=== PATIENT | female | born 1935 | race Caucasian/White ===

== ENCOUNTER 2017-02-18 03:39 | Inpatient (IN) ==
--- NOTE | 2017-02-18 04:22 | Emergency Department Note ---
Disposition Clinical Impression: Palpitations Atrial fibrillation Qualifiers: Atrial fibrillation type: paroxysmal Qualified Code(s): I48.0 - Paroxysmal atrial fibrillation Disposition: Admitted As Inpatient Condition: Fair Referrals: Carlos Newman MD [Primary Care Provider] - Forms: ED Satisfaction Letter Arrhythmia/Palpitations HPI - General Chief Complaint: ED Arrhythmia/Palpitations Stated Complaint: irregular heartbeat Time Seen by Provider: 02/18/17 04:15 Source: EMS Limitations: no limitations Nursing Notes Reviewed: Yes Vital Signs Reviewed: Yes - History of Present Illness HPI Narrative: 81-year-old female with history of atrial fibrillation since to the emergency department with a complaint that she awoke from sleep at 1 AM with some vague discomfort in her neck and throat and having palpitations. She states she could feel her heart racing and it felt irregular. Some mild shortness of breath. No diaphoresis. She is on Xarelto. Some mild dizziness. No syncope. Pt Subjective Complaint: palpitations, atrial fibrillation Time: 01:30 Duration: constant Severity: moderate Context: occurred during rest Arrhythmia History: atrial fibrillation Associated symptoms: Reports: chest pain, shortness of breath, nausea. Denies: syncope, near-syncope - Related Data Allergies Allergy/AdvReac Type Severity Reaction Status Date / Time prednisone AdvReac Palpitation Verified 02/18/17 03:42 s Zqwgzki-Vgf-Uag Reductase AdvReac Weakness Verified 02/18/17 03:42 Inhibitor [Statins] All systems ED: reviewed and negative except as stated. Constitutional: Denies: fever Cardiovascular: Reports: chest pain, palpitations. Denies: syncope Respiratory: Reports: dyspnea. Denies: cough, wheezes, hemoptysis Gastrointestinal: Reports: nausea. Denies: abdominal pain, vomiting, diarrhea Musculoskeletal: Denies: back pain, neck pain Past Medical History - Past Medical History Medical history: Reports: atrial fibrillation, hyperlipidemia, hypertension Psychiatric history: Reports: no psych history - Social History Smoking Status: Never smoker Smokeless Tobacco Status: No Alcohol use: Reports: none Drug use: Reports: none Physical Exam - General Limitations: no limitations General appearance: alert, in no apparent distress - Head Head exam: atraumatic, normocephalic, normal inspection - Eye Eye exam: Present: normal appearance, PERRL, EOMI. Absent: scleral icterus, conjunctival injection - ENT ENT exam: normal exam, normal oropharynx, mucous membranes moist, TM's normal bilaterally, normal external ear exam - Neck Neck exam: Present: normal inspection, full ROM, trachea midline. Absent: tenderness, meningismus, lymphadenopathy - Chest Chest inspection: Present: normal inspection, symmetric chest wall rise. Absent : tenderness - Respiratory Respiratory exam: Present: normal lung sounds bilaterally. Absent: respiratory distress, wheezes - Cardiovascular Cardiovascular exam: Present: tachycardia, irregular rhythm, normal heart sounds - Abdominal Exam Abdominal exam: Present: soft, Non-Tender, normal bowel sounds - Extremities Exam Extremities exam: Present: normal inspection, full ROM. Absent: tenderness, pedal edema - Back Exam Back exam: Present: normal inspection. Absent: CVA tenderness (R), CVA tenderness (L) - Neurological Exam Neurological exam: Present: alert, oriented X3. Absent: motor sensory deficit - Psychiatric Psychiatric exam: Present: normal affect, normal mood - Skin Skin exam: Present: warm, dry, intact, normal color. Absent: cyanosis, diaphoresis Course Course Narrative: 81-year-old female with history of atrial fib presents to the emergency department with atrial flutter with RVR. Some chest and neck discomfort. Patient received a Cardizem bolus and placed on a Cardizem drip. Troponin came back elevated at 0.07. - Consultations Consultation #1: The hospitalist, Dr. Aguilar, was consulted and accepted admission of the patient. Time: 06:10 Vital Signs Temperature 97.9 F 02/18/17 03:42 Pulse Rate 168 02/18/17 03:42 Respiratory Rate 18 02/18/17 03:42 Blood Pressure 128/111 02/18/17 03:42 O2 Sat by Pulse Oximetry 97 02/18/17 03:42 Temperature 97.9 F 02/18/17 03:42 Pulse Rate 120 02/18/17 05:28 Respiratory Rate 18 02/18/17 05:28 Blood Pressure 136/86 02/18/17 05:28 O2 Sat by Pulse Oximetry 94 02/18/17 05:28 Oxygen Delivery Oxygen Delivery Room Air Arrhythmia/Palpitations - Medical Records Medical records reviewed: Yes I reviewed the patient's medical records. - Lab Data Lab results reviewed: Yes I reviewed the patient's lab results. Result diagrams: 02/18/17 04:28 02/18/17 04:28 Lab Results 07/05/2802/18/17 02/18/17 Range/Units 04:28 04:28 04:28 WBC 5.4 (4.3-11.1) K/mcL RBC 3.16 L (3.82-4.97) M/mcL Hgb 10.2 L (11.5-15.4) g/dL Hct 30.9 L (35.3-44.9) % MCV 97.8 (83.0-100.0) fL MCH 32.3 (28.0-33.3) pg MCHC 33.0 (31.6-35.5) g/dL RDW 15.0 H (11.5-14.5) % Plt Count 217 (140-400) K/mcL MPV 10.5 (9.4-12.4) fL Immature Gran % 0.0 (0-4) % Seg Neutrophils % 34.4 % Lymphocytes % 48.6 % Monocytes % 15.8 % Eosinophils % 0.6 % Basophils % 0.6 % Neutrophils # 1.9 (1.6-8.9) K/mcL Lymphocytes # 2.6 (0.6-4.6) K/mcL Monocytes # 0.9 (0.0-1.3) K/mcL Eosinophils # 0.0 (0.0-0.6) K/mcL Basophils # 0.0 (0.0-0.2) K/mcL Sodium 140 (136-145) mEq/L Potassium 4.7 H (3.5-4.5) mEq/L Chloride 107 (98-109) mEq/L Carbon Dioxide 28 (19-29) mEq/L BUN 45 H (7-20) mg/dL Creatinine 1.06 (0.57-1.11) mg/dL Est GFR ( Amer) > 60 (> 60) Est GFR (Non-Af Amer) 50 L (> 60) BUN/Creatinine Ratio 42 H (6-26) Glucose 93 (70-99) mg/dL Calculated Osmolality 301 H (280-300) Calcium 10.1 (8.6-10.8) mg/dL Troponin I 0.07 H* (0-0.03) ng/mL - Radiology Data Radiology results reviewed: Yes I reviewed the patient's radiology results. Chest X-Ray 02/18/17 04:20 IMPRESSION: Large hiatal hernia. No acute cardiopulmonary disease identified. D/ / Stanislav Bruce MD / Stanislav Bruce MD Interpreting Provider: Stanislav Bruce MD - EKG Data EKG attestation: Yes I reviewed and interpreted this EKG. EKG results narrative: Atrial fibrillation with RVR, heart rate 150. Nonspecific ST and T wave abnormality. Critical Care Time Critical Care Time: Yes Total Critical Care Time: 45 Attestation: Critical care performed: Time is exclusive of separately billable procedures. Time includes: direct patient care, patient reassessment, coordination of patient care, interpretation of data (laboratory data, radiology data, and respiratory data), review of patient's medical records, medical consultation and documentation of patient care. Procedures included in critical care time: Procedures excluded from critical care time:
[2017-02-18 04:34] LABS: Basophils % 0.6 %; Eosinophils % 0.6 %; Hematocrit 30.9 % (35.3-44.9); Hemoglobin 10.2 g/dL (11.5-15.4); Lymphocytes # 2.6 K/mcL (0.6-4.6); Lymphocytes % 48.6 %; Mean Corpuscular Hemoglobin 32.3 pg (28.0-33.3); Mean Corpuscular Volume 97.8 fL (83.0-100.0); Mean Platelet Volume 10.5 fL (9.4-12.4); Monocytes # 0.9 K/mcL (0.0-1.3); Monocytes % 15.8 %; Neutrophils # 1.9 K/mcL (1.6-8.9); Platelet Count 217 K/mcL (140-400); Red Blood Count 3.16 M/mcL (3.82-4.97); Segmented Neutrophils % 34.4 %
[2017-02-18 04:47] LABS: BUN/Creatinine Ratio 42 (6-26); Blood Urea Nitrogen 45 mg/dL (7-20); Calcium 10.1 mg/dL (8.6-10.8); Carbon Dioxide 28 mEq/L (19-29); Chloride 107 mEq/L (98-109); Glucose 93 mg/dL (70-99); Osmolality,Calculated 301 (280-300); Potassium 4.7 mEq/L (3.5-4.5); Sodium 140 mEq/L (136-145); eGFR For African Americans > 60 (> 60); eGFR For Non-African Americans 50 (> 60)
[2017-02-18] MEDS ORDERED: Acetaminophen 325 MG TABLET PO PRN (07:22)
[2017-02-18] MEDS ORDERED: *HR* Morphine 2 MG/ML SYRINGE IVP PRN (07:22)
[2017-02-18] MEDS ORDERED: Naloxone 0.4 MG/ML INJ IVP PRN (07:22)
[2017-02-18] MEDS ORDERED: Ondansetron 4 MG/2 ML VIAL IVP PRN (07:22)
[2017-02-18 07:41] LABS: INR 1.8; Prothrombin Time 19.3 Seconds (9.4-12.1)
[2017-02-18 07:49] LABS: Magnesium 1.7 mg/dL (1.6-2.6)
--- NOTE | 2017-02-18 08:22 | Internal Med History&Physical ---
Date of Encounter: 02/18/17 Time of Encounter: 07:55 Assessment and Plan (1) Atrial fibrillation with rapid ventricular response Current visit: Yes Status: Acute Chronic atrial fibrillation - now with rapid ventricular response Continue IV Cardizem drip - to be titrated Anticoagulation with Xarelto Toprol-XL added today Troponin - 0.07, will trend EKG - A. fib with RVR Chest x-ray - no acute cardiopulmonary process Strict I's and O's, fluid restriction, daily weight Cardiac telemetry Echocardiogram done in October 2016 Continue home meds (2) Essential hypertension Current visit: Yes Status: Chronic Essential hypertension, controlled, continue home meds, monitor (3) Hyperlipidemia Current visit: Yes Status: Chronic Continue fenofibrate, patient has been intolerant to statins Qualifiers: Hyperlipidemia type: unspecified Qualified Code(s): E78.5 - Hyperlipidemia , unspecified (4) CHF (congestive heart failure) Current visit: Yes Status: Chronic Chronic diastolic CHF with LVEF 70-75% - no signs of acute exacerbation of this time Continue home meds Recent echocardiogram in October 2016 Mild concentric LVH, moderate to severe LV diastolic dysfunction Normal RV size and function, moderate to severely dilated left atrium Moderate pulmonary hypertension, no wall motion abnormalities Qualifiers: Congestive heart failure type: diastolic Congestive heart failure chronicity: chronic Qualified Code(s): I50.32 - Chronic diastolic (congestive ) heart failure (5) Myasthenia gravis Current visit: Yes Status: Chronic Continue Mestinon (6) GERD (gastroesophageal reflux disease) Current visit: Yes Status: Chronic History of GI bleed - continue pantoprazole Chest x-ray reveals large hiatal hernia Qualifiers: Esophagitis presence: without esophagitis Qualified Code(s): K21.9 - Gastro -esophageal reflux disease without esophagitis (7) DVT prophylaxis Current visit: Yes Status: Acute Continue anticoagulation with Xarelto Internal Medicine - H&P: HPI Chief complaint: Palpitations Admitted From: Emergency Dept Plans for Post Hospital Care: Home History of present illness: Ms. Castaneda is a 81 year old female with past medical history of hypertension, hyperlipidemia, chronic atrial fibrillation on anticoagulation, diastolic CHF, myasthenia gravis, gout and GERD. She presents to the ED with complaints of palpitations that started early this morning. On examination patient is awake and alert. Not in any distress. Lying comfortably in bed. She is able to provide a detailed history. Family members are at bedside. Patient states she woke up this morning at around 1 AM because of palpitations and felt that her heart was pounding. She also had associated shortness of breath and some neck and throat pain. States she felt her heart racing and also that it was irregular. States she has chronic atrial fibrillation and has not had similar episodes in a long time. Patient denies having chest pain. Denies having abdominal pain or vomiting or diarrhea with fever. No cough or dizziness or lightheadedness. No syncopal episode. Patient checked her heart rate at home and it was in the 150s. She then decided to come in to the ED. Patient states she was feeling her normal self last night when she went to bed. No aggravating or alleviating factors. No other associated symptoms. She says all her symptoms have now improved after coming to the ED. Initial evaluation in the ED revealed A. fib with RVR and slightly elevated troponin. Patient has been started on IV Cardizem drip. Patient does take Xarelto for anticoagulation. Chest x-ray is negative for any acute cardiopulmonary disease but did show a large hiatal hernia. Patient is being admitted for A. fib with RVR. Echocardiogram done in October 2016 revealed LVEF of 70-75% with moderate to severe LV diastolic dysfunction and moderate to severely dilated left atrium. Patient also mentions she had recent workup done a few months ago for TIA at [facility], and says everything came back normal. IV Cardizem drip will be titrated and anticoagulation will be continued. Patient and family members explained about her condition and plan of care. Understood and agreed. No unanswered questions. CODE STATUS full code. Past Med Surg Social Fam HX - Past Medical History Medical history: atrial fibrillation, CHF (Diastolic), GERD, hyperlipidemia, hypertension, TIA, other (Myasthenia gravis) Psychiatric history: no psych history - Past Surgical History Surgical History: cataract (Bilateral), knee replacement (Bilateral), other ( thymectomy) - Social History Smoking Status: Never smoker Smokeless Tobacco Status: No Alcohol use: none Drug use: none Internal Medicine - H&P: Meds Allopurinol [Zyloprim 100 MG] 100 mg PO DAILY 02/18/17 [History] Amlodipine Besylate [Amlodipine Besylate] 2.5 mg PO DAILY 02/18/17 [History] Cholecalciferol (Vitamin D3) [Vitamin D] 2,000 unit PO DAILY 02/18/17 [History] Docusate [Colace] 100 mg PO DAILY PRN 02/18/17 [History] Fenofibrate Nanocrystallized [Triglide] 160 mg PO DAILY 02/18/17 [History] Isosorbide MONOnitrate (24 HR) [Imdur] 60 mg PO DAILY 02/18/17 [History] Lisinopril [Zestril] 20 mg PO DAILY 02/18/17 [History] Multivit-Min/Iron/Folic/Lutein [Centrum Silver Women Tablet] 1 tab PO DAILY 05/28 [History] Pantoprazole Sodium 40 mg PO DAILY 02/18/17 [History] Polyethylene Glycol 3350 [MiraLAX bowel prep] 17 gm PO DAILY 02/18/17 [History] Pyridostigmine Br [Mestinon] 60 mg PO BID 02/18/17 [History] Rivaroxaban [Xarelto] 15 mg PO DAILY 02/18/17 [History] Allergies prednisone Adverse Reaction (Verified 02/18/17 03:42) Palpitations Iugoqvl-Zaw-Kun Reductase Inhibitor [Statins] Adverse Reaction (Verified 03:42) Weakness All Systems PM: A 10-system review of systems was performed and is negative for pertinent findings except as documented above in the HPI. - Constitutional Constitutional: no fatigue, no fever(s), no weakness - EENT Eyes: no blurry vision - Cardiovascular Cardiovascular ROS IM: dyspnea (Mild), palpitations, no chest pain, no diaphoresis, no dyspnea on exertion, no lightheadedness, no orthopnea, no syncope - Respiratory Respiratory: dyspnea (Mild), no cough, no hemoptysis, no dyspnea on exertion, no wheezing, no chest congestion, no pain with cough - Gastrointestinal Gastrointestinal: no abdominal pain, no bloating, no cramping, no melena, no nausea, no vomiting - Genitourinary Genitourinary: no dysuria - Musculoskeletal Musculoskeletal ROS IM: no arthralgias - Neurological Neurological ROS: no abnormal gait, no abnormal speech, no dizziness, no focal weakness, no numbness, no tingling, no weakness - Constitutional Vitals: Temp Pulse Resp BP Pulse Ox 97.9 F 120 18 147/100 94 02/18/17 03:42 02/18/17 05:28 02/18/17 07:07 02/18/17 07:07 02/18/17 05:28 General appearance: Present: A&O X 3, pleasant, no acute distress, underweight, answers questions appropriately - Head Head exam: Present: atraumatic - Eye Eye exam: Present: EOMI - Neck Neck exam general surgery: Present: supple - Respiratory Respiratory exam: Present: CTAB. Absent: rales, rhonchi, wheezes - Cardiovascular Cardiovascular exam: Present: irregular rhythm, +S1, +S2, systolic murmur, tachycardia. Absent: clicks, JVD - GI/Abdominal GI/Abdominal exam: Present: soft, no peritoneal signs. Absent: distended, firm , guarding, rigid, tenderness - Extremities Exam Extremities exam: Present: pedal edema (Bilateral lower leg 2+ pitting edema), radial pulses palpable and symetrical. Absent: cyanotic, tenderness - Neurological Exam Neurological exam: Present: alert, oriented X3, no focal deficits. Absent: facial droop, speech deficit Internal Med - H&P Results - Labs CBC & Chem 7: 02/18/17 04:28 02/18/17 04:28
[2017-02-18] MEDS: Pyridostigmine Br 60 MG TABLET PO SCH ×2 (08:25→20:09)
[2017-02-18] MEDS: Fenofibrate 54 MG TABLET PO SCH (08:25)
[2017-02-18] MEDS: Metoprolol XL (24 HR) Succ 25 MG TAB.ER.24H PO SCH (08:25)
[2017-02-18] MEDS: Multivit/Ca/Min/Fe/FA 1 TAB TABLET PO SCH (08:26)
[2017-02-18] MEDS: Cholecalciferol (D-3) 1,000 UNIT TABLET PO SCH (08:26)
[2017-02-18] MEDS: Isosorbide MONOnitrate (24 HR) 60 MG TAB.ER.24H PO SCH (08:26)
[2017-02-18] MEDS ORDERED: Lisinopril 20 MG TABLET PO SCH (09:00)
[2017-02-18] MEDS ORDERED: amLODIPine 5 MG TABLET PO SCH (09:00)
--- NOTE | 2017-02-18 12:31 | Electrocardiograph Report ---
[place] [id number] Test Date: 2017-02-18 Pat Name: Tori Castaneda Department: 102 Room: 2N1 Gender: F Battery Tester: López : 1935 Requested By: Kirill Dela Cruz Order Number: [id number] Reading MD: Eugene Chacko MD Measurements Intervals Hall Rate: 150 P: VT: 0 QRS: 42 QRSD: 91 T: 65 QT: 282 QTc: 367 Interpretive Statements ATRIAL FIBRILLATION WITH RAPID VENTRICULAR RESPONSE Electronically Signed On 02-18-2017 12:30:10 EDT by Eugene Chacko MD
--- NOTE | 2017-02-18 13:39 | Cardiology Consult Note ---
Date of Encounter: 02/18/17 Time of Encounter: 12:00 Assessment and Plan (1) PAF (paroxysmal atrial fibrillation) Current Visit: Yes Status: Acute Long-standing history of PAF on Xarelto (renal adjusted dose). ECG at Cardio office shows NSR. Amiodarone d/c'ed in Sep. due to worsening dyspnea and activity intolerance-- now resolved. Has been on Xarelto for the past 30 days without missed dose. Continue cardizem IV gtt for now, HR 100's upon exam. Toprol XL added. Will make NPO after MN for possible DCCV in AM. Will discuss and review with Dr. Chacko. (2) Elevated troponin Current Visit: Yes Status: Acute Mild, adynamic troponin elevation in the setting of afib with RVR. Chest pain free upon exam. No hx of CAD. Reports "normal" nuclear stress test at [place] nearly a month ago--will request records. TTE October 2016 shows preserved LVEF with normal wall motion. Continue medical therapy for afib. Discussion w patient/family: The assessment and plan as outlined above was discussed with the patient and/or family members who expressed understanding and agreement. All questions were answered. Thank you for involving us in the care of your patient. Please call with any questions. The patient will be discussed and reviewed with Dr. Chacko; changes to be made accordingly. History of Present Illness Consult date: 02/18/17 Requesting physician: Coy Cueto Consult reason: Afib with RVR Chief complaint: Palpitations History of present illness: Ms. Castaneda is a 81 year old female with past medical history of hypertension, hyperlipidemia, PAF on anticoagulation, diastolic CHF, myasthenia gravis, gout, GERD who presented to the ED with sudden onset of palpitations that started around 1AM. She took her blood pressure which read high, SBP 170s and HR was 135 ; she reports HR only continued to increase, up to 150 and then call 911. States initially diagnosed with PAF in the late s, amiodarone recently stopped due to worsening shortness of breath/activity intolerance that has since significantly improved. States underwent FLORENTINO/CV in [place] (recently moved to [place]) close to a year ago with complications including esophageal "scrape." Reports suspected TIA a few months ago, underwent extensive work-up (including head CT/brain MRI/nuclear stress) at [place] and states that TIA was ruled out --symptoms were 3 hour hx of left eye loss of vision. Reports temporal artery biopsy at that time which was also negative. Recent CV testing: TTE 10/11/16: LVEF 70-75%, mild cLVH, moderate to severe LVDD, moderately to severely dilated LA, mild MR/TR/AR, normal wall motion. Past Med Surg Social Fam HX - Past Medical History Attestation: Yes The following information was validated with the patient. Source: patient Medical history: atrial fibrillation, CHF (Diastolic), GERD, hyperlipidemia, hypertension, TIA (not confirmed), other (Myasthenia gravis) Psychiatric history: no psych history - Past Surgical History Surgical History: cataract (Bilateral), knee replacement (Bilateral), other ( thymectomy) - Social History Smoking Status: Never smoker Smokeless Tobacco Status: No Alcohol use: none Drug use: none Medications and Allergies Allopurinol [Zyloprim 100 MG] 100 mg PO DAILY 02/18/17 [History] Amlodipine Besylate [Amlodipine Besylate] 2.5 mg PO DAILY 02/18/17 [History] Cholecalciferol (Vitamin D3) [Vitamin D] 2,000 unit PO DAILY 02/18/17 [History] Docusate [Colace] 100 mg PO DAILY PRN 02/18/17 [History] Fenofibrate Nanocrystallized [Triglide] 160 mg PO DAILY 02/18/17 [History] Isosorbide MONOnitrate (24 HR) [Imdur] 60 mg PO DAILY 02/18/17 [History] Lisinopril [Zestril] 20 mg PO DAILY 02/18/17 [History] Multivit-Min/Iron/Folic/Lutein [Centrum Silver Women Tablet] 1 tab PO DAILY 05/28 [History] Pantoprazole Sodium 40 mg PO DAILY 02/18/17 [History] Polyethylene Glycol 3350 [MiraLAX bowel prep] 17 gm PO DAILY 02/18/17 [History] Pyridostigmine Br [Mestinon] 60 mg PO BID 02/18/17 [History] Rivaroxaban [Xarelto] 15 mg PO DAILY 02/18/17 [History] Allergies prednisone Adverse Reaction (Verified 02/18/17 03:42) Palpitations Wdpzacn-Ohk-Cnn Reductase Inhibitor [Statins] Adverse Reaction (Verified 03:42) Weakness All Systems Review: A 10-system review of systems was performed and is negative for pertinent findings except as documented above in the HPI. - Cardiovascular Cardiovascular: as per HPI Physical Examination Vital Signs, Last 4 Hours Temp Pulse Resp BP Pulse Ox 02/18/17 10:46 98.4 F 90 16 114/57 97 General: Conversant, No Apparent Distress HEENT: Atraumatic, Normocephaly, Mucus Membranes Moist Cardiac: Other (irregulary irregular) Lungs: Normal Breath Sounds Neuro: Alert and responsive Abdomen: Soft Skin: No rashes noted on visualized skin Musculoskeletal: No Chest Wall Tenderness Extremities: Other (pre-tibial edema) Results 02/18/17 04:28 02/18/17 04:28 Lab Results 02/18/17 10:07 Troponin I 0.10 H* Active Medications Acetaminophen (Tylenol) 650 mg PO Q6HR PRN PRN Reason: Mild Pain (1-3) Stop: 08/20/17 07:23 Allopurinol (Zyloprim) 100 mg PO DAILY [facility] Stop: 08/20/17 09:01 Last Admin: 02/18/17 08:26 Dose: 100 mg Docusate Sodium (Colace) 100 mg PO DAILY PRN; Protocol PRN Reason: Constipation Stop: 08/20/17 07:22 Fenofibrate (Tricor) 162 mg PO DAILY [facility] Stop: 08/20/17 09:01 Last Admin: 02/18/17 08:25 Dose: 162 mg Diltiazem HCl 125 mg/ Dextrose 125 mls @ 5 mls/hr IVC .Q24H [facility] PRN Reason: 5 MG/HR Stop: 08/20/17 04:31 Last Infusion: 02/18/17 06:01 Dose: 10 mg/hr, 10 mls/hr Isosorbide Mononitrate (Imdur) 60 mg PO DAILY [facility] Stop: 08/20/17 09:01 Last Admin: 02/18/17 08:26 Dose: 60 mg Metoprolol Succinate (Toprol Xl) 25 mg PO DAILY [facility] Stop: 08/20/17 09:01 Last Admin: 02/18/17 08:25 Dose: 25 mg Morphine Sulfate (Morphine Sulfate) 2 mg IVP Q4HR PRN PRN Reason: Severe Pain (7-10) Stop: 08/20/17 07:23 Multivitamins/Calcium (Thera M Plus) 1 tab PO DAILY [facility] Stop: 08/20/17 09:01 Last Admin: 02/18/17 08:26 Dose: 1 tab Naloxone HCl (Narcan) 0.4 mg IVP Q2MIN PRN PRN Reason: Opioid Reversal Stop: 08/20/17 07:23 Omeprazole (Prilosec) 20 mg PO DAILY [facility] Stop: 08/20/17 09:01 Last Admin: 02/18/17 08:26 Dose: 20 mg Ondansetron HCl (Zofran) 4 mg IVP Q8HR PRN PRN Reason: Nausea And Vomiting Stop: 08/20/17 07:23 Polyethylene Glycol (Miralax) 17 gm PO DAILY [facility] Stop: 08/20/17 09:01 Last Admin: 02/18/17 08:25 Dose: 17 gm Pyridostigmine [place] (Mestinon) 60 mg PO BID [facility] Stop: 08/20/17 09:01 Last Admin: 02/18/17 08:25 Dose: 60 mg Rivaroxaban (Xarelto) 15 mg PO 1700 [facility] Stop: 08/20/17 17:01 Vitamin D (Vitamin D) 1,000 unit PO DAILY [facility] Stop: 08/20/17 09:01 Last Admin: 02/18/17 08:26 Dose: 1,000 unit - Imaging and Cardiology Echo: report reviewed Other Results: 12 hour tele: avg SR=233 afib. - EKG Interpretation EKG results cardiology: personally reviewed Consult Discharge Plan - Plan Referrals: Carlos Newman MD [Primary Care Provider] -
[2017-02-18 14:31] LABS: Bilirubin,Urine Negative (Negative); Blood,Urine Negative (Negative); Clarity,Urine Clear (Clear); Color,Urine Yellow (Yellow); Glucose,Urine (UA) Normal (Normal); Ketones,Urine Negative (Negative); Leukocyte Esterase,Urine Negative (Negative); Nitrite,Urine Negative (Negative); Protein,Urine Negative (Neg-Trace); Specific Gravity,Urine 1.019 (1.010-1.025); Urobilinogen,Urine Normal (Normal)
[2017-02-18] MEDS ORDERED: *HR* Rivaroxaban 15 MG TABLET PO SCH (17:00)
[2017-02-19 05:49] LABS: BUN/Creatinine Ratio 43 (6-26); Blood Urea Nitrogen 43 mg/dL (7-20); Calcium 9.5 mg/dL (8.6-10.8); Carbon Dioxide 26 mEq/L (19-29); Chloride 110 mEq/L (98-109); Glucose 82 mg/dL (70-99); Osmolality,Calculated 300 (280-300); Potassium 4.3 mEq/L (3.5-4.5); Sodium 140 mEq/L (136-145); eGFR For African Americans > 60 (> 60); eGFR For Non-African Americans 54 (> 60)
[2017-02-19 05:55] LABS: Basophils % 0.8 %; Eosinophils % 0.4 %; Hematocrit 27.7 % (35.3-44.9); Hemoglobin 9.4 g/dL (11.5-15.4); Immature Granulocytes % 0.2 % (0-4); Lymphocytes # 2.6 K/mcL (0.6-4.6); Lymphocytes % 53.6 %; Mean Corpuscular HGB Conc 33.9 g/dL (31.6-35.5); Mean Corpuscular Hemoglobin 33.6 pg (28.0-33.3); Mean Corpuscular Volume 98.9 fL (83.0-100.0); Mean Platelet Volume 11.5 fL (9.4-12.4); Monocytes # 0.7 K/mcL (0.0-1.3); Monocytes % 15.1 %; Neutrophils # 1.5 K/mcL (1.6-8.9); Platelet Count 203 K/mcL (140-400); Red Cell Distribution Width 15.1 % (11.5-14.5); Segmented Neutrophils % 29.9 %
[2017-02-19] MEDS ORDERED: *HR* Midazolam HCl 5 MG/5 ML VIAL IVP ONE (08:11)
[2017-02-19] MEDS ORDERED: *HR* FentaNYL (PF) 100 MCG/2 ML VIAL IVP ONE (08:12)
[2017-02-19] MEDS ORDERED: *HR* FentaNYL (PF) 100 MCG/2 ML VIAL ONE (08:14)
[2017-02-19] MEDS ORDERED: 0.9 % Sodium Chloride 1,000 ML ONE (08:15)
[2017-02-19] MEDS ORDERED: *HR* Midazolam HCl 2 MG/2 ML VIAL ONE ×2 (08:17→08:37)
--- NOTE | 2017-02-19 09:07 | Pre-Sedation Evaluation ---
Pre-sedation evaluation - Pre-sedation checklist Date of procedure: 02/19/17 Procedure: [facility] Recent Vitals: Last Vital Signs Temp 98.9 F 02/19/17 03:27 Pulse 95 02/19/17 03:27 Resp 16 02/19/17 03:27 BP 134/63 02/19/17 03:27 Pulse Ox 95 02/19/17 00:05 H&P (including ROS) documented in medical record: Yes Previous reaction to sedatives/anesthetics: No Dietary Status: NPO after Midnight Airway Assessment: Patient can open mouth completely, TMJ function normal ASA Classification *see protocol: CLASS II-Mild systemic disease Plan of Care: Pt appropriate candidate for procedure/moderate/conscious sedation , Risks/benefits of procedure/sedation discussed w/ patient/family
[2017-02-19] MEDS: Fenofibrate 54 MG TABLET PO SCH (10:58)
[2017-02-19] MEDS: Isosorbide MONOnitrate (24 HR) 60 MG TAB.ER.24H PO SCH (10:58)
[2017-02-19] MEDS: Pyridostigmine Br 60 MG TABLET PO SCH (10:58)
[2017-02-19] MEDS: Metoprolol XL (24 HR) Succ 25 MG TAB.ER.24H PO SCH (10:58)
[2017-02-19] MEDS: Multivit/Ca/Min/Fe/FA 1 TAB TABLET PO SCH (11:00)
[2017-02-19] MEDS: Cholecalciferol (D-3) 1,000 UNIT TABLET PO SCH (11:00)
[2017-02-19 11:27] VITALS: BP 137/57
--- NOTE | 2017-02-19 11:50 | Discharge Summary ---
Date of Encounter: 02/19/17 Time of Encounter: 11:47 - Discharge Diagnosis (1) Atrial fibrillation Priority: Primary Status: Chronic Qualifiers: Atrial fibrillation type: paroxysmal Qualified Code(s): I48.0 - Paroxysmal atrial fibrillation (2) CHF (congestive heart failure) Priority: Secondary Status: Chronic Qualifiers: Congestive heart failure type: diastolic Congestive heart failure chronicity: chronic Qualified Code(s): I50.32 - Chronic diastolic (congestive ) heart failure (3) Essential hypertension Priority: Secondary Status: Chronic (4) GERD (gastroesophageal reflux disease) Priority: Secondary Status: Chronic Qualifiers: Esophagitis presence: without esophagitis Qualified Code(s): K21.9 - Gastro -esophageal reflux disease without esophagitis (5) Myasthenia gravis Priority: Secondary Status: Chronic - Discharge Medications Prescriptions: Metoprolol XL (24 HR) Succ [Toprol Xl] 25 mg PO DAILY #30 tab.er.24h Home Medications: Allopurinol [Zyloprim 100 MG] 100 mg PO DAILY 02/18/17 [History] Amlodipine Besylate 2.5 mg PO DAILY 02/18/17 [History] Cholecalciferol (Vitamin D3) [Vitamin D3] 2,000 unit PO DAILY 02/18/17 [History] Docusate [Colace] 100 mg PO DAILY PRN 02/18/17 [History] Fenofibrate Nanocrystallized [Triglide] 160 mg PO DAILY 02/18/17 [History] Isosorbide MONOnitrate (24 HR) [Imdur] 60 mg PO DAILY 02/18/17 [History] Lisinopril [Zestril] 20 mg PO DAILY 02/18/17 [History] Multivit-Min/Iron/Folic/Lutein [Centrum Silver Women Tablet] 1 tab PO DAILY 05/28 [History] Pantoprazole Sodium 40 mg PO DAILY 02/18/17 [History] Polyethylene Glycol 3350 [MiraLAX bowel prep] 17 gm PO DAILY 02/18/17 [History] Pyridostigmine Br [Mestinon] 60 mg PO BID 02/18/17 [History] Rivaroxaban [Xarelto] 15 mg PO DAILY 02/18/17 [History] Metoprolol XL (24 HR) Succ [Toprol Xl] 25 mg PO DAILY #30 tab.er.24h 02/19/17 [ Rx] Allergies/Adverse Reactions: Allergies prednisone Adverse Reaction (Verified 02/18/17 03:42) Palpitations Uccsjhm-Kfh-Nzx Reductase Inhibitor [Statins] Adverse Reaction (Verified 03:42) Weakness Procedures/tests Complete & Pending: Procedures Performed prior 72 hours Category Date Time Status EV cardioversion Routine Y 02/19/17 09:05 Completed Date of admission: 02/18/17 08:42 Primary care physician: Carlos Newman MD Consults: Cardiology Discharging clinician: Everardo Perry Anticipated date of discharge: 02/19/17 - Patient Status Disposition: Home Health Service Condition: Fair Functional capacity at discharge: uses cane/walker Overall status at discharge: patient is progressing back to baseline - Discharge Instructions Follow Up With: Carlos Newman MD [Primary Care Provider] - (1 week) Eugene Chacko MD [Partnered Physician] - (1-2 weeks) - Diet and Activity Activity: as per physical therapy, increase activity as tolerated Diet: low fat, low cholesterol, low salt diet Hospital course: Ms. Castaneda is a 81 year old female with a history of hypertension, chronic paroxysmal atrial ablation on anticoagulation who presented to the emergency room due to complaints of palpitations that started early yesterday morning. Patient was found to have atrial flutter ablation with rapid ventricular response. She was started on intravenous Cardizem drip and cardiology was consulted. The patient already takes anticoagulation for the same. It was decided that the patient would undergo cardioversion by cardiology. The patient had direct current cardioversion on 02/19/2017 with reversion to sinus rhythm. Patient was started on Toprol-XL 25 mg by mouth daily. Patient has been cleared by cardiology to be discharged home with outpatient follow-up. On the day of discharge, the patient reports feeling well and reports that her palpitations are resolved and denies any chest pain. Hence, she has been deemed stable to be discharged home with home health. - Time Spent with Patient Total time spent providing and/or coordinating discharge services: Greater than 30 minutes (35) - Constitutional Vitals: Temp Pulse Resp BP Pulse Ox 97.6 F 56 18 137/57 99 02/19/17 11:25 02/19/17 11:25 02/19/17 11:25 02/19/17 11:25 02/19/17 11:25 General appearance: Present: A&O X 3, pleasant, no acute distress, underweight, answers questions appropriately Exam: Gen.: Lying in bed. No acute distress. Chest: Clear to auscultation bilaterally. No adventitious sounds present. CVS: First and second heart sounds present. No murmurs, rubs or gallops. 2+ bilateral pitting pedal edema.
--- NOTE | 2017-02-19 12:00 | Physician Discharge Referral ---
Home Health/Hosp Referral Info Transfer to: Home Health Attending Provider: Dr. Everardo Perry Provider in Charge Post Discharge: PCP - Diagnosis (1) Atrial fibrillation Priority: Primary Status: Chronic (2) CHF (congestive heart failure) Priority: Secondary Status: Chronic (3) Essential hypertension Priority: Secondary Status: Chronic (4) GERD (gastroesophageal reflux disease) Priority: Secondary Status: Chronic (5) Myasthenia gravis Priority: Secondary Status: Chronic - Respiratory Orders Smoking Cessation: Smoking cessation has been advised. For more information, call the [place] Tobacco Quit Line at 2-073-CXSK-NOW. - Diet/Nutrition Diet/Nutrition Orders: No Added Salt (JOSÉ MIGUEL), Cardiac - Activity Activity Orders: Up ad loy, Chair, Walker - Services Needed Following services are medically necessary services: Home Health Aide, Physical Therapy, Occupational Therapy - Transfer Medications Prescriptions: Metoprolol XL (24 HR) Succ [Toprol Xl] 25 mg PO DAILY #30 tab.er.24h Home Medications: Allopurinol [Zyloprim 100 MG] 100 mg PO DAILY 02/18/17 [History] Amlodipine Besylate 2.5 mg PO DAILY 02/18/17 [History] Cholecalciferol (Vitamin D3) [Vitamin D3] 2,000 unit PO DAILY 02/18/17 [History] Docusate [Colace] 100 mg PO DAILY PRN 02/18/17 [History] Fenofibrate Nanocrystallized [Triglide] 160 mg PO DAILY 02/18/17 [History] Isosorbide MONOnitrate (24 HR) [Imdur] 60 mg PO DAILY 02/18/17 [History] Lisinopril [Zestril] 20 mg PO DAILY 02/18/17 [History] Multivit-Min/Iron/Folic/Lutein [Centrum Silver Women Tablet] 1 tab PO DAILY 05/28 [History] Pantoprazole Sodium 40 mg PO DAILY 02/18/17 [History] Polyethylene Glycol 3350 [MiraLAX bowel prep] 17 gm PO DAILY 02/18/17 [History] Pyridostigmine Br [Mestinon] 60 mg PO BID 02/18/17 [History] Rivaroxaban [Xarelto] 15 mg PO DAILY 02/18/17 [History] Metoprolol XL (24 HR) Succ [Toprol Xl] 25 mg PO DAILY #30 tab.er.24h 02/19/17 [ Rx] Allergies/Adverse Reactions: Allergies prednisone Adverse Reaction (Verified 02/18/17 03:42) Palpitations Xudmksv-Iwh-Xhv Reductase Inhibitor [Statins] Adverse Reaction (Verified 03:42) Weakness Certification: Further, I certify that my clinical findings support that this patient is homebound (i.e. absences from home require considerable and taxing effort and are for medical reasons or [employer] services or infrequently or short duration when for other reasons) because: Homebound Reason: Patient requires assistance of a person or device to safely leave home, Leaving home requires considerable and taxing effort due to condition Attestation: My signature below is to certify that this patient is under my care and that I, or nurse practitioner, or a physician's medical research assistant working with me, has a face-to -face encounter with this patient.
--- NOTE | 2017-02-19 14:25 | Event Note ---
Date of Encounter: 02/19/17 Time of Encounter: 14:30 - Cardiology Event Note Successful DCCV with 150J x 1. Continue BB and followup in clinic.
--- NOTE | 2017-02-20 08:38 | Procedure Note ---
Date of procedure: 02/20/17 Pre-op diagnosis: Atrial fibrillation Post-op diagnosis: same Procedure: Cardioversion Anesthesia: IV sedation Surgeon: Eugene Chacko Estimated blood loss (cc): 0 IV fluids (cc): 100 Urine output (cc): 0 Pathology: none sent Condition: stable Disposition: no change (Successful cardioversion with 150J and IV versed/ fentanyl. No complications.)
--- NOTE | 2017-02-20 11:27 | Electrocardiograph Report ---
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
== END 2017-02-19 17:44 | disposition home health service (06) | DRG 309 ==
LOC: 2NENU 03:39 → EMEROO 03:39 → 2NENU 07:13 → SUATTDRO 08:42
PROVIDERS: ADMIT Internal Medicine Endocrinology, Diabetes & Metabolism; ATTEND Internal Medicine Sleep Medicine

== ENCOUNTER 2017-03-05 09:44 | Inpatient (IN) ==
--- NOTE | 2017-03-05 10:06 | Emergency Department Note ---
Disposition Clinical Impression: Atrial fibrillation with rapid ventricular response Dyspnea Qualifiers: Dyspnea type: unspecified Qualified Code(s): R06.00 - Dyspnea, unspecified Disposition: Admitted As Inpatient Condition: Fair Time of Disposition: 07:21 SOB HPI - General Chief Complaint: ED Shortness of Breath/Dyspnea Stated Complaint: SOB Spells Time Seen by Provider: 03/05/17 09:51 Source: patient, family Limitations: no limitations Nursing Notes Reviewed: Yes Vital Signs Reviewed: Yes - History of Present Illness She complains of intermittent spells of dyspnea that started approximately 1 hour after she takes her metoprolol. This medication was recently prescribed for atrial fibrillation with RVR. Her Norvasc was discontinued. She notes increased fatigue. She states she takes the metoprolol one hour before bedtime. No chest pain. She does admit to some peripheral edema which she states is intermittently chronic Pt Subjective Complaint: shortness of breath Onset (ago): day(s) Context: other Severity: moderate Consistency/Duration: intermittent Improves with: nothing Worsens with: medication Known history of: congestive heart failure, other (atrial fibrillation) Associated symptoms: Reports: other Treatment prior to arrival: none Cough present: No - Related Data Home oxygen amount: none Home Medications Medication Instructions Recorded Confirmed Allopurinol [Zyloprim 100 MG] 100 mg PO DAILY 02/18/17 03/05/17 Amlodipine Besylate 2.5 mg PO DAILY 02/18/17 03/05/17 Cholecalciferol (Vitamin D3) 2,000 unit PO DAILY 02/18/17 03/05/17 [Vitamin D3] Docusate [Colace] 100 mg PO DAILY PRN 02/18/17 03/05/17 Fenofibrate Nanocrystallized 160 mg PO DAILY 02/18/17 03/05/17 [Triglide] Isosorbide MONOnitrate (24 HR) 60 mg PO DAILY 02/18/17 03/05/17 [Imdur] Lisinopril [Zestril] 20 mg PO DAILY 02/18/17 03/05/17 Multivit-Min/Iron/Folic/Lutein 1 tab PO DAILY 02/18/17 03/05/17 [Centrum Silver Women Tablet] Pantoprazole Sodium 40 mg PO DAILY 02/18/17 03/05/17 Polyethylene Glycol 3350 [MiraLAX 17 gm PO DAILY 02/18/17 03/05/17 bowel prep] Pyridostigmine Br [Mestinon] 60 mg PO BID 02/18/17 03/05/17 Rivaroxaban [Xarelto] 15 mg PO DAILY 02/18/17 03/05/17 Previous Rx's Medication Instructions Recorded Metoprolol XL (24 HR) Succ [Toprol 25 mg PO DAILY #30 tab.er.24h 02/19/17 Xl] Allergies Allergy/AdvReac Type Severity Reaction Status Date / Time prednisone AdvReac Palpitation Verified 02/18/17 03:42 s Btxrkdp-Piq-Kza Reductase AdvReac Weakness Verified 02/18/17 03:42 Inhibitor [Statins] All systems ED: reviewed and negative except as stated. Review of Systems: As Per HPI Constitutional: Reports: weakness Eyes: Reports: as per HPI ENT ED: Reports: as per HPI Cardiovascular: Reports: palpitations Respiratory: Reports: dyspnea Gastrointestinal: Reports: as per HPI Genitourinary: Reports: as per HPI Musculoskeletal: Reports: as per HPI Integumentary: Reports: as per HPI Neurological: Reports: weakness Psychiatric: Reports: as per HPI Endocrine: Reports: fatigue Hematological/Lymphatic: Reports: as per HPI Allergic/Immunologic: Reports: as per HPI Past Medical History - Past Medical History Source: patient Medical history: Reports: atrial fibrillation, CHF, GERD, hyperlipidemia, hypertension, other Surgical history: Reports: cataract, knee replacement, other Psychiatric history: Reports: anxiety - Social History Smoking Status: Never smoker Smokeless Tobacco Status: No Alcohol use: Reports: none Drug use: Reports: none Physical Exam - General Limitations: no limitations General appearance: alert - Head Head exam: atraumatic - Eye Eye exam: Present: normal appearance - ENT ENT exam: normal exam - Neck Neck exam: Present: normal inspection, full ROM - Chest Chest inspection: Present: normal inspection, symmetric chest wall rise - Respiratory Respiratory exam: Present: normal lung sounds bilaterally - Cardiovascular Cardiovascular exam: Present: tachycardia, irregular rhythm - Rectal Exam Rectal exam: Present: deferred - Extremities Exam Extremities exam: Present: pedal edema - Back Exam Back exam: Present: normal inspection - Neurological Exam Neurological exam: Present: alert, oriented X3, CN II-XII intact - Skin Skin exam: Present: warm, dry, intact, pallor Course Course Narrative: Patient presents with intermittent dyspnea since starting metoprolol for atrial fibrillation with RVR. EKG rhythm is atrial fibrillation with rapid ventricular response. Patient appears in no acute distress. Workup initiated. Vital Signs Temperature 97.6 F 03/05/17 09:51 Pulse Rate 128 03/05/17 09:51 Respiratory Rate 18 03/05/17 09:51 Blood Pressure 136/116 03/05/17 09:51 O2 Sat by Pulse Oximetry 99 03/05/17 09:51 Temperature 98.3 F 03/06/17 05:13 Pulse Rate 111 03/06/17 05:13 Respiratory Rate 18 03/06/17 05:13 Blood Pressure 84/58 03/06/17 05:13 O2 Sat by Pulse Oximetry 93 03/06/17 05:13 Oxygen Delivery Oxygen Delivery Room Air Shortness of Breath/Dyspnea - Medical Records Medical records reviewed: Yes I reviewed the patient's medical records. - Lab Data Lab results reviewed: Yes I reviewed the patient's lab results. Result diagrams: 03/06/17 05:20 03/06/17 05:20 Lab Results 03/05/17 03/05/17 03/05/17 Range/Units 10:08 10:08 10:08 WBC 6.3 (4.3-11.1) K/mcL RBC 3.29 L (3.82-4.97) M/mcL Hgb 10.5 L (11.5-15.4) g/dL Hct 32.1 L (35.3-44.9) % MCV 97.6 (83.0-100.0) fL MCH 31.9 (28.0-33.3) pg MCHC 32.7 (31.6-35.5) g/dL RDW 14.9 H (11.5-14.5) % Plt Count 224 (140-400) K/mcL MPV 10.7 (9.4-12.4) fL Immature Gran % 0.3 (0-4) % Seg Neutrophils % 39.0 % Lymphocytes % 49.2 % Monocytes % 11.2 % Eosinophils % 0.0 % Basophils % 0.3 % Neutrophils # 2.4 (1.6-8.9) K/mcL Lymphocytes # 3.1 (0.6-4.6) K/mcL Monocytes # 0.7 (0.0-1.3) K/mcL Eosinophils # 0.0 (0.0-0.6) K/mcL Basophils # 0.0 (0.0-0.2) K/mcL PT 15.6 H (9.4-12.1) Seconds INR 1.4 Sodium 140 (136-145) mEq/L Potassium 4.6 H (3.5-4.5) mEq/L Chloride 105 (98-109) mEq/L Carbon Dioxide 30 H (19-29) mEq/L BUN 40 H (7-20) mg/dL Creatinine 1.14 H (0.57-1.11) mg/dL Est GFR ( Amer) 55 L (> 60) Est GFR (Non-Af Amer) 46 L (> 60) BUN/Creatinine Ratio 35 H (6-26) Glucose 85 (70-99) mg/dL Calculated Osmolality 299 (280-300) Calcium 10.3 (8.6-10.8) mg/dL Total Bilirubin 0.6 (0.2-1.2) mg/dL AST 44 H (5-34) Units/L ALT 24 (0-55) Units/L Alkaline Phosphatase 61 (38-126) Units/L Troponin I (0-0.03) ng/mL B-Natriuretic Peptide (0-100) pg/mL Serum Total Protein 6.8 (6.0-8.3) g/dL Albumin 3.4 L (3.5-5.0) g/dL Globulin 3.4 (2.4-3.5) g/dL Albumin/Globulin Ratio 1.0 L (1.1-2.2) 03/05/17 03/05/17 Range/Units 10:08 10:08 WBC (4.3-11.1) K/mcL RBC (3.82-4.97) M/mcL Hgb (11.5-15.4) g/dL Hct (35.3-44.9) % MCV (83.0-100.0) fL MCH (28.0-33.3) pg MCHC (31.6-35.5) g/dL RDW (11.5-14.5) % Plt Count (140-400) K/mcL MPV (9.4-12.4) fL Immature Gran % (0-4) % Seg Neutrophils % % Lymphocytes % % Monocytes % % Eosinophils % % Basophils % % Neutrophils # (1.6-8.9) K/mcL Lymphocytes # (0.6-4.6) K/mcL Monocytes # (0.0-1.3) K/mcL Eosinophils # (0.0-0.6) K/mcL Basophils # (0.0-0.2) K/mcL PT (9.4-12.1) Seconds INR Sodium (136-145) mEq/L Potassium (3.5-4.5) mEq/L Chloride (98-109) mEq/L Carbon Dioxide (19-29) mEq/L BUN (7-20) mg/dL Creatinine (0.57-1.11) mg/dL Est GFR ( Amer) (> 60) Est GFR (Non-Af Amer) (> 60) BUN/Creatinine Ratio (6-26) Glucose (70-99) mg/dL Calculated Osmolality (280-300) Calcium (8.6-10.8) mg/dL Total Bilirubin (0.2-1.2) mg/dL AST (5-34) Units/L ALT (0-55) Units/L Alkaline Phosphatase (38-126) Units/L Troponin I 0.04 H* (0-0.03) ng/mL B-Natriuretic Peptide 1732 H (0-100) pg/mL Serum Total Protein (6.0-8.3) g/dL Albumin (3.5-5.0) g/dL Globulin (2.4-3.5) g/dL Albumin/Globulin Ratio (1.1-2.2) - Radiology Data Radiology results reviewed: Yes I reviewed the patient's radiology results. - EKG Data EKG attestation: Yes I reviewed and interpreted this EKG. EKG results narrative: Irregularly irregular rhythm 125 bpm QRS 93 QT/QTC 295/369. Study compared to previous dated 02/19/17 Critical Care Time Critical Care Time: Yes Total Critical Care Time: 30 Attestation: Patient presented with atrial fibrillation with RVR requiring IV Cardizem drip for rate control and admission
[2017-03-05 10:20] LABS: Basophils % 0.3 %; Hematocrit 32.1 % (35.3-44.9); Hemoglobin 10.5 g/dL (11.5-15.4); Immature Granulocytes % 0.3 % (0-4); Lymphocytes # 3.1 K/mcL (0.6-4.6); Lymphocytes % 49.2 %; Mean Corpuscular HGB Conc 32.7 g/dL (31.6-35.5); Mean Corpuscular Hemoglobin 31.9 pg (28.0-33.3); Mean Corpuscular Volume 97.6 fL (83.0-100.0); Mean Platelet Volume 10.7 fL (9.4-12.4); Monocytes # 0.7 K/mcL (0.0-1.3); Monocytes % 11.2 %; Neutrophils # 2.4 K/mcL (1.6-8.9); Platelet Count 224 K/mcL (140-400); Red Blood Count 3.29 M/mcL (3.82-4.97); Red Cell Distribution Width 14.9 % (11.5-14.5)
[2017-03-05 10:22] LABS: INR 1.4; Prothrombin Time 15.6 Seconds (9.4-12.1)
[2017-03-05 10:31] LABS: Albumin 3.4 g/dL (3.5-5.0); Bilirubin,Total 0.6 mg/dL (0.2-1.2); Calcium 10.3 mg/dL (8.6-10.8); Globulin 3.4 g/dL (2.4-3.5); Potassium 4.6 mEq/L (3.5-4.5); Total Protein 6.8 g/dL (6.0-8.3)
--- NOTE | 2017-03-05 11:36 | Event Note ---
Date of Encounter: 03/05/17 Time of Encounter: 11:33 1. Atrial fibrillation with rapid ventricular response, history of ablation started recently on metoprolol (used to be on amiodarone up until September) possible 2ry to mild acute diastolic CHF exacerbation Feeling short of breath with metoprolol, rarely it can cause bronchospasm as it is a very specific beta amber May start Cardizem drip if not improving. Call cardiology consult, continue Xarelto 2. Diastolic CHF, possible mild acute exacerbation Has history of chronic bilateral lower extremity edema start lasix 3. Chronically elevated troponins, likely secondary to demand ischemia troponin 0.04 4. Hypertension, stable 5. History of myasthenia gravis Continue Mestinon Omeprazole for GI prophylaxis and Xarelto for DVT prophylaxis. The patient will be admitted for observation. Full code. Time spent on this admission 40 minutes. Note to be dictated by nurse practitioner Karlie Quezada
[2017-03-05] MEDS ORDERED: Naloxone 0.4 MG/ML INJ IVP PRN (11:40)
[2017-03-05] MEDS ORDERED: Lisinopril 20 MG TABLET PO SCH (11:45)
[2017-03-05] MEDS ORDERED: amLODIPine 5 MG TABLET PO SCH (11:45)
--- NOTE | 2017-03-05 11:59 | Internal Med History&Physical ---
Date of Encounter: 03/05/17 Time of Encounter: 11:00 Assessment and Plan (1) Atrial fibrillation with rapid ventricular response Current visit: Yes Status: Acute 1 patient presented with complaints of SOB- was noted to be in afib RVR with rate of 120-140. was recently cardioverted approx 3 weeks ago to SR and placed on metoprolol. Has been compliant with medications- however feels as if metoprolol is making her SOB 2 continue with xarelto - no s/sx of bleeding - Hgb stable at this time- we will monitor 3 continue with cardizem drip- hold metoprolol for now 4 consult cardiology - did speak with Dr Mendoza 5 continuos cardiac monitoring (2) Acute on chronic diastolic CHF (congestive heart failure) Current visit: Yes Status: Acute 1 Has been experiencing increasing SOB as well as lower extremity swelling- Has hx of diastolic failure - EF 70-75% BNP 1732, was 455 prior. She is not on any diuretics. We will start on lasix BID 2 monitor I/O daily weights 3 low Na diet (3) Elevated troponin Current visit: No Status: Acute 1 suspect this chronic has hx of CKD- it appears to always be elevated. Will continue to trend (4) Myasthenia gravis Current visit: No Status: Chronic 1 stable - continue with home meds-Mestonin (5) DVT prophylaxis Current visit: No Status: Acute on Xarelto Internal Medicine - H&P: HPI Chief complaint: SOB Admitted From: Emergency Dept Plans for Post Hospital Care: Home History of present illness: Ms. Castaneda is a 81 year old female PMH of HTN PAF HLD CKD3 CHF GI bleed myasthania Gravis. The patient was admitted approx 3 weeks ago for Afib RVR. At that time she was succesfully cardioverted to SR and placed on metoprolol. She was discharged home and after discharged the patient began to experience SOB mostly on exertion. Over the past few days she has noted increasing SOB which she states is after she takes her metoprolol. She has also noted increasing swelling to ler lower extremities bilat . She has been compliant with her medications. She denies any fever chills N/V/D, unusual weight gain/ loss , cough, abd or chest pain. This am she awoke and was very SOB, she felt as if she was smothering. She presented to the ED for evaluation. According to ED records EKG did reveal afib with a rate of 125. She was given IV push of cardizem which did slow her rate, cardizem drip was ordered. CXR revealed cardiomegaly. Lab work had an elevated troponin which appears to be chronic as well as elevated BNP at 1732. Rest of lab work appears to stable. SHe has been admitted for further work up and evaluation. Presently she does not appear to be in any respiratory distress and denies any CP. She is afib on the monitor at a rate of 90. Lung sounds are clear heart sounds are irregular S1,S2 with no rub clicks gallops or murmurs. She has +2 pedal edema to L leg and +1 pedal edema to R leg. Presently she appears hypodermically stable. I reviewed this case with Dr White who agrees with plan . Past Med Surg Social Fam HX - Past Medical History Medical history: atrial fibrillation, CHF, GERD, hyperlipidemia, hypertension, other Psychiatric history: anxiety - Past Surgical History Surgical History: cataract, knee replacement, other - Social History Smoking Status: Never smoker Smokeless Tobacco Status: No Alcohol use: none Drug use: none - Additional Family History Additional family history: reviewed noncontributory Internal Medicine - H&P: Meds Allopurinol [Zyloprim 100 MG] 100 mg PO DAILY 02/18/17 [History] Amlodipine Besylate 2.5 mg PO DAILY 02/18/17 [History] Cholecalciferol (Vitamin D3) [Vitamin D3] 2,000 unit PO DAILY 02/18/17 [History] Docusate [Colace] 100 mg PO DAILY PRN 02/18/17 [History] Fenofibrate Nanocrystallized [Triglide] 160 mg PO DAILY 02/18/17 [History] Isosorbide MONOnitrate (24 HR) [Imdur] 60 mg PO DAILY 02/18/17 [History] Lisinopril [Zestril] 20 mg PO DAILY 02/18/17 [History] Multivit-Min/Iron/Folic/Lutein [Centrum Silver Women Tablet] 1 tab PO DAILY 05/28 [History] Pantoprazole Sodium 40 mg PO DAILY 02/18/17 [History] Polyethylene Glycol 3350 [MiraLAX bowel prep] 17 gm PO DAILY 02/18/17 [History] Pyridostigmine Br [Mestinon] 60 mg PO BID 02/18/17 [History] Rivaroxaban [Xarelto] 15 mg PO DAILY 02/18/17 [History] Metoprolol XL (24 HR) Succ [Toprol Xl] 25 mg PO DAILY #30 tab.er.24h 02/19/17 [ Rx] Allergies prednisone Adverse Reaction (Verified 02/18/17 03:42) Palpitations Kfxwhqk-Utk-Vvw Reductase Inhibitor [Statins] Adverse Reaction (Verified 03:42) Weakness All Systems PM: A 10-system review of systems was performed and is negative for pertinent findings except as documented above in the HPI. - Constitutional Constitutional: fatigue, weakness - Cardiovascular Cardiovascular ROS IM: dyspnea, dyspnea on exertion, edema, no chest pain, no diaphoresis, no lightheadedness, no palpitations, no syncope - Respiratory Respiratory: cough, dyspnea on exertion - Gastrointestinal Gastrointestinal: no abdominal pain, no diarrhea, no hematemesis, no hematochezia, no melena, no nausea, no vomiting - Genitourinary Genitourinary: no change in urinary stream, no dysuria, no flank pain, no hematuria - Musculoskeletal Musculoskeletal ROS IM: no numbness, no tingling - Integumentary Integumentary IM: no rash, no unusual bruising - Neurological Neurological ROS: no confusion, no convulsions, no focal weakness, no numbness, no tingling, no tremor(s) - Hematologic/Lymphatic Hematologic/Lymphatic: no easy bruising - Constitutional Vitals: Temp Pulse Resp BP Pulse Ox 97.6 F 102 18 146/94 98 03/05/17 09:51 03/05/17 10:46 03/05/17 10:46 03/05/17 10:46 03/05/17 10:46 General appearance: Present: A&O X 3, answers questions appropriately - Head Head exam: Present: atraumatic, normocephalic - Eye Eye exam: Present: PERRL, conjuntiva pink, sclera anicteric Pupils: Present: PERRL - Neck Neck exam general surgery: Present: supple, trachea midline. Absent: lymphadenopathy - Respiratory Respiratory exam: Present: CTAB. Absent: accessory muscle use, rales, rhonchi, wheezes - Cardiovascular Cardiovascular exam: Present: irregular rhythm, +S1, +S2. Absent: diastolic murmur, gallop, rubs, systolic murmur - GI/Abdominal GI/Abdominal exam: Present: normal bowel sounds, soft, no peritoneal signs. Absent: distended, tenderness - Extremities Exam Extremities exam: Present: pedal edema, warm, radial pulses palpable and symetrical. Absent: calf tenderness, cyanotic - Neurological Exam Neurological exam: Present: CN II-XII intact, oriented X3, no focal deficits. Absent: pronater drift, facial droop, speech deficit - Skin Skin exam: Present: dry, intact Internal Med - H&P Results - Labs CBC & Chem 7: 03/05/17 10:08 03/05/17 10:08 - EKG Data When compared to previous EKG: there are significant changes EKG comments: 03/05/17 12:08 Afib RVR - Diagnostic Studies Other Images Additional comments: Chest X-Ray 03/05/17 09:54 IMPRESSION: Stable appearing large hiatal hernia and mild cardiomegaly with right basilar atelectasis. D/ / Carlos Kaminski MD / Carlos Kaminski MD Interpreting Provider: Carlos Kaminski MD
[2017-03-05] MEDS: Pyridostigmine Br 60 MG TABLET PO SCH ×2 (13:25→21:06)
[2017-03-05] MEDS: Isosorbide MONOnitrate (24 HR) 60 MG TAB.ER.24H PO SCH (13:26)
[2017-03-05] MEDS: Furosemide 20 MG/2 ML VIAL IVP SCH ×2 (13:27→21:06)
--- NOTE | 2017-03-05 14:37 | Cardiology Consult Note ---
Date of Encounter: 03/05/17 Time of Encounter: 14:32 Assessment and Plan (1) Atrial fibrillation with rapid ventricular response Current Visit: Yes Status: Acute Atrial fibrillation with RVR, HR 110-120 currently. H/o PAF on xarelto. Amiodarone stopped earlier this year secondary to increasing SOB. D/c metoprolol due to side effects. Rate verses rhythm control discussed. Titrate IV cardizem to effective dose and change to oral cardizem. If unable to rate control we will consider repeat DCCV. 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 No missed doses in the past month. (2) Acute on chronic diastolic CHF (congestive heart failure) Current Visit: Yes Status: Acute Mild fluid overload on exam. Noted to have dyspnea during our conversation. Likely exacerbated by atrial fibrillation with RVR. TTE 10/2016 showed EF 70-75%, mod-severe diastolic dysfunction. Agree with IV lasix. BNP 1732. Low sodium diet. Daily weights and strict I&O. Discussion w patient/family: The assessment and plan as outlined above was discussed with the patient and/or family members who expressed understanding and agreement. All questions were answered. Thank you for involving us in the care of your patient. Please call with any questions. History of Present Illness Consult date: 03/05/17 Requesting physician: Karlie Quezada Consult reason: Atrial fibrillation with RVR Chief complaint: Increasing dyspnea over last two weeks. History of present illness: Ms. Castaneda is a 81 year old female with past medical history of hypertension, hyperlipidemia, PAF on anticoagulation, diastolic CHF, myasthenia gravis, gout, GERD who presented to the ED with increasing dyspnea over the past two weeks. She c/o dyspnea starting two hours after her metoprolol dose. She was recently hospitalized for atrial fibrillation with RVR 02/18/17. During that hospital stay she received successful cardioversion and was started on metoprolol. Since that time she notices dyspnea each time she takes her metoprolol. She also noted increasing BLE after her recliner broke and she could no longer elevate her legs. Yesterday she was unable to catch her breath and she started to feel lightheaded prompting her to call for help. On admission HR noted to be up to 130's afib. Cardiology consulted for further recommendation. Recent CV testing: TTE 10/11/16: LVEF 70-75%, mild cLVH, moderate to severe LVDD, moderately to severely dilated LA, mild MR/TR/AR, normal wall motion. Stress test negative one month ago at [place]. Past Med Surg Social Fam HX - Past Medical History Medical history: atrial fibrillation, GERD, hyperlipidemia, hypertension, other Psychiatric history: anxiety - Past Surgical History Surgical History: cataract, knee replacement, other - Social History Smoking Status: Never smoker Smokeless Tobacco Status: No Alcohol use: none Drug use: none - Family History Mother Hx Family Cardiac Disorders: Yes (Stroke) Medications and Allergies Allopurinol [Zyloprim 100 MG] 100 mg PO DAILY 02/18/17 [History] Amlodipine Besylate 2.5 mg PO DAILY 02/18/17 [History] Cholecalciferol (Vitamin D3) [Vitamin D3] 2,000 unit PO DAILY 02/18/17 [History] Docusate [Colace] 100 mg PO DAILY PRN 02/18/17 [History] Fenofibrate Nanocrystallized [Triglide] 160 mg PO DAILY 02/18/17 [History] Isosorbide MONOnitrate (24 HR) [Imdur] 60 mg PO DAILY 02/18/17 [History] Lisinopril [Zestril] 20 mg PO DAILY 02/18/17 [History] Multivit-Min/Iron/Folic/Lutein [Centrum Silver Women Tablet] 1 tab PO DAILY 05/28 [History] Pantoprazole Sodium 40 mg PO DAILY 02/18/17 [History] Polyethylene Glycol 3350 [MiraLAX bowel prep] 17 gm PO DAILY 02/18/17 [History] Pyridostigmine Br [Mestinon] 60 mg PO BID 02/18/17 [History] Rivaroxaban [Xarelto] 15 mg PO DAILY 02/18/17 [History] Metoprolol XL (24 HR) Succ [Toprol Xl] 25 mg PO DAILY #30 tab.er.24h 02/19/17 [ Rx] Allergies prednisone Adverse Reaction (Verified 02/18/17 03:42) Palpitations Zsqeemh-Kti-Pfj Reductase Inhibitor [Statins] Adverse Reaction (Verified 03:42) Weakness All Systems Review: A 10-system review of systems was performed and is negative for pertinent findings except as documented above in the HPI. Physical Examination Vital Signs, Last 4 Hours Temp Pulse Resp BP Pulse Ox 03/05/17 12:22 97.7 F 106 16 145/91 97 03/05/17 12:07 20 132/97 General: Conversant, No Apparent Distress HEENT: Atraumatic, Normocephaly, Mucus Membranes Moist Neck: No JVD, Normal carotid pulses Cardiac: Other (Irregularly irregular) Lungs: Normal Breath Sounds, No Wheeze, Rales, Rhonchi Neuro: Alert and responsive, No focal deficits noted Abdomen: Soft, Non-Tender Skin: No rashes noted on visualized skin Musculoskeletal: No Chest Wall Tenderness Extremities: No Clubbing, No Cyanosis, Normal Pulses, Other (2+ pitting BLE edema to mid grady.) Results 03/05/17 10:08 03/05/17 10:08 - Imaging and Cardiology Echo: report reviewed - EKG Interpretation EKG results cardiology: personally reviewed Consult Discharge Plan - Plan Referrals: Carlos Newman MD [Primary Care Provider] -
--- NOTE | 2017-03-05 18:10 | Electrocardiograph Report ---
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
[2017-03-05] MEDS: *HR* Rivaroxaban 15 MG TABLET PO SCH (18:12)
[2017-03-06 06:08] LABS: Basophils % 0.3 %; Eosinophils % 0.2 %; Hematocrit 28.3 % (35.3-44.9); Hemoglobin 9.4 g/dL (11.5-15.4); Immature Granulocytes % 0.2 % (0-4); Lymphocytes % 47.2 %; Mean Corpuscular HGB Conc 33.2 g/dL (31.6-35.5); Mean Corpuscular Hemoglobin 32.6 pg (28.0-33.3); Mean Corpuscular Volume 98.3 fL (83.0-100.0); Mean Platelet Volume 11.2 fL (9.4-12.4); Monocytes # 0.9 K/mcL (0.0-1.3); Monocytes % 13.4 %; Neutrophils # 2.5 K/mcL (1.6-8.9); Platelet Count 216 K/mcL (140-400); Red Blood Count 2.88 M/mcL (3.82-4.97); Red Cell Distribution Width 15.1 % (11.5-14.5); Segmented Neutrophils % 38.7 %
[2017-03-06 06:26] LABS: Calcium 9.8 mg/dL (8.6-10.8); Magnesium 1.3 mg/dL (1.6-2.6); Potassium 4.2 mEq/L (3.5-4.5)
[2017-03-06] MEDS ORDERED: Magnesium Sulfate 2 GM in D5% in Water 100 ML IVPB ONE (07:35)
[2017-03-06] MEDS ORDERED: amLODIPine 5 MG TABLET PO SCH (07:36)
[2017-03-06] MEDS ORDERED: Furosemide 20 MG/2 ML VIAL IVP SCH (07:36)
[2017-03-06] MEDS: Pyridostigmine Br 60 MG TABLET PO SCH ×2 (09:08→23:14)
[2017-03-06] MEDS: Isosorbide MONOnitrate (24 HR) 60 MG TAB.ER.24H PO SCH (09:08)
[2017-03-06] MEDS: Diltiazem CD (24hr) 180 MG CAPSULE PO SCH (10:51)
--- NOTE | 2017-03-06 11:15 | Internal Med Progress Note ---
Date of Encounter: 03/06/17 Time of Encounter: 11:14 - Assessment and plan (1) CHF (congestive heart failure) Current Visit: No Status: Chronic Assessment and plan: Acute exacerbation of CHF likely secondary to afib with RVR will continue with IV diuretics and discharge with PO diuretics fluid restriction diet monitor I/Os daily weights low sodium diet Qualifiers: Congestive heart failure type: diastolic Congestive heart failure chronicity: chronic Qualified Code(s): I50.32 - Chronic diastolic (congestive ) heart failure (2) Atrial fibrillation with rapid ventricular response Current Visit: Yes Status: Acute Assessment and plan: Afib with RVR history of PAF Started PO cardizem and titrate of cardizem gtt anticoagulated with Xarelto cardiology input appreciated will continue to monitor (3) Essential hypertension Current Visit: No Status: Chronic Assessment and plan: BP within acceptable range continue home medications will continue to closely monitor (4) Hyperlipidemia Current Visit: No Status: Chronic Assessment and plan: continue home medications Qualifiers: Hyperlipidemia type: unspecified Qualified Code(s): E78.5 - Hyperlipidemia , unspecified (5) Myasthenia gravis Current Visit: No Status: Chronic (6) DVT prophylaxis Current Visit: No Status: Acute Assessment and plan: anticoagulated with xarelto (7) GERD (gastroesophageal reflux disease) Current Visit: No Status: Chronic Qualifiers: Esophagitis presence: without esophagitis Qualified Code(s): K21.9 - Gastro -esophageal reflux disease without esophagitis (8) Elevated troponin Current Visit: No Status: Chronic - Subjective Interval history: Pt seen and examined at bedside. Resting in bed and reports of feeling better. Denies any sob. Currently in Afib. - Constitutional Vitals: Temp Pulse Resp BP Pulse Ox 98.3 F 111 18 128/79 93 03/06/17 05:13 03/06/17 05:13 03/06/17 05:13 03/06/17 11:12 03/06/17 05:13 General appearance: Present: cooperative, A&O X 3, pleasant, no acute distress, answers questions appropriately - Head Head exam: Present: atraumatic, normocephalic - Eye Eye exam: Present: conjuntiva pink, sclera anicteric - Respiratory Respiratory exam: Present: CTAB. Absent: respiratory distress, wheezes - Cardiovascular Cardiovascular exam: Present: irregular rhythm, +S1, +S2, tachycardia - GI/Abdominal GI/Abdominal exam: Present: normal bowel sounds, soft, no peritoneal signs. Absent: distended, tenderness - Extremities Exam Extremities exam: Present: pedal edema (pitting edema in bilateral lower extremities ), warm, radial pulses palpable and symetrical. Absent: calf tenderness - Neurological Exam Neurological exam: Present: alert, oriented X3 - Psychiatric Psychiatric exam: Present: normal affect, normal mood Internal Medicine: Result - Labs CBC & Chem 7: 03/06/17 05:20 03/06/17 05:20 Labs: Short CBC 03/06/17 Range/Units 05:20 WBC 6.4 (4.3-11.1) K/mcL Hgb 9.4 L (11.5-15.4) g/dL Hct 28.3 L (35.3-44.9) % Plt Count 216 (140-400) K/mcL Neutrophils # 2.5 (1.6-8.9) K/mcL BMP 03/06/17 05:20 Sodium 140 Potassium 4.2 Chloride 105 Carbon Dioxide 29 BUN 41 H Creatinine 1.22 H Glucose 82 Calcium 9.8 Cardiac Enzymes 03/05/17 03/05/17 Range/Units 15:54 22:10 Troponin I 0.04 H* 0.04 H* (0-0.03) ng/mL - ABG Interpretation ABG results: PT/INR, D-dimer PT 15.6 Seconds (9.4-12.1) H 03/05/17 10:08 - VTE Reasons for not Prescribing Prophylaxis: Not indicated-Anticoagulated or INR therapeutic Consult Discharge Plan - Plan Referrals: Carlos Newman MD [Primary Care Provider] -
--- NOTE | 2017-03-06 11:16 | Cardiology Progress Note ---
Date of Encounter: 03/06/17 Time of Encounter: 11:14 Assessment and Plan (1) Atrial fibrillation with rapid ventricular response Current Visit: Yes Status: Acute Atrial fibrillation with RVR on admission. H/o PAF on xarelto. Amiodarone stopped earlier this year secondary to increasing SOB. D/c metoprolol on admission due to side effects. Avg HR overnight was 97 bpm atrial fibrillation. HR in the upper 40's noted during nocturnal hours. Currently on 7.5 mg cardizem gtt. We will convert to cardizem CD 180 mg daily. Recommend continuing rate control. 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 No missed doses in the past month. Cardiology will sign off. Out-pt f/u is scheduled with Dr. Chacko next week. Please call with questions. (2) Acute on chronic diastolic CHF (congestive heart failure) Current Visit: Yes Status: Acute Mild fluid overload on exam. Improved from yesterday. Likely exacerbated by atrial fibrillation with RVR. TTE 10/2016 showed EF 70-75%, mod-severe diastolic dysfunction. Agree with IV lasix. Recommend continuing for 24 hours until near dry weight. Poor I&O documentation. She is negative 2kg since admission. BNP 1732. Low sodium diet. Daily weights and strict I&O. Discussion w patient/family: The assessment and plan as outlined above was discussed with the patient and/or family members who expressed understanding and agreement. All questions were answered. Thank you for involving us in the care of your patient. Please call with any questions. Subjective Principal diagnosis: PAF Interval history: Ms. Castaneda denies complaints overnight. Reports going to the bathroom frequently with her lasix. During my exam she briefly c/o dizziness. Objective Vital Signs, Last 4 Hours BP 03/06/17 11:12 128/79 General: Conversant, No Apparent Distress HEENT: Atraumatic, Normocephaly, Mucus Membranes Moist Neck: No JVD, Normal carotid pulses Cardiac: Other (Irregularly irregular) Lungs: Normal Breath Sounds, No Wheeze, Rales, Rhonchi Neuro: Alert and responsive, No focal deficits noted Abdomen: Soft, Non-Tender Skin: No rashes noted on visualized skin Musculoskeletal: No Chest Wall Tenderness Extremities: No Clubbing, No Cyanosis, Normal Pulses, Other (2+ pitting BLE up to mid grady. ) Results 03/06/17 05:20 03/06/17 05:20 Lab Results 03/05/17 03/05/17 03/06/17 15:54 22:10 05:20 WBC 6.4 Hgb 9.4 L Hct 28.3 L Plt Count 216 Sodium Potassium Chloride Carbon Dioxide BUN Creatinine Glucose Calcium Magnesium Troponin I 0.04 H* 0.04 H* 03/06/17 05:20 WBC Hgb Hct Plt Count Sodium 140 Potassium 4.2 Chloride 105 Carbon Dioxide 29 BUN 41 H Creatinine 1.22 H Glucose 82 Calcium 9.8 Magnesium 1.3 L Troponin I - VTE Reasons for not Prescribing Prophylaxis: Not indicated-Anticoagulated or INR therapeutic Consult Discharge Plan - Plan Referrals: Carlos Newman MD [Primary Care Provider] -
[2017-03-06] MEDS: Lisinopril 20 MG TABLET PO SCH (12:08)
[2017-03-06] MEDS: *HR* Rivaroxaban 15 MG TABLET PO SCH (16:49)
[2017-03-06] MEDS: Furosemide 20 MG/2 ML VIAL IVP SCH (16:49)
[2017-03-06] MEDS: Fenofibrate 54 MG TABLET PO SCH (16:49)
[2017-03-06] MEDS: Acetaminophen 325 MG TABLET PO PRN ×2 (16:51→16:56)
[2017-03-06] MEDS ORDERED: Sucralfate 1 GM TABLET PO SCH (23:11)
[2017-03-07 04:50] LABS: Basophils % 0.4 %; Eosinophils % 0.2 %; Hematocrit 28.9 % (35.3-44.9); Hemoglobin 9.6 g/dL (11.5-15.4); Immature Granulocytes % 0.2 % (0-4); Lymphocytes # 2.7 K/mcL (0.6-4.6); Lymphocytes % 47.9 %; Mean Corpuscular HGB Conc 33.2 g/dL (31.6-35.5); Mean Corpuscular Hemoglobin 31.9 pg (28.0-33.3); Mean Platelet Volume 11.1 fL (9.4-12.4); Monocytes # 0.8 K/mcL (0.0-1.3); Monocytes % 13.7 %; Neutrophils # 2.1 K/mcL (1.6-8.9); Platelet Count 228 K/mcL (140-400); Red Blood Count 3.01 M/mcL (3.82-4.97); Red Cell Distribution Width 14.7 % (11.5-14.5); Segmented Neutrophils % 37.6 %
[2017-03-07 05:06] LABS: Calcium 9.5 mg/dL (8.6-10.8); Magnesium 1.7 mg/dL (1.6-2.6); Phosphorous 3.9 mg/dL (2.3-4.7); Potassium 4.1 mEq/L (3.5-4.5)
[2017-03-07] MEDS: Diltiazem CD (24hr) 180 MG CAPSULE PO SCH (08:15)
[2017-03-07] MEDS: Lisinopril 20 MG TABLET PO SCH (08:15)
[2017-03-07] MEDS: Isosorbide MONOnitrate (24 HR) 60 MG TAB.ER.24H PO SCH (08:15)
[2017-03-07] MEDS: Pyridostigmine Br 60 MG TABLET PO SCH ×2 (08:15→20:36)
[2017-03-07] MEDS: *HR* Rivaroxaban 15 MG TABLET PO SCH (08:16)
[2017-03-07] MEDS: Fenofibrate 54 MG TABLET PO SCH (08:16)
[2017-03-07] MEDS: Furosemide 20 MG/2 ML VIAL IVP SCH (08:16)
[2017-03-07] MEDS ORDERED: Diltiazem SR (12hr) 60 MG CAPSULE PO ONE (12:01)
--- NOTE | 2017-03-07 12:01 | Internal Med Progress Note ---
Date of Encounter: 03/07/17 Time of Encounter: 12:00 - Assessment and plan (1) CHF (congestive heart failure) Current Visit: No Status: Chronic Assessment and plan: Acute exacerbation of CHF likely secondary to afib with RVR Clinically improving will d/c IV diuretics and start PO lasix fluid restriction diet monitor I/Os daily weights low sodium diet Qualifiers: Congestive heart failure type: diastolic Congestive heart failure chronicity: chronic Qualified Code(s): I50.32 - Chronic diastolic (congestive ) heart failure (2) Atrial fibrillation with rapid ventricular response Current Visit: Yes Status: Acute Assessment and plan: Afib with RVR history of PAF Increased to Cardizem 240mg PO qdaily will closely monitor HR and adjust BP medications as needed anticoagulated with Xarelto cardiology input appreciated will continue to monitor (3) Essential hypertension Current Visit: No Status: Chronic Assessment and plan: BP within acceptable range continue home medications will continue to closely monitor Will adjust BP medications if unable to tolerate with increase in PO cardizem dose (4) Hyperlipidemia Current Visit: No Status: Chronic Assessment and plan: continue home medications Qualifiers: Hyperlipidemia type: unspecified Qualified Code(s): E78.5 - Hyperlipidemia , unspecified (5) Myasthenia gravis Current Visit: No Status: Chronic (6) DVT prophylaxis Current Visit: No Status: Acute Assessment and plan: anticoagulated with xarelto (7) GERD (gastroesophageal reflux disease) Current Visit: No Status: Chronic Qualifiers: Esophagitis presence: without esophagitis Qualified Code(s): K21.9 - Gastro -esophageal reflux disease without esophagitis (8) Elevated troponin Current Visit: No Status: Chronic (9) JARVIS (acute kidney injury) Current Visit: Yes Status: Acute Assessment and plan: Likely secondary to diuretic support will d/c iv lasix use PO lasix patient may have underlying CKD will closely monitor will hold Lisinopril given renal function - Subjective Interval history: Pt seen and examined at bedside. Resting in bed and reports of feeling better but continues to have poorly rate controlled Afib. Denies any chest pain or shortness of breath. - Constitutional Vitals: Temp Pulse Resp BP Pulse Ox 97.8 F 123 18 136/72 96 03/07/17 08:00 03/07/17 11:56 03/07/17 11:56 03/07/17 11:56 03/07/17 11:56 General appearance: Present: cooperative, A&O X 3, pleasant, no acute distress, answers questions appropriately - Head Head exam: Present: atraumatic, normocephalic - Eye Eye exam: Present: scleral icterus, conjuntiva pink, sclera anicteric - Respiratory Respiratory exam: Present: CTAB. Absent: respiratory distress, wheezes - Cardiovascular Cardiovascular exam: Present: irregular rhythm, +S1, +S2, tachycardia. Absent: diastolic murmur, systolic murmur - GI/Abdominal GI/Abdominal exam: Present: normal bowel sounds, soft, no peritoneal signs. Absent: distended, tenderness - Extremities Exam Extremities exam: Present: pedal edema, warm, radial pulses palpable and symetrical. Absent: calf tenderness - Neurological Exam Neurological exam: Present: alert, oriented X3 - Psychiatric Psychiatric exam: Present: normal affect, normal mood Internal Medicine: Result - Labs CBC & Chem 7: 03/07/17 04:22 03/07/17 04:22 Labs: Short CBC 03/07/17 Range/Units 04:22 WBC 5.7 (4.3-11.1) K/mcL Hgb 9.6 L (11.5-15.4) g/dL Hct 28.9 L (35.3-44.9) % Plt Count 228 (140-400) K/mcL Neutrophils # 2.1 (1.6-8.9) K/mcL BMP 03/07/17 04:22 Sodium 141 Potassium 4.1 Chloride 104 Carbon Dioxide 33 H BUN 48 H Creatinine 1.37 H Glucose 89 Calcium 9.5 - ABG Interpretation ABG results: PT/INR, D-dimer PT 15.6 Seconds (9.4-12.1) H 03/05/17 10:08 - VTE Reasons for not Prescribing Prophylaxis: Not indicated-Anticoagulated or INR therapeutic Consult Discharge Plan - Plan Referrals: Carlos Newman MD [Primary Care Provider] -
[2017-03-07] MEDS: Furosemide 20 MG TABLET PO SCH (17:56)
[2017-03-07] MEDS: Mag Hydrox/Al Hydrox/Simeth 30 ML UDC PO PRN (20:36)
[2017-03-08 04:39] LABS: Basophils % 0.5 %; Eosinophils % 0.2 %; Hematocrit 28.7 % (35.3-44.9); Hemoglobin 9.6 g/dL (11.5-15.4); Immature Granulocytes % 0.2 % (0-4); Lymphocytes # 2.9 K/mcL (0.6-4.6); Lymphocytes % 45.2 %; Mean Corpuscular HGB Conc 33.4 g/dL (31.6-35.5); Mean Corpuscular Hemoglobin 31.9 pg (28.0-33.3); Mean Corpuscular Volume 95.3 fL (83.0-100.0); Mean Platelet Volume 11.3 fL (9.4-12.4); Monocytes # 0.9 K/mcL (0.0-1.3); Monocytes % 13.5 %; Neutrophils # 2.6 K/mcL (1.6-8.9); Platelet Count 218 K/mcL (140-400); Red Blood Count 3.01 M/mcL (3.82-4.97); Red Cell Distribution Width 14.7 % (11.5-14.5); Segmented Neutrophils % 40.4 %
[2017-03-08 05:01] LABS: Magnesium 1.5 mg/dL (1.6-2.6); Phosphorous 3.9 mg/dL (2.3-4.7); Potassium 4.4 mEq/L (3.5-4.5)
[2017-03-08] MEDS ORDERED: Magnesium Sulfate 2 GM in D5% in Water 100 ML IVPB ONE (07:25)
[2017-03-08] MEDS: Furosemide 20 MG TABLET PO SCH ×2 (08:09→17:23)
[2017-03-08] MEDS: *HR* Rivaroxaban 15 MG TABLET PO SCH (08:09)
[2017-03-08] MEDS: Isosorbide MONOnitrate (24 HR) 60 MG TAB.ER.24H PO SCH (08:10)
[2017-03-08] MEDS: Fenofibrate 54 MG TABLET PO SCH (08:13)
[2017-03-08] MEDS: Pyridostigmine Br 60 MG TABLET PO SCH ×2 (08:13→21:09)
[2017-03-08] MEDS ORDERED: Diltiazem CD (24hr) 240 MG CAPSULE PO SCH (09:00)
--- NOTE | 2017-03-08 11:44 | Internal Med Progress Note ---
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 [place] and has history of CKD Nephrology consultation requested will closely monitor (2) CHF (congestive heart failure) Current Visit: No Status: Chronic Assessment and plan: Acute exacerbation of CHF likely secondary to afib with RVR Clinically improving continue PO lasix fluid restriction diet monitor I/Os daily weights low sodium diet Qualifiers: Congestive heart failure type: diastolic Congestive heart failure chronicity: chronic Qualified Code(s): I50.32 - Chronic diastolic (congestive ) heart failure (3) Atrial fibrillation with rapid ventricular response Current Visit: Yes Status: Acute Assessment and plan: Afib with RVR history of PAF Will increase to Cardizem 300mg PO qd closely monitor BP anticoagulated with Xarelto cardiology input appreciated will continue to monitor (4) Essential hypertension Current Visit: No Status: Chronic Assessment and plan: BP within acceptable range continue home medications will continue to closely monitor Will adjust BP medications if unable to tolerate with increase in PO cardizem dose Holding Lisinopril at this time (5) Hyperlipidemia Current Visit: No Status: Chronic Assessment and plan: Hold Fenofibrate at this time given renal function Qualifiers: Hyperlipidemia type: unspecified Qualified Code(s): E78.5 - Hyperlipidemia , unspecified (6) Myasthenia gravis Current Visit: No Status: Chronic (7) DVT prophylaxis Current Visit: No Status: Acute Assessment and plan: anticoagulated with xarelto (8) GERD (gastroesophageal reflux disease) Current Visit: No Status: Chronic Qualifiers: Esophagitis presence: without esophagitis Qualified Code(s): K21.9 - Gastro -esophageal reflux disease without esophagitis (9) Elevated troponin Current Visit: No Status: Chronic - Subjective Interval history: Pt seen and examined at bedside. Resting in bed and reports of feeling better but continues to have poorly rate controlled Afib. Denies any chest pain or shortness of breath. Noted to have worsening renal function. - Constitutional Vitals: Temp Pulse Resp BP Pulse Ox 97.8 F 112 14 122/65 96 03/08/17 08:56 03/08/17 08:56 03/08/17 08:56 03/08/17 08:56 03/08/17 08:56 General appearance: Present: cooperative, A&O X 3, pleasant, no acute distress, answers questions appropriately - Head Head exam: Present: atraumatic, normocephalic - Eye Eye exam: Present: conjuntiva pink, sclera anicteric - Respiratory Respiratory exam: Present: CTAB. Absent: accessory muscle use, rales, rhonchi, wheezes - Cardiovascular Cardiovascular exam: Present: RRR, +S1, +S2. Absent: diastolic murmur, gallop, rubs, systolic murmur - GI/Abdominal GI/Abdominal exam: Present: normal bowel sounds, soft, no peritoneal signs. Absent: distended, tenderness - Extremities Exam Extremities exam: Present: pedal edema, warm, radial pulses palpable and symetrical. Absent: calf tenderness Internal Medicine: Result - Labs CBC & Chem 7: 03/08/17 04:10 03/08/17 04:10 Labs: Short CBC 03/08/17 Range/Units 04:10 WBC 6.3 (4.3-11.1) K/mcL Hgb 9.6 L (11.5-15.4) g/dL Hct 28.7 L (35.3-44.9) % Plt Count 218 (140-400) K/mcL Neutrophils # 2.6 (1.6-8.9) K/mcL BMP 03/08/17 04:10 Sodium 140 Potassium 4.4 Chloride 103 Carbon Dioxide 31 H BUN 56 H Creatinine 1.86 H Glucose 89 Calcium 9.0 - ABG Interpretation ABG results: PT/INR, D-dimer PT 15.6 Seconds (9.4-12.1) H 03/05/17 10:08 - Impressions Impressions Retroperitoneum Ultrasound 03/08/17 10:00 IMPRESSION: Echogenic, mildly atrophic kidneys, compatible with medical renal disease. No hydronephrosis. D/ / Robin Lee MD / Robin Lee MD Interpreting Provider: Robin Lee MD - VTE Reasons for not Prescribing Prophylaxis: Not indicated-Anticoagulated or INR therapeutic Consult Discharge Plan - Plan Referrals: Carlos Newman MD [Primary Care Provider] - Prescriptions: Furosemide [Lasix] 20 mg PO BID #60 tablet
[2017-03-08 12:00] LABS: Bilirubin,Urine Negative (Negative); Blood,Urine Negative (Negative); Clarity,Urine Clear (Clear); Color,Urine Yellow (Yellow); Glucose,Urine (UA) Normal (Normal); Ketones,Urine Negative (Negative); Leukocyte Esterase,Urine Small (Negative); Nitrite,Urine Negative (Negative); PH,Urine 6.5 pH Units (5.0-8.0); Protein,Urine Negative (Neg-Trace); Specific Gravity,Urine 1.007 (1.010-1.025); Urobilinogen,Urine Normal (Normal)
[2017-03-08 12:03] LABS: Bacteria,Urine None Seen per hpf (None-Few); Hyaline Casts,Urine None Seen per lpf (None-Few); RBC,Urine 0-3 per hpf (0-3); Squamous Epithelial Cell,Urine Many per lpf (None-Few)
[2017-03-08 14:17] LABS: Uric Acid 5.9 mg/dL (2.6-6.0)
--- NOTE | 2017-03-08 14:32 | Nephrology Consult Note ---
Date of Encounter: 03/08/17 Time of Encounter: 14:29 Assessment and Plan (1) Acute kidney injury superimposed on chronic kidney disease Current Visit: Yes Status: Acute 81 F hx of CKD III, HTN consult placed for worsening renal function GFR decreased from average of 48 to 26 in setting of treatment of acute diastolic CHF with Lasix for first time, mild hypotension with BP in systolic 90s at times hx of HTN on lisinopril which is held renal US negative for obstruction, normal kidney size and w/o hydronephrosis Plan: suspecting prerenal cause due to combination of lisinopril, lasix and mild hypotension currently euvolemic recommend continuing 20mg PO lasix repeat urinalysis with microscopy urine urea and creatinine serum uric acid request 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 (3) Acute on chronic diastolic CHF (congestive heart failure) Current Visit: Yes Status: Acute resolved. LVEF 70-75% with LV concentric hypertrophy and mod-severe diastolic dysfucntion. continue lasix strict I/O fluid restricted diet low sodium diet. (4) Atrial fibrillation with rapid ventricular response Current Visit: Yes Status: Acute rate controlled with diltiazem anticoagulated on xeralto. History of Present Illness - Reason for Consult Consult date: 03/08/17 Acute Kidney Injury, Chronic Kidney Disease - Chief Complaint sob - History of Present Illness 81 y/o female hx of CKD III, myesthenia gravis, afib, arthritis presented with cc of sob. Patient was found to be in afib rvr, acute diastolic CHF and treated with diltiazem, and lasix. Since being admitted patient's renal function has declined. [facility] were consulted to evaluate her JARVIS. Baseline GFT is 45-50. Currently GFR is 26. UOP adequate however I/O not recorded properly today. Patient was treated with IV lasix initially with improvement in sob. As worsening renal function was noted, IV lasix was transitioned to PO lasix and lisinopril was put on hold. Furthermore, BP has been in the 90s systolic at times during her admission. Patient used to take NSAIDs in the 90s for arthritis but d/c due to gastritis. Denies family hx of kidney disease. Denies hx of kidney stones. Followed a urologist in [place], [place] who started her on allopurinol for gout. Unclear if she was treated after having gouty attacks or for hyperuricemia. Denies hx of DM, or recent exposure to contrast. Past Med Surg Social Fam HX - Past Medical History Medical history: atrial fibrillation, CHF, GERD, hyperlipidemia, hypertension, renal disease (CKD III), other (myesthenia gravis s/p thymectomy ) Psychiatric history: anxiety - Past Surgical History Surgical History: cataract, knee replacement, other - Social History Smoking Status: Never smoker Smokeless Tobacco Status: No Alcohol use: none Drug use: none - Family History Mother Hx Family Cardiac Disorders: Yes (Stroke) Medications and Allergies Allopurinol [Zyloprim 100 MG] 100 mg PO DAILY 02/18/17 [History] Amlodipine Besylate 2.5 mg PO DAILY 02/18/17 [History] Cholecalciferol (Vitamin D3) [Vitamin D3] 2,000 unit PO DAILY 02/18/17 [History] Docusate [Colace] 100 mg PO DAILY PRN 02/18/17 [History] Fenofibrate Nanocrystallized [Triglide] 160 mg PO DAILY 02/18/17 [History] Isosorbide MONOnitrate (24 HR) [Imdur] 60 mg PO DAILY 02/18/17 [History] Lisinopril [Zestril] 20 mg PO DAILY 02/18/17 [History] Multivit-Min/Iron/Folic/Lutein [Centrum Silver Women Tablet] 1 tab PO DAILY 05/28 [History] Pantoprazole Sodium 40 mg PO DAILY 02/18/17 [History] Polyethylene Glycol 3350 [MiraLAX bowel prep] 17 gm PO DAILY 02/18/17 [History] Pyridostigmine Br [Mestinon] 60 mg PO BID 02/18/17 [History] Rivaroxaban [Xarelto] 15 mg PO DAILY 02/18/17 [History] Metoprolol XL (24 HR) Succ [Toprol Xl] 25 mg PO DAILY #30 tab.er.24h 02/19/17 [ Rx] Furosemide [Lasix] 20 mg PO BID #60 tablet 03/08/17 [Rx] Allergies prednisone Adverse Reaction (Verified 02/18/17 03:42) Palpitations Iomvggh-Wtx-Xor Reductase Inhibitor [Statins] Adverse Reaction (Verified 03:42) Weakness Review of Systems All Systems review (narrative): Denies fevers chills, sob, cough, chest pain, palpitations, N/V/D, decrease urine production, dysuria, leg cramps/pain, numbness and tingling Exam - Vital Signs Vital signs: Initial Vital Signs Temp Pulse Resp BP Pulse Ox 97.6 F 128 18 136/116 99 03/05/17 09:51 03/05/17 09:51 03/05/17 09:51 03/05/17 09:51 03/05/17 09:51 Vital Signs - Last 8 Hours Temp Pulse Resp BP Pulse Ox 03/08/17 12:00 97.1 F L 101 16 122/70 96 03/08/17 08:56 97.8 F 112 14 122/65 96 Intake and Output 03/07/17 03/08/17 03/08/17 23:59 07:59 15:59 Intake Total 500 / 500 240 / 240 Output Total 300 / 300 400 / 400 400 / 400 Balance 200 / 200 -400 / -400 -160 / -160 Intake: Oral 500 / 500 240 / 240 Output: Urine 300 / 300 400 / 400 400 / 400 Other: Meal Lunch Percent of Meal Consumed 100% # Voids 1 - General Appearance General appearance: well-developed, well-nourished, appears started age, cachectic EENT: PERRL, mucous membranes moist Neck: no JVD, no thyromegaly, supple Respiratory: kyphosis, clear Cardiology: no murmurs, no rub, no gallops, no edema, irregular rhythm, normal S1, normal S2 Gastrointestinal: normoactive bowel sounds, no tenderness, no guarding Integumentary: no rash, warm and dry Neurologic: no focal deficit, no asterixis, alert and oriented x3 Musculoskeletal: no deformities, no erythema, no cyanosis, no clubbing Psychiatric: mood/affect appropriate, cooperative Results - Lab Results 03/08/17 04:10 03/08/17 04:10 Most recent lab results Calcium 9.0 mg/dL (8.6-10.8) 03/08/17 04:10 Phosphorus 3.9 mg/dL (2.3-4.7) 03/08/17 04:10 Magnesium 1.5 mg/dL (1.6-2.6) L 03/08/17 04:10 Consult Discharge Plan - Plan Referrals: Carlos Newman MD [Primary Care Provider] - Prescriptions: Furosemide [Lasix] 20 mg PO BID #60 tablet
[2017-03-08] MEDS: Diltiazem SR (12hr) 60 MG CAPSULE PO SCH ×2 (17:22→21:09)
[2017-03-08 17:50] LABS: Bilirubin,Urine Negative (Negative); Blood,Urine Negative (Negative); Clarity,Urine Clear (Clear); Color,Urine Yellow (Yellow); Glucose,Urine (UA) Normal (Normal); Ketones,Urine Negative (Negative); Leukocyte Esterase,Urine Negative (Negative); Nitrite,Urine Negative (Negative); PH,Urine 6.5 pH Units (5.0-8.0); Protein,Urine Negative (Neg-Trace); Specific Gravity,Urine 1.012 (1.010-1.025); Urobilinogen,Urine Normal (Normal)
[2017-03-08 18:28] LABS: % Iron Saturation 8 % (15-50); Iron 30 mcg/dL (50-170); Transferrin 265 mg/dL (180-382)
[2017-03-08 18:48] LABS: Ferritin 21 ng/ml (5-204)
[2017-03-09 05:01] LABS: Basophils % 0.5 %; Hematocrit 29.8 % (35.3-44.9); Hemoglobin 9.9 g/dL (11.5-15.4); Immature Granulocytes % 0.2 % (0-4); Lymphocytes # 2.4 K/mcL (0.6-4.6); Lymphocytes % 37.6 %; Mean Corpuscular HGB Conc 33.2 g/dL (31.6-35.5); Mean Corpuscular Hemoglobin 31.9 pg (28.0-33.3); Mean Corpuscular Volume 96.1 fL (83.0-100.0); Monocytes # 0.8 K/mcL (0.0-1.3); Monocytes % 12.4 %; Neutrophils # 3.1 K/mcL (1.6-8.9); Platelet Count 225 K/mcL (140-400); Red Cell Distribution Width 14.8 % (11.5-14.5); Segmented Neutrophils % 49.3 %
[2017-03-09 05:16] LABS: Calcium 9.1 mg/dL (8.6-10.8); Magnesium 2.1 mg/dL (1.6-2.6); Phosphorous 3.7 mg/dL (2.3-4.7); Potassium 4.5 mEq/L (3.5-4.5)
[2017-03-09] MEDS: Diltiazem CD (24hr) 300 MG CAPSULE PO SCH (08:41)
[2017-03-09] MEDS: Pyridostigmine Br 60 MG TABLET PO SCH ×2 (08:41→20:06)
[2017-03-09] MEDS: Isosorbide MONOnitrate (24 HR) 60 MG TAB.ER.24H PO SCH (08:41)
[2017-03-09] MEDS: *HR* Rivaroxaban 15 MG TABLET PO SCH (08:41)
[2017-03-09] MEDS: Furosemide 20 MG TABLET PO SCH ×2 (08:41→18:11)
--- NOTE | 2017-03-09 10:06 | Nephrology Progress Note ---
Date of Encounter: 03/09/17 Time of Encounter: 10:00 - Assessment and Plan (1) JARVIS (acute kidney injury) Current Visit: Yes Status: Acute JARVIS on CKD stage III, likely hemodynamic in nature and starting to trend better , which is reassuring Bosniak 2, left renal cyst: typically of a low risk for malignancy, but would be reasonable to re-image for surveillance in about 6-12 months Anemia, likely multifactorial, but with hx of CKD stage III, this may have contributed. Replete Iron orally first as tolerated. Goal Hgb in CKD is 10-11. HTN: well controlled. Continue to hold the ANDRES or ARB until the JARVIS further improves. Dyspnea/CHF/Arrhythmia: as per primary, but from a volume status perspective, I agree with the currently dosed oral Lasix. Continue to follow a renal protective strategy Thank you (2) Acute kidney injury superimposed on chronic kidney disease Current Visit: Yes Status: Acute See above (3) Cyst of left kidney Current Visit: Yes Status: Acute See above (4) Anemia Current Visit: Yes Status: Acute See above Qualifiers: Anemia type: due to chronic kidney disease Chronic kidney disease stage: stage 3 (moderate) Qualified Code(s): N18.3 - Chronic kidney disease, stage 3 (moderate); D63.1 - Anemia in chronic kidney disease (5) Dyspnea Current Visit: Yes Status: Acute See above Qualifiers: Dyspnea type: unspecified Qualified Code(s): R06.00 - Dyspnea, unspecified (6) Essential hypertension Current Visit: Yes Status: Chronic See above Subjective Principal diagnosis: PAF Interval history: Pt was s/e. She did not affirm N/V/D but did have some dizziness upon sudden standing earlier today, which has resolved she said. She affirmed having a hx of gout and occassionally her left great toe may ache but not actively hurting currently. She did report some mild shortness of breath presently but far better than compared to when she was admitted, she reported. Objective - Vital Signs Vital signs: Vital Signs Temp Pulse Resp BP Pulse Ox 03/09/17 07:13 97.7 F 79 18 116/68 96 03/09/17 03:48 97.6 F 16 100/52 93 03/08/17 23:33 98.2 F 85 16 132/77 95 03/08/17 19:31 98.4 F 66 16 132/66 98 03/08/17 16:20 98.2 F 71 16 122/92 95 03/08/17 12:00 97.1 F L 101 16 122/70 96 Intake and Output 03/08/17 03/09/17 03/09/17 23:59 07:59 15:59 Intake Total 240 / 240 Output Total 950 / 950 Balance -950 / -950 240 / 240 Intake: Oral 240 / 240 Output: Urine 950 / 950 Other: Meal Breakfast Percent of Meal Consumed 100% Weight 65.5 kg Patient Weight 03/09/17 23:59 Weight 65.5 kg - General Appearance General appearance: Present: well-developed, appears started age, cachectic EENT: Present: ATNC, PERRL, mucous membranes moist Neck: Present: supple Respiratory: Present: clear, rhonchi (some scatter rhonchi) Cardiology: Present: no murmurs, edema (trace LE pretibial pitting edema), regular rate, regular rhythm, normal S1, normal S2 Gastrointestinal: Present: normoactive bowel sounds, no tenderness, no guarding Integumentary: Present: no rash, warm and dry Neurologic: Present: no focal deficit, no asterixis, alert and oriented x3 Musculoskeletal: Present: no deformities, no erythema, no cyanosis Psychiatric: Present: mood/affect appropriate, cooperative - Lab 03/09/17 04:26 03/09/17 04:26 Most recent lab results Calcium 9.1 mg/dL (8.6-10.8) 03/09/17 04:26 Phosphorus 3.7 mg/dL (2.3-4.7) 03/09/17 04:26 Magnesium 2.1 mg/dL (1.6-2.6) 03/09/17 04:26 - VTE Reasons for not Prescribing Prophylaxis: Not indicated-Anticoagulated or INR therapeutic Consult Discharge Plan - Plan Referrals: Carlos Newman MD [Primary Care Provider] - Prescriptions: Furosemide [Lasix] 20 mg PO BID #60 tablet
[2017-03-09] MEDS ORDERED: Polyethylene Glycol 3350 255 GM POWDER PO PRN (12:00)
--- NOTE | 2017-03-09 12:02 | Internal Med Progress Note ---
Date of Encounter: 03/09/17 Time of Encounter: 11:10 - Assessment and plan (1) JARVIS (acute kidney injury) Current Visit: Yes Status: Acute Assessment and plan: Likely secondary to diuretic support Hold lisinopril continue PO lasix hold fenofibrate, d/c protonix renal US reports atrophic kidneys with underlying renal disease Nephrology consultation appreciated. will closely monitor (2) CHF (congestive heart failure) Current Visit: No Status: Chronic Assessment and plan: Acute exacerbation of CHF likely secondary to afib with RVR Clinically improving continue PO lasix fluid restriction diet monitor I/Os daily weights low sodium diet Qualifiers: Congestive heart failure type: diastolic Congestive heart failure chronicity: chronic Qualified Code(s): I50.32 - Chronic diastolic (congestive ) heart failure (3) Atrial fibrillation with rapid ventricular response Current Visit: Yes Status: Acute Assessment and plan: Afib with RVR history of PAF Rate controlled continue Cardizem 300mg PO qd closely monitor BP anticoagulated with Xarelto will continue to monitor (4) Essential hypertension Current Visit: Yes Status: Chronic Assessment and plan: BP within acceptable range continue home medications will continue to closely monitor Will adjust BP medications if unable to tolerate with increase in PO cardizem dose Holding Lisinopril at this time (5) Hyperlipidemia Current Visit: No Status: Chronic Assessment and plan: Hold Fenofibrate at this time given renal function Qualifiers: Hyperlipidemia type: unspecified Qualified Code(s): E78.5 - Hyperlipidemia , unspecified (6) Myasthenia gravis Current Visit: No Status: Chronic (7) DVT prophylaxis Current Visit: No Status: Acute Assessment and plan: anticoagulated with xarelto (8) GERD (gastroesophageal reflux disease) Current Visit: No Status: Chronic Qualifiers: Esophagitis presence: without esophagitis Qualified Code(s): K21.9 - Gastro -esophageal reflux disease without esophagitis (9) Elevated troponin Current Visit: No Status: Chronic (10) Anemia Current Visit: Yes Status: Acute Assessment and plan: iron supplementation as per nephrology restarted home dose of stool softners prn constipation Qualifiers: Anemia type: due to chronic kidney disease Chronic kidney disease stage: stage 3 (moderate) Qualified Code(s): N18.3 - Chronic kidney disease, stage 3 (moderate); D63.1 - Anemia in chronic kidney disease - Subjective Interval history: Pt seen and examined at bedside. Resting in bed and reports of feeling better compared to previous day. Noted to have better HR control and improvement in renal function. No overnight issues reported. - Constitutional Vitals: Temp Pulse Resp BP Pulse Ox 97.7 F 80 18 104/53 95 03/09/17 11:06 03/09/17 11:06 03/09/17 11:06 03/09/17 11:06 03/09/17 11:06 General appearance: Present: cooperative, A&O X 3, pleasant, no acute distress, answers questions appropriately - Head Head exam: Present: atraumatic, normocephalic - Eye Eye exam: Present: normal appearance, conjuntiva pink, sclera anicteric - Respiratory Respiratory exam: Present: CTAB. Absent: accessory muscle use, rales, rhonchi, wheezes - Cardiovascular Cardiovascular exam: Present: irregular rhythm, +S1, +S2. Absent: diastolic murmur, systolic murmur - GI/Abdominal GI/Abdominal exam: Present: normal bowel sounds, soft, no peritoneal signs. Absent: distended, tenderness - Extremities Exam Extremities exam: Present: pedal edema, warm, radial pulses palpable and symetrical. Absent: calf tenderness - Neurological Exam Neurological exam: Present: alert, oriented X3 - Psychiatric Psychiatric exam: Present: normal affect, normal mood Internal Medicine: Result - Labs CBC & Chem 7: 03/09/17 04:26 03/09/17 04:26 Labs: Short CBC 03/09/17 Range/Units 04:26 WBC 6.3 (4.3-11.1) K/mcL Hgb 9.9 L (11.5-15.4) g/dL Hct 29.8 L (35.3-44.9) % Plt Count 225 (140-400) K/mcL Neutrophils # 3.1 (1.6-8.9) K/mcL BMP 03/08/17 03/09/17 04:10 04:26 Sodium 140 139 Potassium 4.4 4.5 Chloride 103 102 Carbon Dioxide 31 H 31 H BUN 56 H 59 H Creatinine 1.86 H 1.75 H Glucose 89 90 Calcium 9.0 9.1 Liver Function 03/09/17 Range/Units 04:26 Albumin 2.7 L (3.5-5.0) g/dL Urine 03/08/17 Range/Units 17:38 Urine Color Yellow (Yellow) Urine Clarity Clear (Clear) Urine pH 6.5 (5.0-8.0) pH Units Ur Specific [place] 1.012 (1.010-1.025) Urine Protein Negative (Neg-Trace) mg/dL Urine Glucose (UA) Normal (Normal) mg/dL - ABG Interpretation ABG results: PT/INR, D-dimer PT 15.6 Seconds (9.4-12.1) H 03/05/17 10:08 - VTE Reasons for not Prescribing Prophylaxis: Not indicated-Anticoagulated or INR therapeutic Consult Discharge Plan - Plan Referrals: Carlos Newman MD [Primary Care Provider] - Prescriptions: Furosemide [Lasix] 20 mg PO BID #60 tablet
[2017-03-09] MEDS: Acetaminophen 325 MG TABLET PO PRN (20:06)
[2017-03-10 05:21] LABS: Basophils % 0.4 %; Eosinophils % 0.4 %; Hematocrit 28.1 % (35.3-44.9); Hemoglobin 9.3 g/dL (11.5-15.4); Lymphocytes # 2.5 K/mcL (0.6-4.6); Lymphocytes % 46.1 %; Mean Corpuscular HGB Conc 33.1 g/dL (31.6-35.5); Mean Corpuscular Hemoglobin 32.1 pg (28.0-33.3); Mean Corpuscular Volume 96.9 fL (83.0-100.0); Mean Platelet Volume 11.3 fL (9.4-12.4); Monocytes # 0.8 K/mcL (0.0-1.3); Monocytes % 13.9 %; Neutrophils # 2.1 K/mcL (1.6-8.9); Platelet Count 216 K/mcL (140-400); Red Cell Distribution Width 14.6 % (11.5-14.5); Segmented Neutrophils % 39.2 %
[2017-03-10 05:36] LABS: Phosphorous 4.3 mg/dL (2.3-4.7); Potassium 4.2 mEq/L (3.5-4.5)
[2017-03-10] MEDS: *HR* Rivaroxaban 15 MG TABLET PO SCH (08:16)
[2017-03-10] MEDS: Furosemide 20 MG TABLET PO SCH ×2 (08:16→17:12)
[2017-03-10] MEDS: Diltiazem CD (24hr) 300 MG CAPSULE PO SCH (08:16)
[2017-03-10] MEDS: Isosorbide MONOnitrate (24 HR) 60 MG TAB.ER.24H PO SCH (08:16)
--- NOTE | 2017-03-10 09:30 | Nephrology Progress Note ---
Date of Encounter: 03/10/17 Time of Encounter: 08:45 - Assessment and Plan (1) JARVIS (acute kidney injury) Current Visit: Yes Status: Acute JARVIS on CKD stage III, likely hemodynamic in nature and starting to trend better again today, which is reassuring Bosniak 2, left renal cyst: typically of a low risk for malignancy, but would be reasonable to re-image for surveillance in about 6-12 months Anemia, likely multifactorial, but with hx of CKD stage III, this may have contributed. Replete Iron orally, which was started last night and should continue at discharge. Goal Hgb in CKD is 10-11. HTN: Continue to hold the ANDRES or ARB until the JARVIS further improves possibly in about 1-2 weeks. Dyspnea/CHF/Arrhythmia: as per primary, but from a volume status perspective, I agree with the currently dosed oral Lasix. Continue to follow a renal protective strategy Thank you (2) Acute kidney injury superimposed on chronic kidney disease Current Visit: Yes Status: Acute See above (3) Cyst of left kidney Current Visit: Yes Status: Acute See above (4) Anemia Current Visit: Yes Status: Acute See above Qualifiers: Anemia type: due to chronic kidney disease Chronic kidney disease stage: stage 3 (moderate) Qualified Code(s): N18.3 - Chronic kidney disease, stage 3 (moderate); D63.1 - Anemia in chronic kidney disease (5) Dyspnea Current Visit: Yes Status: Acute See above Qualifiers: Dyspnea type: unspecified Qualified Code(s): R06.00 - Dyspnea, unspecified (6) Essential hypertension Current Visit: Yes Status: Chronic See above Subjective Principal diagnosis: PAF Interval history: Pt was s/e. She did not affirm N/V/D or uremic symptoms. She requested to follow up with me in my Nephrology clinic. Objective - Vital Signs Vital signs: Vital Signs Temp Pulse Resp BP Pulse Ox 03/10/17 07:14 97.5 F L 82 18 114/71 96 03/10/17 03:38 97.6 F 85 20 108/69 92 03/10/17 00:00 97.6 F 72 18 105/61 93 03/09/17 19:43 97.9 F 16 109/53 97 03/09/17 15:43 97.8 F 76 18 110/59 96 03/09/17 11:06 97.7 F 80 18 104/53 95 Intake and Output 03/09/17 03/10/17 03/10/17 23:59 07:59 15:59 Intake Total 270 / 270 450 / 450 Output Total 0 / 0 600 / 600 Balance 270 / 270 -150 / -150 Intake: Oral 270 / 270 450 / 450 Output: Urine 0 / 0 600 / 600 Other: Meal Dinner Percent of Meal Consumed 100% Weight 66.3 kg Patient Weight 03/10/17 23:59 Weight 66.3 kg - General Appearance General appearance: Present: well-developed, cachectic EENT: Present: ATNC, PERRL, mucous membranes moist Neck: Present: supple Respiratory: Present: clear Cardiology: Present: rapid rhythm, irregular rhythm, normal S1, normal S2 Gastrointestinal: Present: normoactive bowel sounds, no tenderness, no guarding Integumentary: Present: no rash, warm and dry Neurologic: Present: no focal deficit, no asterixis, alert and oriented x3 Musculoskeletal: Present: no deformities, no erythema, no cyanosis Psychiatric: Present: mood/affect appropriate, cooperative - Lab 03/10/17 03:20 03/10/17 03:20 Most recent lab results Calcium 9.0 mg/dL (8.6-10.8) 03/10/17 03:20 Phosphorus 4.3 mg/dL (2.3-4.7) 03/10/17 03:20 Magnesium 2.0 mg/dL (1.6-2.6) 03/10/17 03:20 - VTE Reasons for not Prescribing Prophylaxis: Not indicated-Anticoagulated or INR therapeutic Consult Discharge Plan - Plan Referrals: Carlos Newman MD [Primary Care Provider] - Prescriptions: Furosemide [Lasix] 20 mg PO BID #60 tablet
--- NOTE | 2017-03-10 10:03 | Internal Med Progress Note ---
Date of Encounter: 03/10/17 Time of Encounter: 09:20 - Assessment and plan (1) JARVIS (acute kidney injury) Current Visit: Yes Status: Acute Assessment and plan: Likely secondary to diuretic support Hold lisinopril continue PO lasix hold fenofibrate renal US reports atrophic kidneys with underlying renal disease Nephrology consultation appreciated. will closely monitor Renal function improved from previous day (2) CHF (congestive heart failure) Current Visit: No Status: Chronic Assessment and plan: Acute exacerbation of CHF likely secondary to afib with RVR Clinically improving continue PO lasix fluid restriction diet monitor I/Os daily weights low sodium diet Qualifiers: Congestive heart failure type: diastolic Congestive heart failure chronicity: chronic Qualified Code(s): I50.32 - Chronic diastolic (congestive ) heart failure (3) Atrial fibrillation with rapid ventricular response Current Visit: Yes Status: Acute Assessment and plan: Afib with RVR history of PAF Rate poorly controlled will increase to Cardizem 360mg PO qd closely monitor BP anticoagulated with Xarelto will continue to monitor (4) Essential hypertension Current Visit: Yes Status: Chronic Assessment and plan: BP within acceptable range continue home medications will continue to closely monitor Will adjust BP medications if unable to tolerate with increase in PO cardizem dose Holding Lisinopril at this time (5) Hyperlipidemia Current Visit: No Status: Chronic Qualifiers: Hyperlipidemia type: unspecified Qualified Code(s): E78.5 - Hyperlipidemia , unspecified (6) Myasthenia gravis Current Visit: No Status: Chronic (7) DVT prophylaxis Current Visit: No Status: Acute Assessment and plan: anticoagulated with xarelto (8) GERD (gastroesophageal reflux disease) Current Visit: No Status: Chronic Qualifiers: Esophagitis presence: without esophagitis Qualified Code(s): K21.9 - Gastro -esophageal reflux disease without esophagitis (9) Elevated troponin Current Visit: No Status: Chronic (10) Anemia Current Visit: Yes Status: Acute Qualifiers: Anemia type: due to chronic kidney disease Chronic kidney disease stage: stage 3 (moderate) Qualified Code(s): N18.3 - Chronic kidney disease, stage 3 (moderate); D63.1 - Anemia in chronic kidney disease - Subjective Interval history: Pt seen and examined at bedside. Resting in bed and noted to have persistent Afib with RVR. Rate ranging between 90-130 this morning. Will increase to cardizem 360mg PO qd today. Renal function improving. will closely monitor. No overnight issues reported. - Constitutional Vitals: Temp Pulse Resp BP Pulse Ox 97.5 F L 82 18 114/71 96 03/10/17 07:14 03/10/17 07:14 03/10/17 07:14 03/10/17 07:14 03/10/17 07:14 General appearance: Present: cooperative, A&O X 3, pleasant, no acute distress, answers questions appropriately - Head Head exam: Present: atraumatic, normocephalic - Respiratory Respiratory exam: Present: CTAB. Absent: accessory muscle use, rales, rhonchi, wheezes - Cardiovascular Cardiovascular exam: Present: irregular rhythm, +S1, +S2, tachycardia - GI/Abdominal GI/Abdominal exam: Present: normal bowel sounds, soft, no peritoneal signs. Absent: distended, tenderness - Extremities Exam Extremities exam: Present: pedal edema, warm, radial pulses palpable and symetrical. Absent: calf tenderness - Neurological Exam Neurological exam: Present: alert, oriented X3 - Psychiatric Psychiatric exam: Present: normal affect, normal mood Internal Medicine: Result - Labs CBC & Chem 7: 03/10/17 03:20 03/10/17 03:20 Labs: Short CBC 03/10/17 Range/Units 03:20 WBC 5.4 (4.3-11.1) K/mcL Hgb 9.3 L (11.5-15.4) g/dL Hct 28.1 L (35.3-44.9) % Plt Count 216 (140-400) K/mcL Neutrophils # 2.1 (1.6-8.9) K/mcL BMP 03/10/17 03:20 Sodium 138 Potassium 4.2 Chloride 102 Carbon Dioxide 30 H BUN 64 H Creatinine 1.61 H Glucose 81 Calcium 9.0 - ABG Interpretation ABG results: PT/INR, D-dimer PT 15.6 Seconds (9.4-12.1) H 03/05/17 10:08 - VTE Reasons for not Prescribing Prophylaxis: Not indicated-Anticoagulated or INR therapeutic Consult Discharge Plan - Plan Referrals: Carlos Newman MD [Primary Care Provider] - Prescriptions: Furosemide [Lasix] 20 mg PO BID #60 tablet
[2017-03-10] MEDS: Pyridostigmine Br 60 MG TABLET PO SCH ×2 (13:18→22:29)
[2017-03-10 21:38] LABS: Kappa Qnt Free Light Chains 20.2 mg/dL (0.33-1.94); Lambda Qnt Free Light Chains 5.16 mg/dL (0.57-2.63)
[2017-03-11 00:24] LABS: Alpha 2 Globulin (PEP) 0.53 g/dL (0.48-1.05); Beta Globulin (PEP) 0.67 g/dL (0.48-1.10)
[2017-03-11 05:14] LABS: Basophils % 0.3 %; Hematocrit 30.5 % (35.3-44.9); Immature Granulocytes % 0.2 % (0-4); Lymphocytes # 2.9 K/mcL (0.6-4.6); Lymphocytes % 44.6 %; Mean Corpuscular HGB Conc 32.8 g/dL (31.6-35.5); Mean Corpuscular Hemoglobin 31.4 pg (28.0-33.3); Mean Corpuscular Volume 95.9 fL (83.0-100.0); Mean Platelet Volume 10.9 fL (9.4-12.4); Monocytes # 0.9 K/mcL (0.0-1.3); Monocytes % 13.4 %; Neutrophils # 2.7 K/mcL (1.6-8.9); Platelet Count 246 K/mcL (140-400); Red Blood Count 3.18 M/mcL (3.82-4.97); Red Cell Distribution Width 14.6 % (11.5-14.5); Segmented Neutrophils % 41.5 %
[2017-03-11 05:26] LABS: Calcium 9.5 mg/dL (8.6-10.8); Magnesium 1.7 mg/dL (1.6-2.6); Phosphorous 4.4 mg/dL (2.3-4.7); Potassium 4.6 mEq/L (3.5-4.5)
[2017-03-11 08:08] LABS: IFE Reflexed NOT DONE
[2017-03-11] MEDS: *HR* Rivaroxaban 15 MG TABLET PO SCH (08:30)
[2017-03-11] MEDS: Isosorbide MONOnitrate (24 HR) 60 MG TAB.ER.24H PO SCH ×2 (08:30→15:43)
[2017-03-11] MEDS: Diltiazem CD (24hr) 180 MG CAPSULE PO SCH (08:30)
[2017-03-11] MEDS: Pyridostigmine Br 60 MG TABLET PO SCH ×2 (08:30→21:36)
[2017-03-11] MEDS: Furosemide 20 MG TABLET PO SCH ×2 (08:30→17:29)
--- NOTE | 2017-03-11 09:15 | Nephrology Progress Note ---
Date of Encounter: 03/11/17 Time of Encounter: 09:00 - Assessment and Plan (1) JARVIS (acute kidney injury) Current Visit: Yes Status: Acute JARVIS on CKD stage III, likely hemodynamic in nature which is relatively reassuring. Bosniak 2, left renal cyst: typically of a low risk for malignancy, but would be reasonable to re-image for surveillance in about 6-12 months Anemia, likely multifactorial, but with hx of CKD stage III, this may have contributed. Replete Iron orally, which was started last night and should continue at discharge. Goal Hgb in CKD is 10-11. HTN: Continue to hold the ANDRES or ARB until the JARVIS further improves possibly in about 1-2 weeks. Dyspnea/CHF/Arrhythmia: as per primary, but from a volume status perspective, I agree with the currently dosed oral Lasix. Continue to follow a renal protective strategy Thank you (2) Acute kidney injury superimposed on chronic kidney disease Current Visit: Yes Status: Acute See above (3) Cyst of left kidney Current Visit: Yes Status: Acute See above (4) Anemia Current Visit: Yes Status: Acute See above Qualifiers: Anemia type: due to chronic kidney disease Chronic kidney disease stage: stage 3 (moderate) Qualified Code(s): N18.3 - Chronic kidney disease, stage 3 (moderate); D63.1 - Anemia in chronic kidney disease (5) Dyspnea Current Visit: Yes Status: Acute See above Qualifiers: Dyspnea type: unspecified Qualified Code(s): R06.00 - Dyspnea, unspecified (6) Essential hypertension Current Visit: Yes Status: Chronic See above Subjective Principal diagnosis: PAF Interval history: Pt was s/e. She did not affirm N/V/D or uremic symptoms. She requested to follow up with me in my Nephrology clinic. Objective - Vital Signs Vital signs: Vital Signs Temp Pulse Resp BP Pulse Ox 03/11/17 07:00 97.9 F 103 17 95/57 98 03/10/17 23:36 97.9 F 88 16 121/52 92 03/10/17 19:22 97.8 F 91 17 116/80 92 03/10/17 16:29 98.7 F 58 16 96/44 94 03/10/17 11:13 97.9 F 84 18 108/78 94 Intake and Output 03/10/17 03/11/17 03/11/17 23:59 07:59 15:59 Intake Total 640 / 640 500 / 500 Output Total 200 / 200 650 / 650 Balance 440 / 440 -150 / -150 Intake: Oral 640 / 640 500 / 500 Output: Urine 200 / 200 650 / 650 Other: Meal Dinner Percent of Meal Consumed 100% # Voids 1 # Urine Diapers 1 # Bowel Movements 1 Weight 66.8 kg Patient Weight 03/11/17 23:59 Weight 66.8 kg - General Appearance Exam: General appearance: Present: well-developed, cachectic EENT: Present: ATNC, PERRL, mucous membranes moist Neck: Present: supple Respiratory: Present: clear Cardiology: Present: rapid rhythm, irregular rhythm, normal S1, normal S2 Gastrointestinal: Present: normoactive bowel sounds, no tenderness, no guarding Integumentary: Present: no rash, warm and dry Neurologic: Present: no focal deficit, no asterixis, alert and oriented x3 Musculoskeletal: Present: no deformities, no erythema, no cyanosis Psychiatric: Present: mood/affect appropriate, cooperative - Lab 03/11/17 04:26 03/11/17 04:26 Most recent lab results Calcium 9.5 mg/dL (8.6-10.8) 03/11/17 04:26 Phosphorus 4.4 mg/dL (2.3-4.7) 03/11/17 04:26 Magnesium 1.7 mg/dL (1.6-2.6) 03/11/17 04:26 - VTE Reasons for not Prescribing Prophylaxis: Not indicated-Anticoagulated or INR therapeutic Consult Discharge Plan - Plan Referrals: Carlos Newman MD [Primary Care Provider] - Prescriptions: Furosemide [Lasix] 20 mg PO BID #60 tablet
--- NOTE | 2017-03-11 10:56 | Internal Med Progress Note ---
Date of Encounter: 03/11/17 Time of Encounter: 10:54 - Assessment and plan (1) JARVIS (acute kidney injury) Current Visit: Yes Status: Acute Assessment and plan: Likely secondary to diuretic support continue to hold lisinopril continue PO lasix hold fenofibrate renal US reports atrophic kidneys with underlying renal disease Nephrology consultation appreciated. will closely monitor (2) CHF (congestive heart failure) Current Visit: No Status: Chronic Assessment and plan: Acute exacerbation of CHF likely secondary to afib with RVR Clinically improving continue PO lasix fluid restriction diet monitor I/Os daily weights low sodium diet Qualifiers: Congestive heart failure type: diastolic Congestive heart failure chronicity: chronic Qualified Code(s): I50.32 - Chronic diastolic (congestive ) heart failure (3) Atrial fibrillation with rapid ventricular response Current Visit: Yes Status: Acute Assessment and plan: Afib with RVR history of PAF continue Cardizem 360mg PO qdaily pt educated about her medications and to closely monitor her blood pressure after discharge closely monitor BP anticoagulated with Xarelto will continue to monitor (4) Essential hypertension Current Visit: Yes Status: Chronic Assessment and plan: BP within acceptable range continue home medications will continue to closely monitor Will adjust BP medications if unable to tolerate with increase in PO cardizem dose Holding Lisinopril at this time (5) Hyperlipidemia Current Visit: No Status: Chronic Qualifiers: Hyperlipidemia type: unspecified Qualified Code(s): E78.5 - Hyperlipidemia , unspecified (6) Myasthenia gravis Current Visit: No Status: Chronic (7) DVT prophylaxis Current Visit: No Status: Acute Assessment and plan: anticoagulated with xarelto (8) GERD (gastroesophageal reflux disease) Current Visit: No Status: Chronic Qualifiers: Esophagitis presence: without esophagitis Qualified Code(s): K21.9 - Gastro -esophageal reflux disease without esophagitis (9) Elevated troponin Current Visit: No Status: Chronic (10) Anemia Current Visit: Yes Status: Acute Assessment and plan: iron supplementation as per nephrology continue home dose of stool softners prn constipation Qualifiers: Anemia type: due to chronic kidney disease Chronic kidney disease stage: stage 3 (moderate) Qualified Code(s): N18.3 - Chronic kidney disease, stage 3 (moderate); D63.1 - Anemia in chronic kidney disease - Subjective Interval history: Pt seen and examined at bedside. Pt reports of feeling lightheaded shortly after receiving all of her morning medications. She states she normally does not take all of her medications at once. She was noted to become hypotensive shortly after receiving Imdur, cardizem, and lasix this morning. BP low but within acceptable range.Pt states she feels too weak to go home given her current state. Will closely monitor BP and time her morning medications at different intervals to prevent hypotension. Pt in agreement to this plan. - Constitutional Vitals: Temp Pulse Resp BP Pulse Ox 97.9 F 103 17 95/57 98 03/11/17 07:00 03/11/17 07:00 03/11/17 07:00 03/11/17 07:00 03/11/17 07:00 General appearance: Present: cooperative, A&O X 3, pleasant, no acute distress, answers questions appropriately - Head Head exam: Present: atraumatic, normocephalic - Respiratory Respiratory exam: Present: CTAB. Absent: accessory muscle use, rales, rhonchi, wheezes - Cardiovascular Cardiovascular exam: Present: irregular rhythm, +S1, +S2, tachycardia - GI/Abdominal GI/Abdominal exam: Present: normal bowel sounds, soft, no peritoneal signs. Absent: distended, tenderness - Extremities Exam Extremities exam: Present: pedal edema, warm, radial pulses palpable and symetrical. Absent: calf tenderness, cyanotic - Neurological Exam Neurological exam: Present: alert, oriented X3 - Psychiatric Psychiatric exam: Present: normal affect, normal mood Internal Medicine: Result - Labs CBC & Chem 7: 03/11/17 04:26 03/11/17 04:26 Labs: Short CBC 03/11/17 Range/Units 04:26 WBC 6.4 (4.3-11.1) K/mcL Hgb 10.0 L (11.5-15.4) g/dL Hct 30.5 L (35.3-44.9) % Plt Count 246 (140-400) K/mcL Neutrophils # 2.7 (1.6-8.9) K/mcL BMP 03/11/17 04:26 Sodium 140 Potassium 4.6 H Chloride 104 Carbon Dioxide 31 H BUN 71 H Creatinine 1.74 H Glucose 87 Calcium 9.5 - ABG Interpretation ABG results: PT/INR, D-dimer PT 15.6 Seconds (9.4-12.1) H 03/05/17 10:08 - VTE Reasons for not Prescribing Prophylaxis: Not indicated-Anticoagulated or INR therapeutic Consult Discharge Plan - Plan Referrals: Carlos Newman MD [Primary Care Provider] - Prescriptions: Furosemide [Lasix] 20 mg PO BID #60 tablet
[2017-03-11] MEDS: Mag Hydrox/Al Hydrox/Simeth 30 ML UDC PO PRN (14:18)
[2017-03-12 06:54] LABS: Calcium 9.4 mg/dL (8.6-10.8); Magnesium 1.7 mg/dL (1.6-2.6); Phosphorous 3.4 mg/dL (2.3-4.7); Potassium 4.6 mEq/L (3.5-4.5)
[2017-03-12 07:29] LABS: Hematocrit 30.2 % (35.3-44.9); Hemoglobin 9.8 g/dL (11.5-15.4); Mean Corpuscular HGB Conc 32.5 g/dL (31.6-35.5); Mean Corpuscular Volume 98.7 fL (83.0-100.0); Mean Platelet Volume 11.1 fL (9.4-12.4); Platelet Count 224 K/mcL (140-400); Red Blood Count 3.06 M/mcL (3.82-4.97)
[2017-03-12] MEDS: Diltiazem CD (24hr) 180 MG CAPSULE PO SCH (08:15)
[2017-03-12] MEDS: Pyridostigmine Br 60 MG TABLET PO SCH ×2 (08:15→21:04)
[2017-03-12] MEDS: *HR* Rivaroxaban 15 MG TABLET PO SCH (08:15)
--- NOTE | 2017-03-12 08:30 | Nephrology Progress Note ---
Date of Encounter: 03/12/17 Time of Encounter: 08:28 - Assessment and Plan (1) Acute kidney injury superimposed on chronic kidney disease Current Visit: Yes Status: Acute Scr 1.29-back to baseline. Nephrology will sign off case today. Follow up in office with Dr Yoder in 4-6 weeks BMP 1 week after discharge. (2) Essential hypertension Current Visit: Yes Status: Chronic per primary team (3) CHF (congestive heart failure) Current Visit: No Status: Chronic per primary team Qualifiers: Congestive heart failure type: diastolic Congestive heart failure chronicity: chronic Qualified Code(s): I50.32 - Chronic diastolic (congestive ) heart failure Subjective Principal diagnosis: PAF; CKD 3 Interval history: Patient seen and examined. Sitting up in bed eating breakfast. States she feels well today Objective - Vital Signs Vital signs: Vital Signs Temp Pulse Resp BP Pulse Ox 03/12/17 08:01 98.2 F 84 18 108/70 97 03/12/17 04:38 111 15 104/54 93 03/11/17 21:28 96.9 F L 74 17 107/77 98 03/11/17 15:30 96 03/11/17 15:00 97.8 F 109 14 140/64 96 Intake and Output 03/11/17 03/12/17 03/12/17 23:59 07:59 15:59 Other: Weight 68.3 kg Patient Weight 03/12/17 23:59 Weight 68.3 kg - General Appearance General appearance: Present: well-developed, well-nourished EENT: Present: ATNC, mucous membranes moist, hearing intact, vision intact Neck: Present: supple Cardiology: Present: no edema, normal S1, normal S2 Gastrointestinal: Present: no tenderness, no guarding Integumentary: Present: warm and dry Neurologic: Present: alert and oriented x3 Psychiatric: Present: mood/affect appropriate, cooperative - Lab 03/12/17 05:45 03/12/17 05:45 Most recent lab results Calcium 9.4 mg/dL (8.6-10.8) 03/12/17 05:45 Phosphorus 3.4 mg/dL (2.3-4.7) 03/12/17 05:45 Magnesium 1.7 mg/dL (1.6-2.6) 03/12/17 05:45 - VTE Reasons for not Prescribing Prophylaxis: Not indicated-Anticoagulated or INR therapeutic Consult Discharge Plan - Plan Referrals: Carlos Newman MD [Primary Care Provider] - Prescriptions: Furosemide [Lasix] 20 mg PO BID #60 tablet
--- NOTE | 2017-03-12 10:20 | Discharge Summary ---
Date of Encounter: 03/13/17 Time of Encounter: 10:15 - Discharge Diagnosis (1) Atrial fibrillation with rapid ventricular response Priority: Primary Status: Acute (2) Essential hypertension Priority: Secondary Status: Chronic (3) Hyperlipidemia Priority: Secondary Status: Chronic Qualifiers: Hyperlipidemia type: unspecified Qualified Code(s): E78.5 - Hyperlipidemia , unspecified (4) CHF (congestive heart failure) Priority: Primary Status: Chronic Qualifiers: Congestive heart failure type: diastolic Congestive heart failure chronicity: chronic Qualified Code(s): I50.32 - Chronic diastolic (congestive ) heart failure (5) JARVIS (acute kidney injury) Priority: Secondary Status: Acute (6) Anemia Priority: Secondary Status: Acute Qualifiers: Anemia type: due to chronic kidney disease Chronic kidney disease stage: stage 3 (moderate) Qualified Code(s): N18.3 - Chronic kidney disease, stage 3 (moderate); D63.1 - Anemia in chronic kidney disease - Discharge Medications Prescriptions: Digoxin [Lanoxin] 0.125 mg PO DAILY #30 tab Diltiazem CD (24hr) [Cardizem CD] 360 mg PO DAILY #60 tab Ferrous Sulfate 325 mg PO DAILY@0800 #30 tab Furosemide [Lasix] 20 mg PO BID #60 tablet Home Medications: Allopurinol [Zyloprim 100 MG] 100 mg PO DAILY 02/18/17 [History] Cholecalciferol (Vitamin D3) [Vitamin D3] 2,000 unit PO DAILY 02/18/17 [History] Docusate [Colace] 100 mg PO DAILY PRN 02/18/17 [History] Fenofibrate Nanocrystallized [Triglide] 160 mg PO DAILY 02/18/17 [History] Isosorbide MONOnitrate (24 HR) [Imdur] 60 mg PO DAILY 02/18/17 [History] Lisinopril [Zestril] 20 mg PO DAILY 02/18/17 [History] Multivit-Min/Iron/Folic/Lutein [Centrum Silver Women Tablet] 1 tab PO DAILY 05/28 [History] Pantoprazole Sodium 40 mg PO DAILY 02/18/17 [History] Polyethylene Glycol 3350 [MiraLAX bowel prep] 17 gm PO DAILY 02/18/17 [History] Pyridostigmine Br [Mestinon] 60 mg PO BID 02/18/17 [History] Rivaroxaban [Xarelto] 15 mg PO DAILY 02/18/17 [History] Furosemide [Lasix] 20 mg PO BID #60 tablet 03/08/17 [Rx] Acetaminophen [Tylenol] 650 mg PO Q6HR PRN tab 03/12/17 [Rx] Digoxin [Lanoxin] 0.125 mg PO DAILY #30 tab 03/12/17 [Rx] Diltiazem CD (24hr) [Cardizem CD] 360 mg PO DAILY #60 tab 03/12/17 [Rx] Ferrous Sulfate 325 mg PO DAILY@0800 #30 tab 03/12/17 [Rx] Allergies/Adverse Reactions: Allergies prednisone Adverse Reaction (Verified 02/18/17 03:42) Palpitations [id number] Reductase Inhibitor [Statins] Adverse Reaction (Verified 03:42) Weakness Date of admission: 03/05/17 15:27 Primary care physician: Carlos Newman MD Consults: 03/06/17 16:48 consult to builder beam [Consult to Nutrition] [CONS] Routine Comment: Consulting Provider: NUTRITION Reason for Dietary Consult: Other Other:: patient would like to discuss cardiac diet 03/08/17 11:35 Consult to Nephrology [CONS] Routine Consulting Provider: Kidney Edita/MARIA/ANNAMARIE/JAYESH Reason for Consult: JARVIS Call Completed: Yes Discharging clinician: Elbert Sarabia Anticipated date of discharge: 03/13/17 - Patient Status Disposition: Home Health Service Condition: Fair Overall status at discharge: patient is progressing back to baseline - Discharge Instructions Follow Up With: Eugene Chacko MD [Partnered Physician] - 03/15/17 2:40 pm Carlos Newman MD [Primary Care Provider] - 03/19/17 2:40 pm Hayden Yoder DO [Partnered Physician] - 04/12/17 3:40 pm - Diet and Activity Activity: resume usual activities as tolerated Diet: advance to your usual diet Hospital course: Ms. Castaneda is a 81 year old female admitted for congestive heart failure. She was diuresed well. An echocardiogram done in October this year showed left ventricular ejection fraction about 70% with diastolic dysfunction, dilated LA , no significant valvular abnormality and pulmonary hypertension in the range of 53. As she was diuresed her creatinine went up but later it came down nicely to her baseline which is 1.29. Based on GFR she has stage III chronic kidney disease. An ultrasound of kidneys were done which showed mild cortical atrophy consistent with her chronic kidney disease. Both cardiology and nephrology were consulted. Patient was noted in A. fib with RVR. She is on xaelto at home. Due to complications beta amber was stopped. She cannot take amiodarone as it causes dyspnea in the past. Cardizem was restarted which has barely controlled heart rate. I reviewed her record and decided to add some low -dose digoxin. I will load her with digoxin today and if she remains stable on telemetry can discharge her home with a controlled A. fib rate tomorrow. - Time Spent with Patient Total time spent providing and/or coordinating discharge services: Greater than 30 minutes - Constitutional Vitals: Temp Pulse Resp BP Pulse Ox 98.2 F 84 18 108/70 97 03/12/17 08:01 03/12/17 08:01 03/12/17 08:01 03/12/17 08:01 03/12/17 08:01 General appearance: Present: cooperative, A&O X 3, pleasant, no acute distress, answers questions appropriately - Head Head exam: Present: atraumatic, normocephalic - Eye Eye exam: Present: PERRL, conjuntiva pink, sclera anicteric Pupils: Present: PERRL - Neck Neck exam general surgery: Present: supple, trachea midline. Absent: lymphadenopathy - Respiratory Respiratory exam: Present: CTAB. Absent: accessory muscle use, rales, rhonchi, wheezes - Cardiovascular Cardiovascular exam: Present: RRR, +S1, +S2. Absent: diastolic murmur, gallop, rubs, systolic murmur - GI/Abdominal GI/Abdominal exam: Present: normal bowel sounds, soft, no peritoneal signs. Absent: distended, tenderness - Extremities Exam Extremities exam: Present: warm, radial pulses palpable and symetrical. Absent : calf tenderness, cyanotic, pedal edema - Neurological Exam Neurological exam: Present: CN II-XII intact, oriented X3, no focal deficits. Absent: pronater drift, facial droop, speech deficit - Skin Skin exam: Present: dry, intact - VTE Reasons for not Prescribing Prophylaxis: Not indicated-Anticoagulated or INR therapeutic
[2017-03-12] MEDS: Furosemide 20 MG TABLET PO SCH ×2 (11:46→18:27)
[2017-03-12] MEDS ORDERED: *HR* Digoxin 0.5 MG/2 ML AMPUL IVP SCH ×2 (12:00→20:15)
[2017-03-12] MEDS: Isosorbide MONOnitrate (24 HR) 60 MG TAB.ER.24H PO SCH (16:17)
[2017-03-13] MEDS: Pyridostigmine Br 60 MG TABLET PO SCH (08:33)
[2017-03-13] MEDS: *HR* Rivaroxaban 15 MG TABLET PO SCH (08:33)
[2017-03-13] MEDS: Diltiazem CD (24hr) 180 MG CAPSULE PO SCH (08:34)
[2017-03-13] MEDS: Furosemide 20 MG TABLET PO SCH (08:35)
[2017-03-13] MEDS ORDERED: *HR* Digoxin 0.125 MG TABLET PO SCH (09:00)
[2017-03-13 10:39] LABS: MMA (VIT B12 STATUS) 0.69 umol/L (0.00-0.40)
[2017-03-13 11:19] VITALS: BP 138/76
[2017-03-13] MEDS: Isosorbide MONOnitrate (24 HR) 60 MG TAB.ER.24H PO SCH (14:54)
--- NOTE | 2017-03-13 15:07 | Internal Med Progress Note ---
Date of Encounter: 03/13/17 Time of Encounter: 15:03 - Assessment and plan (1) Atrial fibrillation with rapid ventricular response Current Visit: Yes Status: Acute (2) Essential hypertension Current Visit: Yes Status: Chronic (3) Hyperlipidemia Current Visit: No Status: Chronic Qualifiers: Hyperlipidemia type: unspecified Qualified Code(s): E78.5 - Hyperlipidemia , unspecified (4) CHF (congestive heart failure) Current Visit: No Status: Chronic Qualifiers: Congestive heart failure type: diastolic Congestive heart failure chronicity: chronic Qualified Code(s): I50.32 - Chronic diastolic (congestive ) heart failure (5) JARVIS (acute kidney injury) Current Visit: Yes Status: Acute (6) Anemia Current Visit: Yes Status: Acute Qualifiers: Anemia type: due to chronic kidney disease Chronic kidney disease stage: stage 3 (moderate) Qualified Code(s): N18.3 - Chronic kidney disease, stage 3 (moderate); D63.1 - Anemia in chronic kidney disease - Subjective Interval history: Ms. Castaneda is a 81 year old female admitted for congestive heart failure. She was diuresed well. An echocardiogram done in October this year showed left ventricular ejection fraction about 70% with diastolic dysfunction, dilated LA , no significant valvular abnormality and pulmonary hypertension in the range of 53. As she was diuresed her creatinine went up but later it came down nicely to her baseline which is 1.29. Based on GFR she has stage III chronic kidney disease. An ultrasound of kidneys were done which showed mild cortical atrophy consistent with her chronic kidney disease. Both cardiology and nephrology were consulted. Patient was noted in A. fib with RVR. She is on xaelto at home. Due to complications beta amber was stopped. She cannot take amiodarone as it causes dyspnea in the past. Cardizem was restarted which has barely controlled heart rate. therefore digoxin was added. We loaded her with 0.5 and continued her on 0.125 mg scotty. Heart rate is documented well under 100. Patient can be discharged - Constitutional Vitals: Temp Pulse Resp BP Pulse Ox 98.1 F 85 18 138/76 96 03/13/17 11:18 03/13/17 11:18 03/13/17 11:18 03/13/17 11:18 03/13/17 11:18 General appearance: Present: cooperative, A&O X 3, pleasant, no acute distress, answers questions appropriately - Head Head exam: Present: atraumatic, normocephalic - Eye Eye exam: Present: PERRL, conjuntiva pink, sclera anicteric Pupils: Present: PERRL - Neck Neck exam general surgery: Present: supple, trachea midline. Absent: lymphadenopathy - Respiratory Respiratory exam: Present: CTAB. Absent: accessory muscle use, rales, rhonchi, wheezes - Cardiovascular Cardiovascular exam: Present: RRR, +S1, +S2. Absent: diastolic murmur, gallop, rubs, systolic murmur - GI/Abdominal GI/Abdominal exam: Present: normal bowel sounds, soft, no peritoneal signs. Absent: distended, tenderness - Extremities Exam Extremities exam: Present: warm, radial pulses palpable and symetrical. Absent : calf tenderness, cyanotic, pedal edema - Neurological Exam Neurological exam: Present: CN II-XII intact, oriented X3, no focal deficits. Absent: pronater drift, facial droop, speech deficit - Skin Skin exam: Present: dry, intact Internal Medicine: Result - Labs CBC & Chem 7: 03/12/17 05:45 03/12/17 05:45 - ABG Interpretation ABG results: PT/INR, D-dimer PT 15.6 Seconds (9.4-12.1) H 03/05/17 10:08 - VTE Reasons for not Prescribing Prophylaxis: Not indicated-Anticoagulated or INR therapeutic Consult Discharge Plan - Plan Referrals: Eugene Chacko MD [Partnered Physician] - 03/15/17 2:40 pm Carlos Newman MD [Primary Care Provider] - 03/19/17 2:40 pm Hayden Yoder DO [Partnered Physician] - 04/12/17 3:40 pm Prescriptions: Digoxin [Lanoxin] 0.125 mg PO DAILY #30 tab Diltiazem CD (24hr) [Cardizem CD] 360 mg PO DAILY #60 tab Ferrous Sulfate 325 mg PO DAILY@0800 #30 tab Furosemide [Lasix] 20 mg PO BID #60 tablet
--- NOTE | 2017-03-13 15:39 | Physician Discharge Referral ---
Home Health/Hosp Referral Info Transfer to: Home Health Attending Provider: damien Provider in Charge Post Discharge: PCP - Diagnosis (1) Atrial fibrillation with rapid ventricular response Status: Acute (2) Essential hypertension Status: Chronic (3) Hyperlipidemia Status: Chronic (4) CHF (congestive heart failure) Status: Chronic (5) JARVIS (acute kidney injury) Status: Acute (6) Anemia Status: Acute - Respiratory Orders Smoking Cessation: Smoking cessation has been advised. For more information, call the [place] Tobacco Quit Line at 8-917-OALV-NOW. - Diet/Nutrition Diet/Nutrition Orders: Cardiac - Activity Activity Orders: Ambulate - Services Needed Following services are medically necessary services: Nursing, Home Health Aide, Physical Therapy, Occupational Therapy - Transfer Medications Prescriptions: Digoxin [Lanoxin] 0.125 mg PO DAILY #30 tab Diltiazem CD (24hr) [Cardizem CD] 360 mg PO DAILY #60 tab Ferrous Sulfate 325 mg PO DAILY@0800 #30 tab Furosemide [Lasix] 20 mg PO BID #60 tablet Home Medications: Allopurinol [Zyloprim 100 MG] 100 mg PO DAILY 02/18/17 [History] Cholecalciferol (Vitamin D3) [Vitamin D3] 2,000 unit PO DAILY 02/18/17 [History] Docusate [Colace] 100 mg PO DAILY PRN 02/18/17 [History] Fenofibrate Nanocrystallized [Triglide] 160 mg PO DAILY 02/18/17 [History] Isosorbide MONOnitrate (24 HR) [Imdur] 60 mg PO DAILY 02/18/17 [History] Lisinopril [Zestril] 20 mg PO DAILY 02/18/17 [History] Multivit-Min/Iron/Folic/Lutein [Centrum Silver Women Tablet] 1 tab PO DAILY 05/28 [History] Pantoprazole Sodium 40 mg PO DAILY 02/18/17 [History] Polyethylene Glycol 3350 [MiraLAX bowel prep] 17 gm PO DAILY 02/18/17 [History] Pyridostigmine Br [Mestinon] 60 mg PO BID 02/18/17 [History] Rivaroxaban [Xarelto] 15 mg PO DAILY 02/18/17 [History] Furosemide [Lasix] 20 mg PO BID #60 tablet 03/08/17 [Rx] Acetaminophen [Tylenol] 650 mg PO Q6HR PRN tab 03/12/17 [Rx] Digoxin [Lanoxin] 0.125 mg PO DAILY #30 tab 03/12/17 [Rx] Diltiazem CD (24hr) [Cardizem CD] 360 mg PO DAILY #60 tab 03/12/17 [Rx] Ferrous Sulfate 325 mg PO DAILY@0800 #30 tab 03/12/17 [Rx] Allergies/Adverse Reactions: Allergies prednisone Adverse Reaction (Verified 02/18/17 03:42) Palpitations Hvzvwox-Ble-Fhu Reductase Inhibitor [Statins] Adverse Reaction (Verified 03:42) Weakness Certification: Further, I certify that my clinical findings support that this patient is homebound (i.e. absences from home require considerable and taxing effort and are for medical reasons or yarsanism services or infrequently or short duration when for other reasons) because: Homebound Reason: Patient requires assistance of a person or device to safely leave home Attestation: My signature below is to certify that this patient is under my care and that I, or nurse practitioner, or a physician's studio assistant working with me, has a face-to -face encounter with this patient.
== END 2017-03-13 17:30 | disposition home health service (06) | DRG 291 ==
LOC: EMEROO 09:44 → 2NENU 09:44
PROVIDERS: ADMIT Internal Medicine; ATTEND Internal Medicine

== ENCOUNTER 2017-03-15 17:06 | Inpatient (IN) ==
--- NOTE | 2017-03-15 17:17 | Emergency Department Note ---
Disposition Clinical Impression: Atrial fibrillation Disposition: Admitted As Inpatient General Adult HPI - General Chief complaint: ED Arrhythmia/Palpitations Stated complaint: A-Fib, sent to be admitted Time Seen by Provider: 03/15/17 17:13 Source: patient, family Limitations: no limitations - History of Present Illness Pain Scale: 0 - Related Data Home Medications Medication Instructions Recorded Confirmed Allopurinol [Zyloprim 100 MG] 100 mg PO DAILY 02/18/17 03/15/17 Cholecalciferol (Vitamin D3) 2,000 unit PO DAILY 02/18/17 03/15/17 [Vitamin D3] Docusate [Colace] 100 mg PO DAILY PRN 02/18/17 03/15/17 Fenofibrate Nanocrystallized 160 mg PO DAILY 02/18/17 03/15/17 [Triglide] Isosorbide MONOnitrate (24 HR) 60 mg PO DAILY 02/18/17 03/15/17 [Imdur] Lisinopril [Zestril] 20 mg PO DAILY 02/18/17 03/15/17 Multivit-Min/Iron/Folic/Lutein 1 tab PO DAILY 02/18/17 03/15/17 [Centrum Silver Women Tablet] Pantoprazole Sodium 40 mg PO DAILY 02/18/17 03/15/17 Polyethylene Glycol 3350 [MiraLAX 17 gm PO DAILY 02/18/17 03/15/17 bowel prep] Pyridostigmine Br [Mestinon] 60 mg PO BID 02/18/17 03/15/17 Rivaroxaban [Xarelto] 15 mg PO DAILY 02/18/17 03/15/17 Amlodipine Besylate 2.5 mg PO DAILY 03/15/17 03/15/17 Metoprolol XL (24 HR) Succ [Toprol 25 mg PO DAILY 03/15/17 03/15/17 XL] Previous Rx's Medication Instructions Recorded Furosemide [Lasix] 20 mg PO BID #60 tablet 03/08/17 Acetaminophen [Tylenol] 650 mg PO Q6HR PRN tab 03/12/17 Digoxin [Lanoxin] 0.125 mg PO DAILY #30 tab 03/12/17 Diltiazem CD (24hr) [Cardizem CD] 360 mg PO DAILY #60 tab 03/12/17 Ferrous Sulfate 325 mg PO DAILY@0800 #30 tab 03/12/17 Allergies Allergy/AdvReac Type Severity Reaction Status Date / Time prednisone AdvReac Palpitation Verified 02/18/17 03:42 s Hwphvrz-Sug-Rke Reductase AdvReac Weakness Verified 02/18/17 03:42 Inhibitor [Statins] Past Medical History - Past Medical History Medical history: Reports: atrial fibrillation, CHF, GERD, hyperlipidemia, hypertension, renal disease, other Surgical history: Reports: cataract, knee replacement, other Psychiatric history: Reports: anxiety - Social History Smoking Status: Never smoker Smokeless Tobacco Status: No Alcohol use: Reports: none Drug use: Reports: none Physical Exam - General Limitations: no limitations General appearance: alert Course Vital Signs Temperature 97.8 F 03/15/17 17:09 Pulse Rate 82 03/15/17 17:09 Respiratory Rate 18 03/15/17 17:09 Blood Pressure 106/60 03/15/17 17:09 O2 Sat by Pulse Oximetry 92 03/15/17 17:09 Temperature 97.9 F 03/16/17 03:00 Pulse Rate 87 03/16/17 03:00 Respiratory Rate 16 03/16/17 03:00 Blood Pressure 109/54 03/16/17 03:00 O2 Sat by Pulse Oximetry 98 03/16/17 03:00 Oxygen Delivery Oxygen Delivery Room Air Medical Decision Making - Lab Data Result diagrams: 03/16/17 00:46 03/16/17 00:46 Lab Results 03/15/17 03/15/17 03/15/17 Range/Units 17:36 17:36 17:36 WBC 7.3 (4.3-11.1) K/mcL RBC 3.41 L (3.82-4.97) M/mcL Hgb 10.7 L (11.5-15.4) g/dL Hct 33.0 L (35.3-44.9) % MCV 96.8 (83.0-100.0) fL MCH 31.4 (28.0-33.3) pg MCHC 32.4 (31.6-35.5) g/dL RDW 14.5 (11.5-14.5) % Plt Count 270 (140-400) K/mcL MPV 10.8 (9.4-12.4) fL Immature Gran % 0.1 (0-4) % Seg Neutrophils % 41.5 % Lymphocytes % 47.4 % Monocytes % 10.6 % Eosinophils % 0.0 % Basophils % 0.4 % Neutrophils # 3.0 (1.6-8.9) K/mcL Lymphocytes # 3.4 (0.6-4.6) K/mcL Monocytes # 0.8 (0.0-1.3) K/mcL Eosinophils # 0.0 (0.0-0.6) K/mcL Basophils # 0.0 (0.0-0.2) K/mcL PT 16.5 H (9.4-12.1) Seconds INR 1.5 Sodium 138 (136-145) mEq/L Potassium 4.7 H (3.5-4.5) mEq/L Chloride 101 (98-109) mEq/L Carbon Dioxide 27 (19-29) mEq/L BUN 73 H (7-20) mg/dL Creatinine 1.83 H (0.57-1.11) mg/dL Est GFR ( Amer) 32 L (> 60) Est GFR (Non-Af Amer) 26 L (> 60) BUN/Creatinine Ratio 40 H (6-26) Glucose 95 (70-99) mg/dL Calculated Osmolality 307 H (280-300) Calcium 10.1 (8.6-10.8) mg/dL Total Bilirubin 0.5 (0.2-1.2) mg/dL AST 44 H (5-34) Units/L ALT 22 (0-55) Units/L Alkaline Phosphatase 74 (38-126) Units/L Troponin I (0-0.03) ng/mL Serum Total Protein 7.1 (6.0-8.3) g/dL Albumin 3.4 L (3.5-5.0) g/dL Globulin 3.7 H (2.4-3.5) g/dL Albumin/Globulin Ratio 0.9 L (1.1-2.2) Digoxin 1.4 (0.8-2.0) ng/mL 03/15/17 Range/Units 17:36 WBC (4.3-11.1) K/mcL RBC (3.82-4.97) M/mcL Hgb (11.5-15.4) g/dL Hct (35.3-44.9) % MCV (83.0-100.0) fL MCH (28.0-33.3) pg MCHC (31.6-35.5) g/dL RDW (11.5-14.5) % Plt Count (140-400) K/mcL MPV (9.4-12.4) fL Immature Gran % (0-4) % Seg Neutrophils % % Lymphocytes % % Monocytes % % Eosinophils % % Basophils % % Neutrophils # (1.6-8.9) K/mcL Lymphocytes # (0.6-4.6) K/mcL Monocytes # (0.0-1.3) K/mcL Eosinophils # (0.0-0.6) K/mcL Basophils # (0.0-0.2) K/mcL PT (9.4-12.1) Seconds INR Sodium (136-145) mEq/L Potassium (3.5-4.5) mEq/L Chloride (98-109) mEq/L Carbon Dioxide (19-29) mEq/L BUN (7-20) mg/dL Creatinine (0.57-1.11) mg/dL Est GFR ( Amer) (> 60) Est GFR (Non-Af Amer) (> 60) BUN/Creatinine Ratio (6-26) Glucose (70-99) mg/dL Calculated Osmolality (280-300) Calcium (8.6-10.8) mg/dL Total Bilirubin (0.2-1.2) mg/dL AST (5-34) Units/L ALT (0-55) Units/L Alkaline Phosphatase (38-126) Units/L Troponin I 0.06 H* (0-0.03) ng/mL Serum Total Protein (6.0-8.3) g/dL Albumin (3.5-5.0) g/dL Globulin (2.4-3.5) g/dL Albumin/Globulin Ratio (1.1-2.2) Digoxin (0.8-2.0) ng/mL Attestation Statement - Attestation Attestation: I examined this patient and my medical decision-making was reviewed with the Resident Physician. I agree with the documented findings, disposition and treatment plan as described except to the extent set forth below. [id number] time provided Consent from the cardiology office due to atrial fibrillation with RVR. Previous history thereof. Patient appears mildly dyspneic on exam but otherwise in no apparent distress. Patient seen in conjunction with the resident physician Dr. Castro
[2017-03-15 17:43] LABS: Basophils % 0.4 %; Hemoglobin 10.7 g/dL (11.5-15.4); Immature Granulocytes % 0.1 % (0-4); Lymphocytes # 3.4 K/mcL (0.6-4.6); Lymphocytes % 47.4 %; Mean Corpuscular HGB Conc 32.4 g/dL (31.6-35.5); Mean Corpuscular Hemoglobin 31.4 pg (28.0-33.3); Mean Corpuscular Volume 96.8 fL (83.0-100.0); Mean Platelet Volume 10.8 fL (9.4-12.4); Monocytes # 0.8 K/mcL (0.0-1.3); Monocytes % 10.6 %; Platelet Count 270 K/mcL (140-400); Red Blood Count 3.41 M/mcL (3.82-4.97); Red Cell Distribution Width 14.5 % (11.5-14.5); Segmented Neutrophils % 41.5 %
[2017-03-15 17:47] LABS: INR 1.5; Prothrombin Time 16.5 Seconds (9.4-12.1)
[2017-03-15 17:56] LABS: Potassium 4.7 mEq/L (3.5-4.5)
[2017-03-15 17:57] LABS: Albumin 3.4 g/dL (3.5-5.0); Albumin/Globulin Ratio 0.9 (1.1-2.2); Bilirubin,Total 0.5 mg/dL (0.2-1.2); Calcium 10.1 mg/dL (8.6-10.8); Globulin 3.7 g/dL (2.4-3.5); Total Protein 7.1 g/dL (6.0-8.3)
--- NOTE | 2017-03-15 18:06 | Emergency Department Note ---
Disposition Clinical Impression: Atrial fibrillation Qualifiers: Atrial fibrillation type: chronic Qualified Code(s): I48.2 - Chronic atrial fibrillation Disposition: Admitted As Inpatient Forms: ED Satisfaction Letter Time of Disposition: 18:39 General Adult HPI - General Chief complaint: ED Arrhythmia/Palpitations Stated complaint: A-Fib, sent to be admitted Time Seen by Provider: 03/15/17 17:13 Source: patient, family Limitations: no limitations Nursing Notes Reviewed: Yes Vital Signs Reviewed: Yes - History of Present Illness HPI Narrative: Patient had a episode of uncontrolled atrial fibrillation and a presyncopal event while in the cardiology office today. She was sent here for further evaluation and admission to the hospital to switch antiarrhythmics. Only complaint currently is of a foggy feeling in her head. We will do a cardiac workup on the patient. Pain Scale: 0 - Related Data Home Medications Medication Instructions Recorded Confirmed Allopurinol [Zyloprim 100 MG] 100 mg PO DAILY 02/18/17 03/05/17 Cholecalciferol (Vitamin D3) 2,000 unit PO DAILY 02/18/17 03/05/17 [Vitamin D3] Docusate [Colace] 100 mg PO DAILY PRN 02/18/17 03/05/17 Fenofibrate Nanocrystallized 160 mg PO DAILY 02/18/17 03/05/17 [Triglide] Isosorbide MONOnitrate (24 HR) 60 mg PO DAILY 02/18/17 03/05/17 [Imdur] Lisinopril [Zestril] 20 mg PO DAILY 02/18/17 03/05/17 Multivit-Min/Iron/Folic/Lutein 1 tab PO DAILY 02/18/17 03/05/17 [Centrum Silver Women Tablet] Pantoprazole Sodium 40 mg PO DAILY 02/18/17 03/05/17 Polyethylene Glycol 3350 [MiraLAX 17 gm PO DAILY 02/18/17 03/05/17 bowel prep] Pyridostigmine Br [Mestinon] 60 mg PO BID 02/18/17 03/05/17 Rivaroxaban [Xarelto] 15 mg PO DAILY 02/18/17 03/05/17 Previous Rx's Medication Instructions Recorded Furosemide [Lasix] 20 mg PO BID #60 tablet 03/08/17 Acetaminophen [Tylenol] 650 mg PO Q6HR PRN tab 03/12/17 Digoxin [Lanoxin] 0.125 mg PO DAILY #30 tab 03/12/17 Diltiazem CD (24hr) [Cardizem CD] 360 mg PO DAILY #60 tab 03/12/17 Ferrous Sulfate 325 mg PO DAILY@0800 #30 tab 03/12/17 Allergies Allergy/AdvReac Type Severity Reaction Status Date / Time prednisone AdvReac Palpitation Verified 02/18/17 03:42 s Ggrcnpt-Wgx-Nwu Reductase AdvReac Weakness Verified 02/18/17 03:42 Inhibitor [Statins] All systems ED: reviewed and negative except as stated. Constitutional: Denies: fever, chills ENT ED: Denies: congestion Cardiovascular: Reports: other (Near syncopal event in the doctor's office earlier today.). Denies: chest pain, palpitations, syncope Respiratory: Denies: cough, dyspnea Gastrointestinal: Denies: abdominal pain, nausea, vomiting, diarrhea, hematemesis, melena, hematochezia Genitourinary: Denies: urgency, dysuria, frequency, hematuria Musculoskeletal: Denies: back pain, neck pain Integumentary: Denies: rash Neurological: Reports: other (Foggy feeling in her head). Denies: headache, weakness Past Medical History - Past Medical History Attestation: Yes The following information was validated with the patient. Source: patient Medical history: Reports: atrial fibrillation, CHF, GERD, hyperlipidemia, hypertension, renal disease, other Surgical history: Reports: cataract, knee replacement, other Psychiatric history: Reports: anxiety - Social History Smoking Status: Never smoker Smokeless Tobacco Status: No Alcohol use: Reports: none Drug use: Reports: none Physical Exam - General Limitations: no limitations General appearance: alert, in no apparent distress - Head Head exam: atraumatic, normocephalic, normal inspection - Eye Eye exam: Present: normal appearance, PERRL, EOMI. Absent: scleral icterus - ENT ENT exam: normal exam, normal oropharynx, mucous membranes moist - Neck Neck exam: Present: normal inspection, full ROM, trachea midline. Absent: tenderness, meningismus, lymphadenopathy - Chest Chest inspection: Present: normal inspection, symmetric chest wall rise. Absent : tenderness - Respiratory Respiratory exam: Present: normal lung sounds bilaterally. Absent: respiratory distress, wheezes - Cardiovascular Cardiovascular exam: Present: regular rate, normal rhythm, normal heart sounds - Abdominal Exam Abdominal exam: Present: soft, Non-Tender, normal bowel sounds. Absent: tenderness, distention, guarding, rebound, rigidity, organomegaly - Extremities Exam Extremities exam: Present: normal inspection, full ROM, pedal edema (Mild pitting edema to bilateral lower x-rays.). Absent: tenderness Course Course Narrative: [place] patient presented to the emergency department complaining of feeling foggy in her head. She states that she was at Dr. Chacko's office today and was in A. fib. He stated to come to the emergency department to be admitted so she can switch antiarrhythmics. Patient denies any chest pain or shortness of breath at this time. She denies any nausea vomiting diarrhea or abdominal pain. She denies any juan blood in her stool or melena. She reports that her A. fib is in and out it sometimes. She states it was uncontrolled at the office in the 120s. He is controlled at this time. Her lab workup is unremarkable with the exception of a minor bumps troponin. She denies any chest pain or shortness of breath at this time. Heart sounds are normal abdomen is soft and nontender. She does have some mild pitting edema to her lower extremities. We will get a hold of Dr. Renae who is on-call for cardiology. Patient is on Cardizem and Elliquis at this time. She states she is taking her medication as prescribed. - Consultations Consultation #1: I spoke with Dr. Renae. He is advising to admit to the hospitalist and they will see the patient in the morning. Time: 18:34 Consultation #2: Dr Lam accepted patient in stable condition. Time: 18:37 Vital Signs Temperature 97.8 F 03/15/17 17:09 Pulse Rate 82 03/15/17 17:09 Respiratory Rate 18 03/15/17 17:09 Blood Pressure 106/60 03/15/17 17:09 O2 Sat by Pulse Oximetry 92 03/15/17 17:09 Temperature 97.8 F 03/15/17 17:09 Pulse Rate 84 03/15/17 18:33 Respiratory Rate 18 03/15/17 18:33 Blood Pressure 131/65 03/15/17 18:33 O2 Sat by Pulse Oximetry 96 03/15/17 18:33 Oxygen Delivery Oxygen Delivery Room Air Medical Decision Making - Medical Records Medical records reviewed: Yes I reviewed the patient's medical records. - Lab Data Lab results reviewed: Yes I reviewed the patient's lab results. Result diagrams: 03/15/17 17:36 03/15/17 17:36 Lab Results 03/15/17 03/15/17 03/15/17 Range/Units 17:36 17:36 17:36 WBC 7.3 (4.3-11.1) K/mcL RBC 3.41 L (3.82-4.97) M/mcL Hgb 10.7 L (11.5-15.4) g/dL Hct 33.0 L (35.3-44.9) % MCV 96.8 (83.0-100.0) fL MCH 31.4 (28.0-33.3) pg MCHC 32.4 (31.6-35.5) g/dL RDW 14.5 (11.5-14.5) % Plt Count 270 (140-400) K/mcL MPV 10.8 (9.4-12.4) fL Immature Gran % 0.1 (0-4) % Seg Neutrophils % 41.5 % Lymphocytes % 47.4 % Monocytes % 10.6 % Eosinophils % 0.0 % Basophils % 0.4 % Neutrophils # 3.0 (1.6-8.9) K/mcL Lymphocytes # 3.4 (0.6-4.6) K/mcL Monocytes # 0.8 (0.0-1.3) K/mcL Eosinophils # 0.0 (0.0-0.6) K/mcL Basophils # 0.0 (0.0-0.2) K/mcL PT 16.5 H (9.4-12.1) Seconds INR 1.5 Sodium 138 (136-145) mEq/L Potassium 4.7 H (3.5-4.5) mEq/L Chloride 101 (98-109) mEq/L Carbon Dioxide 27 (19-29) mEq/L BUN 73 H (7-20) mg/dL Creatinine 1.83 H (0.57-1.11) mg/dL Est GFR ( Amer) 32 L (> 60) Est GFR (Non-Af Amer) 26 L (> 60) BUN/Creatinine Ratio 40 H (6-26) Glucose 95 (70-99) mg/dL Calculated Osmolality 307 H (280-300) Calcium 10.1 (8.6-10.8) mg/dL Total Bilirubin 0.5 (0.2-1.2) mg/dL AST 44 H (5-34) Units/L ALT 22 (0-55) Units/L Alkaline Phosphatase 74 (38-126) Units/L Troponin I (0-0.03) ng/mL Serum Total Protein 7.1 (6.0-8.3) g/dL Albumin 3.4 L (3.5-5.0) g/dL Globulin 3.7 H (2.4-3.5) g/dL Albumin/Globulin Ratio 0.9 L (1.1-2.2) 03/15/17 Range/Units 17:36 WBC (4.3-11.1) K/mcL RBC (3.82-4.97) M/mcL Hgb (11.5-15.4) g/dL Hct (35.3-44.9) % MCV (83.0-100.0) fL MCH (28.0-33.3) pg MCHC (31.6-35.5) g/dL RDW (11.5-14.5) % Plt Count (140-400) K/mcL MPV (9.4-12.4) fL Immature Gran % (0-4) % Seg Neutrophils % % Lymphocytes % % Monocytes % % Eosinophils % % Basophils % % Neutrophils # (1.6-8.9) K/mcL Lymphocytes # (0.6-4.6) K/mcL Monocytes # (0.0-1.3) K/mcL Eosinophils # (0.0-0.6) K/mcL Basophils # (0.0-0.2) K/mcL PT (9.4-12.1) Seconds INR Sodium (136-145) mEq/L Potassium (3.5-4.5) mEq/L Chloride (98-109) mEq/L Carbon Dioxide (19-29) mEq/L BUN (7-20) mg/dL Creatinine (0.57-1.11) mg/dL Est GFR ( Amer) (> 60) Est GFR (Non-Af Amer) (> 60) BUN/Creatinine Ratio (6-26) Glucose (70-99) mg/dL Calculated Osmolality (280-300) Calcium (8.6-10.8) mg/dL Total Bilirubin (0.2-1.2) mg/dL AST (5-34) Units/L ALT (0-55) Units/L Alkaline Phosphatase (38-126) Units/L Troponin I 0.06 H* (0-0.03) ng/mL Serum Total Protein (6.0-8.3) g/dL Albumin (3.5-5.0) g/dL Globulin (2.4-3.5) g/dL Albumin/Globulin Ratio (1.1-2.2) - Radiology Data Radiology results reviewed: Yes I reviewed the patient's radiology results. - EKG Data EKG #1 EKG attestation: Yes I reviewed and interpreted this EKG. EKG results narrative: A. fib at a rate of 95. ND interval is not measured. QRS duration is 99. QT is 333. QTC is 386. No signs of acute ischemia. No significant knife changer she is now rate controlled from previous EKG dated 03/05/2017.
[2017-03-15] MEDS ORDERED: Naloxone 0.4 MG/ML INJ IVP PRN (20:14)
--- NOTE | 2017-03-15 20:27 | Internal Med History&Physical ---
Date of Encounter: 03/15/17 Time of Encounter: 20:22 Assessment and Plan (1) Atrial fibrillation with rapid ventricular response Current visit: Yes Status: Acute While patient presented from air commodore's office in A. fib RVR, she has spontaneously converted to normal sinus rhythm. Cardiology has been notified the patient is in the hospital. She will be seen by cardiology tomorrow morning. Plan: Continue Cardizem, digoxin, Xeralto. Cardiac telemetry. Cardiac diet. (2) Essential hypertension Current visit: Yes Status: Chronic Patient's blood pressure is controlled at 120/65 However during her A. fib RVR episode she was seen to be hypotensive. Continue home hypertensive medications. Cardiac telemetry. (3) Physical deconditioning Current visit: Yes Status: Acute Patient states that in the recent few weeks she has noticed decreased and her energy, strength. Her ability to walk longer distances has decreased, she has weak system admin strength. On physical exam upper, lower extremity strength is 3 out of 5. We will consult physical therapy and occupational therapy. (4) Hyperlipidemia Current visit: Yes Status: Chronic Stable. Continue fenofibrate. Qualifiers: Hyperlipidemia type: pure hypercholesterolemia Qualified Code(s): E78.00 - Pure hypercholesterolemia, unspecified; E78.0 - Pure hypercholesterolemia (5) CHF (congestive heart failure) Current visit: Yes Status: Chronic Patient has history of diastolic CHF. She has 1+ pitting edema bilaterally. We will continue her home dose of Lasix. Currently she is not short of breath, lungs are clear. However patient converts into A. fib RVR she is high risk for acute decompensated heart failure. Qualifiers: Congestive heart failure type: diastolic Congestive heart failure chronicity: chronic Qualified Code(s): I50.32 - Chronic diastolic (congestive ) heart failure (6) Myasthenia gravis Current visit: Yes Status: Chronic Stable. Continue home pyridostigmine. (7) Elevated troponin Current visit: Yes Status: Chronic Patient elevated troponin of 0.06. She denies any chest pain at this moment. Trend troponin. Most likely secondary to demand ischemia as patient was in A. fib RVR earlier. (8) DVT prophylaxis Current visit: Yes Status: Acute Patient is on xeralto for anticoagulation of A. fib Internal Medicine - H&P: HPI Chief complaint: sob, generalized weakness Admitted From: Home Plans for Post Hospital Care: Home History of present illness: Ms. Castaneda is a 81 year old female hx of PAF and distolic CHF, presents from air commodore's office after being found in A. fib with a rate in 130s, and was presyncopal. Patient states she was feeling short of breath, generally weak, tired throughout the day. She reported palpitations but denied chest pain. She denies cough, productive sputum. Patient has previous history of uncontrolled atrial fibrillation and due to her presentation to the air commodore of her she was sent to the hospital for further treatment and her A. fib. In the past patient has been on metoprolol, amiodarone however she had adverse reaction to both of these medications and was switched to Cardizem and started on digoxin as well. Dr. Renae has been notified that the patient is in the hospital and will see the patient for morning. Furthermore she has underwent cardioversion in the past which has lasted for 10 days. Patient also complains of generalized weakness, difficulty gripping objects, has seen a decrease in her ability to walk a certain distance before feeling very tired. She states she has had many occasions recently where she felt she might fall and injure herself. She denies recent falls, trauma. During my encounter patient had spontaneously converted to normal sinus rhythm, she is awake and alert and conversing well without any distress. Past Med Surg Social Fam HX - Past Medical History Medical history: atrial fibrillation, CHF, GERD, hyperlipidemia, hypertension, renal disease, other Psychiatric history: anxiety - Past Surgical History Surgical History: cataract, knee replacement, other - Social History Smoking Status: Never smoker Smokeless Tobacco Status: No Alcohol use: none Drug use: none - Family History Mother Hx Family Cardiac Disorders: Yes (Stroke) Internal Medicine - H&P: Meds Allopurinol [Zyloprim 100 MG] 100 mg PO DAILY 02/18/17 [History] Cholecalciferol (Vitamin D3) [Vitamin D3] 2,000 unit PO DAILY 02/18/17 [History] Docusate [Colace] 100 mg PO DAILY PRN 02/18/17 [History] Fenofibrate Nanocrystallized [Triglide] 160 mg PO DAILY 02/18/17 [History] Isosorbide MONOnitrate (24 HR) [Imdur] 60 mg PO DAILY 02/18/17 [History] Lisinopril [Zestril] 20 mg PO DAILY 02/18/17 [History] Multivit-Min/Iron/Folic/Lutein [Centrum Silver Women Tablet] 1 tab PO DAILY 05/28 [History] Pantoprazole Sodium 40 mg PO DAILY 02/18/17 [History] Polyethylene Glycol 3350 [MiraLAX bowel prep] 17 gm PO DAILY 02/18/17 [History] Pyridostigmine Br [Mestinon] 60 mg PO BID 02/18/17 [History] Rivaroxaban [Xarelto] 15 mg PO DAILY 02/18/17 [History] Furosemide [Lasix] 20 mg PO BID #60 tablet 03/08/17 [Rx] Acetaminophen [Tylenol] 650 mg PO Q6HR PRN tab 03/12/17 [Rx] Digoxin [Lanoxin] 0.125 mg PO DAILY #30 tab 03/12/17 [Rx] Diltiazem CD (24hr) [Cardizem CD] 360 mg PO DAILY #60 tab 03/12/17 [Rx] Ferrous Sulfate 325 mg PO DAILY@0800 #30 tab 03/12/17 [Rx] Amlodipine Besylate 2.5 mg PO DAILY 03/15/17 [History] Metoprolol XL (24 HR) Succ [Toprol XL] 25 mg PO DAILY 03/15/17 [History] Allergies prednisone Adverse Reaction (Verified 02/18/17 03:42) Palpitations Tdpwcwu-[id number]-Rwr Reductase Inhibitor [Statins] Adverse Reaction (Verified 03:42) Weakness All Systems PM: A 10-system review of systems was performed and is negative for pertinent findings except as documented above in the HPI. Review of systems: Constitutional: Denies fever, chills, reports presyncope, dizziness, lightheadedness HEENT: Denies headache, vision changes, neck pain, sore throat, rhinorrhea Heart: Denies chest pain, reports palpitations Lungs: Poor shortness of breath, denies cough Abdomen: Denies abdominal pain nausea vomiting diarrhea Back: Denies back pain Kidney: Denies dysuria, hematuria Extremities: Reports surgery swelling, denies pain Neuro: Denies numbness, and tingling - Constitutional Vitals: Temp Pulse Resp BP Pulse Ox 97.8 F 70 16 123/65 96 03/15/17 20:10 03/15/17 20:10 03/15/17 20:10 03/15/17 20:10 03/15/17 20:10 - Other Additional findings: General: Alert and oriented to place time and situation. Without distress HEENT: Head atraumatic, normocephalic, EOMI, PERRLA, neck nontender to palpation , absent Lymphadenopathy, Moist Mucous Membranes, Heart: Regular rate and rhythm with no murmur Lungs: Clear to auscultation bilaterally Abdomen: Soft nontender, nondistended positive bowel sounds Extremities: Absent pedal edema, Neuro: Cranial nerves II through XII intact, sensation equal bilaterally, strength upper and lower extremity 3/5, alert oriented 3 Vascular: Pedal and radialpulses 2 out of 4 Internal Med - H&P Results - Labs CBC & Chem 7: 03/15/17 17:36 03/15/17 17:36
[2017-03-15] MEDS ORDERED: Furosemide 20 MG TABLET PO SCH (21:00)
[2017-03-15] MEDS: *HR* Rivaroxaban 15 MG TABLET PO SCH (21:28)
[2017-03-15] MEDS: Pyridostigmine Br 60 MG TABLET PO SCH (21:28)
[2017-03-15] MEDS ORDERED: 0.9 % Sodium Chloride 500 ML IVC SCH (21:45)
--- NOTE | 2017-03-15 21:46 | Event Note ---
Date of Encounter: 03/15/17 Time of Encounter: 21:44 Patient seen an extended medical affairs specialist. Patient presents with atrial fibrillation with rapid ventricular response and presenting couple episodes and box feeder office. She was discharged from the hospital 3 days ago on Cardizem 360 mg and digoxin 0.125 mg daily for rate control. She felt that her heart was still beating fast, in fact she checks her pulse at home and it was 130s. She could not tolerate any amiodarone or beta blockers before. She mentioned that she was not paroxysmal atrial fibrillation until 02/18/2017 when she was constantly in AFib. Would ask for cardiology service input. I am concerned about digoxin in this patient 60 kg and chronic kidney disease stage 3 -4. Await cardiology input. Consider sotalol? or trial of cardioversion. I will gently hydrate her. Check Digoxin level. She is full code. Inpatient admission
[2017-03-15 22:06] LABS: Digoxin 1.4 ng/mL (0.8-2.0)
[2017-03-16 01:20] LABS: Hematocrit 28.1 % (35.3-44.9); Hemoglobin 9.3 g/dL (11.5-15.4); Mean Corpuscular HGB Conc 33.1 g/dL (31.6-35.5); Mean Corpuscular Hemoglobin 32.1 pg (28.0-33.3); Mean Corpuscular Volume 96.9 fL (83.0-100.0); Platelet Count 237 K/mcL (140-400); Red Cell Distribution Width 14.4 % (11.5-14.5)
[2017-03-16 01:35] LABS: Calcium 9.5 mg/dL (8.6-10.8); Magnesium 1.7 mg/dL (1.6-2.6); Potassium 4.8 mEq/L (3.5-4.5)
[2017-03-16] MEDS: Pyridostigmine Br 60 MG TABLET PO SCH ×2 (08:33→20:25)
[2017-03-16] MEDS: Isosorbide MONOnitrate (24 HR) 60 MG TAB.ER.24H PO SCH (08:33)
[2017-03-16] MEDS: Fenofibrate 54 MG TABLET PO SCH (08:33)
[2017-03-16] MEDS: Diltiazem CD (24hr) 180 MG CAPSULE PO SCH (08:33)
[2017-03-16] MEDS: *HR* Rivaroxaban 15 MG TABLET PO SCH (08:33)
[2017-03-16] MEDS ORDERED: *HR* Digoxin 0.125 MG TABLET PO SCH (09:00)
[2017-03-16] MEDS ORDERED: Lisinopril 20 MG TABLET PO SCH (09:00)
--- NOTE | 2017-03-16 09:02 | Cardiology Consult Note ---
Date of Encounter: 03/16/17 Time of Encounter: 09:00 Assessment and Plan (1) Atrial fibrillation Current Visit: Yes Status: Chronic Known hx of PAF. Reports A-Fib initially diagnosed in the 80s. 2 recent hospitalizations for A-Fib. Had successful DCCV 02/18, then recurrence of A-Fib and was rate controlled during stay 03/05. Hx of intolerance to amiodarone and Lopressor--both causing significant dyspnea. Currently on Cardizem, but still reports she is symptomatic with weakness, fatigue and dyspnea. Sent from cardiology office yesterday after seen by Dr. Chacko for HR 70s-140s and for symptoms to be started on antiarrhythmic therapy. Given her renal dysfunction, tikosyn and sotalol are not good options. Rythmol is the most reasonable choice--discussed with Dr. Renae. Reports she had a stress test 10/2016 that was negative at [place]. Records not available. Will attempt to obtain. 10/11/16: LVEF 70-75%, mild cLVH, moderate to severe LVDD, moderately to severely dilated LA, mild MR/TR/AR, normal wall motion. In unable to obtain stress test today, will order stress test to be completed here tomorrow AM so that her stay is not further prolonged waiting on records. If negative stress test, will initiate Rythmol 150mg F5ayasp. Anticoagulated on Xarelto, no missed doses in the past 30 days. No FLORENTINO will be warranted if she needs DCCV. Qualifiers: Atrial fibrillation type: unspecified Qualified Code(s): I48.91 - Unspecified atrial fibrillation (2) Elevated troponin Current Visit: Yes Status: Chronic Flat, mild troponin elevation of 0.06, 0.05, 0.04 in setting of A-Fib and renal dysfunction. Likely demand ischemia, nondiagnostic for ACS. Pt denies chest pain. Echo 10/2016 EF preserved. Reported negative stress test recently at [place]. Attempt to obtain. Discussion w patient/family: The assessment and plan as outlined above was discussed with the patient and/or family members who expressed understanding and agreement. All questions were answered. Thank you for involving us in the care of your patient. Please call with any questions. I will discuss all the above with Dr. Adelso Renae and make changes as necessary. History of Present Illness Consult date: 03/16/17 Requesting physician: David Rene Consult reason: A-Fib Chief complaint: weakness, fatigue, dyspnea History of present illness: Ms. Castaneda is a 81 year old female with PMH of hypertension, hyperlipidemia, PAF on anticoagulation, CKD, diastolic CHF, myasthenia gravis, gout, GERD who presented to the ED from the cardiology office for A-Fib RVR and being symptomatic--weak, fatigued, short of breath. She has had 2 hospitalizations recently for A-Fib. Hospitalization 02/18/17 she received successful cardioversion and was started on metoprolol. She since went back into A-Fib. Was re-hospitalized 03/05/17, reported side effects with metoprolol and she was rate controlled with cardizem. She reports continued weakness, fatigue and dyspnea. She denies chest pain. Reports having a negative stress test at [place] 10/2016. I do not have these records. Reports having been diagnosed with A-Fib in the 80s. Was on amiodarone for years, but it was stopped due to worsening dyspnea. Troponins 0.06, 0.05, 0.04. Recent CV testing: TTE 10/11/16: LVEF 70-75%, mild cLVH, moderate to severe LVDD, moderately to severely dilated LA, mild MR/TR/AR, normal wall motion. Reported stress test negative in October at [place]. Past Med Surg Social Fam HX - Past Medical History Medical history: atrial fibrillation, CHF, GERD, hyperlipidemia, hypertension, renal disease, other Psychiatric history: anxiety - Past Surgical History Surgical History: cataract, knee replacement, other - Social History Smoking Status: Never smoker Smokeless Tobacco Status: No Alcohol use: none Drug use: none - Family History Mother Adopted: [place]: [place] Family Member Ethnicity: Non- Living Status: Age at : 75 Cause of : CEREBRAL HEMORAGE Hx Family Cardiac Disorders: No Hx Family Respiratory Disorders: No Hx Family Cancer: No Hx Family GI Disorders: No Hx Family Genitourinary Disorders: No Hx Family Endocrine Disorder: No Hx Family Musculoskeletal Disorders: No Hx Family Neuromuscular Disorders: No Hx Family Neurologic Disorders: No Hx Family HEENT Disorders: No Hx Family Autoimmune Disorders: No Hx Family Reproductive Disorders: No Hx Family Psychosocial Disorders: No Hx Family Medical Disorders: No Medications and Allergies Allopurinol [Zyloprim 100 MG] 100 mg PO DAILY 02/18/17 [History] Cholecalciferol (Vitamin D3) [Vitamin D3] 2,000 unit PO DAILY 02/18/17 [History] Docusate [Colace] 100 mg PO DAILY PRN 02/18/17 [History] Fenofibrate Nanocrystallized [Triglide] 160 mg PO DAILY 02/18/17 [History] Isosorbide MONOnitrate (24 HR) [Imdur] 60 mg PO DAILY 02/18/17 [History] Lisinopril [Zestril] 20 mg PO DAILY 02/18/17 [History] Multivit-Min/Iron/Folic/Lutein [Centrum Silver Women Tablet] 1 tab PO DAILY 05/28 [History] Pantoprazole Sodium 40 mg PO DAILY 02/18/17 [History] Polyethylene Glycol 3350 [MiraLAX bowel prep] 17 gm PO DAILY 02/18/17 [History] Pyridostigmine Br [Mestinon] 60 mg PO BID 02/18/17 [History] Rivaroxaban [Xarelto] 15 mg PO DAILY 02/18/17 [History] Furosemide [Lasix] 20 mg PO BID #60 tablet 03/08/17 [Rx] Acetaminophen [Tylenol] 650 mg PO Q6HR PRN tab 03/12/17 [Rx] Digoxin [Lanoxin] 0.125 mg PO DAILY #30 tab 03/12/17 [Rx] Diltiazem CD (24hr) [Cardizem CD] 360 mg PO DAILY #60 tab 03/12/17 [Rx] Ferrous Sulfate 325 mg PO DAILY@0800 #30 tab 03/12/17 [Rx] Amlodipine Besylate 2.5 mg PO DAILY 03/15/17 [History] Metoprolol XL (24 HR) Succ [Toprol XL] 25 mg PO DAILY 03/15/17 [History] Allergies prednisone Adverse Reaction (Verified 02/18/17 03:42) Palpitations Qmivuzf-Nwb-Nni Reductase Inhibitor [Statins] Adverse Reaction (Verified 03:42) Weakness All Systems Review: A 10-system review of systems was performed and is negative for pertinent findings except as documented above in the HPI. - Constitutional Constitutional: fatigue, weakness - Cardiovascular Cardiovascular: as per HPI, dyspnea at rest, dyspnea on exertion - Respiratory Respiratory: dyspnea Physical Examination Vital Signs, Last 4 Hours Temp Pulse Resp BP Pulse Ox 03/16/17 07:33 97.9 F 92 16 118/64 94 Vital Signs Temp Pulse Resp BP BP BP BP 03/16/17 07:33 97.9 F 92 16 118/64 03/16/17 03:00 97.9 F 87 16 109/54 03/15/17 23:22 107/47 106/52 98/53 03/15/17 23:07 97.7 F 53 16 107/47 03/15/17 20:10 97.8 F 70 16 123/65 03/15/17 18:50 18 131/65 03/15/17 18:33 84 18 131/65 03/15/17 17:09 97.8 F 82 18 106/60 Pulse Ox 03/16/17 07:33 94 03/16/17 03:00 98 03/15/17 23:22 03/15/17 23:07 94 03/15/17 20:10 96 03/15/17 18:50 03/15/17 18:33 96 03/15/17 17:09 92 Intake and Output 03/15/17 03/16/17 03/16/17 23:59 07:59 15:59 Output Total 250 / 250 Balance -250 / -250 Output: Urine 250 / 250 Other: Weight 60.192 kg 59.466 kg Patient Weight 03/16/17 23:59 Weight 59.466 kg General: Conversant, No Apparent Distress HEENT: Atraumatic, Normocephaly, Mucus Membranes Moist Neck: No JVD, Normal carotid pulses Cardiac: Other (irregularly irregular) Lungs: Normal Breath Sounds, No Wheeze, Rales, Rhonchi Neuro: Alert and responsive, No focal deficits noted Abdomen: Soft, Non-Tender Skin: No rashes noted on visualized skin Musculoskeletal: No Chest Wall Tenderness Extremities: No Clubbing, No Cyanosis, No Edema, Normal Pulses Results 03/16/17 00:46 03/16/17 00:46 Lab Results 03/16/17 03/16/17 03/16/17 00:46 00:46 00:46 WBC 5.6 Hgb 9.3 L Hct 28.1 L Plt Count 237 Sodium 139 Potassium 4.8 H Chloride 104 Carbon Dioxide 28 BUN 74 H Creatinine 1.86 H Glucose 91 Calcium 9.5 Magnesium 1.7 Troponin I 0.05 H* 03/16/17 06:46 WBC Hgb Hct Plt Count Sodium Potassium Chloride Carbon Dioxide BUN Creatinine Glucose Calcium Magnesium Troponin I 0.04 H* Short CBC 03/16/17 03/15/17 Range/Units 00:46 17:36 WBC 5.6 7.3 (4.3-11.1) K/mcL Hgb 9.3 L 10.7 L (11.5-15.4) g/dL Hct 28.1 L 33.0 L (35.3-44.9) % Plt Count 237 270 (140-400) K/mcL Neutrophils # 3.0 (1.6-8.9) K/mcL BMP 03/16/17 03/15/17 Range/Units 00:46 17:36 Sodium 139 138 (136-145) mEq/L Potassium 4.8 H 4.7 H (3.5-4.5) mEq/L Chloride 104 101 (98-109) mEq/L Carbon Dioxide 28 27 (19-29) mEq/L BUN 74 H 73 H (7-20) mg/dL Creatinine 1.86 H 1.83 H (0.57-1.11) mg/dL Glucose 91 95 (70-99) mg/dL Calcium 9.5 10.1 (8.6-10.8) mg/dL Cardiac Enzymes 03/16/17 03/16/17 03/15/17 Range/Units 06:46 00:46 17:36 Troponin I 0.04 H* 0.05 H* 0.06 H* (0-0.03) ng/mL Liver Function 03/15/17 Range/Units 17:36 Total Bilirubin 0.5 (0.2-1.2) mg/dL AST 44 H (5-34) Units/L ALT 22 (0-55) Units/L Alkaline Phosphatase 74 (38-126) Units/L Albumin 3.4 L (3.5-5.0) g/dL Active Medications Allopurinol (Zyloprim) 100 mg PO DAILY [facility] Stop: 09/15/17 09:01 Last Admin: 03/16/17 08:33 Dose: 100 mg Diltiazem HCl (Cardizem Cd) 360 mg PO DAILY [facility] Stop: 09/15/17 09:01 Last Admin: 03/16/17 08:33 Dose: 360 mg Fenofibrate (Tricor) 162 mg PO DAILY [facility] Stop: 09/15/17 09:01 Last Admin: 03/16/17 08:33 Dose: 162 mg Ferrous Sulfate (Ferrous Sulfate) 325 mg PO DAILY@0800 [facility] Stop: 09/15/17 08:01 Last Admin: 03/16/17 08:33 Dose: 325 mg Isosorbide Mononitrate (Imdur) 60 mg PO DAILY [facility] Stop: 09/15/17 09:01 Last Admin: 03/16/17 08:33 Dose: 60 mg Naloxone HCl (Narcan) 0.4 mg IVP Q2MIN PRN PRN Reason: Opioid Reversal Stop: 09/14/17 20:15 Omeprazole (Prilosec) 20 mg PO DAILY [facility] Stop: 09/15/17 09:01 Last Admin: 03/16/17 08:33 Dose: 20 mg Pyridostigmine [place] (Mestinon) 60 mg PO BID [facility] Stop: 09/14/17 21:01 Last Admin: 03/16/17 08:33 Dose: 60 mg Rivaroxaban (Xarelto) 15 mg PO DAILY [facility] Stop: 09/14/17 20:16 Last Admin: 03/16/17 08:33 Dose: 15 mg - Imaging and Cardiology Echo: report reviewed - EKG Interpretation EKG results cardiology: personally reviewed (A-Fib, rate 95), other (12 hr tele AVG HR 77, A-Fib, longest pause) Consult Discharge Plan - Plan Referrals: Carlos Newman MD [Primary Care Provider] -
--- NOTE | 2017-03-16 09:28 | Event Note ---
Date of Encounter: 03/16/17 Time of Encounter: 09:25 - Cardiology Event Note [place] records obtained. Stress test 11/06/16 was negative for ischemia. There were fixed defects thought to be from artifact. Will start Rythmol 150mg [id number]. Baseline EKG 03/15/17 A-Fib, rate 95, QRS 99ms, QT/QTc 334/386ms. Will need monitored for minimum of 5 Rythmol doses with daily EKGs to monitor QRS.
--- NOTE | 2017-03-16 16:50 | Internal Med Progress Note ---
Date of Encounter: 03/16/17 Time of Encounter: 13:40 - Assessment and plan (1) Atrial fibrillation with rapid ventricular response Current Visit: Yes Status: Acute Assessment and plan: Patient has a long history of A. fib. She has 2 recent hospitalizations for A. fib in February. Patient was intolerant of amiodarone and Lopressor. Patient still reports weakness, fatigue, dyspnea, and palpitations on Cardizem. Patient is currently in A. fib at this time, apical and radial pulses both irregular. She denies chest pain, dyspnea at this time. Patient is being admitted for 5 doses of Rythmol. continue Xarelto Telemetry [facility] on board. (2) Essential hypertension Current Visit: Yes Status: Chronic Assessment and plan: Blood pressure is well controlled and impatient setting. Continue current regimen and monitor vital signs. (3) Hyperlipidemia Current Visit: Yes Status: Chronic Assessment and plan: Chronic. Continue medications. Qualifiers: Hyperlipidemia type: pure hypercholesterolemia Qualified Code(s): E78.00 - Pure hypercholesterolemia, unspecified; E78.0 - Pure hypercholesterolemia (4) Myasthenia gravis Current Visit: Yes Status: Chronic Assessment and plan: Chronic. Stable. Continue home medication. (5) Physical deconditioning Current Visit: Yes Status: Acute Assessment and plan: Patient reports increasing weakness and fatigue. She states that she is not able to walk as far as she used to be able and that her hand grasp feels weak. On physical exam, bilateral upper and lower extremity strength is 3/5. Consult PT/OT Up with assistance/fall precautions (6) DVT prophylaxis Current Visit: Yes Status: Acute Assessment and plan: Patient is on Xarelto. - Time Spent With Patient Patient is on Zarontin to. less than 15 minutes - Subjective Interval history: Patient was seen and assessed at 1340. Mrs. Castaneda is an extremely pleasant, alert and oriented 81-year-old female. She denies pain or needs. She states that she is going to be here for 5 doses of Rythmol. She denies feeling palpitations. She is very clear coherent in her history. - Constitutional Vitals: Temp Pulse Resp BP Pulse Ox 97.9 F 70 16 97/55 94 03/16/17 15:14 03/16/17 15:14 03/16/17 15:14 03/16/17 15:14 03/16/17 15:14 General appearance: Present: cooperative, A&O X 3, pleasant, answers questions appropriately - Head Head exam: Present: normal inspection - Eye Eye exam: Present: normal appearance, conjuntiva pink - ENT ENT exam: Present: mucous membranes moist, normal exam - Neck Neck exam general surgery: Present: normal inspection. Absent: lymphadenopathy , tenderness - Respiratory Respiratory exam: Present: CTAB. Absent: chest wall tenderness, rales, rhonchi , stridor, wheezes - Cardiovascular Cardiovascular exam: Present: irregular rhythm. Absent: diastolic murmur, JVD, systolic murmur - GI/Abdominal GI/Abdominal exam: Present: normal bowel sounds, soft. Absent: hepatomegaly, tenderness - Extremities Exam Extremities exam: Present: normal capillary refill, warm, radial pulses palpable and symetrical. Absent: pedal edema, tenderness - Neurological Exam Neurological exam: Present: alert, oriented X3, strengths equal and symetr throughout. Absent: facial droop, speech deficit - Skin Skin exam: Present: dry, intact, warm. Absent: rash Internal Medicine: Result - Labs CBC & Chem 7: 03/16/17 00:46 03/16/17 00:46 Labs: Short CBC 03/16/17 Range/Units 00:46 WBC 5.6 (4.3-11.1) K/mcL Hgb 9.3 L (11.5-15.4) g/dL Hct 28.1 L (35.3-44.9) % Plt Count 237 (140-400) K/mcL BMP 03/16/17 00:46 Sodium 139 Potassium 4.8 H Chloride 104 Carbon Dioxide 28 BUN 74 H Creatinine 1.86 H Glucose 91 Calcium 9.5 Cardiac Enzymes 03/16/17 03/16/17 Range/Units 00:46 06:46 Troponin I 0.05 H* 0.04 H* (0-0.03) ng/mL - ABG Interpretation ABG results: PT/INR, D-dimer PT 16.5 Seconds (9.4-12.1) H 03/15/17 17:36 Consult Discharge Plan - Plan Referrals: Carlos Newman MD [Primary Care Provider] -
[2017-03-17] MEDS: Isosorbide MONOnitrate (24 HR) 60 MG TAB.ER.24H PO SCH (08:22)
[2017-03-17] MEDS: Pyridostigmine Br 60 MG TABLET PO SCH ×2 (08:22→20:44)
[2017-03-17] MEDS: Fenofibrate 54 MG TABLET PO SCH (08:22)
--- NOTE | 2017-03-17 09:18 | Cardiology Progress Note ---
Date of Encounter: 03/17/17 Time of Encounter: 09:12 Assessment and Plan (1) Atrial fibrillation Current Visit: Yes Status: Chronic Known hx of PAF. Reports A-Fib initially diagnosed in the . 2 recent hospitalizations for A-Fib. Had successful DCCV 02/18, then recurrence of A-Fib and was rate controlled during stay 03/05. Hx of intolerance to amiodarone and Lopressor--both causing significant dyspnea. Sent to ED by Dr. Chacko for HR 70s-140s and for symptoms to be started on antiarrhythmic therapy. Given her renal dysfunction, tikosyn and sotalol are not good options. Rythmol is the most reasonable choice--discussed with Dr. Renae. Rythmol started yesterday--has received 3 doses. Remains in A-Fib. EKG this AM QRS stable at 101ms. 12 hr tele AVG HR 76, A-Fib, 4 beat run NSVT, longest pause 2.8 seconds nocturnal. Continue daily EKGs for QRS monitoring. Monitor for total of 5 doses, which will be tonight. If she remains in A-Fib, will plan for DCCV in AM. NPO after midnight. Stress test [place] 11/06/16 negative for ischemia. 10/11/16: LVEF 70-75%, mild cLVH, moderate to severe LVDD, moderately to severely dilated LA, mild MR/TR/AR, normal wall motion. Anticoagulated on Xarelto (renal dosing), no missed doses in the past 30 days. No FLORENTINO will be warranted if she needs DCCV. Qualifiers: Atrial fibrillation type: unspecified Qualified Code(s): I48.91 - Unspecified atrial fibrillation (2) Elevated troponin Current Visit: Yes Status: Chronic Flat, mild troponin elevation of 0.06, 0.05, 0.04 in setting of A-Fib and renal dysfunction. Likely demand ischemia, nondiagnostic for ACS. Pt denies chest pain. Echo 10/2016 EF preserved. Negative stress test at [place] 10/2016. Discussion w patient/family: The assessment and plan as outlined above was discussed with the patient and/or family members who expressed understanding and agreement. All questions were answered. Thank you for involving us in the care of your patient. Please call with any questions. I will discuss all the above with Dr. Adelso Renae and make changes as necessary. Subjective Principal diagnosis: A-Fib Interval history: Pt reports feeling much better today, despite still being in A-Fib. Denies chest pain, palpitations or dyspnea. Has received 3 doses of Rythmol. Objective Vital Signs, Last 4 Hours Temp Pulse Resp BP Pulse Ox 03/17/17 07:13 94 03/17/17 06:57 97.7 F 89 16 106/62 94 Vital Signs Temp Pulse Resp BP Pulse Ox 03/17/17 07:13 94 03/17/17 06:57 97.7 F 89 16 106/62 94 03/17/17 03:24 97.8 F 79 16 110/57 94 03/16/17 23:13 98.3 F 93 16 122/68 94 03/16/17 19:26 97.9 F 89 16 111/51 94 03/16/17 15:14 97.9 F 70 16 97/55 94 03/16/17 11:24 97.8 F 78 16 112/54 95 Intake and Output 03/16/17 03/17/17 03/17/17 23:59 07:59 15:59 Other: Stool Size Small Stool Consistency formed Stool Characteristics Normal for Patient Stool Color Brown # Voids 2 1 # Bowel Movements 1 Weight 61.19 kg Patient Weight 03/17/17 23:59 Weight 61.19 kg General: Conversant, No Apparent Distress HEENT: Atraumatic Neck: No JVD, Normal carotid pulses Cardiac: Other (irregularly irregular) Lungs: Normal Breath Sounds, No Wheeze, Rales, Rhonchi Neuro: Alert and responsive, No focal deficits noted Abdomen: Soft, Non-Tender Skin: No rashes noted on visualized skin Musculoskeletal: No Chest Wall Tenderness Extremities: No Clubbing, No Cyanosis, No Edema, Normal Pulses Results 03/16/17 00:46 03/16/17 00:46 Active Medications Allopurinol (Zyloprim) 100 mg PO DAILY [facility] Stop: 09/15/17 09:01 Last Admin: 03/17/17 08:22 Dose: 100 mg Diltiazem HCl (Cardizem Cd) 360 mg PO DAILY [facility] Stop: 09/15/17 09:01 Last Admin: 03/16/17 08:33 Dose: 360 mg Fenofibrate (Tricor) 162 mg PO DAILY [facility] Stop: 09/15/17 09:01 Last Admin: 03/17/17 08:22 Dose: 162 mg Ferrous Sulfate (Ferrous Sulfate) 325 mg PO DAILY@0800 [facility] Stop: 09/15/17 08:01 Last Admin: 03/17/17 08:23 Dose: 325 mg Isosorbide Mononitrate (Imdur) 60 mg PO DAILY [facility] Stop: 09/15/17 09:01 Last Admin: 03/17/17 08:22 Dose: 60 mg Naloxone HCl (Narcan) 0.4 mg IVP Q2MIN PRN PRN Reason: Opioid Reversal Stop: 09/14/17 20:15 Omeprazole (Prilosec) 20 mg PO DAILY [facility] Stop: 09/15/17 09:01 Last Admin: 03/17/17 08:23 Dose: 20 mg Propafenone HCl (Rhythmol) 150 mg PO Q8HR [facility] Stop: 09/15/17 16:01 Last Admin: 03/17/17 08:22 Dose: 150 mg Pyridostigmine [place] (Mestinon) 60 mg PO BID [facility] Stop: 09/14/17 21:01 Last Admin: 03/17/17 08:22 Dose: 60 mg Rivaroxaban (Xarelto) 15 mg PO DAILY [facility] Stop: 09/14/17 20:16 Last Admin: 03/16/17 08:33 Dose: 15 mg - Imaging and Cardiology Stress Test: report reviewed Echo: report reviewed - EKG Interpretation EKG results cardiology: other (12 hr tele AVG HR 76, A-Fib, 4 beat run NSVT, longest pause 2.8 seconds nocturnal.) Consult Discharge Plan - Plan Referrals: Carlos Newman MD [Primary Care Provider] -
[2017-03-17] MEDS: Diltiazem CD (24hr) 180 MG CAPSULE PO SCH (09:43)
[2017-03-17] MEDS: *HR* Rivaroxaban 15 MG TABLET PO SCH (09:43)
--- NOTE | 2017-03-17 11:52 | Internal Med Progress Note ---
Date of Encounter: 03/17/17 Time of Encounter: 11:50 - Assessment and plan (1) Atrial fibrillation with rapid ventricular response Current Visit: Yes Status: Acute Assessment and plan: Pt remains in a-fib. She has received 3 doses of Rhythmol. Cardiology plans to reassess in the am. If pt is still in afib, they will DCCV. Pt will be NPO after midnight. She denies chest pain or sob, no palpitations. Continue Xarelto, telemetry Labs in the a.m. (2) Essential hypertension Current Visit: Yes Status: Chronic Assessment and plan: Blood pressure is well controlled and impatient setting. Continue current regimen and monitor vital signs. (3) Hyperlipidemia Current Visit: Yes Status: Chronic Assessment and plan: Chronic. Continue medications. Qualifiers: Hyperlipidemia type: pure hypercholesterolemia Qualified Code(s): E78.00 - Pure hypercholesterolemia, unspecified; E78.0 - Pure hypercholesterolemia (4) Myasthenia gravis Current Visit: Yes Status: Chronic Assessment and plan: Chronic. Stable. Continue home medication. (5) Physical deconditioning Current Visit: Yes Status: Acute Assessment and plan: Patient reports increasing weakness and fatigue. She states that she is not able to walk as far as she used to be able and that her hand grasp feels weak. On physical exam, bilateral upper and lower extremity strength is 3/5. Consult PT/OT Up with assistance/fall precautions (6) DVT prophylaxis Current Visit: Yes Status: Acute Assessment and plan: Patient is on Xarelto. Pt is ambulatory in the room. - Subjective Interval history: Patient was seen and assessed at 1150. Mrs. Castaneda is an extremely pleasant, alert and oriented 81-year-old female. She denies pain or needs and states that she feels much better than she did yesterday. She denies chest pain or palpitations. She is very clear coherent in her history. - Constitutional Vitals: Temp Pulse Resp BP Pulse Ox 98.1 F 93 16 119/70 94 03/17/17 11:20 03/17/17 11:20 03/17/17 11:20 03/17/17 11:20 03/17/17 11:20 General appearance: Present: cooperative, A&O X 3, pleasant, no acute distress, answers questions appropriately - Head Head exam: Present: normal inspection - Eye Eye exam: Present: normal appearance, conjuntiva pink - ENT ENT exam: Present: mucous membranes moist, normal exam, normal external ear exam - Neck Neck exam general surgery: Present: normal inspection. Absent: lymphadenopathy , tenderness - Respiratory Respiratory exam: Present: CTAB. Absent: rales, respiratory distress, rhonchi, stridor, wheezes, tachypnea - Cardiovascular Cardiovascular exam: Present: irregular rhythm. Absent: clicks, diastolic murmur, gallop, systolic murmur - GI/Abdominal GI/Abdominal exam: Present: distended, normal bowel sounds, soft. Absent: hepatomegaly, tenderness - Extremities Exam Extremities exam: Present: normal capillary refill, warm, radial pulses palpable and symetrical. Absent: pedal edema, tenderness - Back Exam Back exam: Present: normal inspection. Absent: tenderness - Neurological Exam Neurological exam: Present: alert, oriented X3, no focal deficits. Absent: facial droop, speech deficit Internal Medicine: Result - Labs CBC & Chem 7: 03/16/17 00:46 03/16/17 00:46 - ABG Interpretation ABG results: PT/INR, D-dimer PT 16.5 Seconds (9.4-12.1) H 03/15/17 17:36 Consult Discharge Plan - Plan Referrals: Carlos Newman MD [Primary Care Provider] -
[2017-03-17] MEDS ORDERED: Ondansetron ODT 4 MG TAB.RAPDIS SL ONE (17:07)
[2017-03-18] MEDS: Mag Hydrox/Al Hydrox/Simeth 30 ML UDC PO SCH ×2 (00:37→22:33)
[2017-03-18 05:10] LABS: Basophils % 0.3 %; Hematocrit 28.7 % (35.3-44.9); Hemoglobin 9.4 g/dL (11.5-15.4); Immature Granulocytes % 0.2 % (0-4); Lymphocytes # 2.5 K/mcL (0.6-4.6); Lymphocytes % 43.5 %; Mean Corpuscular HGB Conc 32.8 g/dL (31.6-35.5); Mean Corpuscular Hemoglobin 32.4 pg (28.0-33.3); Mean Platelet Volume 10.9 fL (9.4-12.4); Monocytes # 0.9 K/mcL (0.0-1.3); Monocytes % 15.6 %; Neutrophils # 2.4 K/mcL (1.6-8.9); Platelet Count 232 K/mcL (140-400); Red Cell Distribution Width 14.7 % (11.5-14.5); Segmented Neutrophils % 40.4 %
[2017-03-18 05:12] LABS: Calcium 9.5 mg/dL (8.6-10.8); Potassium 4.9 mEq/L (3.5-4.5)
[2017-03-18] MEDS: Fenofibrate 54 MG TABLET PO SCH (07:40)
[2017-03-18] MEDS: Isosorbide MONOnitrate (24 HR) 60 MG TAB.ER.24H PO SCH (07:40)
[2017-03-18] MEDS: *HR* Rivaroxaban 15 MG TABLET PO SCH (07:41)
[2017-03-18] MEDS: Diltiazem CD (24hr) 180 MG CAPSULE PO SCH (07:41)
[2017-03-18] MEDS: Pyridostigmine Br 60 MG TABLET PO SCH ×2 (07:41→21:21)
--- NOTE | 2017-03-18 08:29 | Event Note ---
Date of Encounter: 03/18/17 Time of Encounter: 08:26 - Cardiology Event Note Pt has received 6 doses of Rythmol and remains in A-Fib. Plan for DCCV today. R/ B/A discussed. Pt agrees to proceed. EKG for this AM ordered, not yet completed. No missed doses of Xarelto past 30 days, no FLORENTINO warranted.
[2017-03-18] MEDS ORDERED: *HR* FentaNYL (PF) 100 MCG/2 ML VIAL IVP PRN (11:15)
[2017-03-18] MEDS ORDERED: *HR* Midazolam HCl 5 MG/5 ML VIAL IVP PRN (11:15)
[2017-03-18] MEDS ORDERED: 0.9 % Sodium Chloride 500 ML IVC ONE (11:15)
--- NOTE | 2017-03-18 12:48 | Discharge Summary ---
Date of Encounter: 03/18/17 Time of Encounter: 12:46 - Discharge Diagnosis (1) Atrial fibrillation with rapid ventricular response Priority: Primary Status: Chronic (2) Essential hypertension Priority: Secondary Status: Chronic (3) Hyperlipidemia Priority: Secondary Status: Chronic Qualifiers: Hyperlipidemia type: pure hypercholesterolemia Qualified Code(s): E78.00 - Pure hypercholesterolemia, unspecified; E78.0 - Pure hypercholesterolemia (4) Myasthenia gravis Priority: Secondary Status: Chronic - Discharge Medications Home Medications: Allopurinol [Zyloprim 100 MG] 100 mg PO DAILY 02/18/17 [History] Cholecalciferol (Vitamin D3) [Vitamin D3] 2,000 unit PO DAILY 02/18/17 [History] Docusate [Colace] 100 mg PO DAILY PRN 02/18/17 [History] Fenofibrate Nanocrystallized [Triglide] 160 mg PO DAILY 02/18/17 [History] Isosorbide MONOnitrate (24 HR) [Imdur] 60 mg PO DAILY 02/18/17 [History] Lisinopril [Zestril] 20 mg PO DAILY 02/18/17 [History] Multivit-Min/Iron/Folic/Lutein [Centrum Silver Women Tablet] 1 tab PO DAILY 05/28 [History] Pantoprazole Sodium 40 mg PO DAILY 02/18/17 [History] Polyethylene Glycol 3350 [MiraLAX bowel prep] 17 gm PO DAILY 02/18/17 [History] Pyridostigmine Br [Mestinon] 60 mg PO BID 02/18/17 [History] Rivaroxaban [Xarelto] 15 mg PO DAILY 02/18/17 [History] Furosemide [Lasix] 20 mg PO BID #60 tablet 03/08/17 [Rx] Acetaminophen [Tylenol] 650 mg PO Q6HR PRN tab 03/12/17 [Rx] Digoxin [Lanoxin] 0.125 mg PO DAILY #30 tab 03/12/17 [Rx] Diltiazem CD (24hr) [Cardizem CD] 360 mg PO DAILY #60 tab 03/12/17 [Rx] Ferrous Sulfate 325 mg PO DAILY@0800 #30 tab 03/12/17 [Rx] Amlodipine Besylate 2.5 mg PO DAILY 03/15/17 [History] Metoprolol XL (24 HR) Succ [Toprol XL] 25 mg PO DAILY 03/15/17 [History] Allergies/Adverse Reactions: Allergies prednisone Adverse Reaction (Verified 02/18/17 03:42) Palpitations Cjjkjib-[id number]-Egp Reductase Inhibitor [Statins] Adverse Reaction (Verified 03:42) Weakness Procedures/tests Complete & Pending: Procedures Performed prior 72 hours Category Date Time Status ECG 12 lead ECG [ECG] Routine Y 03/18/17 11:02 Completed EKG [ECG 12 lead ECG] [ECG] AM 0600 Y 03/17/17 06:00 Completed EKG [ECG 12 lead ECG] [ECG] AM 0600 Y 03/18/17 06:00 Completed EKG [ECG 12 lead ECG] [ECG] AM 0600 Y 03/19/17 06:00 Ordered EV cardioversion Routine Y 03/18/17 08:32 Completed Date of admission: 03/15/17 21:49 Primary care physician: Carlos Newman MD Consults: 03/16/17 17:04 Consult to Occupational Therapy [CONS] Routine Comment: Evaluate, develop and implement POC Reason for Consult: evaluation Consult to Physical Therapy [CONS] Routine Comment: Evaluate, develop and implement POC Reason for Consult: evaluation Discharging clinician: Rich Ramon Anticipated date of discharge: 03/18/17 - Discharge Instructions Follow Up With: Carlos Newman MD [Primary Care Provider] - Hospital course: Ms. Castaneda is a 81 year old female - Time Spent with Patient Total time spent providing and/or coordinating discharge services: - Constitutional Vitals: Temp Pulse Resp BP Pulse Ox 97.8 F 78 18 129/77 94 03/18/17 11:17 03/18/17 11:17 03/18/17 11:17 03/18/17 11:17 03/18/17 11:17 General appearance: Present: cooperative, A&O X 3, pleasant, no acute distress, answers questions appropriately
--- NOTE | 2017-03-18 13:00 | Event Note ---
Date of Encounter: 03/18/17 Time of Encounter: 12:59 - Cardiology Event Note Successful DCCV to SR, HR currently 49-60 at bedside. Pt reports feeling dizzy. Will keep and monitor overnight. Decrease Cardizem CD from 360mg to 120mg daily. Re-evaluate in AM.
--- NOTE | 2017-03-18 13:41 | Internal Med Progress Note ---
<Rich Ramon - Last Filed: 03/18/17 13:38> Date of Encounter: 03/18/17 Time of Encounter: 10:30 - Assessment and plan (1) Atrial fibrillation with rapid ventricular response Current Visit: Yes Status: Chronic Assessment and plan: Recurrent, patient failed rate control strategy due to intolerance of beta amber and amiodarone. Patient has been started on Rythmol and remains in A. fib with rate controlled at this time. Cardiology is planning his cardioversion today. Continue anticoagulation with xarelto. Patient will be discharged home on diltiazem 120 mg daily and 150 mg every 8 hours. Appreciate cardiology recommendations. (2) Essential hypertension Current Visit: Yes Status: Chronic Assessment and plan: Under good control. Continue medications. (3) Hyperlipidemia Current Visit: Yes Status: Chronic Assessment and plan: Statin allergy. Continue TriCor. Qualifiers: Hyperlipidemia type: pure hypercholesterolemia Qualified Code(s): E78.00 - Pure hypercholesterolemia, unspecified; E78.0 - Pure hypercholesterolemia (4) Myasthenia gravis Current Visit: Yes Status: Chronic Assessment and plan: Stable. Asymptomatic at this time. Continue home medications. - Subjective Interval history: Patient seen and examined at bedside. Patient states that she feels pretty good today. Patient has no complaints at this time. She denies chest pain, shortness of breath, palpitations. - Constitutional Vitals: Temp Pulse Resp BP Pulse Ox 97.8 F 78 18 129/77 94 03/18/17 11:17 03/18/17 11:17 03/18/17 11:17 03/18/17 11:17 03/18/17 11:17 General appearance: Present: cooperative, A&O X 3, pleasant, no acute distress, answers questions appropriately - Respiratory Respiratory exam: Present: CTAB. Absent: rales, rhonchi, wheezes - Cardiovascular Cardiovascular exam: Present: irregular rhythm. Absent: gallop, rubs, systolic murmur, tachycardia - GI/Abdominal GI/Abdominal exam: Present: normal bowel sounds, soft. Absent: distended, tenderness - Extremities Exam Extremities exam: Present: pedal edema (Trace), warm. Absent: tenderness - Neurological Exam Neurological exam: Present: alert, CN II-XII intact, oriented X3, no focal deficits Internal Medicine: Result - Labs CBC & Chem 7: 03/18/17 04:23 03/18/17 04:23 Labs: Short CBC 03/18/17 Range/Units 04:23 WBC 5.8 (4.3-11.1) K/mcL Hgb 9.4 L (11.5-15.4) g/dL Hct 28.7 L (35.3-44.9) % Plt Count 232 (140-400) K/mcL Neutrophils # 2.4 (1.6-8.9) K/mcL BMP 03/18/17 04:23 Sodium 137 Potassium 4.9 H Chloride 104 Carbon Dioxide 29 BUN 69 H Creatinine 1.53 H Glucose 92 Calcium 9.5 - ABG Interpretation ABG results: PT/INR, D-dimer PT 16.5 Seconds (9.4-12.1) H 03/15/17 17:36 Consult Discharge Plan - Plan Referrals: Carlos Newman MD [Primary Care Provider] - 03/25/17 3:00 pm <Kayode Hart - Last Filed: 03/18/17 18:34> Date of Encounter: 03/18/17 - Constitutional Vitals: Temp Pulse Resp BP Pulse Ox 97.3 F L 50 14 115/55 95 03/18/17 15:33 03/18/17 15:33 03/18/17 15:33 03/18/17 15:33 03/18/17 15:33 Internal Medicine: Result - Labs CBC & Chem 7: 03/18/17 04:23 03/18/17 04:23 Labs: Short CBC 03/18/17 Range/Units 04:23 WBC 5.8 (4.3-11.1) K/mcL Hgb 9.4 L (11.5-15.4) g/dL Hct 28.7 L (35.3-44.9) % Plt Count 232 (140-400) K/mcL Neutrophils # 2.4 (1.6-8.9) K/mcL BMP 03/18/17 04:23 Sodium 137 Potassium 4.9 H Chloride 104 Carbon Dioxide 29 BUN 69 H Creatinine 1.53 H Glucose 92 Calcium 9.5 - ABG Interpretation ABG results: PT/INR, D-dimer PT 16.5 Seconds (9.4-12.1) H 03/15/17 17:36 - Attending Attestation I examined this patient and my medical decision-making was reviewed with the Resident Physician, Dr. Ramon. I agree with the documented findings, disposition and treatment plan as described except to the extent set forth below. I have independently obtained history and examined the patient and my findings are summarized below: Patient is awake alert oriented, in no acute distress. Heart auscultation reveals a regular S1-S2 no murmurs. Plan: Cardioversion this morning. Continue chronic anticoagulation. Moderate risk due to cardiovascular procedure requiring sedation.
--- NOTE | 2017-03-18 15:15 | Electrocardiograph Report ---
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
--- NOTE | 2017-03-18 15:18 | Electrocardiograph Report ---
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
--- NOTE | 2017-03-18 20:51 | Electrocardiograph Report ---
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
--- NOTE | 2017-03-18 20:54 | Electrocardiograph Report ---
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
--- NOTE | 2017-03-18 20:54 | Electrocardiograph Report ---
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
[2017-03-19 05:26] LABS: Calcium 9.5 mg/dL (8.6-10.8); Potassium 5.1 mEq/L (3.5-4.5)
[2017-03-19] MEDS: Pyridostigmine Br 60 MG TABLET PO SCH (08:51)
[2017-03-19] MEDS: Fenofibrate 54 MG TABLET PO SCH (08:52)
[2017-03-19] MEDS: *HR* Rivaroxaban 15 MG TABLET PO SCH (08:52)
[2017-03-19] MEDS: Isosorbide MONOnitrate (24 HR) 60 MG TAB.ER.24H PO SCH (08:52)
[2017-03-19] MEDS ORDERED: Diltiazem CD (24hr) 120 MG CAPSULE PO SCH (09:00)
[2017-03-19] MEDS: Mag Hydrox/Al Hydrox/Simeth 30 ML UDC PO SCH ×3 (09:55→17:05)
--- NOTE | 2017-03-19 12:00 | Cardiology Progress Note ---
Date of Encounter: 03/19/17 Time of Encounter: 11:56 Assessment and Plan (1) Atrial fibrillation Current Visit: Yes Status: Chronic Known hx of PAF. Reports A-Fib initially diagnosed in the . 2 recent hospitalizations for A-Fib. Had successful DCCV 02/18, then recurrence of A-Fib and was rate controlled during stay 03/05. Hx of intolerance to amiodarone and Lopressor--both causing significant dyspnea. Rythmol initiated (chosen due to renal dysfunction)--has received >5 doses. 1AM dose was held due to bradycardia. QRS remains at baseline and less than 120ms. QRS 99ms today with HR 54. Given her bradycardia, will stop Cardizem. Re-evaluate as outpt to see if HR will tolerate adding Cardizem back. Pt asymptomatic--denies dizziness or lightheadedness. Stress test [place] 11/06/16 negative for ischemia. 10/11/16: LVEF 70-75%, mild cLVH, moderate to severe LVDD, moderately to severely dilated LA, mild MR/TR/AR, normal wall motion. Anticoagulated on Xarelto (renal dosing), no missed doses in the past 30 days. Cardiology signing off. Reconsult PRN. Follow-up in 2-3 weeks. Will coordinate. Please discharge home with Rythmol 150mg [id number] rx and stop Cardizem. Continue Xarelto. Qualifiers: Atrial fibrillation type: unspecified Qualified Code(s): I48.91 - Unspecified atrial fibrillation (2) Elevated troponin Current Visit: Yes Status: Chronic Flat, mild troponin elevation of 0.06, 0.05, 0.04 in setting of A-Fib and renal dysfunction. Likely demand ischemia, nondiagnostic for ACS. Pt denies chest pain. Echo 10/2016 EF preserved. Negative stress test at [facility] 10/2016. Discussion w patient/family: The assessment and plan as outlined above was discussed with the patient and/or family members who expressed understanding and agreement. All questions were answered. Thank you for involving us in the care of your patient. Please call with any questions. I will discuss all the above with Dr. Dalton and make changes as necessary. Subjective Principal diagnosis: A-Fib Interval history: Pt s/p successful DCCV yesterday, maintaining SR on Rythmol 150mg Q8 hours, has received >5 doses. HR at bedside is low 50s, but she is asymptomatic, denies dizziness or lightheadedness. Objective Vital Signs, Last 4 Hours Temp Pulse Resp BP Pulse Ox 03/19/17 11:07 97.8 F 56 16 129/61 92 03/19/17 08:50 93 Vital Signs Temp Pulse Resp BP Pulse Ox 03/19/17 11:07 97.8 F 56 16 129/61 92 03/19/17 08:50 93 03/19/17 03:48 98.4 F 55 14 111/56 93 03/18/17 23:53 98.1 F 62 14 121/53 94 03/18/17 19:11 97.5 F L 54 16 110/62 97 03/18/17 15:33 97.3 F L 50 14 115/55 95 03/18/17 15:29 97.8 F 47 16 113/62 95 03/18/17 14:21 97.8 F 48 16 102/43 94 03/18/17 14:00 97.7 F 51 16 102/42 95 03/18/17 13:30 97.8 F 52 16 112/59 95 Intake and Output 03/18/17 03/19/17 03/19/17 23:59 07:59 15:59 Intake Total 120 / 120 Balance 120 / 120 Intake: Oral 120 / 120 Other: Meal Dinner Breakfast Percent of Meal Consumed 100% 95% Stool Size Small Stool Consistency soft formed Stool Color Brown Green # Voids 1 1 Weight 60.2 kg Patient Weight 03/19/17 23:59 Weight 60.2 kg General: Conversant, No Apparent Distress HEENT: Atraumatic, Normocephaly, Mucus Membranes Moist Neck: No JVD, Normal carotid pulses Cardiac: Reg Rate and Rhythm, Normal S1 and S2, No Murmur Lungs: Normal Breath Sounds, No Wheeze, Rales, Rhonchi Neuro: Alert and responsive, No focal deficits noted Abdomen: Soft, Non-Tender Skin: No rashes noted on visualized skin Musculoskeletal: No Chest Wall Tenderness Extremities: No Clubbing, No Cyanosis, No Edema, Normal Pulses Results 03/18/17 04:23 03/19/17 04:35 Lab Results 03/19/17 04:35 Sodium 139 Potassium 5.1 H Chloride 106 Carbon Dioxide 30 H BUN 64 H Creatinine 1.55 H Glucose 96 Calcium 9.5 BMP 03/19/17 Range/Units 04:35 Sodium 139 (136-145) mEq/L Potassium 5.1 H (3.5-4.5) mEq/L Chloride 106 (98-109) mEq/L Carbon Dioxide 30 H (19-29) mEq/L BUN 64 H (7-20) mg/dL Creatinine 1.55 H (0.57-1.11) mg/dL Glucose 96 (70-99) mg/dL Calcium 9.5 (8.6-10.8) mg/dL Active Medications Al Hydrox/Mg Hydrox/Simethicone (Maalox) 30 ml PO QID [facility] PRN Reason: Protocol Stop: 09/17/17 23:29 Last Admin: 03/19/17 09:55 Dose: Not Given Allopurinol (Zyloprim) 100 mg PO DAILY [facility] Stop: 09/15/17 09:01 Last Admin: 03/19/17 08:52 Dose: 100 mg Fenofibrate (Tricor) 162 mg PO DAILY [facility] Stop: 09/15/17 09:01 Last Admin: 03/19/17 08:52 Dose: 162 mg Ferrous Sulfate (Ferrous Sulfate) 325 mg PO DAILY@0800 [facility] Stop: 09/15/17 08:01 Last Admin: 03/19/17 08:52 Dose: 325 mg Isosorbide Mononitrate (Imdur) 60 mg PO DAILY [facility] Stop: 09/15/17 09:01 Last Admin: 03/19/17 08:52 Dose: 60 mg Naloxone HCl (Narcan) 0.4 mg IVP Q2MIN PRN PRN Reason: Opioid Reversal Stop: 09/14/17 20:15 Omeprazole (Prilosec) 20 mg PO DAILY [facility] Stop: 09/15/17 09:01 Last Admin: 03/19/17 08:52 Dose: 20 mg Propafenone HCl (Rhythmol) 150 mg PO Q8HR [facility] Stop: 09/15/17 16:01 Last Admin: 03/19/17 10:09 Dose: 150 mg Pyridostigmine [place] (Mestinon) 60 mg PO BID [facility] Stop: 09/14/17 21:01 Last Admin: 03/19/17 08:51 Dose: 60 mg Rivaroxaban (Xarelto) 15 mg PO DAILY [facility] Stop: 09/14/17 20:16 Last Admin: 03/19/17 08:52 Dose: 15 mg - EKG Interpretation EKG results cardiology: other (12 hr tele AVG HR 53, lowest HR noted overnight 49, SR, no significant pauses or arrhythmias) Consult Discharge Plan - Plan Referrals: Carlos Newman MD [Primary Care Provider] - 03/25/17 3:00 pm
[2017-03-19 15:17] VITALS: BP 140/58
--- NOTE | 2017-03-19 16:05 | Electrocardiograph Report ---
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
--- NOTE | 2017-03-19 16:31 | Discharge Summary ---
Date of Encounter: 03/19/17 Time of Encounter: 16:24 - Discharge Diagnosis (1) Atrial fibrillation with rapid ventricular response Priority: Primary Status: Resolved Comments: s/p cardioversion (2) Essential hypertension Priority: Secondary Status: Chronic (3) Hyperlipidemia Priority: Secondary Status: Chronic Qualifiers: Hyperlipidemia type: pure hypercholesterolemia Qualified Code(s): E78.00 - Pure hypercholesterolemia, unspecified; E78.0 - Pure hypercholesterolemia (4) Myasthenia gravis Priority: Secondary Status: Chronic (5) GERD (gastroesophageal reflux disease) Priority: Secondary Status: Chronic Qualifiers: Esophagitis presence: without esophagitis Qualified Code(s): K21.9 - Gastro -esophageal reflux disease without esophagitis - Discharge Medications Prescriptions: Propafenone [Rhythmol] 150 mg PO Q8HR #90 tab Home Medications: Allopurinol [Zyloprim 100 MG] 100 mg PO DAILY 02/18/17 [History] Cholecalciferol (Vitamin D3) [Vitamin D3] 2,000 unit PO DAILY 02/18/17 [History] Docusate [Colace] 100 mg PO DAILY PRN 02/18/17 [History] Fenofibrate Nanocrystallized [Triglide] 160 mg PO DAILY 02/18/17 [History] Isosorbide MONOnitrate (24 HR) [Imdur] 60 mg PO DAILY 02/18/17 [History] Multivit-Min/Iron/Folic/Lutein [Centrum Silver Women Tablet] 1 tab PO DAILY 05/28 [History] Pantoprazole Sodium 40 mg PO DAILY 02/18/17 [History] Polyethylene Glycol 3350 [MiraLAX bowel prep] 17 gm PO DAILY 02/18/17 [History] Pyridostigmine Br [Mestinon] 60 mg PO BID 02/18/17 [History] Rivaroxaban [Xarelto] 15 mg PO DAILY 02/18/17 [History] Acetaminophen [Tylenol] 650 mg PO Q6HR PRN tab 03/12/17 [Rx] Ferrous Sulfate 325 mg PO DAILY@0800 #30 tab 03/12/17 [Rx] Propafenone [Rhythmol] 150 mg PO Q8HR #90 tab 03/19/17 [Rx] Allergies/Adverse Reactions: Allergies prednisone Adverse Reaction (Verified 02/18/17 03:42) Palpitations Jwkbojs-Ilx-Uaq Reductase Inhibitor [Statins] Adverse Reaction (Verified 03:42) Weakness Procedures/tests Complete & Pending: Procedures Performed prior 72 hours Category Date Time Status ECG 12 lead ECG [ECG] Routine Y 03/18/17 11:02 Completed ECG 12 lead ECG [ECG] Routine Y 03/18/17 11:59 Completed EKG [ECG 12 lead ECG] [ECG] AM 0600 Y 03/17/17 06:00 Completed EKG [ECG 12 lead ECG] [ECG] AM 0600 Y 03/18/17 06:00 Completed EKG [ECG 12 lead ECG] [ECG] AM 0600 Y 03/19/17 06:00 Completed EV cardioversion Routine Y 03/18/17 08:32 Completed Date of admission: 03/15/17 21:49 Primary care physician: Carlos Newman MD Consults: 03/16/17 17:04 Consult to Occupational Therapy [CONS] Routine Comment: Evaluate, develop and implement POC Reason for Consult: evaluation Consult to Physical Therapy [CONS] Routine Comment: Evaluate, develop and implement POC Reason for Consult: evaluation 03/18/17 17:32 Consult to Management Technician [CONS] Routine Reason for SW Consult: dishcarge planning - Patient Status Disposition: Home Health Service Condition: Good Overall status at discharge: patient is back to baseline - Discharge Instructions Follow Up With: Carlos Newman MD [Primary Care Provider] - 03/25/17 3:00 pm Additional Instructions: Need to f/u with Petroleum Analyst in 1 week stop taking Metoprolol, Norvasc, Cardizem , Digoxin. - Diet and Activity Activity: increase activity as tolerated Diet: low salt diet Hospital course: Ms. 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 fib with a rate in 130s, and was presyncopal. Pt was admitted here for A fib with RVR and started her on Cardizem gtt. She was still A fib and unable to tolerate Cardizem well. Also pt was not able to tolerate B amber and Amiodarone which were causing severe dyspnea. She had a succeful DCC on 02/18, however she went A fib again. So this time Petroleum Analyst started her on Rythmol and did a cardiversion y/d. Since then Pt is in Sinus rythm, she denied any CP / SOB. Petroleum Analyst recommend to hold on Cardizem for now since she did have episodes of bradycardia, however they recommend to continue Rythmol. So will d/c her home today in stable condition. - Time Spent with Patient Total time spent providing and/or coordinating discharge services: - Constitutional Vitals: Temp Pulse Resp BP Pulse Ox 98.0 F 80 15 140/58 96 03/19/17 15:16 03/19/17 15:16 03/19/17 15:16 03/19/17 15:16 03/19/17 15:16 General appearance: Present: cooperative, A&O X 3, pleasant, no acute distress, answers questions appropriately - Head Head exam: Present: atraumatic, normal inspection - Respiratory Respiratory exam: Present: decreased breath sounds, wheezes. Absent: rales, respiratory distress, rhonchi - Cardiovascular Cardiovascular exam: Present: +S1, +S2. Absent: RRR, systolic murmur - GI/Abdominal GI/Abdominal exam: Present: soft. Absent: distended, guarding, tenderness - Extremities Exam Extremities exam: Absent: calf tenderness, pedal edema, tenderness - Neurological Exam Neurological exam: Present: alert, oriented X3 - Psychiatric Psychiatric exam: Present: normal affect, normal mood
--- NOTE | 2017-03-19 16:45 | Physician Discharge Referral ---
Home Health/Hosp Referral Info Transfer to: Home Health Provider in Charge Post Discharge: PCP - Diagnosis (1) Atrial fibrillation with rapid ventricular response Status: Resolved (2) Essential hypertension Status: Chronic (3) Hyperlipidemia Status: Chronic (4) Myasthenia gravis Status: Chronic (5) GERD (gastroesophageal reflux disease) Status: Chronic - Respiratory Orders Smoking Cessation: Smoking cessation has been advised. For more information, call the [place] Tobacco Quit Line at 8-115-HIIA-NOW. - Activity Activity Orders: Ambulate - Services Needed Following services are medically necessary services: Nursing - Transfer Medications Prescriptions: Propafenone [Rhythmol] 150 mg PO Q8HR #90 tab Home Medications: Allopurinol [Zyloprim 100 MG] 100 mg PO DAILY 02/18/17 [History] Cholecalciferol (Vitamin D3) [Vitamin D3] 2,000 unit PO DAILY 02/18/17 [History] Docusate [Colace] 100 mg PO DAILY PRN 02/18/17 [History] Fenofibrate Nanocrystallized [Triglide] 160 mg PO DAILY 02/18/17 [History] Isosorbide MONOnitrate (24 HR) [Imdur] 60 mg PO DAILY 02/18/17 [History] Multivit-Min/Iron/Folic/Lutein [Centrum Silver Women Tablet] 1 tab PO DAILY 05/28 [History] Pantoprazole Sodium 40 mg PO DAILY 02/18/17 [History] Polyethylene Glycol 3350 [MiraLAX bowel prep] 17 gm PO DAILY 02/18/17 [History] Pyridostigmine Br [Mestinon] 60 mg PO BID 02/18/17 [History] Rivaroxaban [Xarelto] 15 mg PO DAILY 02/18/17 [History] Acetaminophen [Tylenol] 650 mg PO Q6HR PRN tab 03/12/17 [Rx] Ferrous Sulfate 325 mg PO DAILY@0800 #30 tab 03/12/17 [Rx] Propafenone [Rhythmol] 150 mg PO Q8HR #90 tab 03/19/17 [Rx] Allergies/Adverse Reactions: Allergies prednisone Adverse Reaction (Verified 02/18/17 03:42) Palpitations Zihluyr-Etu-Wan Reductase Inhibitor [Statins] Adverse Reaction (Verified 03:42) Weakness Certification: Further, I certify that my clinical findings support that this patient is homebound (i.e. absences from home require considerable and taxing effort and are for medical reasons or [facility] or infrequently or short duration when for other reasons) because: Homebound Reason: Patient requires assistance of a person or device to safely leave home Attestation: My signature below is to certify that this patient is under my care and that I, or nurse practitioner, or a physician's certified anesthesiologist assistant working with me, has a face-to -face encounter with this patient.
== END 2017-03-19 19:04 | disposition home health service (06) | DRG 309 ==
LOC: 3BNU 17:06 → EMEROO 17:06 → 3BNU 19:45 → SUATTDRO 21:49
PROVIDERS: ADMIT Registered Nurse; ATTEND Internal Medicine

== ENCOUNTER 2017-03-29 15:47 | Inpatient (IN) ==
[2017-03-29] MEDS ORDERED: Ondansetron 4 MG/2 ML VIAL IVP PRN (17:35)
[2017-03-29] MEDS ORDERED: Naloxone 0.4 MG/ML INJ IVP PRN (17:35)
--- NOTE | 2017-03-29 18:09 | History & Physical Report ---
Date of Encounter: 03/29/17 Time of Encounter: 18:00 24 Hour HP Update - Instructions Instructions: If the History and Physical is less than 30 days old and was completed prior to A.M. admission and or procedure and has NOT been updated on calendar day of procedure please complete this update prior to performing procedure. - Update Patient reports changes in Medical Condition: No Changes in examination, assessment, or condition: No Changes in Medication: No Preop tests/diagnostics Reviewed: No Additions to current History and Physical: See OV from [facility] completed today 03/29/17. - Attending Attestation Ms. Castaneda presents for direct admit from cardiology office for atrial fibrillation with RVR. Known PAF on xarelto. HR 95-[address] Dang. Increase rythmol to 225 mg q 8 hr. EKG every morning. Will need repeat DCCV if she doesn't convert.
[2017-03-29 18:55] LABS: Basophils % 0.3 %; Eosinophils % 0.2 %; Hematocrit 34.4 % (35.3-44.9); Hemoglobin 11.1 g/dL (11.5-15.4); Immature Granulocytes % 0.2 % (0-4); Lymphocytes # 2.6 K/mcL (0.6-4.6); Lymphocytes % 45.4 %; Mean Corpuscular HGB Conc 32.3 g/dL (31.6-35.5); Mean Corpuscular Hemoglobin 31.5 pg (28.0-33.3); Mean Corpuscular Volume 97.7 fL (83.0-100.0); Mean Platelet Volume 10.7 fL (9.4-12.4); Monocytes # 0.7 K/mcL (0.0-1.3); Monocytes % 12.4 %; Neutrophils # 2.4 K/mcL (1.6-8.9); Platelet Count 238 K/mcL (140-400); Red Blood Count 3.52 M/mcL (3.82-4.97); Red Cell Distribution Width 15.1 % (11.5-14.5); Segmented Neutrophils % 41.5 %
[2017-03-29 19:03] LABS: Calcium 10.1 mg/dL (8.6-10.8); Potassium 4.3 mEq/L (3.5-4.5)
[2017-03-29] MEDS: Pyridostigmine Br 60 MG TABLET PO SCH (20:14)
[2017-03-29] MEDS: *HR* Rivaroxaban 15 MG TABLET PO SCH (22:42)
[2017-03-30] MEDS: Acetaminophen 325 MG TABLET PO PRN (04:42)
[2017-03-30] MEDS: Pyridostigmine Br 60 MG TABLET PO SCH ×2 (08:01→21:20)
[2017-03-30] MEDS: Isosorbide MONOnitrate (24 HR) 60 MG TAB.ER.24H PO SCH (08:01)
[2017-03-30] MEDS: Multivit/Ca/Min/Fe/FA 1 TAB TABLET PO SCH (08:01)
[2017-03-30] MEDS: Cholecalciferol (D-3) 1,000 UNIT TABLET PO SCH (08:01)
--- NOTE | 2017-03-30 14:14 | Cardiology Progress Note ---
Date of Encounter: 03/30/17 Time of Encounter: 14:10 Assessment and Plan (1) Atrial fibrillation with rapid ventricular response Current Visit: No Status: Resolved Presented from [facility] with recurrent atrial fibrillation with RVR. HR 115. Rythmol dose increased to 225 Q8hr. She is s/p 2 doses. Monitor for 5 doses. If she does not convert will need DCCV. HR currently 90's afib. EKG shows HR 107, QT/QTc 342/400, QRS 112. Atrial fibrillation. No missed doses of xarelto over last month. All questions answered. Discussion w patient/family: The assessment and plan as outlined above was discussed with the patient and/or family members who expressed understanding and agreement. All questions were answered. Thank you for involving us in the care of your patient. Please call with any questions. Subjective Principal diagnosis: afib Interval history: Presented as direct admit for atrial fibrillation with RVR. No complaints. Reports less palpitations. Objective Vital Signs, Last 4 Hours Temp Pulse Resp BP Pulse Ox 03/30/17 11:36 98.5 F 85 15 139/97 96 General: Conversant, No Apparent Distress HEENT: Atraumatic, Normocephaly, Mucus Membranes Moist Neck: No JVD, Normal carotid pulses Cardiac: Other (Irregularly irregular) Lungs: Normal Breath Sounds, No Wheeze, Rales, Rhonchi Neuro: Alert and responsive, No focal deficits noted Abdomen: Soft, Non-Tender Skin: No rashes noted on visualized skin Musculoskeletal: No Chest Wall Tenderness Extremities: No Clubbing, No Cyanosis, No Edema, Normal Pulses Results 03/29/17 18:43 03/29/17 18:43 Lab Results 03/29/17 03/29/17 03/29/17 18:43 18:43 18:43 WBC 5.8 Hgb 11.1 L Hct 34.4 L Plt Count 238 Sodium 140 Potassium 4.3 Chloride 105 Carbon Dioxide 30 H BUN 41 H Creatinine 1.38 H Glucose 99 Calcium 10.1 Magnesium 1.6 - EKG Interpretation EKG results cardiology: personally reviewed - VTE Reasons for not Prescribing Prophylaxis: Not indicated-Anticoagulated or INR therapeutic Consult Discharge Plan - Plan Referrals: Carlos Newman MD [Primary Care Provider] -
[2017-03-30] MEDS: *HR* Rivaroxaban 15 MG TABLET PO SCH (16:33)
[2017-03-30] MEDS ORDERED: *HR* Rivaroxaban 15 MG TABLET PO SCH (17:00)
[2017-03-30] MEDS: Fenofibrate 54 MG TABLET PO SCH (19:29)
[2017-03-31] MEDS: Fenofibrate 54 MG TABLET PO SCH (08:34)
[2017-03-31] MEDS: Cholecalciferol (D-3) 1,000 UNIT TABLET PO SCH (08:34)
[2017-03-31] MEDS: Multivit/Ca/Min/Fe/FA 1 TAB TABLET PO SCH (08:34)
[2017-03-31] MEDS: Isosorbide MONOnitrate (24 HR) 60 MG TAB.ER.24H PO SCH (08:34)
[2017-03-31] MEDS: Pyridostigmine Br 60 MG TABLET PO SCH ×2 (08:34→21:27)
--- NOTE | 2017-03-31 10:09 | Cardiology Progress Note ---
Date of Encounter: 03/31/17 Time of Encounter: 10:07 Assessment and Plan (1) Atrial fibrillation with rapid ventricular response Current Visit: No Status: Resolved Presented from [facility] with recurrent atrial fibrillation with RVR. HR 115. Rythmol dose increased to 225 Q8hr. She is s/p 5 doses. Unfortunately she remains in afib. If she does not convert will need DCCV tomorrow. HR currently 90's afib. EKG 03/30/17 shows HR 107, QT/QTc 342/400, QRS 112. Atrial fibrillation. EKG 03/31/17 Shows HR 80, QT/QTc 360/402, QRS 114 No missed doses of xarelto over last month. NPO after midnight for possible DCCV. Reported being mild SOB after ambulating around her room and taking a bath. SHe is now feeling better. Reports SOB at home with activity. Instructed to notify nursing staff if any recurrent or increasing SOB and we will do CXR. Lungs are clear. All questions answered. Discussion w patient/family: The assessment and plan as outlined above was discussed with the patient and/or family members who expressed understanding and agreement. All questions were answered. Thank you for involving us in the care of your patient. Please call with any questions. Subjective Principal diagnosis: afib Interval history: Presented as direct admit for atrial fibrillation with RVR on saturday. Rythmol increased. She c/o mild SOB this morning after taking a bath. She is feeling better. Objective Vital Signs, Last 4 Hours Temp Pulse Resp BP Pulse Ox 03/31/17 06:33 97.6 F 85 15 136/94 95 General: Conversant, No Apparent Distress HEENT: Atraumatic, Normocephaly, Mucus Membranes Moist Neck: No JVD, Normal carotid pulses Cardiac: Other (Irregularly irregular) Lungs: Normal Breath Sounds, No Wheeze, Rales, Rhonchi Neuro: Alert and responsive, No focal deficits noted Abdomen: Soft, Non-Tender Skin: No rashes noted on visualized skin Musculoskeletal: No Chest Wall Tenderness Extremities: No Clubbing, No Cyanosis, No Edema, Normal Pulses Results 03/29/17 18:43 03/29/17 18:43 - VTE Reasons for not Prescribing Prophylaxis: Not indicated-Anticoagulated or INR therapeutic Consult Discharge Plan - Plan Referrals: Carlos Newman MD [Primary Care Provider] -
[2017-03-31] MEDS: *HR* Rivaroxaban 15 MG TABLET PO SCH (16:41)
--- NOTE | 2017-03-31 17:09 | Electrocardiograph Report ---
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
--- NOTE | 2017-03-31 18:21 | Electrocardiograph Report ---
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
[2017-04-01] MEDS: Mag Hydrox/Al Hydrox/Simeth 30 ML UDC PO PRN ×2 (01:22→14:58)
[2017-04-01] MEDS: Isosorbide MONOnitrate (24 HR) 60 MG TAB.ER.24H PO SCH (08:27)
[2017-04-01] MEDS: Fenofibrate 54 MG TABLET PO SCH (08:27)
[2017-04-01] MEDS ORDERED: 0.9 % Sodium Chloride 500 ML IVC ONE ×2 (09:51→10:25)
[2017-04-01] MEDS ORDERED: *HR* FentaNYL (PF) 100 MCG/2 ML VIAL IVP PRN (09:51)
[2017-04-01] MEDS: *HR* Midazolam HCl 5 MG/5 ML VIAL IVP PRN ×2 (11:00→11:05)
[2017-04-01] MEDS: Pyridostigmine Br 60 MG TABLET PO SCH ×2 (14:18→20:07)
--- NOTE | 2017-04-01 14:31 | Cardiology Progress Note ---
Date of Encounter: 04/01/17 Time of Encounter: 14:28 Assessment and Plan (1) Atrial fibrillation with rapid ventricular response Current Visit: No Status: Resolved Presented from [facility] with recurrent atrial fibrillation with RVR. HR 115. Rythmol dose increased to 225 Q8hr. She is s/p 5 doses. EKG 03/30/17 shows HR 107, QT/QTc 342/400, QRS 112. Atrial fibrillation. EKG 03/31/17 Shows HR 80, QT/QTc 360/402, QRS 114 No missed doses of xarelto over last month. S/p successful DCCV today after one attempt. Remains in NSR. Will monitor overnight to make sure she maintains SR. Discussion w patient/family: The assessment and plan as outlined above was discussed with the patient and/or family members who expressed understanding and agreement. All questions were answered. Thank you for involving us in the care of your patient. Please call with any questions. Subjective Principal diagnosis: afib Interval history: Presented as direct admit for atrial fibrillation with RVR on saturday. Rythmol increased. s/p cardioversion to NSR. C/o frequent sneezing and watery eyes after cardioversion. Declines antihistamine. Objective Vital Signs Temp Pulse Resp BP Pulse Ox 04/01/17 10:21 98.0 F 98 12 144/98 95 04/01/17 06:37 97.8 F 95 18 129/85 97 04/01/17 03:29 98 F 76 18 114/63 96 03/31/17 19:56 95 03/31/17 19:21 97.6 F 80 19 118/72 95 03/31/17 15:00 97.6 F 83 15 121/91 95 Intake and Output 03/31/17 04/01/17 04/01/17 23:59 07:59 15:59 Intake Total 120 / 120 13.5 / 13.5 Balance 120 / 120 13.5 / 13.5 Intake: IV Fluids 13.5 / 13.5 0.9 % Sodium Chloride 500 13.5 / 13.5 ML @ 10 mls/hr IVC .Q24H ONE Rx#:[id number] Oral 120 / 120 Other: Meal Dinner Percent of Meal Consumed 30% # Voids 1 1 Weight 63.4 kg 63.049 kg Patient Weight 04/01/17 23:59 Weight 63.049 kg General: Conversant, No Apparent Distress HEENT: Atraumatic, Normocephaly, Mucus Membranes Moist Neck: No JVD, Normal carotid pulses Cardiac: Reg Rate and Rhythm, Normal S1 and S2, No Murmur Lungs: Normal Breath Sounds, No Wheeze, Rales, Rhonchi Neuro: Alert and responsive, No focal deficits noted Abdomen: Soft, Non-Tender Skin: No rashes noted on visualized skin Musculoskeletal: No Chest Wall Tenderness Extremities: No Clubbing, No Cyanosis, No Edema, Normal Pulses Results 03/29/17 18:43 03/29/17 18:43 - EKG Interpretation EKG results cardiology: personally reviewed (SR) - VTE Reasons for not Prescribing Prophylaxis: Not indicated-Anticoagulated or INR therapeutic Consult Discharge Plan - Plan Referrals: Carlos Newman MD [Primary Care Provider] -
[2017-04-01] MEDS: Cholecalciferol (D-3) 1,000 UNIT TABLET PO SCH (14:58)
[2017-04-01] MEDS: Multivit/Ca/Min/Fe/FA 1 TAB TABLET PO SCH (14:58)
[2017-04-01] MEDS: *HR* Rivaroxaban 15 MG TABLET PO SCH (16:50)
[2017-04-01] MEDS: Acetaminophen 325 MG TABLET PO PRN (16:50)
--- NOTE | 2017-04-01 18:19 | Electrocardiograph Report ---
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
--- NOTE | 2017-04-01 18:22 | Electrocardiograph Report ---
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
[2017-04-02 07:44] VITALS: BP 134/58
[2017-04-02] MEDS: Pyridostigmine Br 60 MG TABLET PO SCH (08:47)
[2017-04-02] MEDS: Fenofibrate 54 MG TABLET PO SCH (08:48)
[2017-04-02] MEDS: Isosorbide MONOnitrate (24 HR) 60 MG TAB.ER.24H PO SCH (08:48)
[2017-04-02] MEDS: Cholecalciferol (D-3) 1,000 UNIT TABLET PO SCH (08:48)
[2017-04-02] MEDS: Multivit/Ca/Min/Fe/FA 1 TAB TABLET PO SCH (08:49)
[2017-04-02] MEDS ORDERED: Cetirizine HCl 5 MG/5 ML UDC PO PRN (10:29)
--- NOTE | 2017-04-02 10:34 | Discharge Summary ---
Date of Encounter: 04/02/17 Time of Encounter: 10:30 - Discharge Diagnosis (1) Atrial fibrillation with rapid ventricular response Priority: Primary Status: Acute - Discharge Medications Prescriptions: Propafenone [Rhythmol] 225 mg PO Q8H #90 tab Home Medications: Allopurinol [Zyloprim 100 MG] 100 mg PO DAILY 02/18/17 [History] Cholecalciferol (Vitamin D3) [Vitamin D3] 2,000 unit PO DAILY 02/18/17 [History] Docusate [Colace] 100 mg PO DAILY PRN 02/18/17 [History] Fenofibrate Nanocrystallized [Triglide] 160 mg PO DAILY 02/18/17 [History] Isosorbide MONOnitrate (24 HR) [Imdur] 60 mg PO DAILY 02/18/17 [History] Multivit-Min/Iron/Folic/Lutein [Centrum Silver Women Tablet] 1 tab PO DAILY 05/28 [History] Pantoprazole Sodium 40 mg PO DAILY 02/18/17 [History] Polyethylene Glycol 3350 [MiraLAX bowel prep] 17 gm PO DAILY 02/18/17 [History] Pyridostigmine Br [Mestinon] 60 mg PO BID 02/18/17 [History] Rivaroxaban [Xarelto] 15 mg PO DAILY 02/18/17 [History] Ferrous Sulfate 325 mg PO DAILY 03/29/17 [History] Furosemide [Lasix] 20 mg PO DAILY 03/29/17 [History] Propafenone [Rhythmol] 225 mg PO Q8H #90 tab 04/02/17 [Rx] Allergies/Adverse Reactions: 3 Allergy/AdvReac Type Severity Reaction Status Date / Time prednisone AdvReac Palpitation Verified 02/18/17 03:42 s [id number]-[id number] Reductase AdvReac Weakness Verified 02/18/17 03:42 Inhibitor [Statins] Procedures/tests Complete & Pending: Procedures Performed prior 72 hours Category Date Time Status ECG 12 lead ECG [ECG] Routine Y 04/01/17 09:49 Completed EKG [ECG 12 lead ECG] [ECG] AM 0600 Y 03/31/17 06:00 Completed EKG [ECG 12 lead ECG] [ECG] AM 0600 Y 04/01/17 06:00 Completed EV cardioversion Routine Y 04/01/17 08:17 Completed Date of admission: 03/29/17 16:59 Primary care physician: Carlos Newman MD Consults: None Discharging clinician: Farrukh Laguerre Anticipated date of discharge: 04/02/17 - Patient Status Disposition: Home, Self-Care Condition: Good Overall status at discharge: patient is progressing back to baseline - Discharge Instructions Follow Up With: Carlos Newman MD [Primary Care Provider] - 04/08/17 2:40 pm - Diet and Activity Diet: low fat, low cholesterol - Hospital Course Hospital course: Ms. Castaneda is a 81 year old female with a history PMH of hypertension, hyperlipidemia, PAF on anticoagulation, CKD, diastolic CHF, myasthenia gravis, gout, and GERD who presented from the cardiology office with recurrent atrial fibrillation with RVR. She was recently started on rythmol. It was decided to increase her rythmol dose to 225 mg every 8hr. She took a total of five increased doses. She did not convert to SR. On 04/01/17 she received DCCV x 1 shock and converted to NSR. She remains in NSR today, Avg HR 62bpm. Occasional PAC and small 3-5 beat runs of SVT seen. EKG today shows SR with HR 57 bpm, QT/ QTc 391/ 385, QRS 101. After her procedure she c/o sneezing and watery eyes. She was given benadryl with relief. She states that benadryl made her drowsy. Recommended using zyrtec OTC as needed. Call PCP if she continues to have allergy symptoms. She is now ready for discharge. Out-pt f/u will be scheduled in 1-2 weeks in our [place] office. - Time Spent with Patient Total time spent providing and/or coordinating discharge services: Physical Examination Vital Signs, Last 4 Hours Temp Pulse Resp BP Pulse Ox 04/02/17 08:52 98 04/02/17 07:00 98.4 F 59 18 134/58 98 General: Conversant, No Apparent Distress HEENT: Atraumatic, Normocephaly, Mucus Membranes Moist, Other (watery eyes noted. ) Neck: No JVD, Normal carotid pulses Cardiac: Reg Rate and Rhythm, Normal S1 and S2, No Murmur Lungs: Normal Breath Sounds, No Wheeze, Rales, Rhonchi Neuro: Alert and responsive, No focal deficits noted Abdomen: Soft, Non-Tender Skin: Other (red areas noted where defibrilator pads were. Aloe vesta applied. ) Musculoskeletal: No Chest Wall Tenderness Extremities: No Clubbing, No Cyanosis, No Edema, Normal Pulses - VTE Reasons for not Prescribing Prophylaxis: Not indicated-Anticoagulated or INR therapeutic
--- NOTE | 2017-04-02 18:28 | Electrocardiograph Report ---
[place] [id number] Test Date: 2017-04-01 Pat Name: Tori Castaneda Department: 106 Room: 2NE16 Gender: Filler And Trimmer: SHARON : 1935 Requested By: Mikey Dang Order Number: [id number] Reading MD: Eulalia Dalton Measurements Intervals [place] Rate: 57 P: 78 MS: 239 QRS: 47 QRSD: 101 T: 81 QT: 391 QTc: 385 Interpretive Statements SINUS BRADYCARDIA WITH FIRST DEGREE AV BLOCK WITH OCCASIONAL VENTRICULAR PREMATURE COMPLEXES Electronically Signed On 04-02-2017 18:27:35 EDT by Eulalia Dalton
== END 2017-04-02 15:35 | disposition home or self-care (01) | DRG 309 ==
LOC: 2NENU
PROVIDERS: ADMIT Internal Medicine Cardiovascular Disease; ATTEND Internal Medicine Cardiovascular Disease

== ENCOUNTER 2017-06-17 13:54 | Inpatient (IN) ==
[2017-06-17 14:57] LABS: Basophils % 0.5 %; Eosinophils # 0.2 K/mcL (0.0-0.6); Eosinophils % 3.2 %; Hematocrit 28.6 % (35.3-44.9); Hemoglobin 9.8 g/dL (11.5-15.4); Immature Granulocytes % 0.2 % (0-4); Lymphocytes # 3.2 K/mcL (0.6-4.6); Lymphocytes % 51.3 %; Mean Corpuscular HGB Conc 34.3 g/dL (31.6-35.5); Mean Corpuscular Hemoglobin 34.1 pg (28.0-33.3); Mean Corpuscular Volume 99.7 fL (83.0-100.0); Mean Platelet Volume 10.6 fL (9.4-12.4); Monocytes # 0.7 K/mcL (0.0-1.3); Monocytes % 11.1 %; Neutrophils # 2.1 K/mcL (1.6-8.9); Platelet Count 231 K/mcL (140-400); Red Blood Count 2.87 M/mcL (3.82-4.97); Red Cell Distribution Width 17.7 % (11.5-14.5); Segmented Neutrophils % 33.7 %
[2017-06-17 15:10] LABS: Calcium 10.1 mg/dL (8.6-10.8); Potassium 4.8 mEq/L (3.5-4.5)
--- NOTE | 2017-06-17 15:10 | Emergency Department Note ---
Disposition Clinical Impression: NSTEMI (non-ST elevated myocardial infarction), Elevated troponin I level, Exertional dyspnea CHF (congestive heart failure) Qualifiers: Congestive heart failure type: diastolic Congestive heart failure chronicity: acute on chronic Qualified Code(s): I50.33 - Acute on chronic diastolic ( congestive) heart failure Disposition: Admitted As Inpatient Condition: Fair Time of Disposition: 16:22 SOB HPI - General Chief Complaint: ED Shortness of Breath/Dyspnea Stated Complaint: sob Time Seen by Provider: 06/17/17 14:33 Source: patient Limitations: no limitations Nursing Notes Reviewed: Yes Vital Signs Reviewed: Yes - History of Present Illness Patient is an 81-year-old female with a history of paroxysmal atrial fibrillation, hypertension, hyperlipidemia, diastolic CHF who presents with a chief complaint of shortness of breath. States this is been progressively worsening over the last 3 days. She feels an extreme gassy discomfort in her upper abdomen which has been constant over the last 3 days. States she feels like she needs to burp or belch and that this is contributing to her shortness of breath. Admits to some nausea, no vomiting. No recent fevers or chills. No cough or cold. Patient was just admitted last month for atrial fibrillation with RVR and required cardioversion. Patient is currently on 225 mg of Rythmol every 8 hours. Patient follows with [place] cardiology. Pt Subjective Complaint: shortness of breath Onset (ago): hour(s) Severity: moderate Consistency/Duration: gradually worsening Improves with: rest Worsens with: exertion Known history of: congestive heart failure Associated symptoms: Denies: chest pain, fever, cough Treatment prior to arrival: none - Related Data Home oxygen amount: none Home Medications Medication Instructions Recorded Confirmed Allopurinol [Zyloprim 100 MG] 100 mg PO DAILY 02/18/17 06/17/17 Cholecalciferol (Vitamin D3) 2,000 unit PO DAILY 02/18/17 06/17/17 [Vitamin D3] Docusate [Colace] 100 mg PO DAILY PRN 02/18/17 06/17/17 Fenofibrate Nanocrystallized 160 mg PO DAILY 02/18/17 06/17/17 [Triglide] Isosorbide MONOnitrate (24 HR) 60 mg PO DAILY 02/18/17 06/17/17 [Imdur] Multivit-Min/Iron/Folic/Lutein 1 tab PO DAILY 02/18/17 06/17/17 [Centrum Silver Women Tablet] Pantoprazole Sodium 40 mg PO DAILY 02/18/17 06/17/17 Polyethylene Glycol 3350 [MiraLAX 17 gm PO DAILY 02/18/17 06/17/17 bowel prep] Pyridostigmine Br [Mestinon] 60 mg PO BID 02/18/17 06/17/17 Rivaroxaban [Xarelto] 15 mg PO DAILY 02/18/17 06/17/17 Previous Rx's Medication Instructions Recorded Propafenone [Rhythmol] 225 mg PO Q8H #90 tab 04/02/17 Allergies Allergy/AdvReac Type Severity Reaction Status Date / Time prednisone AdvReac Palpitation Verified 02/18/17 03:42 s Nxvyttj-Ckr-Xqo Reductase AdvReac Weakness Verified 02/18/17 03:42 Inhibitor [Statins] All systems ED: reviewed and negative except as stated. Past Medical History - Past Medical History Attestation: Yes The following information was validated with the patient. Source: patient Medical history: Reports: atrial fibrillation, CHF, GERD, hyperlipidemia, hypertension, renal disease, other Surgical history: Reports: cataract, knee replacement, other Psychiatric history: Reports: anxiety - Social History Smoking Status: Never smoker Smokeless Tobacco Status: No Alcohol use: Reports: none Drug use: Reports: none Physical Exam CONSTITUTIONAL: Well-appearing; well-nourished; A&O X 3, in no apparent distress HEAD: Normocephalic; atraumatic EYES: no scleral icterus NOSE: The nose is normal in appearance without rhinorrhea NECK: No JVD or distended neck veins RESP: Normal chest excursion with respiration; breath sounds clear and equal bilaterally; no wheezes, rhonchi, or rales CARD: Sinus bradycardia with occasional PVC, without murmurs, rub or gallop ABD: Mild discomfort with palpation in the epigastric region, soft, without rigidity, rebound or guarding,no pulsatile mass CHEST: No pain with palpation SKIN: Normal for age and race; warm and dry without diaphoresis ; no apparent lesions EXTREMITIES: Pulses are 2 plus and equal times 4 extremities, no peripheral edema or calf muscle pain - General Limitations: no limitations General appearance: alert, in no apparent distress Course Course Narrative: Patient seen and examined. Difficulty breathing that has been exertional over the last 3 days. Epigastric discomfort which patient has attributed to her hiatal hernia. States she has been trying antiacid medicine medication to make it better. Cardiopulmonary workup initiated. - Reevaluation(s) Reevaluation #1: Patient has an elevated troponin of 0.19. She has elevated BNP in the . I discussed with insurance executive Dr. Chacko who recommends heparin drip at this time and 40 mg of IV Lasix. This has been ordered. I discussed with hospitalist Dr. Rene who has accepted patient for admission. Time: 16:21 Vital Signs Temperature 98.0 F 06/17/17 13:55 Pulse Rate 63 06/17/17 13:55 Respiratory Rate 18 06/17/17 13:55 Blood Pressure 160/79 06/17/17 13:55 O2 Sat by Pulse Oximetry 99 06/17/17 13:55 Temperature 98.0 F 06/17/17 13:55 Pulse Rate 60 06/17/17 16:31 Respiratory Rate 16 06/17/17 16:40 Blood Pressure 124/86 06/17/17 16:40 O2 Sat by Pulse Oximetry 99 06/17/17 16:31 Oxygen Delivery Oxygen Delivery Room Air Shortness of Breath/Dyspnea - Medical Records Medical records reviewed: Yes I reviewed the patient's medical records. - Lab Data Lab results reviewed: Yes I reviewed the patient's lab results. Result diagrams: 06/17/17 14:50 06/17/17 14:50 Lab Results 06/17/17 06/17/17 06/17/17 Range/Units 14:50 14:50 14:50 WBC 6.3 (4.3-11.1) K/mcL RBC 2.87 L (3.82-4.97) M/mcL Hgb 9.8 L (11.5-15.4) g/dL Hct 28.6 L (35.3-44.9) % MCV 99.7 (83.0-100.0) fL MCH 34.1 H (28.0-33.3) pg MCHC 34.3 (31.6-35.5) g/dL RDW 17.7 H (11.5-14.5) % Plt Count 231 (140-400) K/mcL MPV 10.6 (9.4-12.4) fL Immature Gran % 0.2 (0-4) % Seg Neutrophils % 33.7 % Lymphocytes % 51.3 % Monocytes % 11.1 % Eosinophils % 3.2 % Basophils % 0.5 % Neutrophils # 2.1 (1.6-8.9) K/mcL Lymphocytes # 3.2 (0.6-4.6) K/mcL Monocytes # 0.7 (0.0-1.3) K/mcL Eosinophils # 0.2 (0.0-0.6) K/mcL Basophils # 0.0 (0.0-0.2) K/mcL PT (9.4-12.1) Seconds INR APTT (26.0-36.0) Seconds Sodium 140 (136-145) mEq/L Potassium 4.8 H (3.5-4.5) mEq/L Chloride 106 (98-109) mEq/L Carbon Dioxide 25 (19-29) mEq/L BUN 40 H (7-20) mg/dL Creatinine 1.14 H (0.57-1.11) mg/dL Est GFR ( Amer) 55 L (> 60) Est GFR (Non-Af Amer) 46 L (> 60) BUN/Creatinine Ratio 35 H (6-26) Glucose 88 (70-99) mg/dL Calculated Osmolality 299 (280-300) Lactic Acid 1.0 (0.5-2.2) mmol/L Calcium 10.1 (8.6-10.8) mg/dL Troponin I (0-0.03) ng/mL B-Natriuretic Peptide (0-100) pg/mL Urine Color (Yellow) Urine Clarity (Clear) Urine pH (5.0-8.0) pH Units Ur Specific Fleming (1.010-1.025) Urine Protein (Neg-Trace) mg/dL Urine Glucose (UA) (Normal) mg/dL Urine Ketones (Negative) mg/dL Urine Blood (Negative) Urine Nitrite (Negative) Urine Bilirubin (Negative) Urine Urobilinogen (Normal) mg/dL Ur Leukocyte Esterase (Negative) Urine Microscopic RBC (0-3) per hpf Urine Microscopic WBC (0-3) per hpf Ur Squamous Epith Cells (None-Few) per lpf Urine Bacteria (None-Few) per hpf Hyaline Casts (None-Few) per lpf Ur Culture Indicated? (NO) 06/17/17 06/17/17 06/17/17 Range/Units 14:50 14:50 14:50 WBC (4.3-11.1) K/mcL RBC (3.82-4.97) M/mcL Hgb (11.5-15.4) g/dL Hct (35.3-44.9) % MCV (83.0-100.0) fL MCH (28.0-33.3) pg MCHC (31.6-35.5) g/dL RDW (11.5-14.5) % Plt Count (140-400) K/mcL MPV (9.4-12.4) fL Immature Gran % (0-4) % Seg Neutrophils % % Lymphocytes % % Monocytes % % Eosinophils % % Basophils % % Neutrophils # (1.6-8.9) K/mcL Lymphocytes # (0.6-4.6) K/mcL Monocytes # (0.0-1.3) K/mcL Eosinophils # (0.0-0.6) K/mcL Basophils # (0.0-0.2) K/mcL PT 14.0 H (9.4-12.1) Seconds INR 1.3 APTT 31.1 (26.0-36.0) Seconds Sodium (136-145) mEq/L Potassium (3.5-4.5) mEq/L Chloride (98-109) mEq/L Carbon Dioxide (19-29) mEq/L BUN (7-20) mg/dL Creatinine (0.57-1.11) mg/dL Est GFR ( Amer) (> 60) Est GFR (Non-Af Amer) (> 60) BUN/Creatinine Ratio (6-26) Glucose (70-99) mg/dL Calculated Osmolality (280-300) Lactic Acid (0.5-2.2) mmol/L Calcium (8.6-10.8) mg/dL Troponin I 0.16 H* (0-0.03) ng/mL B-Natriuretic Peptide 2216 H (0-100) pg/mL Urine Color (Yellow) Urine Clarity (Clear) Urine pH (5.0-8.0) pH Units Ur Specific Fleming (1.010-1.025) Urine Protein (Neg-Trace) mg/dL Urine Glucose (UA) (Normal) mg/dL Urine Ketones (Negative) mg/dL Urine Blood (Negative) Urine Nitrite (Negative) Urine Bilirubin (Negative) Urine Urobilinogen (Normal) mg/dL Ur Leukocyte Esterase (Negative) Urine Microscopic RBC (0-3) per hpf Urine Microscopic WBC (0-3) per hpf Ur Squamous Epith Cells (None-Few) per lpf Urine Bacteria (None-Few) per hpf Hyaline Casts (None-Few) per lpf Ur Culture Indicated? (NO) 06/17/17 Range/Units 15:39 WBC (4.3-11.1) K/mcL RBC (3.82-4.97) M/mcL Hgb (11.5-15.4) g/dL Hct (35.3-44.9) % MCV (83.0-100.0) fL MCH (28.0-33.3) pg MCHC (31.6-35.5) g/dL RDW (11.5-14.5) % Plt Count (140-400) K/mcL MPV (9.4-12.4) fL Immature Gran % (0-4) % Seg Neutrophils % % Lymphocytes % % Monocytes % % Eosinophils % % Basophils % % Neutrophils # (1.6-8.9) K/mcL Lymphocytes # (0.6-4.6) K/mcL Monocytes # (0.0-1.3) K/mcL Eosinophils # (0.0-0.6) K/mcL Basophils # (0.0-0.2) K/mcL PT (9.4-12.1) Seconds INR APTT (26.0-36.0) Seconds Sodium (136-145) mEq/L Potassium (3.5-4.5) mEq/L Chloride (98-109) mEq/L Carbon Dioxide (19-29) mEq/L BUN (7-20) mg/dL Creatinine (0.57-1.11) mg/dL Est GFR ( Amer) (> 60) Est GFR (Non-Af Amer) (> 60) BUN/Creatinine Ratio (6-26) Glucose (70-99) mg/dL Calculated Osmolality (280-300) Lactic Acid (0.5-2.2) mmol/L Calcium (8.6-10.8) mg/dL Troponin I (0-0.03) ng/mL B-Natriuretic Peptide (0-100) pg/mL Urine Color Yellow (Yellow) Urine Clarity Clear (Clear) Urine pH 7.5 (5.0-8.0) pH Units Ur Specific Fleming 1.018 (1.010-1.025) Urine Protein Negative (Neg-Trace) mg/dL Urine Glucose (UA) Normal (Normal) mg/dL Urine Ketones Negative (Negative) mg/dL Urine Blood Negative (Negative) Urine Nitrite Negative (Negative) Urine Bilirubin Negative (Negative) Urine Urobilinogen Normal (Normal) mg/dL Ur Leukocyte Esterase Small H (Negative) Urine Microscopic RBC 0-3 (0-3) per hpf Urine Microscopic WBC 3-5 H (0-3) per hpf Ur Squamous Epith Cells Many H (None-Few) per lpf Urine Bacteria None Seen (None-Few) per hpf Hyaline Casts None Seen (None-Few) per lpf Ur Culture Indicated? YES A (NO) - Radiology Data Radiology results reviewed: Yes I reviewed the patient's radiology results. Chest X-Ray 06/17/17 14:06 IMPRESSION: Stable cardiomegaly. No acute abnormalities seen in the chest. Unchanged large hernia adjacent to the right heart border. D/ / 06/17/2017 14:42:52 Rich Granado MD / [facility] Interpreting Provider: Rich Granado MD - EKG Data EKG attestation: Yes I reviewed and interpreted this EKG. EKG results narrative: EKG done at 1403 shows sinus bradycardia with occasional PVCs with a rate of [address] elevation or depression. Normal axis. No change from prior EKG done 04/01/2017. Critical Care Time Critical Care Time: Yes Total Critical Care Time: 35 Attestation: Critical care performed: Time is exclusive of separately billable procedures. Time includes: direct patient care, patient reassessment, coordination of patient care, interpretation of data (laboratory data, radiology data, and respiratory data), review of patient's medical records, medical consultation and documentation of patient care. Procedures included in critical care time: Procedures excluded from critical care time: Attestation Statement - Attestation Attestation: I, Cedrick Vergara DO, examined this patient [id number] and my medical decision-making was reviewed with Dr. Sabrina Marlow, Resident Physician. I agree with the documented findings, disposition and treatment plan as described except to the extent set forth below. Please see my progress notes for details. 81-year-old female presents emergency room a persistent worsening shortness of breath over the last several days. So the point now anytime she gets up to walk around she has inability to have conversations or catch her breath. Patient has a history of diastolic heart dysfunction and paroxysmal A. fib. EKG shows sinus heart rate in the 50s. This is normal for her. She has had electrical cardioversion the passes bedside on several different medications. Patient denies any recent fevers chills nausea vomiting or diarrhea. Denies any chest pain headache vision changes at this point. Denies any abdominal pain. No vaginal discharge or burning with urination noted. Patient is able to know signs of pitting edema. Lungs sound clear heart is regular rate abdomen is soft nontender nondistended. No acute signs of congestive heart failure patient does have conversational and exertional dyspnea. Concern is noted for possible decompensation secondary to either heart failure versus related issues. Patient had chest x-ray that is stable at this time no signs of pulmonary congestion. Labs are unremarkable except for an elevated troponin and worsening BNP. Patient is concerning for possible continuation of her heart failure secondary to chronic issues. Patient will be discussed with the insurance executive as well as hospitalist for admission. No other acute findings noted on exam. See detailed documentation of the physical exam, intervention, medical decision-making and disposition and the resident physician's note 1750 Patient found to have significantly elevated BNP in comparison to previous as well as elevated troponin. Patient was discussed with the on-call insurance executive as well as the hospitalist for admission. Recommended heparinization as well as Lasix to be provided here. Critical care established in this patient. See detailed documentation of this conversations and consultations. Patient will be admitted
[2017-06-17] MEDS ORDERED: Heparin 25,000 UNIT/500 ML D5W 25,000 UNIT/500 ML MLS IVC SCH (16:00)
[2017-06-17] MEDS ORDERED: *HR* Heparin 5,000 UNIT/ML VIAL IVP ONE (16:00)
[2017-06-17] MEDS ORDERED: *HR* Heparin 5,000 UNIT/ML VIAL IVP PRN ×2 (16:00)
[2017-06-17] MEDS ORDERED: Furosemide 40 MG/4 ML VIAL IVP ONE (16:01)
[2017-06-17 16:15] LABS: INR 1.3
[2017-06-17 16:16] LABS: Bilirubin,Urine Negative (Negative); Blood,Urine Negative (Negative); Clarity,Urine Clear (Clear); Color,Urine Yellow (Yellow); Glucose,Urine (UA) Normal (Normal); Ketones,Urine Negative (Negative); Leukocyte Esterase,Urine Small (Negative); Nitrite,Urine Negative (Negative); PH,Urine 7.5 pH Units (5.0-8.0); Protein,Urine Negative (Neg-Trace); Specific Gravity,Urine 1.018 (1.010-1.025); Urobilinogen,Urine Normal (Normal)
[2017-06-17 16:17] LABS: Activated Partial Thrombo Time 31.1 Seconds (26.0-36.0)
[2017-06-17 16:19] LABS: Bacteria,Urine None Seen per hpf (None-Few); Hyaline Casts,Urine None Seen per lpf (None-Few); RBC,Urine 0-3 per hpf (0-3); Squamous Epithelial Cell,Urine Many per lpf (None-Few)
--- NOTE | 2017-06-17 17:46 | Internal Med History&Physical ---
Date of Encounter: 06/17/17 Time of Encounter: 17:43 Assessment and Plan (1) Paroxysmal A-fib Current visit: Yes Status: Acute Currently normal sinus rhythm. She is on Xarelto at home. Currently she is on heparin drip. (2) Chronic kidney disease (CKD) Current visit: Yes Status: Acute Chronic kidney disease stage 3. Stable Qualifiers: Qualified Code(s): N18.3 - Chronic kidney disease, stage 3 (moderate) (3) CHF (congestive heart failure) Current visit: Yes Status: Chronic Acute congestive heart failure due to diastolic dysfunction patient is not on Lasix at home due to concern of her certified novell engineer about her kidney functions. Will start the patient on IV lasix Qualifiers: Congestive heart failure type: diastolic Congestive heart failure chronicity: acute on chronic Qualified Code(s): I50.33 - Acute on chronic diastolic (congestive) heart failure Internal Medicine - H&P: HPI Chief complaint: sob History of present illness: Ms. Castaneda is a 81 year old female presents to the emergency room today with a main component of shortness of breath. For the past few days patient has been more short of breath than usual to the point where she short of breath with any minimal exertion. She has been noticing shortness of breath when she lays flat improves when she sits up. She has also noticed swelling in both lower extremities and has gained 3 pounds over the past day. Patient does not take any diuretic therapy due to concern ov her certified novell engineer regarding her kidney disease. She denies any chest pain. No sputum production fever chills Past Med Surg Social Fam HX - Past Medical History Medical history: atrial fibrillation, CHF, GERD, hyperlipidemia, hypertension, renal disease, other Psychiatric history: anxiety - Past Surgical History Surgical History: cataract, knee replacement, other - Social History Smoking Status: Never smoker Smokeless Tobacco Status: No Alcohol use: none Drug use: none - Family History Mother Adopted: No Family Member Ethnicity: Non- Living Status: Hx Family Cardiac Disorders: No Hx Family Respiratory Disorders: No Hx Family Cancer: No Hx Family GI Disorders: No Hx Family Endocrine Disorder: No Hx Family Neuromuscular Disorders: No Hx Family Neurologic Disorders: No Hx Family HEENT Disorders: No Hx Family Autoimmune Disorders: No Internal Medicine - H&P: Meds Allopurinol [Zyloprim 100 MG] 100 mg PO DAILY 02/18/17 [History] Cholecalciferol (Vitamin D3) [Vitamin D3] 2,000 unit PO DAILY 02/18/17 [History] Docusate [Colace] 100 mg PO DAILY PRN 02/18/17 [History] Fenofibrate Nanocrystallized [Triglide] 160 mg PO DAILY 02/18/17 [History] Isosorbide MONOnitrate (24 HR) [Imdur] 60 mg PO DAILY 02/18/17 [History] Multivit-Min/Iron/Folic/Lutein [Centrum Silver Women Tablet] 1 tab PO DAILY 05/28 [History] Pantoprazole Sodium 40 mg PO DAILY 02/18/17 [History] Polyethylene Glycol 3350 [MiraLAX bowel prep] 17 gm PO DAILY 02/18/17 [History] Pyridostigmine Br [Mestinon] 60 mg PO BID 02/18/17 [History] Rivaroxaban [Xarelto] 15 mg PO DAILY 02/18/17 [History] Propafenone [Rhythmol] 225 mg PO Q8H #90 tab 04/02/17 [Rx] 3 Allergy/AdvReac Type Severity Reaction Status Date / Time prednisone AdvReac Palpitation Verified 02/18/17 03:42 s Ajqpvkc-Joi-Yrg Reductase AdvReac Weakness Verified 02/18/17 03:42 Inhibitor [Statins] All Systems PM: A 10-system review of systems was performed and is negative for pertinent findings except as documented above in the HPI. Review of systems: 10 point review of systems is negative except for HPI - Constitutional Vitals: Temp Pulse Resp BP Pulse Ox 98.0 F 69 15 170/81 95 06/17/17 16:54 06/17/17 16:54 06/17/17 16:54 06/17/17 16:54 06/17/17 17:00 Exam: Gen.: patient is alert oriented times 3 cardiac: normal S1 S2 no additional sounds or murmurs chest: Basal rales abdomen soft nontender nondistended normal bowel sounds lower extremity 1+ swelling. Neuro: no new focal deficits Internal Med - H&P Results - Labs CBC & Chem 7: 06/17/17 14:50 06/17/17 14:50
[2017-06-17] MEDS: Pyridostigmine Br 60 MG TABLET PO SCH (21:48)
[2017-06-18 04:51] LABS: Basophils % 0.7 %; Eosinophils # 0.3 K/mcL (0.0-0.6); Eosinophils % 4.6 %; Hematocrit 27.5 % (35.3-44.9); Hemoglobin 9.3 g/dL (11.5-15.4); Immature Granulocytes % 0.2 % (0-4); Lymphocytes # 3.3 K/mcL (0.6-4.6); Lymphocytes % 54.3 %; Mean Corpuscular HGB Conc 33.8 g/dL (31.6-35.5); Mean Corpuscular Hemoglobin 33.6 pg (28.0-33.3); Mean Corpuscular Volume 99.3 fL (83.0-100.0); Mean Platelet Volume 10.8 fL (9.4-12.4); Monocytes # 0.8 K/mcL (0.0-1.3); Monocytes % 13.3 %; Neutrophils # 1.6 K/mcL (1.6-8.9); Platelet Count 214 K/mcL (140-400); Red Blood Count 2.77 M/mcL (3.82-4.97); Red Cell Distribution Width 17.3 % (11.5-14.5); Segmented Neutrophils % 26.9 %
[2017-06-18 05:06] LABS: Calcium 9.9 mg/dL (8.6-10.8); Magnesium 1.7 mg/dL (1.6-2.6); Potassium 4.1 mEq/L (3.5-4.5)
--- NOTE | 2017-06-18 08:23 | Cardiology Consult Note ---
Date of Encounter: 06/18/17 Time of Encounter: 09:31 Assessment and Plan (1) CHF (congestive heart failure) Current Visit: Yes Status: Chronic Hx of diastolic/perserved EF CHF. Presented to the ED with SOB. Vitals: max BP 160/79, normal heart rate. BNP = 2216. Troponin= 0.16,0.18, 0.17. CK= 80,60 Creatinine= 1.21 (1.14, at/ below baseline) CXR showed no pulmonary edema.. Last echo 10/2016 showed EF 70-75%, moderate to severe diastolic dysfunction, moderate to severe dilated left atrium, mild TR, mild MR, mild AR, no significant wall motion abnormalities. Given Lasix 40mg IVP once in the ED and now on Lasix 20mg IVP daily. Started on a heparin drip 2/2 elevated troponins. Patient had a negative cath 10/2016. Elevated troponins are stable, CK within normal limits. Troponin elevated secondary to CHF and A fib. Patient is less SOB after lasix doses. Plan: - increase Lasix to 40mg IVP daily - Stop Heparin drip and start Xarelto tonight - Diet: Cardiac diet - continue strict I/Os - continue telemetry Qualifiers: Congestive heart failure type: diastolic Congestive heart failure chronicity: acute on chronic Qualified Code(s): I50.33 - Acute on chronic diastolic (congestive) heart failure (2) Atrial fibrillation Current Visit: No Status: Chronic Hx of paroxysmal afib on Xarelto. Currently rate controlled on Imdur 60mg po daily and rhythmol 225mg po TID. Patient is currently in sinus rhythm. Telemetry showed avg HR last 12 hrs of 61bpm. Short runs of atrial tachy. No changes to a fib medications. Continue telemetry. Qualifiers: Atrial fibrillation type: unspecified Qualified Code(s): I48.91 - Unspecified atrial fibrillation Discussion w patient/family: The assessment and plan as outlined above was discussed with the patient and/or family members who expressed understanding and agreement. All questions were answered. Thank you for involving us in the care of your patient. Please call with any questions. History of Present Illness Consult date: 06/18/17 Requesting physician: Sabrina Marlow Consult reason: nstemi, chf Chief complaint: sob History of present illness: Ms. Castaneda is a 81 year old female hx of paroxysmal afib on Xarelto , HTN, hyperlipidemia, diastolic CHF, myasthenia gravis, and CKD presenting to the Ed with SOB and upper abdomen discomfort for 3 days. On Saturday patient began having SOB at rest,; at her baseline she has SOB with exertion. Patient gained 3lbs over the weekend. Patient states that she has not had chest pain, N/V but describes having belching and thought her abdomen was getting bigger but contributed that to gas build up. Past cardiac testing: Stress test 10/2016 at [place] was negative. Echo 2016 showed EF 70-75%, moderate to severe diastolic dysfunction, moderate to severe dilated left atrium, mild TR, mild MR, mild AR, no significant wall motion abnormalities. Past Med Surg Social Fam HX - Past Medical History Medical history: atrial fibrillation, CHF, GERD, hyperlipidemia, hypertension, renal disease, other (Myasthenia gravis) Psychiatric history: anxiety - Past Surgical History Surgical History: cataract, knee replacement, other - Social History Smoking Status: Never smoker Smokeless Tobacco Status: No Alcohol use: none Drug use: none - Family History Mother Adopted: No Family Member Ethnicity: Non- Living Status: Hx Family Cardiac Disorders: No Hx Family Respiratory Disorders: No Hx Family Cancer: No Hx Family GI Disorders: No Hx Family Endocrine Disorder: No Hx Family Neuromuscular Disorders: No Hx Family Neurologic Disorders: No Hx Family HEENT Disorders: No Hx Family Autoimmune Disorders: No Medications and Allergies Allopurinol [Zyloprim 100 MG] 100 mg PO DAILY 02/18/17 [History] Cholecalciferol (Vitamin D3) [Vitamin D3] 2,000 unit PO DAILY 02/18/17 [History] Docusate [Colace] 100 mg PO DAILY PRN 02/18/17 [History] Fenofibrate Nanocrystallized [Triglide] 160 mg PO DAILY 02/18/17 [History] Isosorbide MONOnitrate (24 HR) [Imdur] 60 mg PO DAILY 02/18/17 [History] Multivit-Min/Iron/Folic/Lutein [Centrum Silver Women Tablet] 1 tab PO DAILY 05/28 [History] Pantoprazole Sodium 40 mg PO DAILY 02/18/17 [History] Polyethylene Glycol 3350 [MiraLAX bowel prep] 17 gm PO DAILY 02/18/17 [History] Pyridostigmine Br [Mestinon] 60 mg PO BID 02/18/17 [History] Rivaroxaban [Xarelto] 15 mg PO DAILY 02/18/17 [History] Propafenone [Rhythmol] 225 mg PO Q8H #90 tab 04/02/17 [Rx] 3 Allergy/AdvReac Type Severity Reaction Status Date / Time prednisone AdvReac Palpitation Verified 02/18/17 03:42 s Alcajas-Han-Ozt Reductase AdvReac Weakness Verified 02/18/17 03:42 Inhibitor [Statins] All Systems Review: A 10-system review of systems was performed and is negative for pertinent findings except as documented above in the HPI. Physical Examination Vital Signs, Last 4 Hours Temp Pulse Resp BP Pulse Ox 06/18/17 07:02 97.4 F L 61 16 130/61 94 06/18/17 05:04 97.5 F L 53 16 121/89 94 General: Conversant (sob occurred after talking for awhile), Other (diffuse muscle atrophy) HEENT: Atraumatic, Normocephaly, Mucus Membranes Moist Cardiac: Reg Rate and Rhythm, Normal S1 and S2, No Murmur Lungs: Normal Breath Sounds, No Wheeze, Rales, Rhonchi Neuro: Alert and responsive, No focal deficits noted Abdomen: Soft, Non-Tender Skin: No rashes noted on visualized skin Musculoskeletal: No Chest Wall Tenderness Extremities: No Cyanosis, Normal Pulses, Other (+1 pitting edema) Results 06/18/17 04:25 06/18/17 04:25 Lab Results 06/17/17 06/17/17 06/18/17 21:41 21:41 04:25 WBC 6.1 Hgb 9.3 L Hct 27.5 L Plt Count 214 APTT 81.5 H D Sodium Potassium Chloride Carbon Dioxide BUN Creatinine Glucose Calcium Magnesium Troponin I 0.18 H* 06/18/17 06/18/17 06/18/17 04:25 04:25 04:25 WBC Hgb Hct Plt Count APTT 54.7 H Sodium 141 Potassium 4.1 Chloride 105 Carbon Dioxide 28 BUN 40 H Creatinine 1.21 H Glucose 81 Calcium 9.9 Magnesium 1.7 Troponin I 0.17 H* - Imaging and Cardiology Chest Xray: report reviewed - EKG Interpretation EKG results cardiology: personally reviewed (sinus bradycardia, no ST depression ,), no diagnostic ischemia Consult Discharge Plan - Plan Referrals: Carlos Newman MD [Primary Care Provider] -
[2017-06-18] MEDS: Pyridostigmine Br 60 MG TABLET PO SCH ×2 (08:49→20:44)
[2017-06-18] MEDS: Isosorbide MONOnitrate (24 HR) 60 MG TAB.ER.24H PO SCH (08:50)
[2017-06-18] MEDS: Fenofibrate 54 MG TABLET PO SCH (08:50)
[2017-06-18] MEDS ORDERED: Furosemide 20 MG/2 ML VIAL IVP SCH (09:00)
[2017-06-18] MEDS ORDERED: Furosemide 20 MG/2 ML VIAL IVP ONE (09:57)
[2017-06-18] MEDS ORDERED: Furosemide 40 MG/4 ML VIAL IVP SCH (09:59)
[2017-06-18 12:15] LABS: Activated Partial Thrombo Time 146.1 Seconds (26.0-36.0)
[2017-06-18 12:20] LABS: Heparin anti-factor XA UFH 0.62 IU/mL (0.30-0.70)
--- NOTE | 2017-06-18 13:08 | Internal Med Progress Note ---
<Giorgio Xavier Ellen - Last Filed: 06/18/17 13:06> Date of Encounter: 06/18/17 Time of Encounter: 13:06 - Assessment and plan (1) Acute on chronic diastolic CHF (congestive heart failure) Current Visit: No Status: Acute Assessment and plan: Dyspnea, increasing weight (2-3 lbs), and LE edema for the past 2-3 days CXR shows no acute abnormalities. Bibasilar crackles on lung exam with edema in LE and abdomen Not on lasix at home due to renal function Clinical improvement after lasix overnight Echo from 10/2016: EF 70-75%, moderate to severe diastolic dysfunction, moderate to severe dilated left atrium, mild TR, mild MR, mild AR, no significant wall motion abnormalities Elevated troponins, but stable - No ischemic EKG changes, no chest pain Cardiology consulted - increase Lasix to 40 IV daily Stop Heparin drip and resume Xarelto Continue cardiac diet, fluid restrictions, daily weights, I/Os (2) Paroxysmal A-fib Current Visit: Yes Status: Acute Assessment and plan: Rate controlled on Rythmol and Imdur - occasional PVCs On xarelto at home - may resume today (3) Chronic kidney disease (CKD) Current Visit: Yes Status: Acute Assessment and plan: Not on Lasix at home due to renal function Cr 1.21, GFR 43 - both at or better than her baseline Will continue to monitor while on Lasix Qualifiers: Qualified Code(s): N18.3 - Chronic kidney disease, stage 3 (moderate) - Subjective Interval history: Pt doing well this AM. Reports her dyspnea is improving after getting lasix and her edema is improving as well. Reports swelling and dyspnea for 2-3 days and increasing weight prior to coming to the hospital. She does watch her salt, potassium, and fluid intake at home. Denies syncope, light-headedness, chest pain, orthopnea, cough, N/V/D/C, dysuria, or leg pain. - Constitutional Vitals: Temp Pulse Resp BP Pulse Ox 98.0 F 64 16 139/72 94 06/18/17 10:52 06/18/17 10:52 06/18/17 10:52 06/18/17 10:52 06/18/17 10:52 General appearance: Present: A&O X 3, no acute distress, answers questions appropriately - Head Head exam: Present: atraumatic, normocephalic - Eye Eye exam: Present: conjuntiva pink, sclera anicteric - Neck Neck exam general surgery: Present: supple, trachea midline. Absent: lymphadenopathy - Respiratory Respiratory exam: Present: rales (bibasilar crackles), wheezes. Absent: accessory muscle use, rhonchi - Cardiovascular Cardiovascular exam: Present: RRR, +S1, +S2. Absent: diastolic murmur, systolic murmur Additional comments: occasional PVCs - GI/Abdominal GI/Abdominal exam: Present: normal bowel sounds, soft, no peritoneal signs. Absent: distended, tenderness - Extremities Exam Extremities exam: Present: pedal edema, warm, radial pulses palpable and symmetrical. Absent: calf tenderness, cyanotic - Neurological Exam Neurological exam: Present: CN II-XII intact, oriented X3, no focal deficits. Absent: facial droop, speech deficit - Skin Skin exam: Present: dry, intact Internal Medicine: Result - Labs CBC & Chem 7: 06/18/17 04:25 06/18/17 04:25 Labs: Short CBC 06/18/17 Range/Units 04:25 WBC 6.1 (4.3-11.1) K/mcL Hgb 9.3 L (11.5-15.4) g/dL Hct 27.5 L (35.3-44.9) % Plt Count 214 (140-400) K/mcL Neutrophils # 1.6 (1.6-8.9) K/mcL BMP 06/18/17 04:25 Sodium 141 Potassium 4.1 Chloride 105 Carbon Dioxide 28 BUN 40 H Creatinine 1.21 H Glucose 81 Calcium 9.9 Cardiac Enzymes 06/17/17 06/18/17 Range/Units 21:41 04:25 Troponin I 0.18 H* 0.17 H* (0-0.03) ng/mL - ABG Interpretation ABG results: PT/INR, D-dimer PT 14.0 Seconds (9.4-12.1) H 06/17/17 14:50 Consult Discharge Plan - Plan Referrals: Carlos Newman MD [Primary Care Provider] - <[email or web address] - Last Filed: 06/18/17 17:27> Date of Encounter: 06/18/17 - Constitutional Vitals: Temp Pulse Resp BP Pulse Ox 98.6 F 63 16 133/67 97 06/18/17 15:17 06/18/17 15:17 06/18/17 15:17 06/18/17 15:17 06/18/17 15:17 Internal Medicine: Result - Labs CBC & Chem 7: 06/18/17 04:25 06/18/17 04:25 Labs: Short CBC 06/18/17 Range/Units 04:25 WBC 6.1 (4.3-11.1) K/mcL Hgb 9.3 L (11.5-15.4) g/dL Hct 27.5 L (35.3-44.9) % Plt Count 214 (140-400) K/mcL Neutrophils # 1.6 (1.6-8.9) K/mcL BMP 06/18/17 04:25 Sodium 141 Potassium 4.1 Chloride 105 Carbon Dioxide 28 BUN 40 H Creatinine 1.21 H Glucose 81 Calcium 9.9 Cardiac Enzymes 06/17/17 06/18/17 Range/Units 21:41 04:25 Troponin I 0.18 H* 0.17 H* (0-0.03) ng/mL - ABG Interpretation ABG results: PT/INR, D-dimer PT 14.0 Seconds (9.4-12.1) H 06/17/17 14:50 - Attending Attestation I have seen and examined the patient independently. I have discussed with resident physician Dr Xavier regarding the management plan. Agree with the documentation. Patient feels better after lasix use. Denies chest pain. Cardiology consult saw patient and recommended DC heparin drip, not considered NSTEMI. We will continue IV Lasix for CHF exacerbation. Closely follow up her renal function as patient is sensitive to Lasix with her CKD. May place reduced dose of Lasix at 20 mg daily with concern of worsening renal function.
[2017-06-18] MEDS: *HR* Rivaroxaban 15 MG TABLET PO SCH (17:07)
[2017-06-18] MEDS: Acetaminophen 325 MG TABLET PO PRN (22:32)
[2017-06-19 05:20] LABS: Hematocrit 26.3 % (35.3-44.9); Mean Corpuscular HGB Conc 34.2 g/dL (31.6-35.5); Mean Corpuscular Hemoglobin 34.1 pg (28.0-33.3); Mean Corpuscular Volume 99.6 fL (83.0-100.0); Mean Platelet Volume 11.4 fL (9.4-12.4); Platelet Count 223 K/mcL (140-400); Red Blood Count 2.64 M/mcL (3.82-4.97); Red Cell Distribution Width 17.5 % (11.5-14.5)
[2017-06-19 05:39] LABS: Calcium 9.6 mg/dL (8.6-10.8)
--- NOTE | 2017-06-19 07:31 | Electrocardiograph Report ---
[place] [id number] Test Date: 2017-06-17 Pat Name: Tori Castaneda Department: 104 Room: [id number] Gender: F Management Recruiter: : [id number] Requested By: Cedrick Vergara Order Number: [id number] Reading MD: Eugene Chacko MD Measurements Intervals [place] Rate: 56 P: 80 CO: 198 QRS: 51 QRSD: 101 T: 75 QT: 417 QTc: 410 Interpretive Statements SINUS BRADYCARDIA WITH OCCASIONAL VENTRICULAR PREMATURE COMPLEXES RIGHT ATRIAL ENLARGEMENT BASELINE ARTIFACT Electronically Signed On 06-19-2017 7:29:33 EST by Eugene Chacko MD
[2017-06-19] MEDS: Isosorbide MONOnitrate (24 HR) 60 MG TAB.ER.24H PO SCH (09:13)
[2017-06-19] MEDS: Pyridostigmine Br 60 MG TABLET PO SCH ×2 (09:13→21:29)
[2017-06-19] MEDS: Fenofibrate 54 MG TABLET PO SCH (09:13)
--- NOTE | 2017-06-19 10:23 | Cardiology Progress Note ---
Date of Encounter: 06/19/17 Time of Encounter: 10:00 Assessment and Plan (1) CHF (congestive heart failure) Current Visit: Yes Status: Chronic Hx of diastolic/perserved EF CHF. Presented to the ED with SOB. Vitals: max BP 160/79, normal heart rate. BNP = 2216. Troponin= 0.16,0.18, 0.17. CK= 80,60 Creatinine= 1.21 (1.14, at/ below baseline) CXR showed no pulmonary edema.. Last echo 10/2016 showed EF 70-75%, moderate to severe diastolic dysfunction, moderate to severe dilated left atrium, mild TR, mild MR, mild AR, no significant wall motion abnormalities. Given Lasix 40mg IVP once in the ED and now on Lasix 20mg IVP daily. Started on a heparin drip 2/2 elevated troponins. Patient had a negative cath 10/2016. Elevated troponins are stable, CK within normal limits. Troponin elevated secondary to CHF and A fib. Patient is less SOB after lasix doses but creatinine has been increasing over the last 2 days. Will hold lasix dose today and recheck BMP tomorrow. Plan: - hold Lasix dose today and recheck BMP tomorrow - continue Xarelto - Diet: Cardiac diet - continue strict I/Os - continue telemetry Qualifiers: Congestive heart failure type: diastolic Congestive heart failure chronicity: acute on chronic Qualified Code(s): I50.33 - Acute on chronic diastolic (congestive) heart failure (2) Atrial fibrillation Current Visit: No Status: Chronic Hx of paroxysmal afib on Xarelto. Currently rate controlled on Imdur 60mg po daily and rhythmol 225mg po TID. Patient is currently in sinus rhythm with frequent PACs. Telemetry showed avg HR last 24 hrs of 53bpm. No changes to a fib medications. Continue telemetry. Qualifiers: Atrial fibrillation type: unspecified Qualified Code(s): I48.91 - Unspecified atrial fibrillation Discussion w patient/family: The assessment and plan as outlined above was discussed with the patient and/or family members who expressed understanding and agreement. All questions were answered. Thank you for involving us in the care of your patient. Please call with any questions. Subjective Principal diagnosis: CHF with preserved EF Interval history: Patient states this morning that she is doing much better even from yesterday. She is still short of breath with conversation but at rest is not SOB. Objective Vital Signs, Last 4 Hours Temp Pulse Resp BP Pulse Ox 06/19/17 07:17 98.2 F 53 14 136/68 95 Results 06/19/17 04:30 06/19/17 04:30 Lab Results 06/18/17 06/19/17 06/19/17 11:35 04:30 04:30 WBC 5.8 Hgb 9.0 L Hct 26.3 L Plt Count 223 APTT 146.1 H* D Sodium 139 Potassium 4.0 Chloride 102 Carbon Dioxide 30 H BUN 42 H Creatinine 1.52 H Glucose 82 Calcium 9.6 Consult Discharge Plan - Plan Referrals: Carlos Newman MD [Primary Care Provider] - 06/25/17 3:20 pm
--- NOTE | 2017-06-19 11:47 | Internal Med Progress Note ---
<Giorgio Xavier Ellen - Last Filed: 06/19/17 11:44> Date of Encounter: 06/19/17 Time of Encounter: 11:44 - Assessment and plan (1) Acute on chronic diastolic CHF (congestive heart failure) Current Visit: No Status: Acute Assessment and plan: Dyspnea, increasing weight (2-3 lbs), and LE edema for the past 2-3 days CXR shows no acute abnormalities. Bibasilar crackles on lung exam with edema in LE and abdomen Not on lasix at home due to renal function Clinical improvement after lasix overnight - held lasix this AM d/t worsening renal function Echo from 10/2016: EF 70-75%, moderate to severe diastolic dysfunction, moderate to severe dilated left atrium, mild TR, mild MR, mild AR, no significant wall motion abnormalities Elevated troponins, but stable - No ischemic EKG changes, no chest pain Cardiology consulted - appreciate recommendations Continue Xarelto Continue cardiac diet, fluid restrictions, daily weights, I/Os (2) Paroxysmal A-fib Current Visit: Yes Status: Acute Assessment and plan: Rate controlled on Rythmol and Imdur - occasional PVCs Continue Xarelto (3) Chronic kidney disease (CKD) Current Visit: Yes Status: Acute Assessment and plan: Not on Lasix at home due to renal function Cr 1.52, GFR 33 - worse than on admission Hold Lasix today and monitor BMP tomorrow Qualifiers: Qualified Code(s): N18.3 - Chronic kidney disease, stage 3 (moderate) - Subjective Interval history: Pt doing well this AM. Reports her dyspnea and edema are improving. Denies syncope, light-headedness, chest pain, orthopnea, cough, N/V/D/C, dysuria, or leg pain. - Constitutional Vitals: Temp Pulse Resp BP Pulse Ox 98.2 F 53 14 136/68 95 06/19/17 07:17 06/19/17 07:17 06/19/17 07:17 06/19/17 07:17 06/19/17 07:17 General appearance: Present: A&O X 3, no acute distress, answers questions appropriately - Head Head exam: Present: atraumatic, normocephalic - Eye Eye exam: Present: conjuntiva pink, sclera anicteric - Neck Neck exam general surgery: Present: supple, trachea midline. Absent: lymphadenopathy - Respiratory Respiratory exam: Present: wheezes. Absent: accessory muscle use, rales, rhonchi - Cardiovascular Cardiovascular exam: Present: RRR, +S1, +S2. Absent: diastolic murmur, systolic murmur - GI/Abdominal GI/Abdominal exam: Present: normal bowel sounds, soft, no peritoneal signs. Absent: distended, tenderness - Extremities Exam Extremities exam: Present: warm, radial pulses palpable and symmetrical. Absent : calf tenderness, cyanotic, pedal edema - Neurological Exam Neurological exam: Present: CN II-XII intact, oriented X3, no focal deficits. Absent: facial droop, speech deficit - Skin Skin exam: Present: dry, intact Internal Medicine: Result - Labs CBC & Chem 7: 06/19/17 04:30 06/19/17 04:30 Labs: Short CBC 06/19/17 Range/Units 04:30 WBC 5.8 (4.3-11.1) K/mcL Hgb 9.0 L (11.5-15.4) g/dL Hct 26.3 L (35.3-44.9) % Plt Count 223 (140-400) K/mcL BMP 06/19/17 04:30 Sodium 139 Potassium 4.0 Chloride 102 Carbon Dioxide 30 H BUN 42 H Creatinine 1.52 H Glucose 82 Calcium 9.6 - ABG Interpretation ABG results: PT/INR, D-dimer PT 14.0 Seconds (9.4-12.1) H 06/17/17 14:50 Consult Discharge Plan - Plan Referrals: Carlos Newman MD [Primary Care Provider] - 06/25/17 3:20 pm <Alethea Balderrama - Last Filed: 06/19/17 14:44> Date of Encounter: 06/19/17 - Constitutional Vitals: Temp Pulse Resp BP Pulse Ox 98.2 F 75 14 114/56 94 06/19/17 11:43 06/19/17 11:43 06/19/17 11:43 06/19/17 11:43 06/19/17 11:43 Internal Medicine: Result - Labs CBC & Chem 7: 06/19/17 04:30 06/19/17 04:30 Labs: Short CBC 06/19/17 Range/Units 04:30 WBC 5.8 (4.3-11.1) K/mcL Hgb 9.0 L (11.5-15.4) g/dL Hct 26.3 L (35.3-44.9) % Plt Count 223 (140-400) K/mcL BMP 06/19/17 04:30 Sodium 139 Potassium 4.0 Chloride 102 Carbon Dioxide 30 H BUN 42 H Creatinine 1.52 H Glucose 82 Calcium 9.6 - ABG Interpretation ABG results: PT/INR, D-dimer PT 14.0 Seconds (9.4-12.1) H 06/17/17 14:50 - Attending Attestation I have seen and examined the patient independently. I have discussed with resident physician Dr Xavier regarding the management plan. Agree with the documentation. Patient feels fine. Shortness of breath has improved significantly. However, patient has mild elevation of creatinine level. We will hold the Lasix at this point. Follow-up renal function. Patient has recent fall at home, will consult PT and OT for safety evaluation.
[2017-06-19] MEDS: *HR* Rivaroxaban 15 MG TABLET PO SCH (17:48)
[2017-06-19] MEDS: Acetaminophen 325 MG TABLET PO PRN (17:51)
[2017-06-20 04:50] LABS: Hematocrit 27.5 % (35.3-44.9); Hemoglobin 9.5 g/dL (11.5-15.4); Mean Corpuscular HGB Conc 34.5 g/dL (31.6-35.5); Mean Corpuscular Hemoglobin 34.4 pg (28.0-33.3); Mean Corpuscular Volume 99.6 fL (83.0-100.0); Mean Platelet Volume 10.9 fL (9.4-12.4); Platelet Count 217 K/mcL (140-400); Red Blood Count 2.76 M/mcL (3.82-4.97); Red Cell Distribution Width 17.6 % (11.5-14.5)
[2017-06-20 05:10] LABS: Calcium 9.5 mg/dL (8.6-10.8); Potassium 4.6 mEq/L (3.5-4.5)
--- NOTE | 2017-06-20 08:51 | Cardiology Progress Note ---
Date of Encounter: 06/20/17 Time of Encounter: 08:45 Assessment and Plan (1) Acute on chronic diastolic CHF (congestive heart failure) Current Visit: No Status: Acute Per Cardiology: Presented to the ED with SOB. BNP = 2216. Troponin= 0.16,0.18, 0.17. CXR showed no pulmonary edema. Last echo 10/2016 showed EF 70-75%, moderate to severe diastolic dysfunction, moderate to severe dilated left atrium, mild TR, mild MR , mild AR, no significant wall motion abnormalities. I&O for hospital stay shows net -5179ml. Clinically appears improved. Sodium restriction and 2 L fluid restriction diet reinforced. Per discussion with primary service, plans for DC to home on Lasix 10mg PO daily-- has previously taken 20mg PRN. Will s/o , re-consult PRN, f/u scheduled. (2) Chronic kidney disease (CKD) Current Visit: Yes Status: Chronic Per Cardiology: Appears stable. F/u with Nephrology as planned. Qualifiers: Chronic kidney disease stage: stage 3 (moderate) Qualified Code(s): N18.3 - Chronic kidney disease, stage 3 (moderate) (3) Elevated troponin I level Current Visit: Yes Status: Acute Per Cardiology: Patient had a negative stress test [place] 10/2016. Troponin elevated secondary to CHF. CP free. Do not suspect ACS. No CR consult warranted. (4) Paroxysmal A-fib Current Visit: Yes Status: Chronic Per Cardiology: Hx of paroxysmal afib on Xarelto. Currently SR and remains on rhythmol 225mg po TID. Telemetry shows average heart rate 58, sinus bradycardia to sinus rhythm, no significant events noted. Remains anticoagulated with Xarelto 15mg PO daily. Discussion w patient/family: The assessment and plan as outlined above was discussed with the patient and/or family members who expressed understanding and agreement. All questions were answered. Thank you for involving us in the care of your patient. Please call with any questions. Subjective Principal diagnosis: CHF with preserved EF Interval history: Patient initially presented with worsening shorts of breath at rest and abdominal distention. She reports symptoms today improved and back to baseline. She denies any chest pain or palpitations. Denies any active bleeding of the loss. Objective Vital Signs, Last 4 Hours Temp Pulse Resp BP Pulse Ox 06/20/17 07:47 97.6 F 59 19 115/61 97 General: Conversant, No Apparent Distress HEENT: Atraumatic, Normocephaly, Mucus Membranes Moist Neck: No JVD, Normal carotid pulses Cardiac: Reg Rate and Rhythm, Normal S1 and S2, No Murmur Lungs: Normal Breath Sounds, No Wheeze, Rales, Rhonchi, Other (Very mild conversational dyspnea noted) Neuro: Alert and responsive, No focal deficits noted Abdomen: Soft, Non-Tender Skin: No rashes noted on visualized skin Musculoskeletal: No Chest Wall Tenderness Extremities: No Clubbing, No Cyanosis, No Edema, Normal Pulses Results 06/20/17 04:20 06/20/17 04:20 Lab Results Laboratory Tests 06/17/17 06/17/17 06/17/17 14:50 14:50 15:39 Creatinine Est GFR (Non-Af Amer) Troponin I 0.16 H* B-Natriuretic Peptide 2216 H Ur Leukocyte Esterase Small H Ur Culture Indicated? YES A 06/17/17 06/18/17 06/20/17 21:41 04:25 04:20 Creatinine 1.50 H Est GFR (Non-Af Amer) 33 L Troponin I 0.18 H* 0.17 H* B-Natriuretic Peptide Ur Leukocyte Esterase Ur Culture Indicated? ITS Impressions Chest X-Ray 06/17/17 14:06 IMPRESSION: Stable cardiomegaly. No acute abnormalities seen in the chest. Unchanged large hernia adjacent to the right heart border. D/ / 06/17/2017 14:42:52 Rich Granado MD [facility] Interpreting Provider: Rich Granado MD Active Medications Acetaminophen (Tylenol) 325 mg PO Q6HR PRN PRN Reason: Pain Stop: 12/18/17 22:02 Last Admin: 06/19/17 17:51 Dose: 325 mg Allopurinol (Zyloprim) 100 mg PO DAILY MARISELA Stop: 12/18/17 09:01 Last Admin: 06/19/17 09:13 Dose: 100 mg Docusate Sodium (Colace) 100 mg PO DAILY PRN; Protocol PRN Reason: Constipation Stop: 12/17/17 17:35 Fenofibrate (Tricor) 162 mg PO DAILY MARISELA Stop: 12/18/17 09:01 Last Admin: 06/19/17 09:13 Dose: 162 mg Isosorbide Mononitrate (Imdur) 60 mg PO DAILY [facility] Stop: 12/18/17 09:01 Last Admin: 06/19/17 09:13 Dose: 60 mg Omeprazole (Prilosec) 20 mg PO 0630 [facility] Stop: 12/18/17 06:31 Last Admin: 06/20/17 07:01 Dose: 20 mg Polyethylene Glycol (Miralax) 17 gm PO DAILY [facility] Stop: 12/18/17 09:01 Last Admin: 06/19/17 09:13 Dose: 17 gm Propafenone HCl (Rhythmol) 225 mg PO 0700,1500,2300 [facility] Stop: 12/20/17 07:01 Last Admin: 06/20/17 07:00 Dose: 225 mg Pyridostigmine [place] (Mestinon) 60 mg PO BID [facility] Stop: 12/17/17 21:01 Last Admin: 06/19/17 21:29 Dose: 60 mg Rivaroxaban (Xarelto) 15 mg PO 1700 [facility] Stop: 12/18/17 17:01 Last Admin: 06/19/17 17:48 Dose: 15 mg - Imaging and Cardiology Chest Xray: report reviewed - EKG Interpretation EKG results cardiology: other (Telemetry reviewed with average heart rate the past 12 hours 58, sinus rhythm, currently sinus rhythm in the 60s with PACs) Consult Discharge Plan - Plan Referrals: Carlos Newman MD [Primary Care Provider] - 06/25/17 3:20 pm
[2017-06-20] MEDS: Pyridostigmine Br 60 MG TABLET PO SCH (09:55)
[2017-06-20] MEDS: Fenofibrate 54 MG TABLET PO SCH (09:55)
[2017-06-20] MEDS: Isosorbide MONOnitrate (24 HR) 60 MG TAB.ER.24H PO SCH (09:55)
--- NOTE | 2017-06-20 11:51 | Discharge Summary ---
<Giorgio Xavier R - Last Filed: 06/20/17 13:11> Date of Encounter: 06/20/17 Time of Encounter: 11:48 - Discharge Diagnosis (1) Acute on chronic diastolic CHF (congestive heart failure) Priority: Primary Status: Acute (2) Paroxysmal A-fib Priority: Secondary Status: Chronic (3) Chronic kidney disease (CKD) Priority: Secondary Status: Chronic Qualifiers: Chronic kidney disease stage: stage 3 (moderate) Qualified Code(s): N18.3 - Chronic kidney disease, stage 3 (moderate) - Discharge Medications Prescriptions: Furosemide [Lasix] 10 mg PO DAILY #15 tablet Home Medications: Allopurinol [Zyloprim 100 MG] 100 mg PO DAILY 02/18/17 [History] Cholecalciferol (Vitamin D3) [Vitamin D3] 2,000 unit PO DAILY 02/18/17 [History] Docusate [Colace] 100 mg PO DAILY PRN 02/18/17 [History] Fenofibrate Nanocrystallized [Triglide] 160 mg PO DAILY 02/18/17 [History] Isosorbide MONOnitrate (24 HR) [Imdur] 60 mg PO DAILY 02/18/17 [History] Multivit-Min/Iron/Folic/Lutein [Centrum Silver Women Tablet] 1 tab PO DAILY 05/28 [History] Pantoprazole Sodium 40 mg PO DAILY 02/18/17 [History] Polyethylene Glycol 3350 [MiraLAX bowel prep] 17 gm PO DAILY 02/18/17 [History] Pyridostigmine Br [Mestinon] 60 mg PO BID 02/18/17 [History] Rivaroxaban [Xarelto] 15 mg PO DAILY 02/18/17 [History] Propafenone [Rhythmol] 225 mg PO Q8H #90 tab 04/02/17 [Rx] Furosemide [Lasix] 10 mg PO DAILY #15 tablet 06/20/17 [Rx] Allergies/Adverse Reactions: 3 Allergy/AdvReac Type Severity Reaction Status Date / Time prednisone AdvReac Palpitation Verified 02/18/17 03:42 s [id number]-Ipn-Igm Reductase AdvReac Weakness Verified 02/18/17 03:42 Inhibitor [Statins] Date of admission: 06/17/17 16:51 Primary care physician: Carlos Newman MD Consults: 06/17/17 17:47 Consult to Wrapper Dipper [CONS] Routine Reason for SW Consult: FINANCIAL CONCERNS (ASKING FOR [employer] PAPERWORK) CURRENT [facility], MEDICAL A PAPERWORK/COMPLETION 06/19/17 09:25 Consult to Physical Therapy [CONS] Routine Comment: Evaluate, develop and implement POC Reason for Consult: Need a walker in room. Pt uses one at home. 06/19/17 09:27 OT [Consult to Occupational Therapy] [CONS] Routine Comment: Evaluate, develop and implement POC Reason for Consult: evaluation Discharging clinician: Giorgio Xavier Anticipated date of discharge: 06/20/17 - Patient Status Disposition: Home Health Service Condition: Fair Functional capacity at discharge: independent ambulation Overall status at discharge: patient is back to baseline - Ambulatory Orders Ambulatory Orders: Basic Metabolic Panel [CHEM] Time Frame: 1 Week, Facility[facility], Location: Lab - Discharge Instructions Follow Up With: Carlos Newman MD [Primary Care Provider] - 06/25/17 3:20 pm Alfie Tyson CNP [Advanced Practice Nurse] - (office will call patient at home with appointment date and time if you do not hear from them call the office ) Additional Instructions: Take your medications as prescribed Take lasix 10mg daily (1/2 tablet) Continue to monitor sodium, potassium, fluid intake, and daily weights If you gain 3 pounds in less than 3 days call your doctor Follow-up with your PCP Follow-up with your medical billing manager Follow-up with your demand generation manager Return to the hospital if your symptoms return or worsen - Diet and Activity Activity: as per physical therapy, increase activity as tolerated Diet: advance to your usual diet Interval History: Pt seen and examined. Reports she is feeling well this morning and feels able to go home. Her breathing continues to improve. Her swelling is much improved as well. She denies syncope, light-headedness, chest pain, N/V/D/C, dysuria, or leg pain. Hospital course: Ms. Castaneda is a 81 year old female with PMH A. fib, HTN, HLD, CKD, and CHF presents with dyspnea and found to be in acute congestive heart failure. She reports that her weight had increased 2-3 pounds over the past few days prior to her admission. She is not on Lasix at home due to her renal function, but reports that she monitors her sodium, potassium, fluid intake, and weight very closely. She has a history of paroxysmal atrial fibrillation but was in NSR during this hospitalization. She was given small doses of Lasix and her renal function was monitored closely. She responded well to diuresis, but did have some worsening renal function (Cr 1.14 to 1.50, and GFR 25 to 29). She is hemodynamically stable and clinically improved and will be discharged home on Lasix 10mg daily. She is to follow-up with her PCP, medical billing manager, and her demand generation manager. - Time Spent with Patient Total time spent providing and/or coordinating discharge services: Less than 30 minutes - Constitutional Vitals: Temp Pulse Resp BP Pulse Ox 97.6 F 59 19 115/61 97 06/20/17 07:47 06/20/17 07:47 06/20/17 07:47 06/20/17 07:47 06/20/17 09:00 General appearance: Present: A&O X 3, no acute distress, answers questions appropriately - Head Head exam: Present: atraumatic, normocephalic - Eye Eye exam: Present: conjuntiva pink, sclera anicteric - Neck Neck exam general surgery: Present: supple, trachea midline. Absent: lymphadenopathy - Respiratory Respiratory exam: Present: CTAB. Absent: accessory muscle use, rales, rhonchi, wheezes - Cardiovascular Cardiovascular exam: Present: RRR, +S1, +S2. Absent: diastolic murmur, systolic murmur - GI/Abdominal GI/Abdominal exam: Present: normal bowel sounds, soft, no peritoneal signs. Absent: distended, tenderness - Extremities Exam Extremities exam: Present: pedal edema, warm, radial pulses palpable and symmetrical. Absent: calf tenderness, cyanotic - Neurological Exam Neurological exam: Present: CN II-XII intact, oriented X3, no focal deficits. Absent: facial droop, speech deficit - Skin Skin exam: Present: dry, intact <Alethea Balderrama - Last Filed: 06/20/17 13:39> Date of Encounter: 06/20/17 Date of admission: 06/17/17 16:51 Primary care physician: Carlos Newman MD Consults: 06/17/17 17:47 Consult to Wrapper Dipper [CONS] Routine Reason for SW Consult: FINANCIAL CONCERNS (ASKING FOR [employer]ak PAPERWORK) CURRENT [facility], MEDICAL POA PAPERWORK/COMPLETION 06/19/17 09:25 Consult to Physical Therapy [CONS] Routine Comment: Evaluate, develop and implement POC Reason for Consult: Need a walker in room. Pt uses one at home. 06/19/17 09:27 OT [Consult to Occupational Therapy] [CONS] Routine Comment: Evaluate, develop and implement POC Reason for Consult: evaluation Hospital course: Ms. Castaneda is a 81 year old female - Time Spent with Patient Total time spent providing and/or coordinating discharge services: - Constitutional Vitals: Temp Pulse Resp BP Pulse Ox 97.8 F 85 14 124/60 98 06/20/17 11:52 06/20/17 11:52 06/20/17 11:52 06/20/17 11:52 06/20/17 11:52 - Attending Attestation I have seen and examined patient independently. I have discussed with resident physician Dr. Xavier regarding management plan. Agree with that documentation. Patient feels much better. Shortness of breath has improved to her baseline. Fluid balance -5259ml. patient is sensitive to Lasix treatment. Her renal function is stable at about baseline. We will discharge patient home on low- dose Lasix (10mg po daily), patient will follow up with PCP in 1 week and check BMP upon follow-up visit.
[2017-06-20 12:11] VITALS: BP 124/60
--- NOTE | 2017-06-20 13:27 | Physician Discharge Referral ---
Home Health/Hosp Referral Info Transfer to: Home Health (Continuation with [facility]) Provider in Charge Post Discharge: PCP - Diagnosis (1) Acute on chronic diastolic CHF (congestive heart failure) Priority: Primary Status: Acute (2) Paroxysmal A-fib Priority: Secondary Status: Chronic (3) Chronic kidney disease (CKD) Priority: Secondary Status: Chronic - Respiratory Orders Smoking Cessation: Smoking cessation has been advised. For more information, call the [place] Tobacco Quit Line at 8-561-WQZY-NOW. - Diet/Nutrition Diet/Nutrition Orders: Cardiac - Activity Activity Orders: Ambulate - Services Needed Following services are medically necessary services: Nursing, Physical Therapy - Transfer Medications Prescriptions: Furosemide [Lasix] 10 mg PO DAILY #15 tablet Home Medications: Allopurinol [Zyloprim 100 MG] 100 mg PO DAILY 02/18/17 [History] Cholecalciferol (Vitamin D3) [Vitamin D3] 2,000 unit PO DAILY 02/18/17 [History] Docusate [Colace] 100 mg PO DAILY PRN 02/18/17 [History] Fenofibrate Nanocrystallized [Triglide] 160 mg PO DAILY 02/18/17 [History] Isosorbide MONOnitrate (24 HR) [Imdur] 60 mg PO DAILY 02/18/17 [History] Multivit-Min/Iron/Folic/Lutein [Centrum Silver Women Tablet] 1 tab PO DAILY 05/28 [History] Pantoprazole Sodium 40 mg PO DAILY 02/18/17 [History] Polyethylene Glycol 3350 [MiraLAX bowel prep] 17 gm PO DAILY 02/18/17 [History] Pyridostigmine Br [Mestinon] 60 mg PO BID 02/18/17 [History] Rivaroxaban [Xarelto] 15 mg PO DAILY 02/18/17 [History] Propafenone [Rhythmol] 225 mg PO Q8H #90 tab 04/02/17 [Rx] Furosemide [Lasix] 10 mg PO DAILY #15 tablet 06/20/17 [Rx] Allergies/Adverse Reactions: 3 Allergy/AdvReac Type Severity Reaction Status Date / Time prednisone AdvReac Palpitation Verified 02/18/17 03:42 s Frvnmur-Wpj-Awb Reductase AdvReac Weakness Verified 02/18/17 03:42 Inhibitor [Statins] Certification: Further, I certify that my clinical findings support that this patient is homebound (i.e. absences from home require considerable and taxing effort and are for medical reasons or [facility] or infrequently or short duration when for other reasons) because: Homebound Reason: Leaving home requires considerable and taxing effort due to condition Attestation: My signature below is to certify that this patient is under my care and that I, or nurse practitioner, or a physician's marketing administrative assistant working with me, has a face-to -face encounter with this patient.
[2017-06-21 02:02] LABS: CK-BB (CK isoenzymes) 0 % (0-0); CK-MB (CK isoenzymes) 0 % (0-4); CK-MM (CK-isoenzymes) 100 % (96-100)
[2017-06-21 02:02] LABS: CK-MB (CK isoenzymes) 0 % (0-4); CK-MM (CK-isoenzymes) 100 % (96-100)
[2017-06-21 08:12] LABS: CK Total (Ck Isoenzymes) 80 U/L (20-180)
[2017-06-21 08:15] LABS: CK Total (Ck Isoenzymes) 63 U/L (20-180); CK-BB (CK isoenzymes) 0 % (0-0)
== END 2017-06-20 16:27 | disposition home health service (06) | DRG 291 ==
LOC: 2NENU 13:54 → EMEROO 13:54 → SUATTDRO 16:51 → 2NENU 17:12
PROVIDERS: ADMIT Internal Medicine; ATTEND Internal Medicine

== ENCOUNTER 2018-05-23 15:16 | Inpatient (IN) ==
[2018-05-23 16:17] LABS: Basophils % 0.5 %; Eosinophils # 0.2 K/mcL (0.0-0.6); Eosinophils % 4.2 %; Hematocrit 27.9 % (35.3-44.9); Hemoglobin 9.8 g/dL (11.5-15.4); Lymphocytes % 51.2 %; Mean Corpuscular HGB Conc 35.1 g/dL (31.6-35.5); Mean Corpuscular Hemoglobin 38.6 pg (28.0-33.3); Mean Corpuscular Volume 109.8 fL (83.0-100.0); Mean Platelet Volume 10.4 fL (9.4-12.4); Monocytes # 0.7 K/mcL (0.0-1.3); Monocytes % 11.6 %; Neutrophils # 1.9 K/mcL (1.6-8.9); Platelet Count 280 K/mcL (140-400); Red Blood Count 2.54 M/mcL (3.82-4.97); Red Cell Distribution Width 16.4 % (11.5-14.5); Segmented Neutrophils % 32.5 %
--- NOTE | 2018-05-23 16:24 | Emergency Department Note ---
Disposition Clinical Impression: Atrial fibrillation, Dyspnea Disposition: Admitted As Inpatient Condition: Fair Referrals: Carlos Newman MD [Non-Partnered Physician] - Forms: ED Satisfaction Letter Time of Disposition: 17:22 General Adult HPI - General Chief complaint: ED Arrhythmia/Palpitations Stated complaint: A-fib Time Seen by Provider: 05/23/18 15:30 Source: patient, family Limitations: no limitations - History of Present Illness Pain Scale: 10 - Related Data Home Medications Medication Instructions Recorded Confirmed Allopurinol [Zyloprim 100 MG] 100 mg PO DAILY 02/18/17 06/17/17 Cholecalciferol (Vitamin D3) 2,000 unit PO DAILY 02/18/17 06/17/17 [Vitamin D3] Docusate [Colace] 100 mg PO DAILY PRN 02/18/17 06/17/17 Fenofibrate Nanocrystallized 160 mg PO DAILY 02/18/17 06/17/17 [Triglide] Isosorbide MONOnitrate (24 HR) 60 mg PO DAILY 02/18/17 06/17/17 [Imdur] Multivit-Min/Iron/Folic/Lutein 1 tab PO DAILY 02/18/17 06/17/17 [Centrum Silver Women Tablet] Pantoprazole Sodium 40 mg PO DAILY 02/18/17 06/17/17 Polyethylene Glycol 3350 [MiraLAX 17 gm PO DAILY 02/18/17 06/17/17 bowel prep] Pyridostigmine Br [Mestinon] 60 mg PO BID 02/18/17 06/17/17 Rivaroxaban [Xarelto] 15 mg PO DAILY 02/18/17 06/17/17 Previous Rx's Medication Instructions Recorded Propafenone [Rhythmol] 225 mg PO Q8H #90 tab 04/02/17 Furosemide [Lasix] 10 mg PO DAILY #15 tablet 06/20/17 Allergies Allergy/AdvReac Type Severity Reaction Status Date / Time prednisone AdvReac Palpitation Verified 05/23/18 15:21 s [id number]-Aqp-Abe Reductase AdvReac Weakness Verified 05/23/18 15:21 Inhibitor [Statins] Past Medical History - Past Medical History Medical history: Reports: atrial fibrillation, CHF, GERD, hyperlipidemia, hypertension, renal disease, other Surgical history: Reports: cataract, knee replacement, other Psychiatric history: Reports: anxiety - Social History Smoking Status: Never smoker Smokeless Tobacco Status: No Alcohol use: Reports: none Drug use: Reports: none Physical Exam - General Limitations: no limitations General appearance: alert, in no apparent distress Course Vital Signs Temperature 98.5 F 05/23/18 15:18 Pulse Rate 116 05/23/18 15:18 Respiratory Rate 16 05/23/18 15:18 Blood Pressure 134/77 05/23/18 15:18 O2 Sat by Pulse Oximetry 97 05/23/18 15:18 Temperature 98.5 F 05/23/18 15:18 Pulse Rate 90 05/23/18 16:32 Respiratory Rate 20 05/23/18 16:32 Blood Pressure 121/73 05/23/18 16:32 O2 Sat by Pulse Oximetry 99 05/23/18 16:32 Oxygen Delivery Oxygen Delivery Room Air Medical Decision Making - Lab Data Result diagrams: 05/23/18 15:38 05/23/18 15:38 Lab Results 05/23/18 05/23/18 05/23/18 Range/Units 15:38 15:38 16:44 WBC 5.8 (4.3-11.1) K/mcL RBC 2.54 L (3.82-4.97) M/mcL Hgb 9.8 L (11.5-15.4) g/dL Hct 27.9 L (35.3-44.9) % MCV 109.8 H (83.0-100.0) fL MCH 38.6 H (28.0-33.3) pg MCHC 35.1 (31.6-35.5) g/dL RDW 16.4 H (11.5-14.5) % Plt Count 280 (140-400) K/mcL MPV 10.4 (9.4-12.4) fL Immature Gran % 0.0 (0-4) % Seg Neutrophils % 32.5 % Lymphocytes % 51.2 % Monocytes % 11.6 % Eosinophils % 4.2 % Basophils % 0.5 % Neutrophils # 1.9 (1.6-8.9) K/mcL Lymphocytes # 3.0 (0.6-4.6) K/mcL Monocytes # 0.7 (0.0-1.3) K/mcL Eosinophils # 0.2 (0.0-0.6) K/mcL Basophils # 0.0 (0.0-0.2) K/mcL Sodium 137 (136-145) mEq/L Potassium 4.7 (3.5-5.1) mEq/L Chloride 102 (98-107) mEq/L Carbon Dioxide 30 H (23-29) mEq/L BUN 38 H (8-23) mg/dL Creatinine 1.16 (0.60-1.20) mg/dL Est GFR ( Amer) 54 L (> 60) Est GFR (Non-Af Amer) 45 L (> 60) BUN/Creatinine Ratio 33 H (6-26) Glucose 113 H (70-105) mg/dL Calculated Osmolality 294 (280-300) Calcium 10.4 H (8.6-10.3) mg/dL Phosphorus 2.6 L (2.7-4.5) mg/dL Magnesium 1.8 (1.6-2.6) mg/dL Troponin I 0.03 (< 0.04) ng/mL Urine Color Yellow (Yellow) Urine Clarity Clear (Clear) Urine pH 6.5 (5.0-8.0) pH Units Ur Specific [place] 1.019 (1.010-1.025) Urine Protein Negative (Neg-Trace) mg/dL Urine Glucose (UA) Normal (Normal) mg/dL Urine Ketones Negative (Negative) mg/dL Urine Blood Negative (Negative) Urine Nitrite Negative (Negative) Urine Bilirubin Negative (Negative) Urine Urobilinogen Normal (Normal) mg/dL Ur Leukocyte Esterase Moderate H (Negative) Urine Microscopic RBC 5-15 H (0-3) per hpf Urine Microscopic WBC 15-30 H (0-3) per hpf Ur Squamous Epith Cells Many H (None-Few) per lpf Urine Bacteria None Seen (None-Few) per hpf Hyaline Casts None Seen (None-Few) per lpf Ur Culture Indicated? NO. A (NO) Attestation Statement - Attestation Attestation: I, Cedrick Vergara DO, examined this patient [id number] and my medical decision-making was reviewed with Dr. Jon Jackson, Resident Physician. I agree with the documented findings, disposition and treatment plan as described except to the extent set forth below. Please see my progress notes for details. 82-year-old female presents to the emergency room at the request of cardiology for evaluation of medication related issue. Patient is currently on Rythmol secondary to atrial fibrillation. She is evaluated today secondary to use some increased shortness of breath at home and then was found to have atrial fibrillation again at this time. She denies any falls trauma or injury. Denies any fevers or chills chest pain headache vision changes nausea vomiting or diarrhea. Her main complaint is shortness of breath. Patient will be evaluated labs are in the emergency room along with EKG and troponin. Cardiology was contacted and they recommended to have the patient's medications controlled at this point. We will evaluate the patient inpatient setting. No other acute recommendations this time. Patient is otherwise clinically stable resting in the bed. Lungs are clear heart is regular abdomen is soft nontender nondistended. She does have pitting edema to the knee bilaterally to +1. No other acute signs of trauma injury or infection. See detailed documentation of the physical exam, medical intervention, medical decision-making and disposition in the resident physician's note. No critical care provider the patient's treatment course at this time. Admission process to be established once workup is completed. recommendation was noted to hold the medication here in the hospital 1700 Patient has negative workup at this time. Medications have been held. Hospitalist has been paged. Detailed review the presentation symptoms medical intervention will be described and discussed the consultation cardiology will be placed. Patient will be admitted for continuation management of atrial fibrillation failing outpatient management.
[2018-05-23 16:29] LABS: Troponin I 0.03 ng/mL (< 0.04)
[2018-05-23 16:30] LABS: Calcium 10.4 mg/dL (8.6-10.3); Magnesium 1.8 mg/dL (1.6-2.6); Phosphorous 2.6 mg/dL (2.7-4.5); Potassium 4.7 mEq/L (3.5-5.1)
[2018-05-23 16:52] LABS: Bilirubin,Urine Negative (Negative); Blood,Urine Negative (Negative); Clarity,Urine Clear (Clear); Color,Urine Yellow (Yellow); Glucose,Urine (UA) Normal (Normal); Ketones,Urine Negative (Negative); Leukocyte Esterase,Urine Moderate (Negative); Nitrite,Urine Negative (Negative); PH,Urine 6.5 pH Units (5.0-8.0); Protein,Urine Negative (Neg-Trace); Specific Gravity,Urine 1.019 (1.010-1.025); Urobilinogen,Urine Normal (Normal)
[2018-05-23 16:55] LABS: Bacteria,Urine None Seen per hpf (None-Few); Hyaline Casts,Urine None Seen per lpf (None-Few); Squamous Epithelial Cell,Urine Many per lpf (None-Few); WBC,Urine 15-30 per hpf (0-3)
--- NOTE | 2018-05-23 17:11 | Emergency Department Note ---
Disposition Clinical Impression: Atrial fibrillation, Dyspnea Disposition: Admitted As Inpatient Condition: Fair Referrals: Carlos Newman MD [Primary Care Provider] - Forms: ED Satisfaction Letter Time of Disposition: 17:26 Arrhythmia/Palpitations HPI - General Chief Complaint: ED Arrhythmia/Palpitations Stated Complaint: A-fib Time Seen by Provider: 05/23/18 15:30 Source: patient, family Mode of arrival: ambulatory Limitations: no limitations Nursing Notes Reviewed: Yes Vital Signs Reviewed: Yes - History of Present Illness HPI Narrative: 82-year-old female presented to the emergency department complaining of A. fib with RVR. Patient was at the cardiology office she is currently taking Rythmol and he knows she was in A. fib with RVR where she has been controlled. They want her to come here for admission as they are probably going to change her medication. Patient says she is having no quite this time she has no chest pain or shortness of breath or blurry vision or neck pain or generalized weakness. Patient otherwise has no complaint including fevers, chills, nausea, vomiting, headache, blurry vision, neck pain, back pain, chest pain, abdominal pain, shortness of breath, changes in bowel movements, pain with urination, pain or tingling of the arms or legs or generalized weakness. - Related Data Home Medications Medication Instructions Recorded Confirmed Allopurinol [Zyloprim 100 MG] 100 mg PO DAILY 02/18/17 06/17/17 Cholecalciferol (Vitamin D3) 2,000 unit PO DAILY 02/18/17 06/17/17 [Vitamin D3] Docusate [Colace] 100 mg PO DAILY PRN 02/18/17 06/17/17 Fenofibrate Nanocrystallized 160 mg PO DAILY 02/18/17 06/17/17 [Triglide] Isosorbide MONOnitrate (24 HR) 60 mg PO DAILY 02/18/17 06/17/17 [Imdur] Multivit-Min/Iron/Folic/Lutein 1 tab PO DAILY 02/18/17 06/17/17 [Centrum Silver Women Tablet] Pantoprazole Sodium 40 mg PO DAILY 02/18/17 06/17/17 Polyethylene Glycol 3350 [MiraLAX 17 gm PO DAILY 02/18/17 06/17/17 bowel prep] Pyridostigmine Br [Mestinon] 60 mg PO BID 02/18/17 06/17/17 Rivaroxaban [Xarelto] 15 mg PO DAILY 02/18/17 06/17/17 Previous Rx's Medication Instructions Recorded Propafenone [Rhythmol] 225 mg PO Q8H #90 tab 04/02/17 Furosemide [Lasix] 10 mg PO DAILY #15 tablet 06/20/17 Allergies Allergy/AdvReac Type Severity Reaction Status Date / Time prednisone AdvReac Palpitation Verified 05/23/18 15:21 s [id number]-Omi Reductase AdvReac Weakness Verified 05/23/18 15:21 Inhibitor [Statins] All systems ED: reviewed and negative except as stated. Review of Systems: As Per HPI Past Medical History - Past Medical History Attestation: Yes The following information was validated with the patient. Source: patient Medical history: Reports: atrial fibrillation, CHF, GERD, hyperlipidemia, hypertension, renal disease, other Surgical history: Reports: cataract, knee replacement, other Psychiatric history: Reports: anxiety - Social History Smoking Status: Never smoker Smokeless Tobacco Status: No Alcohol use: Reports: none Drug use: Reports: none Physical Exam - General Limitations: no limitations General appearance: alert, in no apparent distress - Head Head exam: atraumatic, normocephalic, normal inspection - Eye Eye exam: Present: normal appearance, PERRL, EOMI - ENT ENT exam: normal exam, normal oropharynx, mucous membranes moist - Neck Neck exam: Present: normal inspection, full ROM, trachea midline - Chest Chest inspection: Present: normal inspection - Respiratory Respiratory exam: Present: normal lung sounds bilaterally - Cardiovascular Cardiovascular exam: Present: tachycardia, irregular rhythm, normal heart sounds - Abdominal Exam Abdominal exam: Present: soft, Non-Tender, normal bowel sounds. Absent: tenderness, distention, guarding, rebound, rigidity - Extremities Exam Extremities exam: Present: normal inspection, full ROM. Absent: tenderness, pedal edema - Expanded Lower Extremity Exam Neurovascular/Tendon exam: Present: normal capillary refill. Absent: pulse deficit, motor deficit, sensory deficit, tendon deficit - Back Exam Back exam: Present: normal inspection, full ROM. Absent: tenderness - Neurological Exam Neurological exam: Present: alert, oriented X3 - Skin Skin exam: Present: warm, dry, intact, normal color Course Course Narrative: We have basic labs including CBC, BMP, troponin as well as EKG and chest x-ray. We will consult with cardiology and admitted to the hospital - Consultations Consultation #1: Spoke with Dr. Mendoza the on-call single stroke preformer who does know the patient recommended we stopping the patient's Rythmol and they will see her in the morning with consultation. Vital Signs Temperature 98.5 F 05/23/18 15:18 Pulse Rate 116 05/23/18 15:18 Respiratory Rate 16 05/23/18 15:18 Blood Pressure 134/77 05/23/18 15:18 O2 Sat by Pulse Oximetry 97 05/23/18 15:18 Temperature 98.5 F 05/23/18 15:18 Pulse Rate 90 05/23/18 16:32 Respiratory Rate 20 05/23/18 16:32 Blood Pressure 121/73 05/23/18 16:32 O2 Sat by Pulse Oximetry 99 05/23/18 16:32 Oxygen Delivery Oxygen Delivery Room Air Arrhythmia/Palpitations - MDM Narrative Medical decision making narrative: Patient had no acute abnormalities. All her labs within normal limits EKG showed A. fib but not A. fib with RVR. Spoke with the on-call single stroke preformer Dr. Mendoza who recommended stopping Rythmol. Patient has still no symptoms at this time. She will be admitted to the hospital for change in management of her A. fib. Patient is admitted in stable condition. I spoke with Dr. Dorsey who agreed to admit the patient to their service. Patient is admitted in stable condition. Chest X-Ray 05/23/18 15:48 IMPRESSION: 1. Mildly enlarged cardiac silhouette. 2. Otherwise, no convincing acute cardiopulmonary abnormality. 3. Large hiatal hernia. D/ / Gildardo Rodrigues MD / Gildardo Rodrigues MD Interpreting Provider: Gildardo Rodrigues MD - Medical Records Medical records reviewed: Yes I reviewed the patient's medical records. - Lab Data Lab results reviewed: Yes I reviewed the patient's lab results. Result diagrams: 05/23/18 15:38 05/23/18 15:38 Lab Results 05/23/18 05/23/18 05/23/18 Range/Units 15:38 15:38 16:44 WBC 5.8 (4.3-11.1) K/mcL RBC 2.54 L (3.82-4.97) M/mcL Hgb 9.8 L (11.5-15.4) g/dL Hct 27.9 L (35.3-44.9) % MCV 109.8 H (83.0-100.0) fL MCH 38.6 H (28.0-33.3) pg MCHC 35.1 (31.6-35.5) g/dL RDW 16.4 H (11.5-14.5) % Plt Count 280 (140-400) K/mcL MPV 10.4 (9.4-12.4) fL Immature Gran % 0.0 (0-4) % Seg Neutrophils % 32.5 % Lymphocytes % 51.2 % Monocytes % 11.6 % Eosinophils % 4.2 % Basophils % 0.5 % Neutrophils # 1.9 (1.6-8.9) K/mcL Lymphocytes # 3.0 (0.6-4.6) K/mcL Monocytes # 0.7 (0.0-1.3) K/mcL Eosinophils # 0.2 (0.0-0.6) K/mcL Basophils # 0.0 (0.0-0.2) K/mcL Sodium 137 (136-145) mEq/L Potassium 4.7 (3.5-5.1) mEq/L Chloride 102 (98-107) mEq/L Carbon Dioxide 30 H (23-29) mEq/L BUN 38 H (8-23) mg/dL Creatinine 1.16 (0.60-1.20) mg/dL Est GFR ( Amer) 54 L (> 60) Est GFR (Non-Af Amer) 45 L (> 60) BUN/Creatinine Ratio 33 H (6-26) Glucose 113 H (70-105) mg/dL Calculated Osmolality 294 (280-300) Calcium 10.4 H (8.6-10.3) mg/dL Phosphorus 2.6 L (2.7-4.5) mg/dL Magnesium 1.8 (1.6-2.6) mg/dL Troponin I 0.03 (< 0.04) ng/mL Urine Color Yellow (Yellow) Urine Clarity Clear (Clear) Urine pH 6.5 (5.0-8.0) pH Units Ur Specific [place] 1.019 (1.010-1.025) Urine Protein Negative (Neg-Trace) mg/dL Urine Glucose (UA) Normal (Normal) mg/dL Urine Ketones Negative (Negative) mg/dL Urine Blood Negative (Negative) Urine Nitrite Negative (Negative) Urine Bilirubin Negative (Negative) Urine Urobilinogen Normal (Normal) mg/dL Ur Leukocyte Esterase Moderate H (Negative) Urine Microscopic RBC 5-15 H (0-3) per hpf Urine Microscopic WBC 15-30 H (0-3) per hpf Ur Squamous Epith Cells Many H (None-Few) per lpf Urine Bacteria None Seen (None-Few) per hpf Hyaline Casts None Seen (None-Few) per lpf Ur Culture Indicated? NO. A (NO) - Radiology Data Radiology results reviewed: Yes I reviewed the patient's radiology results. - EKG Data EKG attestation: Yes I reviewed and interpreted this EKG. EKG results narrative: EKG done at 1535 review myself and attending shows a atrial fibrillation rate of 96, QRS 117, QTC [address] changes no acute T-wave changes no other signs of ischemia. No signs of heart block, hypertrophy, heart strain. No WPW/ Brugada/HOCM. Patient is newly in A. fib when compared with old EKG done Attestation Statement - Attestation Attestation: I, Cedrick Vergara DO, examined this patient [id number] and my medical decision-making was reviewed with Dr. Jon Jackson, Resident Physician. I agree with the documented findings, disposition and treatment plan as described except to the extent set forth below. Please see my progress notes for details.
[2018-05-23] MEDS ORDERED: Naloxone 0.4 MG/ML INJ IVP PRN (17:43)
[2018-05-23] MEDS ORDERED: cefTRIAXone 2,000 MG in 0.9 % Sodium Chloride Mini Bag 100 ML IVPB SCH (18:00)
--- NOTE | 2018-05-23 18:27 | Internal Med History&Physical ---
Date of Encounter: 05/23/18 Time of Encounter: 18:21 Internal Medicine - H&P: HPI Chief complaint: Afib with RVR Admitted From: Home Plans for Post Hospital Care: Home History of present illness: Ms. Castaneda is a 82 year old female with history of Afib s/p cardio version on xarelto, HFpef 70-75% presented to the ED from cardiology office with palpitations. as per patient she was seen at her cardiology office for routine check up adn was found to be an atrial fibrillation with RVR. She usually takes her Rhythmol every 8 hours however she was told by her optimization consultant today on her follow-up visit to discontinue the medication. She was told to come to [facility] for admission so the cardiology team can reconcile her atrial fibrillation medications. Currently she denies fever, chills, URI symptoms, palpitations, chest pain, SOB , N/V/D. she denies dysuria, frequency, LOC, syncope she is compliant with all her medications. Past Med Surg Social Fam HX - Past Medical History Medical history: atrial fibrillation, CHF, GERD, hyperlipidemia, hypertension, renal disease, other Additional medical history: MYASTHENIA GRAVIS Psychiatric history: anxiety - Past Surgical History Surgical History: cataract, knee replacement, other Additional surgical history: RIGHT LUNG MASS BENIGN - Social History Smoking Status: Never smoker Smokeless Tobacco Status: No Alcohol use: none Drug use: none - Family History Mother Adopted: No Family Member Ethnicity: Non- Living Status: Hx Family Cardiac Disorders: No Hx Family Respiratory Disorders: No Hx Family Cancer: No Hx Family GI Disorders: No Hx Family Endocrine Disorder: No Hx Family Neuromuscular Disorders: No Hx Family Neurologic Disorders: No Hx Family HEENT Disorders: No Hx Family Autoimmune Disorders: No Internal Medicine - H&P: Meds Allopurinol [Zyloprim 100 MG] 100 mg PO DAILY 02/18/17 [History] Cholecalciferol (Vitamin D3) [Vitamin D3] 2,000 unit PO 1200 02/18/17 [History] Docusate [Colace] 100 mg PO DAILY 02/18/17 [History] Fenofibrate Nanocrystallized [Triglide] 160 mg PO QPM 02/18/17 [History] Isosorbide MONOnitrate (24 HR) [Imdur] 60 mg PO DAILY 02/18/17 [History] Multivit-Min/Iron/Folic/Lutein [Centrum Silver Women Tablet] 1 tab PO DAILY 05/28 [History] Pantoprazole Sodium 40 mg PO 1200 02/18/17 [History] Polyethylene Glycol 3350 [MiraLAX bowel prep] 17 gm PO DAILY 02/18/17 [History] Pyridostigmine Br [Mestinon] 60 mg PO BID 02/18/17 [History] Rivaroxaban [Xarelto] 15 mg PO QPM 02/18/17 [History] Propafenone [Rhythmol] 225 mg PO Q8H #90 tab 04/02/17 [Rx] Furosemide [Lasix] 10 mg PO DAILY #15 tablet 06/20/17 [Rx] Cholecalciferol (D-3) [Vitamin D] 3,000 unit PO QAM 05/23/18 [History] Ranitidine HCl [Acid Interactive Media Marketing Specialist] 150 mg PO BID 05/23/18 [History] 3 Allergy/AdvReac Type Severity Reaction Status Date / Time prednisone AdvReac Palpitation Verified 05/23/18 18:11 s [id number] Reductase AdvReac Weakness Verified 05/23/18 18:11 Inhibitor [Statins] All Systems PM: review of systems was performed and is negative for pertinent findings except as documented above in the HPI. - Constitutional Vitals: Temp Pulse Resp BP Pulse Ox 98.5 F 90 20 118/78 100 05/23/18 15:18 05/23/18 17:30 05/23/18 17:30 05/23/18 17:30 05/23/18 17:30 Exam: General: Patient is alert, oriented, no acute distress, thin Head: atraumatic, normocephalic, Eye: normal appearance, PERRL, no scleral icterus, no conjunctival injection ENT: mucous membranes moist, normal external ear exam Neck: normal inspection, trachea midline, full ROM, no carotid bruits Chest: normal inspection, symmetric chest rise Respiratory: Good respiratory effort. Bilateral breath sounds are clear without wheezing, crackles, or rhonchi. Cardiovascular: irregularly irregular s1 and s2 No clicks, rubs, gallops, or murmors. Abdomen: Bowel sounds present normoactive x-4 quadrants. Abdomen is soft, nondistended. no Epigastric tenderness. No guarding or rebound. No organomegaly noted, musculoskeletal: Spontaneously moving all extremities. no edema, no calf tenderness Skin: warm, dry, intact. Neuro: Alert and oriented x4. Sensation light touch intact. Cranial nerves 2- 12 is intact. Not aphasic Psych: Patient's affect is normal Internal Med - H&P Results - Labs CBC & Chem 7: 05/23/18 15:38 05/23/18 15:38 Labs: Short CBC 05/23/18 Range/Units 15:38 WBC 5.8 (4.3-11.1) K/mcL Hgb 9.8 L (11.5-15.4) g/dL Hct 27.9 L (35.3-44.9) % Plt Count 280 (140-400) K/mcL Neutrophils # 1.9 (1.6-8.9) K/mcL BMP 05/23/18 15:38 Sodium 137 Potassium 4.7 Chloride 102 Carbon Dioxide 30 H BUN 38 H Creatinine 1.16 Glucose 113 H Calcium 10.4 H Cardiac Enzymes 05/23/18 Range/Units 15:38 Troponin I 0.03 (< 0.04) ng/mL Urine 05/23/18 Range/Units 16:44 Urine Color Yellow (Yellow) Urine Clarity Clear (Clear) Urine pH 6.5 (5.0-8.0) pH Units Ur Specific [place] 1.019 (1.010-1.025) Urine Protein Negative (Neg-Trace) mg/dL Urine Glucose (UA) Normal (Normal) mg/dL - Impressions ITS Impressions Chest X-Ray 05/23/18 15:48 IMPRESSION: 1. Mildly enlarged cardiac silhouette. 2. Otherwise, no convincing acute cardiopulmonary abnormality. 3. Large hiatal hernia. D/ / Gildardo Rodrigues MD / Gildardo Rodrigues MD Interpreting Provider: Gildardo Rodrigues MD - Assessment and plan (1) Atrial fibrillation with rapid ventricular response Current Visit: No Status: Acute Assessment and plan: rhythmol held as per cardiology recommendations cardiology on board will follow recommendations currently rate is controlled continue xarelto troponin negative TSH ordered UA- dirty- no dysuria or frequency - will hold off of Abx magnesium WNL will replace phosphorus (2) Hypophosphatemia Current Visit: Yes Status: Acute Assessment and plan: will replaced phosphorus- follow in AM (3) Anemia Current Visit: No Status: Acute Assessment and plan: chronic macrocytic anemia H/H at base line ( rangers between 9-10) continue to monitor H/H will send B12 and folic acid level Qualifiers: Anemia type: due to chronic kidney disease Chronic kidney disease stage: stage 3 (moderate) Qualified Code(s): N18.3 - Chronic kidney disease, stage 3 (moderate); D63.1 - Anemia in chronic kidney disease (4) Hypercalcemia Current Visit: Yes Status: Acute Assessment and plan: mild hypercalcemia 10.4 was taking 3000 units of vitamin D will check vitamin D level also has been unable to hydrate today due to her doctor's appointments follow the calcium levels in AM (5) DVT prophylaxis Current Visit: Yes Status: Acute Assessment and plan: on xarelto - Time Spent With Patient Total time spent is greater than 50% in coordination of care (as documented) at patient's floor/unit and/or counseling patient:
[2018-05-23] MEDS: *HR* Rivaroxaban 15 MG TABLET PO SCH (21:10)
[2018-05-23] MEDS: Pyridostigmine Br 60 MG TABLET PO SCH (21:10)
[2018-05-23] MEDS: Famotidine 20 MG TABLET PO SCH (21:10)
[2018-05-24 01:15] LABS: Basophils % 0.3 %; Eosinophils # 0.3 K/mcL (0.0-0.6); Hematocrit 24.3 % (35.3-44.9); Hemoglobin 8.5 g/dL (11.5-15.4); Immature Granulocytes % 0.1 % (0-4); Lymphocytes # 3.6 K/mcL (0.6-4.6); Lymphocytes % 52.7 %; Mean Corpuscular Hemoglobin 37.9 pg (28.0-33.3); Mean Corpuscular Volume 108.5 fL (83.0-100.0); Mean Platelet Volume 10.3 fL (9.4-12.4); Monocytes # 0.9 K/mcL (0.0-1.3); Monocytes % 13.3 %; Platelet Count 248 K/mcL (140-400); Red Blood Count 2.24 M/mcL (3.82-4.97); Red Cell Distribution Width 16.4 % (11.5-14.5); Segmented Neutrophils % 29.6 %
[2018-05-24 01:30] LABS: Albumin 3.1 g/dL (3.5-5.7); Albumin/Globulin Ratio 1.4 (1.1-2.2); Bilirubin,Total 0.5 mg/dL (0.3-1.0); Calcium 9.6 mg/dL (8.6-10.3); Chol/HDL Ratio 2.3 (0-4.9); Globulin 2.2 g/dL (2.4-3.5); Phosphorous 4.3 mg/dL (2.7-4.5); Potassium 4.3 mEq/L (3.5-5.1); Total Protein 5.3 g/dL (6.4-8.9)
[2018-05-24 01:55] LABS: Vitamin B12 404 pg/mL (250-1100)
[2018-05-24 01:56] LABS: Folate > 22.3 ng/mL (3.0-16.0)
[2018-05-24 02:16] LABS: Bilirubin,Urine Negative (Negative); Blood,Urine Negative (Negative); Clarity,Urine Clear (Clear); Color,Urine Yellow (Yellow); Glucose,Urine (UA) Normal (Normal); Ketones,Urine Negative (Negative); Leukocyte Esterase,Urine Small (Negative); Nitrite,Urine Negative (Negative); PH,Urine 6.5 pH Units (5.0-8.0); Protein,Urine Negative (Neg-Trace); Specific Gravity,Urine 1.017 (1.010-1.025); Urobilinogen,Urine Normal (Normal)
[2018-05-24 02:18] LABS: Bacteria,Urine None Seen per hpf (None-Few); Hyaline Casts,Urine None Seen per lpf (None-Few); Squamous Epithelial Cell,Urine Many per lpf (None-Few)
[2018-05-24] MEDS: Isosorbide MONOnitrate (24 HR) 60 MG TAB.ER.24H PO SCH (08:06)
[2018-05-24] MEDS: Pyridostigmine Br 60 MG TABLET PO SCH ×2 (08:06→20:59)
[2018-05-24] MEDS: Cholecalciferol (D-3) 1,000 UNIT TABLET PO SCH (08:06)
[2018-05-24] MEDS: Multivit/Ca/Min/Fe/FA 1 TAB TABLET PO SCH (08:06)
[2018-05-24] MEDS: Furosemide 20 MG TABLET PO SCH (08:07)
--- NOTE | 2018-05-24 09:12 | Internal Med Progress Note ---
Hospitalist Progress Note - Encounter Date of Encounter: 05/24/18 Time of Encounter: 08:59 - Subjective Interval History: Patient seen at bedside, Denies SOB CP or palpitations at this time. - Exam Vitals: Temp Pulse Resp BP Pulse Ox 98.5 F 111 16 115/70 94 05/24/18 06:41 05/24/18 06:41 05/24/18 06:41 05/24/18 06:41 05/24/18 08:18 Exam: General: Patient is alert, oriented, no acute distress, thin Head: atraumatic, normocephalic, Eye: normal appearance, PERRL, no scleral icterus, no conjunctival injection ENT: mucous membranes moist, normal external ear exam Neck: normal inspection, trachea midline, full ROM, no carotid bruits Chest: normal inspection, symmetric chest rise Respiratory: Good respiratory effort. Bilateral breath sounds are clear without wheezing, crackles, or rhonchi. Cardiovascular: irregularly irregular s1 and s2 No clicks, rubs, gallops, or murmors. Abdomen: Bowel sounds present normoactive x-4 quadrants. Abdomen is soft, nondistended. no Epigastric tenderness. No guarding or rebound. No organomegaly noted, musculoskeletal: Spontaneously moving all extremities. no edema, no calf tenderness Skin: warm, dry, intact. Neuro: Alert and oriented x4. Sensation light touch intact. Cranial nerves 2- 12 is intact. Not aphasic Psych: Patient's affect is normal - Assessment and Plan (1) Atrial fibrillation with rapid ventricular response Current Visit: No Status: Acute Assessment and Plan: rhythmol held as per cardiology recommendations cardiology on board will follow recommendations currently rate is controlled continue xarelto troponin negative TSH ordered UA- dirty- no dysuria or frequency - will hold off of Abx magnesium WNL will replace phosphorus 05/24 No CP or SOB cont Afib on monitor rhythmol held as per cardiology recommendations cardiology on board will follow recommendations currently rate is controlled continue xarelto troponin negative (2) Anemia Current Visit: No Status: Acute Assessment and Plan: chronic macrocytic anemia H/H at base line ( rangers between 9-10) continue to monitor H/H will send B12 and folic acid level 05/24 Hgb little low today We will monitor closely she is on Xarelto will check anemia panel, if cont to drop will check stool (3) Hypophosphatemia Current Visit: Yes Status: Acute Assessment and Plan: will replaced phosphorus- follow in AM 05/24 WNL today will cont to monitor and replace as needed (4) Hypercalcemia Current Visit: Yes Status: Acute Assessment and Plan: mild hypercalcemia 10.4 was taking 3000 units of vitamin D will check vitamin D level also has been unable to hydrate today due to her doctor's appointments follow the calcium levels in AM 05/24 WNL today will cont to monitor (5) DVT prophylaxis Current Visit: Yes Status: Acute Assessment and Plan: on xarelto - Time Spent with Patient Total time spent is greater than 50% in coordination of care (as documented) at patient's floor/unit and/or counseling patient: Internal Medicine: Result - Labs CBC & Chem 7: 05/24/18 00:45 05/24/18 00:45 Labs: Short CBC 05/24/18 Range/Units 00:45 WBC 6.8 (4.3-11.1) K/mcL Hgb 8.5 L (11.5-15.4) g/dL Hct 24.3 L (35.3-44.9) % Plt Count 248 (140-400) K/mcL Neutrophils # 2.0 (1.6-8.9) K/mcL BMP 05/24/18 00:45 Sodium 136 Potassium 4.3 Chloride 102 Carbon Dioxide 32 H BUN 41 H Creatinine 1.34 H Glucose 98 Calcium 9.6 Cardiac Enzymes 05/24/18 05/24/18 Range/Units 00:45 06:26 Troponin I 0.03 0.03 (< 0.04) ng/mL Liver Function 05/24/18 Range/Units 00:45 Total Bilirubin 0.5 (0.3-1.0) mg/dL AST 22 (13-39) Units/L ALT 14 (7-52) Units/L Alkaline Phosphatase 61 (34-104) Units/L Albumin 3.1 L (3.5-5.7) g/dL Urine 05/24/18 Range/Units 02:07 Urine Color Yellow (Yellow) Urine Clarity Clear (Clear) Urine pH 6.5 (5.0-8.0) pH Units Ur Specific [place] 1.017 (1.010-1.025) Urine Protein Negative (Neg-Trace) mg/dL Urine Glucose (UA) Normal (Normal) mg/dL Consult Discharge Plan - Plan Referrals: Carlos Newman MD [Primary Care Provider] - (2) Anemia Qualifiers: Anemia type: due to chronic kidney disease Chronic kidney disease stage: stage 3 (moderate) Qualified Code(s): N18.3 - Chronic kidney disease, stage 3 ( moderate); D63.1 - Anemia in chronic kidney disease
--- NOTE | 2018-05-24 14:12 | Cardiology Consult Note ---
Date of Encounter: 05/24/18 Time of Encounter: 14:11 Assessment and Plan (1) Atrial fibrillation Current Visit: Yes Status: Chronic Paroxysmal atrial fibrillation despite Rythmol therapy. Rythmol discontinued yesterday. Aside from fatigue with RVR, denies associated palpitations, lightheadedness, near-syncope, or syncope. We discussed options, including rhythm versus rate control. For now, we will focus on rate control as Rythmol washes out. Check TTE. Qualifiers: Atrial fibrillation type: paroxysmal Qualified Code(s): I48.0 - Paroxysmal atrial fibrillation Discussion w patient/family: The assessment and plan as outlined above was discussed with the patient and/or family members who expressed understanding and agreement. All questions were answered. Thank you for involving us in the care of your patient. Please call with any questions. History of Present Illness Consult date: 05/24/18 Requesting physician: Karlie Quezada Consult reason: AF Chief complaint: AF History of present illness: Ms. 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 Patient diagnosed with atrial fibrillation with RVR. Patient states she is unaware of atrial fibrillation. She denies palpitations, lightheadedness, near-syncope, or syncope. In hindsight, she has noticed fatigue over the last few months. No chest pain or discomfort reported. Rythmol discontinued and ER. Anticoagulation has been discontinued. Past Med Surg Social Fam HX - Past Medical History Medical history: atrial fibrillation, CHF, GERD, hyperlipidemia, hypertension, renal disease, other Additional medical history: MYASTHENIA GRAVIS Psychiatric history: anxiety - Past Surgical History Surgical History: cataract, knee replacement, other Additional surgical history: RIGHT LUNG MASS BENIGN - Social History Smoking Status: Never smoker Smokeless Tobacco Status: No Alcohol use: none Drug use: none - Family History Mother Adopted: No Family Member Ethnicity: Non- Living Status: Cause of : cerebral bleed Hx Family Cardiac Disorders: No Hx Family Respiratory Disorders: No Hx Family Cancer: No Hx Family GI Disorders: No Hx Family Genitourinary Disorders: No Hx Family Endocrine Disorder: No Hx Family Musculoskeletal Disorders: No Hx Family Neuromuscular Disorders: No Hx Family Neurologic Disorders: No Hx Family HEENT Disorders: No Hx Family Autoimmune Disorders: No Hx Family Reproductive Disorders: No Hx Family Psychosocial Disorders: No Hx Family Medical Disorders: No Father History Unknown: Yes Living Status: Age at : 86 Medications and Allergies Allopurinol [Zyloprim 100 MG] 100 mg PO DAILY 02/18/17 [History] Cholecalciferol (Vitamin D3) [Vitamin D3] 2,000 unit PO 1200 02/18/17 [History] Docusate [Colace] 100 mg PO DAILY 02/18/17 [History] Fenofibrate Nanocrystallized [Triglide] 160 mg PO QPM 02/18/17 [History] Isosorbide MONOnitrate (24 HR) [Imdur] 60 mg PO DAILY 02/18/17 [History] Multivit-Min/Iron/Folic/Lutein [Centrum Silver Women Tablet] 1 tab PO DAILY 05/28 [History] Pantoprazole Sodium 40 mg PO 1200 02/18/17 [History] Polyethylene Glycol 3350 [MiraLAX bowel prep] 17 gm PO DAILY 02/18/17 [History] Pyridostigmine Br [Mestinon] 60 mg PO BID 02/18/17 [History] Rivaroxaban [Xarelto] 15 mg PO QPM 02/18/17 [History] Propafenone [Rhythmol] 225 mg PO Q8H #90 tab 04/02/17 [Rx] Furosemide [Lasix] 10 mg PO DAILY #15 tablet 06/20/17 [Rx] Cholecalciferol (D-3) [Vitamin D] 3,000 unit PO QAM 05/23/18 [History] Ranitidine HCl [Acid Promotions Firm Accounts Manager] 150 mg PO BID 05/23/18 [History] 3 Allergy/AdvReac Type Severity Reaction Status Date / Time prednisone AdvReac Palpitation Verified 05/23/18 18:11 s Ddhivau-Pyy-Juy Reductase AdvReac Weakness Verified 05/23/18 18:11 Inhibitor [Statins] All Systems Review: The remainder of the systems were reviewed and are negative - Cardiovascular Cardiovascular: as per HPI Physical Examination Vital Signs, Last 4 Hours Temp Pulse Resp BP Pulse Ox 05/24/18 11:27 98.0 F 109 17 122/72 97 General: Conversant, No Apparent Distress HEENT: Atraumatic, Normocephaly, Mucus Membranes Moist Neck: No JVD Cardiac: Other (Irregular rate and rhythm. Mild systolic murmur.) Lungs: Normal Breath Sounds, No Wheeze, Rales, Rhonchi Neuro: Alert and responsive, No focal deficits noted Abdomen: Soft, Non-Tender Skin: No rashes noted on visualized skin Musculoskeletal: No Chest Wall Tenderness Extremities: No Clubbing, No Cyanosis, No Edema Results 05/24/18 00:45 05/24/18 00:45 Lab Results 05/24/18 05/24/18 05/24/18 00:45 00:45 00:45 WBC 6.8 Hgb 8.5 L Hct 24.3 L Plt Count 248 Sodium 136 Potassium 4.3 Chloride 102 Carbon Dioxide 32 H BUN 41 H Creatinine 1.34 H Glucose 98 Calcium 9.6 Total Bilirubin 0.5 AST 22 ALT 14 Alkaline Phosphatase 61 Troponin I 0.03 05/24/18 06:26 WBC Hgb Hct Plt Count Sodium Potassium Chloride Carbon Dioxide BUN Creatinine Glucose Calcium Total Bilirubin AST ALT Alkaline Phosphatase Troponin I 0.03 - Imaging and Cardiology Echo: report reviewed Consult Discharge Plan - Plan Referrals: Carlos Newman MD [Primary Care Provider] -
[2018-05-24] MEDS ORDERED: *HR* Metoprolol 5 MG/5 ML VIAL IVP ONE (14:16)
[2018-05-24] MEDS: Metoprolol XL (24 HR) Succ 25 MG TAB.ER.24H PO SCH (14:38)
[2018-05-24] MEDS: *HR* Rivaroxaban 15 MG TABLET PO SCH (17:17)
[2018-05-24] MEDS: Fenofibrate 54 MG TABLET PO SCH (17:17)
[2018-05-24] MEDS: Famotidine 20 MG TABLET PO SCH (20:59)
[2018-05-25 08:15] LABS: Basophils % 0.5 %; Eosinophils # 0.3 K/mcL (0.0-0.6); Eosinophils % 5.2 %; Hematocrit 23.8 % (35.3-44.9); Hemoglobin 8.5 g/dL (11.5-15.4); Lymphocytes # 3.1 K/mcL (0.6-4.6); Lymphocytes % 52.8 %; Mean Corpuscular HGB Conc 35.7 g/dL (31.6-35.5); Mean Corpuscular Hemoglobin 38.3 pg (28.0-33.3); Mean Corpuscular Volume 107.2 fL (83.0-100.0); Mean Platelet Volume 10.3 fL (9.4-12.4); Monocytes # 0.8 K/mcL (0.0-1.3); Monocytes % 12.9 %; Neutrophils # 1.7 K/mcL (1.6-8.9); Platelet Count 254 K/mcL (140-400); Red Blood Count 2.22 M/mcL (3.82-4.97); Red Cell Distribution Width 16.3 % (11.5-14.5); Segmented Neutrophils % 28.6 %
[2018-05-25 08:17] LABS: Immature Reticulocyte % 17.7 % (11.0-38.0); Retculocyte # 0.03 M/mcL (0.05-0.10); Reticulocyte % 1.4 % (1.6-2.8)
[2018-05-25 08:35] LABS: Calcium 9.3 mg/dL (8.6-10.3); Potassium 4.4 mEq/L (3.5-5.1)
[2018-05-25 08:41] LABS: % Iron Saturation 35 % (15-50); Iron 100 mcg/dL (50-170); Transferrin 206 mg/dL (203-362)
[2018-05-25 08:53] LABS: Ferritin 233 ng/mL (10-120)
[2018-05-25] MEDS: Metoprolol XL (24 HR) Succ 25 MG TAB.ER.24H PO SCH ×2 (09:02→21:20)
[2018-05-25] MEDS: Furosemide 20 MG TABLET PO SCH (09:02)
[2018-05-25] MEDS: Pyridostigmine Br 60 MG TABLET PO SCH ×2 (09:02→21:20)
[2018-05-25] MEDS: Multivit/Ca/Min/Fe/FA 1 TAB TABLET PO SCH (09:03)
[2018-05-25] MEDS: Cholecalciferol (D-3) 1,000 UNIT TABLET PO SCH (09:03)
[2018-05-25] MEDS: Isosorbide MONOnitrate (24 HR) 60 MG TAB.ER.24H PO SCH (09:04)
--- NOTE | 2018-05-25 11:11 | Internal Med Progress Note ---
Hospitalist Progress Note - Encounter Date of Encounter: 05/25/18 Time of Encounter: 11:11 - Subjective Interval History: Patient seen at bedside, Denies SOB CP or palpitations at this time. - Exam Vitals: Temp Pulse Resp BP Pulse Ox 97.8 F 97 18 126/47 95 05/25/18 07:13 05/25/18 07:13 05/25/18 07:13 05/25/18 07:13 05/25/18 07:13 Exam: General: Patient is alert, oriented, no acute distress, thin Head: atraumatic, normocephalic, Eye: normal appearance, PERRL, no scleral icterus, no conjunctival injection ENT: mucous membranes moist, normal external ear exam Neck: normal inspection, trachea midline, full ROM, no carotid bruits Chest: normal inspection, symmetric chest rise Respiratory: Good respiratory effort. Bilateral breath sounds are clear without wheezing, crackles, or rhonchi. Cardiovascular: irregularly irregular s1 and s2 No clicks, rubs, gallops, or murmors. Abdomen: Bowel sounds present normoactive x-4 quadrants. Abdomen is soft, nondistended. no Epigastric tenderness. No guarding or rebound. No organomegaly noted, musculoskeletal: Spontaneously moving all extremities. no edema, no calf tenderness Skin: warm, dry, intact. Neuro: Alert and oriented x4. Sensation light touch intact. Cranial nerves 2- 12 is intact. Not aphasic Psych: Patient's affect is normal - Assessment and Plan (1) Atrial fibrillation with rapid ventricular response Current Visit: No Status: Acute Assessment and Plan: rhythmol held as per cardiology recommendations cardiology on board will follow recommendations currently rate is controlled continue xarelto troponin negative TSH ordered UA- dirty- no dysuria or frequency - will hold off of Abx magnesium WNL will replace phosphorus 05/24 No CP or SOB cont Afib on monitor rhythmol held as per cardiology recommendations cardiology on board will follow recommendations currently rate is controlled continue xarelto troponin negative 05/25 Continues with no chest pain palpitations or shortness of breath. Continues to have A. fib on the monitor Rythmol has been stopped per cardiology Cardiology on board appreciate recommendations continue with Toprol XL- increased 25 mg twice daily Currently rate is controlled Continue with Xarelto (2) Anemia Current Visit: No Status: Acute Assessment and Plan: chronic macrocytic anemia H/H at base line ( rangers between 9-10) continue to monitor H/H will send B12 and folic acid level 05/24 Hgb little low today We will monitor closely she is on Xarelto will check anemia panel, if cont to drop will check stool 05/25 Stable at this time we will continue to monitor cont with Xarelto No active bleeding noted (3) Hypophosphatemia Current Visit: Yes Status: Acute Assessment and Plan: will replaced phosphorus- follow in AM 05/24 WNL today will cont to monitor and replace as needed (4) Hypercalcemia Current Visit: Yes Status: Acute Assessment and Plan: mild hypercalcemia 10.4 was taking 3000 units of vitamin D will check vitamin D level also has been unable to hydrate today due to her doctor's appointments follow the calcium levels in AM 05/24 WNL today will cont to monitor (5) DVT prophylaxis Current Visit: Yes Status: Acute Assessment and Plan: on xarelto - Time Spent with Patient Total time spent is greater than 50% in coordination of care (as documented) at patient's floor/unit and/or counseling patient: Internal Medicine: Result - Labs CBC & Chem 7: 05/25/18 07:21 05/25/18 07:21 Labs: Short CBC 05/25/18 Range/Units 07:21 WBC 6.0 (4.3-11.1) K/mcL Hgb 8.5 L (11.5-15.4) g/dL Hct 23.8 L (35.3-44.9) % Plt Count 254 (140-400) K/mcL Neutrophils # 1.7 (1.6-8.9) K/mcL BMP 05/25/18 07:21 Sodium 135 L Potassium 4.4 Chloride 103 Carbon Dioxide 31 H BUN 36 H Creatinine 1.12 Glucose 89 Calcium 9.3 Consult Discharge Plan - Plan Referrals: Carlos Newman MD [Primary Care Provider] - (2) Anemia Qualifiers: Anemia type: due to chronic kidney disease Chronic kidney disease stage: stage 3 (moderate) Qualified Code(s): N18.3 - Chronic kidney disease, stage 3 ( moderate); D63.1 - Anemia in chronic kidney disease
--- NOTE | 2018-05-25 13:50 | Cardiology Progress Note ---
Date of Encounter: 05/25/18 Time of Encounter: 13:48 Assessment and Plan (1) Atrial fibrillation Current Visit: Yes Status: Chronic Atrial fibrillation with RVR, now better rate control. Previously placed on Rythmol therapy. History suggests that she has been in atrial fibrillation for at least the last 2-3 months. She describes fluctuation in heart rates when she checks her vital signs at home, but denies any associated symptoms of palpitations etc. We discussed rhythm versus rate control. Given her apparent lack of awareness of atrial fibrillation, a rate control strategy seems reasonable. Heart rate is better controlled, but remains suboptimal. Increase Toprol-XL 25 mg twice daily. Monitor heart rate overnight. Continue anticoagulation. All questions were answered. Qualifiers: Atrial fibrillation type: paroxysmal Qualified Code(s): I48.0 - Paroxysmal atrial fibrillation Discussion w patient/family: The assessment and plan as outlined above was discussed with the patient and/or family members who expressed understanding and agreement. All questions were answered. Thank you for involving us in the care of your patient. Please call with any questions. Subjective Principal diagnosis: AF Interval history: Overall, patient reports she has done well since chest sleep. She denies palpitations, lightheadedness, near-syncope, or syncope. Heart rate has improved with initiation of beta amber therapy. No new issues to report. Creatinine has improved. Objective General: Conversant, No Apparent Distress HEENT: Atraumatic, Normocephaly, Mucus Membranes Moist Neck: No JVD Cardiac: Other (Irregular rate and rhythm. Mild murmur. ) Lungs: Normal Breath Sounds, No Wheeze, Rales, Rhonchi Neuro: Alert and responsive, No focal deficits noted Abdomen: Soft, Non-Tender Skin: No rashes noted on visualized skin Musculoskeletal: No Chest Wall Tenderness Extremities: No Clubbing, No Cyanosis, No Edema Results 05/25/18 07:21 05/25/18 07:21 Lab Results 05/25/18 05/25/18 07:21 07:21 WBC 6.0 Hgb 8.5 L Hct 23.8 L Plt Count 254 Sodium 135 L Potassium 4.4 Chloride 103 Carbon Dioxide 31 H BUN 36 H Creatinine 1.12 Glucose 89 Calcium 9.3 - Imaging and Cardiology Echo: report reviewed - EKG Interpretation EKG results cardiology: personally reviewed Consult Discharge Plan - Plan Referrals: Carlos Newman MD [Primary Care Provider] -
[2018-05-25] MEDS: Fenofibrate 54 MG TABLET PO SCH (17:33)
[2018-05-25] MEDS: *HR* Rivaroxaban 15 MG TABLET PO SCH (17:34)
[2018-05-25] MEDS: Acetaminophen 325 MG TABLET PO PRN (20:15)
[2018-05-25] MEDS: Famotidine 20 MG TABLET PO SCH (21:20)
[2018-05-26 04:29] LABS: Basophils % 0.5 %; Eosinophils # 0.5 K/mcL (0.0-0.6); Hematocrit 26.8 % (35.3-44.9); Hemoglobin 9.4 g/dL (11.5-15.4); Immature Granulocytes % 0.2 % (0-4); Lymphocytes # 3.7 K/mcL (0.6-4.6); Mean Corpuscular HGB Conc 35.1 g/dL (31.6-35.5); Mean Corpuscular Hemoglobin 38.4 pg (28.0-33.3); Mean Corpuscular Volume 109.4 fL (83.0-100.0); Mean Platelet Volume 10.7 fL (9.4-12.4); Monocytes # 0.9 K/mcL (0.0-1.3); Neutrophils # 1.5 K/mcL (1.6-8.9); Platelet Count 256 K/mcL (140-400); Red Blood Count 2.45 M/mcL (3.82-4.97); Red Cell Distribution Width 17.2 % (11.5-14.5); Segmented Neutrophils % 22.3 %
[2018-05-26 04:49] LABS: Calcium 9.6 mg/dL (8.6-10.3); Potassium 4.8 mEq/L (3.5-5.1)
[2018-05-26] MEDS: Multivit/Ca/Min/Fe/FA 1 TAB TABLET PO SCH (07:58)
[2018-05-26] MEDS: Furosemide 20 MG TABLET PO SCH (07:58)
[2018-05-26] MEDS: Pyridostigmine Br 60 MG TABLET PO SCH ×2 (07:58→20:55)
[2018-05-26] MEDS: Isosorbide MONOnitrate (24 HR) 60 MG TAB.ER.24H PO SCH (07:58)
[2018-05-26] MEDS: Metoprolol XL (24 HR) Succ 25 MG TAB.ER.24H PO SCH ×2 (07:58→20:55)
[2018-05-26] MEDS: Cholecalciferol (D-3) 1,000 UNIT TABLET PO SCH (07:59)
--- NOTE | 2018-05-26 08:33 | Cardiology Progress Note ---
Date of Encounter: 05/26/18 Time of Encounter: 08:30 Assessment and Plan (1) Atrial fibrillation Current Visit: Yes Status: Chronic Per Cardiology: Failed antiarrhythmic therapy with recurrent A. fib with RVR on Rythmol-- discontinued over the weekend. Now on rate control strategy and taking Toprol- XL 25 mg by mouth twice a day. Current systolic blood pressures 90s to 100s. Average heart rate on telemetry the past 12 hours 93. Troponins negative. Chest pain-free. We will decrease Imdur to 30 mg by mouth daily. Continue to monitor heart rates and blood pressures. No further recommendations. Have patient ambulate in the hallway and recommend PT consult. Cardiology will sign off, reconsult as needed, follow-up arranged. All questions answered. Patient verbalized understanding and agreed to plan. Remains anticoagulated with Xarelto 15mg PO daily, as known history of CKD stage IIIB, remains about baseline. History of anemia, H&H remains about baseline. Continue with anticoagulation and monitor cautiously. Denies any active bleeding or blood loss. Qualifiers: Atrial fibrillation type: paroxysmal Qualified Code(s): I48.0 - Paroxysmal atrial fibrillation Discussion w patient/family: The assessment and plan as outlined above was discussed with the patient who expressed understanding and agreement. All questions were answered. Thank you for involving us in the care of your patient. Please call with any questions. Subjective Principal diagnosis: AF Interval history: Patient reports overall improvement in shortness of breath at rest. She reports improvement in her edema to lower extremities. She denies any chest pain. Reports some mild occasional intermittent dizziness, however unchanged from baseline. Reports has not been up walking this weekend. Denies any active bleeding or blood loss. Reports overall feels much improved. Objective Vital Signs, Last 4 Hours Temp Pulse Resp Pulse Ox 05/26/18 06:37 97.7 F 91 18 99 Selected Entries 05/25/18 22:37 05/26/18 02:29 Blood Pressure 91/57 109/66 General: Conversant, No Apparent Distress HEENT: Atraumatic, Normocephaly, Mucus Membranes Moist Neck: No JVD, Normal carotid pulses Cardiac: No Murmur, Other (Irregularly irregular) Lungs: Normal Breath Sounds, No Wheeze, Rales, Rhonchi Neuro: Alert and responsive, No focal deficits noted Abdomen: Soft, Non-Tender Skin: No rashes noted on visualized skin Musculoskeletal: No Chest Wall Tenderness Extremities: No Clubbing, No Cyanosis, Normal Pulses, Other (Trace bilateral lower extremity edema-- significant improved from office visit last week) Results 05/26/18 03:08 05/26/18 03:08 Lab Results Laboratory Tests 11/20/17 11/20/17 05/23/18 15:05 15:40 15:38 Hgb 9.8 L 9.8 L Hct 27.9 L 27.9 L Creatinine Est GFR (Non-Af Amer) 39 L Magnesium Troponin I B-Natriuretic Peptide TSH 05/23/18 05/23/18 05/23/18 15:38 18:09 18:09 Hgb Hct Creatinine Est GFR (Non-Af Amer) Magnesium 1.8 Troponin I 0.03 0.03 B-Natriuretic Peptide 696 H TSH 05/23/18 05/24/18 05/24/18 18:09 00:45 06:26 Hgb Hct Creatinine Est GFR (Non-Af Amer) Magnesium Troponin I 0.03 0.03 B-Natriuretic Peptide TSH 1.445 05/26/18 05/26/18 03:08 03:08 Hgb 9.4 L Hct 26.8 L Creatinine 1.22 H Est GFR (Non-Af Amer) 42 L Magnesium Troponin I B-Natriuretic Peptide TSH ITS Impressions Chest X-Ray 05/23/18 15:48 IMPRESSION: 1. Mildly enlarged cardiac silhouette. 2. Otherwise, no convincing acute cardiopulmonary abnormality. 3. Large hiatal hernia. D/ / Gildardo Rodrigues MD / Gildardo Rodrigues MD Interpreting Provider: Gildardo Rodrigues MD Echocardiogram 05/23/18 17:48 Impressions: LVEF 65%. Normal LV chamber size and function. Mild concentric left ventricular hypertrophy. Indeterminate diastolic function. Normal right ventricular structure and function. Moderately dilated left atrium. Mild mitral regurgitation. Mild tricuspid regurgitation. Intake & Output 05/23/18 05/24/18 05/25/18 05/26/18 23:59 23:59 23:59 23:59 Intake Total 100 / 100 360 / 360 600 / 600 Output Total 850 / 850 300 / 300 Balance 100 / 100 -490 / -490 300 / 300 Weight 62.6 kg 62.5 kg 64.9 kg Active Medications Acetaminophen (Tylenol) 650 mg PO Q6HR PRN PRN Reason: Mild to moderate pain Stop: 11/24/18 19:46 Last Admin: 05/25/18 20:15 Dose: 650 mg Allopurinol (Zyloprim) 100 mg PO DAILY MARISELA Stop: 11/23/18 09:01 Last Admin: 05/26/18 07:59 Dose: 100 mg Docusate Sodium (Colace) 100 mg PO DAILY MARISELA PRN Reason: Protocol Stop: 11/23/18 09:01 Last Admin: 05/26/18 07:58 Dose: 100 mg Famotidine (Pepcid) 20 mg PO HS MARISELA Stop: 11/22/18 21:01 Last Admin: 05/25/18 21:20 Dose: 20 mg Fenofibrate (Tricor) 162 mg PO QPM MARISELA Stop: 11/23/18 18:01 Last Admin: 05/25/18 17:33 Dose: 162 mg Furosemide (Lasix) 10 mg PO DAILY MARISELA Stop: 11/23/18 09:01 Last Admin: 05/26/18 07:58 Dose: 10 mg Isosorbide Mononitrate (Imdur) 60 mg PO DAILY MARISELA Stop: 11/23/18 09:01 Last Admin: 05/26/18 07:58 Dose: 60 mg Metoprolol Succinate (Toprol Xl) 25 mg PO BID MARISELA Stop: 11/24/18 21:01 Last Admin: 05/26/18 07:58 Dose: 25 mg Multivitamins/Calcium (Thera M Plus) 1 tab PO DAILY MARISELA Stop: 11/23/18 09:01 Last Admin: 05/26/18 07:58 Dose: 1 tab Naloxone HCl (Narcan) 0.4 mg IVP Q2MIN PRN PRN Reason: SEE COMMENTS Stop: 11/22/18 17:44 Omeprazole (Prilosec) 40 mg PO 1200 MARISELA Stop: 11/23/18 12:01 Last Admin: 05/25/18 12:05 Dose: 40 mg Polyethylene Glycol (Miralax) 17 gm PO DAILY MARISELA Stop: 11/23/18 09:01 Last Admin: 05/26/18 07:58 Dose: 17 gm Pyridostigmine [place] (Mestinon) 60 mg PO BID [facility] Stop: 11/22/18 21:01 Last Admin: 05/26/18 07:58 Dose: 60 mg Rivaroxaban (Xarelto) 15 mg PO QPM [facility] Stop: 11/22/18 18:24 Last Admin: 05/25/18 17:34 Dose: 15 mg Vitamin D (Vitamin D) 1,000 unit PO QAM MARISELA Stop: 11/23/18 09:01 Last Admin: 05/26/18 07:59 Dose: 1,000 unit - Imaging and Cardiology Chest Xray: report reviewed Echo: report reviewed - EKG Interpretation EKG results cardiology: other (Telemetry reviewed with average heart rate passed 12 hours 93, longest pause 2.2 seconds, atrial fibrillation) Consult Discharge Plan - Plan Referrals: Carlos Newman MD [Primary Care Provider] -
[2018-05-26] MEDS ORDERED: 0.9 % Sodium Chloride 1,000 ML IVC SCH (10:45)
--- NOTE | 2018-05-26 13:20 | Electrocardiograph Report ---
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
--- NOTE | 2018-05-26 16:44 | Internal Med Progress Note ---
Hospitalist Progress Note - Encounter Date of Encounter: 05/26/18 Time of Encounter: 13:00 - Subjective Interval History: Patient seen at bedside, uneventful night. Denies SOB CP or palpitations at this time. Patient was seen by cardiology -okay to discharge and follow-up as outpatient. Patient is requesting PT evaluation expressing fears of falling feeling of unsteadiness. PT evaluation ordered - Exam Vitals: Temp Pulse Resp BP Pulse Ox 97.7 F 81 20 109/71 98 05/26/18 15:41 05/26/18 15:41 05/26/18 15:41 05/26/18 10:53 05/26/18 15:41 Exam: General: Patient is alert, oriented, no acute distress, thin Head: atraumatic, normocephalic, Eye: normal appearance, PERRL, no scleral icterus, no conjunctival injection ENT: mucous membranes moist, normal external ear exam Neck: normal inspection, trachea midline, full ROM, no carotid bruits Chest: normal inspection, symmetric chest rise Respiratory: Good respiratory effort. Bilateral breath sounds are clear without wheezing, crackles, or rhonchi. Cardiovascular: irregularly irregular s1 and s2 No clicks, rubs, gallops, or murmors. Abdomen: Bowel sounds present normoactive x-4 quadrants. Abdomen is soft, nondistended. no Epigastric tenderness. No guarding or rebound. No organomegaly noted, musculoskeletal: Spontaneously moving all extremities. no edema, no calf tenderness Skin: warm, dry, intact. Neuro: Alert and oriented x4. Sensation light touch intact. Cranial nerves 2- 12 is intact. Not aphasic Psych: Patient's affect is normal - Assessment and Plan (1) Atrial fibrillation with rapid ventricular response Current Visit: No Status: Acute Assessment and Plan: rhythmol held as per cardiology recommendations cardiology on board will follow recommendations currently rate is controlled continue xarelto troponin negative TSH ordered UA- dirty- no dysuria or frequency - will hold off of Abx magnesium WNL will replace phosphorus 05/24 No CP or SOB cont Afib on monitor rhythmol held as per cardiology recommendations cardiology on board will follow recommendations currently rate is controlled continue xarelto troponin negative 05/25 Continues with no chest pain palpitations or shortness of breath. Continues to have A. fib on the monitor Rythmol has been stopped per cardiology Cardiology on board appreciate recommendations continue with Toprol XL- increased 25 mg twice daily Currently rate is controlled Continue with Xarelto 05/26 No chest pain palpitations or shortness of breath overnight. He continues to have atrial fibrillation on monitor. Average heart rate on telemetry past 12 hours 93 Cardiology was consulted increased Imdur to 30 mg Will continue with Toprol-XL 25 mg twice a day-monitor blood pressure currently systolic ranging 90s to 100s Continue with Cymbalta 15 mg by mouth daily Follow-up with cardiology as outpatient (2) Anemia Current Visit: No Status: Acute Assessment and Plan: chronic macrocytic anemia H/H at base line ( rangers between 9-10) continue to monitor H/H will send B12 and folic acid level 05/24 Hgb little low today We will monitor closely she is on Xarelto will check anemia panel, if cont to drop will check stool 05/25 Stable at this time we will continue to monitor cont with Xarelto No active bleeding noted 05/26 Hemoglobin has been stable we will continue with several Tylenol and monitor for any active bleeding (3) Hypophosphatemia Current Visit: Yes Status: Acute Assessment and Plan: will replaced phosphorus- follow in AM 05/24 WNL today will cont to monitor and replace as needed 05/26 Within normal limits. Monitor placed as needed (4) Hypercalcemia Current Visit: Yes Status: Acute Assessment and Plan: mild hypercalcemia 10.4 was taking 3000 units of vitamin D will check vitamin D level also has been unable to hydrate today due to her doctor's appointments follow the calcium levels in AM 05/24 WNL today will cont to monitor 05/26 stable continue to monitor and replace (5) DVT prophylaxis Current Visit: Yes Status: Acute Assessment and Plan: on xarelto - Time Spent with Patient Total time spent is greater than 50% in coordination of care (as documented) at patient's floor/unit and/or counseling patient: Internal Medicine: Result - Labs CBC & Chem 7: 05/26/18 03:08 05/26/18 03:08 Labs: Short CBC 05/26/18 Range/Units 03:08 WBC 6.5 (4.3-11.1) K/mcL Hgb 9.4 L (11.5-15.4) g/dL Hct 26.8 L (35.3-44.9) % Plt Count 256 (140-400) K/mcL Neutrophils # 1.5 L (1.6-8.9) K/mcL BMP 05/25/18 05/26/18 16:12 03:08 Sodium 136 Potassium 4.8 Chloride 104 Carbon Dioxide 28 BUN 43 H Creatinine 1.22 H Glucose 89 Calcium 9.0 9.6 Consult Discharge Plan - Plan Referrals: Carlos Newman MD [Primary Care Provider] - (2) Anemia Qualifiers: Anemia type: due to chronic kidney disease Chronic kidney disease stage: stage 3 (moderate) Qualified Code(s): N18.3 - Chronic kidney disease, stage 3 ( moderate); D63.1 - Anemia in chronic kidney disease
[2018-05-26] MEDS: Fenofibrate 54 MG TABLET PO SCH (17:18)
[2018-05-26] MEDS: *HR* Rivaroxaban 15 MG TABLET PO SCH (17:20)
[2018-05-26] MEDS: Acetaminophen 325 MG TABLET PO PRN (20:55)
[2018-05-26] MEDS: Famotidine 20 MG TABLET PO SCH (20:55)
[2018-05-27 05:15] LABS: Basophils # 0.1 K/mcL (0.0-0.2); Basophils % 0.9 %; Eosinophils # 0.6 K/mcL (0.0-0.6); Eosinophils % 10.3 %; Hematocrit 24.9 % (35.3-44.9); Hemoglobin 8.9 g/dL (11.5-15.4); Immature Granulocytes % 0.2 % (0-4); Lymphocytes % 54.4 %; Mean Corpuscular HGB Conc 35.7 g/dL (31.6-35.5); Mean Corpuscular Hemoglobin 38.5 pg (28.0-33.3); Mean Corpuscular Volume 107.8 fL (83.0-100.0); Mean Platelet Volume 11.1 fL (9.4-12.4); Monocytes # 0.7 K/mcL (0.0-1.3); Monocytes % 13.1 %; Neutrophils # 1.2 K/mcL (1.6-8.9); Platelet Count 234 K/mcL (140-400); Red Blood Count 2.31 M/mcL (3.82-4.97); Red Cell Distribution Width 16.3 % (11.5-14.5); Segmented Neutrophils % 21.1 %
[2018-05-27 05:35] LABS: Calcium 9.2 mg/dL (8.6-10.3); Potassium 4.8 mEq/L (3.5-5.1)
[2018-05-27] MEDS: Metoprolol XL (24 HR) Succ 25 MG TAB.ER.24H PO SCH ×2 (08:26→19:54)
[2018-05-27] MEDS: Pyridostigmine Br 60 MG TABLET PO SCH ×2 (08:56→19:54)
[2018-05-27] MEDS: Multivit/Ca/Min/Fe/FA 1 TAB TABLET PO SCH (08:56)
[2018-05-27] MEDS: Furosemide 20 MG TABLET PO SCH (08:56)
[2018-05-27] MEDS: Cholecalciferol (D-3) 1,000 UNIT TABLET PO SCH (08:57)
[2018-05-27] MEDS ORDERED: Isosorbide MONOnitrate (24 HR) 30 MG TAB.ER.24H PO SCH (09:00)
--- NOTE | 2018-05-27 11:09 | Internal Med Progress Note ---
Hospitalist Progress Note - Encounter Date of Encounter: 05/27/18 Time of Encounter: 11:07 - Subjective Interval History: Reporting rapid HR, palpitations, fatigue and dyspnea. - Exam Vitals: Temp Pulse Resp BP Pulse Ox 97.6 F 78 16 108/71 100 05/27/18 10:46 05/27/18 10:46 05/27/18 10:46 05/27/18 10:46 05/27/18 10:46 Exam: General: Patient is alert, oriented, mild distress, thin Head: atraumatic, normocephalic, Eye: normal appearance, PERRL, no scleral icterus, no conjunctival injection ENT: mucous membranes moist, normal external ear exam Neck: normal inspection, trachea midline, full ROM, no carotid bruits Chest: normal inspection, symmetric chest rise Respiratory: Good respiratory effort. Bilateral breath sounds are clear without wheezing, crackles, or rhonchi. Dyspneic with exertion Cardiovascular: irregularly irregular s1 and s2 No clicks, rubs, gallops, or murmors. Abdomen: Bowel sounds present normoactive x-4 quadrants. Abdomen is soft, nondistended. no Epigastric tenderness. No guarding or rebound. No organomegaly noted, musculoskeletal: Spontaneously moving all extremities. no edema, no calf tenderness Skin: warm, dry, intact. Neuro: Alert and oriented x4. Sensation light touch intact. Cranial nerves 2- 12 is intact. Not aphasic Psych: appears Anxious - Assessment and Plan (1) Atrial fibrillation with rapid ventricular response Current Visit: No Status: Acute Assessment and Plan: rhythmol held as per cardiology recommendations cardiology on board will follow recommendations currently rate is controlled continue xarelto troponin negative TSH ordered UA- dirty- no dysuria or frequency - will hold off of Abx magnesium WNL will replace phosphorus 05/27--denies any chest pain, presented with A. fib RVR, average HR review for the last 12 hours 94. Having intermittent episodes of RVR with rate in the 120s -130s while at rest, worse with activity. Patient endorsing worsening dyspnea with elevated heart rate. On Xarelto, continue. Recently on Rythmol but was DC 'd per cardiology recommendations and patient placed on Toprol-XL twice a day. I have consult cardiology for further titration of patient's medication with elevated heart rate and borderline low SBP. Recommendations are to discontinue Imdur, decreased dose of beta amber and give with new parameters. Okay to give with SBP greater than 95. (2) Anemia Current Visit: No Status: Acute Assessment and Plan: chronic macrocytic anemia H/H at base line ( rangers between 9-10) continue to monitor H/H will send B12 and folic acid level 05/24 Hgb little low today We will monitor closely she is on Xarelto will check anemia panel, if cont to drop will check stool 05/25 Stable at this time we will continue to monitor cont with Xarelto No active bleeding noted 05/26 Hemoglobin has been stable we will continue with several Tylenol and monitor for any active bleeding 05/27--chroic macrocytic, hyperchromic anemia; H&H 9-10, TODAY 8.9, stable, monitor H&H. Iron profile obtained, serum iron 100, iron saturation 35, transferrin 206, ferritin 233. B12 44, folate 22.3. Likely anemia of chronic disease. Continue Xarelto with no s/sx bleeding and stable H&H. (3) Hypophosphatemia Current Visit: Yes Status: Acute Assessment and Plan: will replaced phosphorus- follow in AM 05/24 WNL today will cont to monitor and replace as needed 05/26 Within normal limits. Monitor placed as needed 05/27--recheck in am (4) Hypercalcemia Current Visit: Yes Status: Acute Assessment and Plan: mild hypercalcemia 10.4 was taking 3000 units of vitamin D will check vitamin D level also has been unable to hydrate today due to her doctor's appointments follow the calcium levels in AM 05/24 WNL today will cont to monitor 05/26 stable continue to monitor and replace 05/27--normalized, 9.2, cont to monitor (5) DVT prophylaxis Current Visit: Yes Status: Acute Assessment and Plan: continue xarelto - Time Spent with Patient Total time spent is greater than 50% in coordination of care (as documented) at patient's floor/unit and/or counseling patient: less than 15 minutes Plan of Care Discussed with: patient Internal Medicine: Result - Labs CBC & Chem 7: 05/27/18 03:55 05/27/18 03:55 Labs: Short CBC 05/27/18 Range/Units 03:55 WBC 5.5 (4.3-11.1) K/mcL Hgb 8.9 L (11.5-15.4) g/dL Hct 24.9 L (35.3-44.9) % Plt Count 234 (140-400) K/mcL Neutrophils # 1.2 L (1.6-8.9) K/mcL [facility] 05/27/18 03:55 Sodium 136 Potassium 4.8 Chloride 105 Carbon Dioxide 26 BUN 53 H Creatinine 1.14 Glucose 93 Calcium 9.2 Consult Discharge Plan - Plan Referrals: Carlos Newman MD [Primary Care Provider] - (2) Anemia Qualifiers: Anemia type: due to chronic kidney disease Chronic kidney disease stage: stage 3 (moderate) Qualified Code(s): N18.3 - Chronic kidney disease, stage 3 ( moderate); D63.1 - Anemia in chronic kidney disease
--- NOTE | 2018-05-27 11:21 | Cardiology Progress Note ---
Date of Encounter: 05/27/18 Time of Encounter: 11:15 Assessment and Plan (1) Atrial fibrillation Current Visit: Yes Status: Chronic Per Cardiology: Asked to reevaluate patient for recurrent episodes A. fib with RVR. Failed antiarrhythmic therapy with recurrent A. fib with RVR on Rythmol-- discontinued over the weekend. Now on rate control strategy and taking Toprol-XL 25 mg by mouth twice a day. Current systolic blood pressures 100s. Beta amber held by nursing staff. Average heart rate on telemetry the past 12 hours 94, currently A. fib in the 100s - 110's. We will discontinue long-acting nitrate and decrease Toprol-XL to 12.5 mg by mouth twice a day. We will continue to monitor heart rate and blood pressure overnight. If fails, may need to consider amiodarone. Troponins negative. Chest pain-free. Remains anticoagulated with Xarelto 15mg PO daily, as known history of CKD stage IIIB, remains about baseline. History of anemia, H&H remains about baseline. Continue with anticoagulation and monitor cautiously. Denies any active bleeding or blood loss. Qualifiers: Atrial fibrillation type: paroxysmal Qualified Code(s): I48.0 - Paroxysmal atrial fibrillation (2) Acute on chronic diastolic CHF (congestive heart failure) Current Visit: No Status: Acute Per Cardiology: On Lasix 10 mg by mouth daily. Increase short of breath requiring nasal cannula oxygen and increased edema with some conversational dyspnea. Discuss with primary service, will give Lasix 20 mg IV 1 now and monitor kidney function. Net I&O +650ml. we will implement strict I&O, daily weights, 1.5 L fluid ejection, applied bilateral knee high PAULA hose. Discussion w patient/family: The assessment and plan as outlined above was discussed with the patient who expressed understanding and agreement. All questions were answered. Thank you for involving us in the care of your patient. Please call with any questions. Subjective Principal diagnosis: AF Interval history: Patient does report some increased shortness of breath at rest since yesterday. Reports mild increase in swelling today as well. She does report difficulty with standing and felt dizzy upon PT assessment yesterday. She denies any chest pain or palpitations. Denies any current dizziness. Objective Vital Signs, Last 4 Hours Temp Pulse Resp BP Pulse Ox 05/27/18 10:46 97.6 F 78 16 108/71 100 General: Conversant, No Apparent Distress HEENT: Atraumatic, Normocephaly, Mucus Membranes Moist Neck: No JVD, Normal carotid pulses Cardiac: Normal S1 and S2, No Murmur, Other (Irregularly irregular) Lungs: Normal Breath Sounds, No Wheeze, Rales, Rhonchi, Other (Mild conversational dyspnea noted) Neuro: Alert and responsive, No focal deficits noted Abdomen: Soft, Non-Tender Skin: No rashes noted on visualized skin Musculoskeletal: No Chest Wall Tenderness Extremities: No Clubbing, No Cyanosis, Normal Pulses, Other (+1 pitting edema to bilateral lower extremities) Results 05/27/18 03:55 05/27/18 03:55 Lab Results 05/27/18 05/27/18 03:55 03:55 WBC 5.5 Hgb 8.9 L Hct 24.9 L Plt Count 234 Sodium 136 Potassium 4.8 Chloride 105 Carbon Dioxide 26 BUN 53 H Creatinine 1.14 Glucose 93 Calcium 9.2 - EKG Interpretation EKG results cardiology: other (Telemetry reviewed with average heart rate the past 12 hours 94, remains A. fib, longest 2.2 seconds) Consult Discharge Plan - Plan Referrals: Carlos Newman MD [Primary Care Provider] -
[2018-05-27] MEDS ORDERED: Furosemide 20 MG/2 ML VIAL IVP ONE (14:24)
[2018-05-27] MEDS: Fenofibrate 54 MG TABLET PO SCH (17:44)
[2018-05-27] MEDS: *HR* Rivaroxaban 15 MG TABLET PO SCH (17:44)
[2018-05-27] MEDS: Famotidine 20 MG TABLET PO SCH (19:54)
[2018-05-28] MEDS: Acetaminophen 325 MG TABLET PO PRN ×2 (03:35→21:02)
[2018-05-28 04:12] LABS: Hematocrit 22.6 % (35.3-44.9); Hemoglobin 8.1 g/dL (11.5-15.4); Mean Corpuscular HGB Conc 35.8 g/dL (31.6-35.5); Mean Corpuscular Hemoglobin 39.1 pg (28.0-33.3); Mean Corpuscular Volume 109.2 fL (83.0-100.0); Mean Platelet Volume 10.6 fL (9.4-12.4); Platelet Count 242 K/mcL (140-400); Red Blood Count 2.07 M/mcL (3.82-4.97); Red Cell Distribution Width 16.6 % (11.5-14.5)
[2018-05-28 04:32] LABS: Calcium 9.5 mg/dL (8.6-10.3); Phosphorous 4.2 mg/dL (2.7-4.5); Potassium 4.7 mEq/L (3.5-5.1)
[2018-05-28] MEDS: Metoprolol XL (24 HR) Succ 25 MG TAB.ER.24H PO SCH ×2 (07:47→21:04)
[2018-05-28] MEDS: Cholecalciferol (D-3) 1,000 UNIT TABLET PO SCH (07:48)
[2018-05-28] MEDS: Pyridostigmine Br 60 MG TABLET PO SCH ×2 (07:48→21:04)
[2018-05-28] MEDS: Multivit/Ca/Min/Fe/FA 1 TAB TABLET PO SCH (07:48)
[2018-05-28] MEDS: Furosemide 20 MG TABLET PO SCH (07:51)
--- NOTE | 2018-05-28 09:49 | Internal Med Progress Note ---
Hospitalist Progress Note - Encounter Date of Encounter: 05/28/18 Time of Encounter: 09:46 - Subjective Interval History: No acute changes overnight. Reporting palpitations improving, does not feel dyspneic. - Exam Vitals: Temp Pulse Resp BP Pulse Ox 97.5 F L 82 16 94/61 97 05/28/18 07:23 05/28/18 07:23 05/28/18 07:23 05/28/18 07:23 05/28/18 07:23 Exam: General: Patient is alert, oriented, mild distress, thin Head: atraumatic, normocephalic, Eye: normal appearance, PERRL, no scleral icterus, no conjunctival injection ENT: mucous membranes moist, normal external ear exam Neck: normal inspection, trachea midline, full ROM, no carotid bruits Chest: normal inspection, symmetric chest rise Respiratory: Good respiratory effort. Bilateral breath sounds are clear without wheezing, crackles, or rhonchi. Dyspneic with exertion Cardiovascular: irregularly irregular s1 and s2 No clicks, rubs, gallops, or murmors. Abdomen: Bowel sounds present normoactive x-4 quadrants. Abdomen is soft, nondistended. no Epigastric tenderness. No guarding or rebound. No organomegaly noted, musculoskeletal: Spontaneously moving all extremities. no edema, no calf tenderness Skin: warm, dry, intact. Neuro: Alert and oriented x4. Sensation light touch intact. Cranial nerves 2- 12 is intact. Not aphasic Psych: appears Anxious - Assessment and Plan (1) Atrial fibrillation with rapid ventricular response Current Visit: No Status: Acute Assessment and Plan: rhythmol held as per cardiology recommendations cardiology on board will follow recommendations currently rate is controlled continue xarelto troponin negative TSH ordered UA- dirty- no dysuria or frequency - will hold off of Abx magnesium WNL will replace phosphorus 05/27--denies any chest pain, presented with A. fib RVR, average HR review for the last 12 hours 94. Having intermittent episodes of RVR with rate in the 120s -130s while at rest, worse with activity. Patient endorsing worsening dyspnea with elevated heart rate. On Xarelto, continue. Recently on Rythmol but was DC 'd per cardiology recommendations and patient placed on Toprol-XL twice a day. I have consult cardiology for further titration of patient's medication with elevated heart rate and borderline low SBP. Recommendations are to discontinue Imdur, decreased dose of beta amber and give with new parameters. Okay to give with SBP greater than 95. 05/28- Denies chest pain, remains a-fib on tele, avg hr 12 hour review 89 BMP. Denies dyspnea today, resting comfortably without distress. Continue toprol - xl and xarelto. (2) Anemia Current Visit: No Status: Acute Assessment and Plan: chronic macrocytic anemia H/H at base line ( rangers between 9-10) continue to monitor H/H will send B12 and folic acid level 05/24 Hgb little low today We will monitor closely she is on Xarelto will check anemia panel, if cont to drop will check stool 05/25 Stable at this time we will continue to monitor cont with Xarelto No active bleeding noted 05/26 Hemoglobin has been stable we will continue with several Tylenol and monitor for any active bleeding 05/27--chroic macrocytic, hyperchromic anemia; H&H 9-10, TODAY 8.9, stable, monitor H&H. Iron profile obtained, serum iron 100, iron saturation 35, transferrin 206, ferritin 233. B12 44, folate 22.3. Likely anemia of chronic disease. Continue Xarelto with no s/sx bleeding and stable H&H. 05/28- chronic, H&H decreasing, 8.1/22.6 today. No obvious s/sx bleeding, check for FOB. Continue xarelto at this time 2/2 a-fib. Transfuse if she becomes symptomatic or H&H less than 7.5. (3) Hypophosphatemia Current Visit: Yes Status: Resolved (4) Hypercalcemia Current Visit: Yes Status: Resolved (5) DVT prophylaxis Current Visit: Yes Status: Acute Assessment and Plan: continue xarelto - Time Spent with Patient Total time spent is greater than 50% in coordination of care (as documented) at patient's floor/unit and/or counseling patient: less than 15 minutes Plan of Care Discussed with: patient Internal Medicine: Result - Labs CBC & Chem 7: 05/28/18 03:23 05/28/18 03:23 Labs: Short CBC 05/28/18 Range/Units 03:23 WBC 6.1 (4.3-11.1) K/mcL Hgb 8.1 L (11.5-15.4) g/dL Hct 22.6 L (35.3-44.9) % Plt Count 242 (140-400) K/mcL [facility] 05/28/18 03:23 Sodium 141 Potassium 4.7 Chloride 105 Carbon Dioxide 30 H BUN 58 H Creatinine 1.40 H Glucose 106 H Calcium 9.5 Consult Discharge Plan - Plan Referrals: Carlos Newman MD [Primary Care Provider] - (2) Anemia Qualifiers: Anemia type: due to chronic kidney disease Chronic kidney disease stage: stage 3 (moderate) Qualified Code(s): N18.3 - Chronic kidney disease, stage 3 ( moderate); D63.1 - Anemia in chronic kidney disease
--- NOTE | 2018-05-28 13:59 | Cardiology Progress Note ---
Date of Encounter: 05/28/18 Time of Encounter: 10:45 Assessment and Plan (1) Atrial fibrillation Current Visit: Yes Status: Chronic Per Cardiology: -Asked to reevaluate patient for recurrent episodes A. fib with RVR. -Failed antiarrhythmic therapy with recurrent A. fib with RVR on Rythmol-- discontinued over the weekend. -Now on rate control strategy and taking Toprol-XL 12.5 mg by mouth twice a day. -Current systolic blood pressures 100s. Beta amber held by nursing staff. - Average heart rate on telemetry the past 12 hours 100, currently A. fib HRs 80s. -Remains anticoagulated with Xarelto 15mg PO daily, as known history of CKD stage IIIB, remains about baseline. History of anemia, H&H remains about baseline. Continue with anticoagulation and monitor cautiously. Denies any active bleeding or blood loss. -Continue toprol 12.5mg BID, can consider uptitration if BP will tolerate. -Cardiology will sign off and will follow in outpatient setting. Follow up set. Qualifiers: Atrial fibrillation type: paroxysmal Qualified Code(s): I48.0 - Paroxysmal atrial fibrillation (2) Acute on chronic diastolic CHF (congestive heart failure) Current Visit: No Status: Acute Per Cardiology: -On Lasix 10 mg by mouth daily. Was given one time dose of IV lasix yesterday. -Currently net positive 350ml, however volume status imrpoved from yesteday. -Currently near euvolemic on exam, mild bilateral pedal edema noted, on room air with normal SpO2s. No conversational dyspnea noted. -CHF education reviewed with patient. -Strict i/os, fluid restriction, sodium restriction, daily weight. -Continue po lasix. -Cardiology will sign off, will arrange close outpatient follow up. Discussion w patient/family: The assessment and plan as outlined above was discussed with the patient who expressed understanding and agreement. All questions were answered. Thank you for involving us in the care of your patient. Please call with any questions. Discussed and reviewed with . Subjective Principal diagnosis: AF Interval history: Patient reports symptom improvement today. Denies shortness of breath. Patient concerned about going to rehab facility after discharge. Objective Vital Signs, Last 4 Hours Temp Pulse Resp BP Pulse Ox 05/28/18 11:54 97.6 F 82 16 101/64 95 General: Conversant, No Apparent Distress HEENT: Atraumatic, Normocephaly, Mucus Membranes Moist Neck: No JVD, Normal carotid pulses Cardiac: Normal S1 and S2, No Murmur, Other (Irregularly irregular ) Lungs: Normal Breath Sounds, No Wheeze, Rales, Rhonchi Neuro: Alert and responsive, No focal deficits noted Abdomen: Soft, Non-Tender Skin: No rashes noted on visualized skin Musculoskeletal: No Chest Wall Tenderness Extremities: No Clubbing, No Cyanosis, Normal Pulses, Other (Mild bilateral pedal edema noted, non-pitting. ) Results 05/28/18 03:23 05/28/18 03:23 Lab Results Active Medications Acetaminophen (Tylenol) 650 mg PO Q6HR PRN PRN Reason: Mild to moderate pain Stop: 11/24/18 19:46 Last Admin: 05/28/18 03:35 Dose: 325 mg Allopurinol (Zyloprim) 100 mg PO DAILY MARISELA Stop: 11/23/18 09:01 Last Admin: 05/28/18 07:48 Dose: 100 mg Docusate Sodium (Colace) 100 mg PO DAILY MARISELA PRN Reason: Protocol Stop: 11/23/18 09:01 Last Admin: 05/28/18 07:48 Dose: 100 mg Famotidine (Pepcid) 20 mg PO HS MARISELA Stop: 11/22/18 21:01 Last Admin: 05/27/18 19:54 Dose: 20 mg Fenofibrate (Tricor) 162 mg PO QPM MARISELA Stop: 11/23/18 18:01 Last Admin: 05/27/18 17:44 Dose: 162 mg Furosemide (Lasix) 10 mg PO DAILY MARISELA Stop: 11/26/18 09:01 Last Admin: 05/28/18 07:51 Dose: 10 mg Metoprolol Succinate (Toprol Xl) 12.5 mg PO BID MARISELA Stop: 11/26/18 11:14 Last Admin: 05/28/18 07:47 Dose: 12.5 mg Multivitamins/Calcium (Thera M Plus) 1 tab PO DAILY MARISELA Stop: 11/23/18 09:01 Last Admin: 05/28/18 07:48 Dose: 1 tab Naloxone HCl (Narcan) 0.4 mg IVP Q2MIN PRN PRN Reason: SEE COMMENTS Stop: 04/13/19 17:44 Omeprazole (Prilosec) 40 mg PO 1200 [facility] Stop: 11/23/18 12:01 Last Admin: 05/28/18 11:36 Dose: 40 mg Polyethylene Glycol (Miralax) 17 gm PO DAILY MARISELA Stop: 11/23/18 09:01 Last Admin: 05/28/18 07:49 Dose: 17 gm Pyridostigmine [place] (Mestinon) 60 mg PO BID MARISELA Stop: 11/22/18 21:01 Last Admin: 05/28/18 07:48 Dose: 60 mg Rivaroxaban (Xarelto) 15 mg PO QPM MARISELA Stop: 11/22/18 18:24 Last Admin: 05/27/18 17:44 Dose: 15 mg Vitamin D (Vitamin D) 1,000 unit PO QAM MARISELA Stop: 11/23/18 09:01 Last Admin: 05/28/18 07:48 Dose: 1,000 unit Laboratory Tests 05/27/18 05/27/18 05/28/18 03:55 03:55 03:23 Hgb 8.9 L 8.1 L Creatinine 1.14 05/28/18 03:23 Hgb Creatinine 1.40 H - Imaging and Cardiology Chest Xray: report reviewed Echo: report reviewed - EKG Interpretation EKG results cardiology: other (Telemetry reviewed with average HR previous 12 hours noted to be 100, a.fib. PVCs noted. Longest pause 2.2 seconds.) Consult Discharge Plan - Plan Referrals: Carlos Newman MD [Primary Care Provider] -
[2018-05-28] MEDS: *HR* Rivaroxaban 15 MG TABLET PO SCH (17:10)
[2018-05-28] MEDS: Fenofibrate 54 MG TABLET PO SCH (17:10)
[2018-05-28 17:26] LABS: Hematocrit 25.2 % (35.3-44.9); Hemoglobin 8.8 g/dL (11.5-15.4)
[2018-05-28] MEDS: Famotidine 20 MG TABLET PO SCH (21:04)
[2018-05-29] MEDS: Multivit/Ca/Min/Fe/FA 1 TAB TABLET PO SCH (09:55)
[2018-05-29] MEDS: Furosemide 20 MG TABLET PO SCH (09:55)
[2018-05-29] MEDS: Pyridostigmine Br 60 MG TABLET PO SCH (09:55)
[2018-05-29] MEDS: Cholecalciferol (D-3) 1,000 UNIT TABLET PO SCH (09:55)
[2018-05-29] MEDS: Metoprolol XL (24 HR) Succ 25 MG TAB.ER.24H PO SCH (09:55)
[2018-05-29 11:08] LABS: Basophils % 0.5 %; Eosinophils # 0.5 K/mcL (0.0-0.6); Eosinophils % 8.7 %; Hematocrit 23.1 % (35.3-44.9); Hemoglobin 8.3 g/dL (11.5-15.4); Immature Granulocytes % 0.2 % (0-4); Immature Platelets 4.4 % (1.1-6.1); Lymphocytes # 3.2 K/mcL (0.6-4.6); Lymphocytes % 52.4 %; Mean Corpuscular HGB Conc 35.9 g/dL (31.6-35.5); Mean Corpuscular Hemoglobin 39.3 pg (28.0-33.3); Mean Corpuscular Volume 109.5 fL (83.0-100.0); Mean Platelet Volume 10.8 fL (9.4-12.4); Monocytes # 0.8 K/mcL (0.0-1.3); Monocytes % 12.5 %; Neutrophils # 1.6 K/mcL (1.6-8.9); Platelet Count 246 K/mcL (140-400); Red Blood Count 2.11 M/mcL (3.82-4.97); Red Cell Distribution Width 16.8 % (11.5-14.5); Segmented Neutrophils % 25.7 %
[2018-05-29 12:22] LABS: Calcium 9.4 mg/dL (8.6-10.3); Potassium 4.7 mEq/L (3.5-5.1)
[2018-05-29 13:36] VITALS: BP 114/66
--- NOTE | 2018-05-29 14:30 | Discharge Summary ---
- NOTES TO OUTPATIENT PROVIDER Notes to Outpatient Provider: metoprolol uptitration d/t a-fib with RVR; please closely monitor HR at follow up Orders not resulted at time of discharge: Pending orders 05/30/18 04:00 Basic Metabolic Panel AM 0400 Complete Blood Count [HEME] AM 0400 05/31/18 04:00 Basic Metabolic Panel AM 0400 Complete Blood Count [HEME] AM 0400 Date of Encounter: 05/29/18 Time of Encounter: 14:28 - Discharge Diagnosis (1) Atrial fibrillation with rapid ventricular response Priority: Primary Status: Acute (2) Anemia Priority: Secondary Status: Acute Qualifiers: Anemia type: due to chronic kidney disease Chronic kidney disease stage: stage 3 (moderate) Qualified Code(s): N18.3 - Chronic kidney disease, stage 3 (moderate); D63.1 - Anemia in chronic kidney disease (3) Hypophosphatemia Priority: Secondary Status: Resolved (4) Hypercalcemia Priority: Secondary Status: Resolved (5) DVT prophylaxis Priority: Secondary Status: Acute Hospital course: Ms. Castaneda is a 82 year old female with recurrent episodes of A. fib with RVR. Failed outpatient antiarrhythmic therapy. Cardiology consult with throughout stay. Discontinue patient's Rythmol dose and started on Toprol-XL. He became hypotensive on Toprol-XL 25 mg twice a day. Decreased to 12.5 mg twice a day. Heart rate improving average HR for the last 12 hours low 100s. Patient hemodynamically stable. Being discharged with Toprol XL 12.5 mg BID. Continue Xarelto 15mg PO daily. Discharge discussed with: patient, nurse, business analysis consultant - Time Spent with Patient Total time spent providing and/or coordinating discharge services: Less than 30 minutes - Discharge Medications Prescriptions: Metoprolol XL (24 HR) Succ [Toprol Xl] 12.5 mg PO BID 30 Days #15 tab.er.24h Home Medications: Allopurinol [Zyloprim 100 MG] 100 mg PO DAILY 02/18/17 [History] Cholecalciferol (Vitamin D3) [Vitamin D3] 2,000 unit PO 1200 02/18/17 [History] Docusate [Colace] 100 mg PO DAILY 02/18/17 [History] Fenofibrate Nanocrystallized [Triglide] 160 mg PO QPM 02/18/17 [History] Multivit-Min/Iron/Folic/Lutein [Centrum Silver Women Tablet] 1 tab PO DAILY 02/18/17 [History] Pantoprazole Sodium 40 mg PO 1200 02/18/17 [History] Polyethylene Glycol 3350 [MiraLAX bowel prep] 17 gm PO DAILY 02/18/17 [History] Pyridostigmine Br [Mestinon] 60 mg PO BID 02/18/17 [History] Rivaroxaban [Xarelto] 15 mg PO QPM 02/18/17 [History] Furosemide [Lasix] 10 mg PO DAILY #15 tablet 06/20/17 [Rx] Cholecalciferol (D-3) [Vitamin D] 3,000 unit PO QAM 05/23/18 [History] Ranitidine HCl [Acid Store Stocker] 150 mg PO BID 05/23/18 [History] Metoprolol XL (24 HR) Succ [Toprol Xl] 12.5 mg PO BID 30 Days #15 tab.er.24h 05/29/18 [Rx] Allergies/Adverse Reactions: Allergy/AdvReac Type Severity Reaction Status Date / Time prednisone AdvReac Palpitation Verified 05/23/18 18:11 s Itdjoxi-[id number]-[id number] Reductase AdvReac Weakness Verified 05/23/18 18:11 Inhibitor [Statins] Date of admission: 05/25/18 14:47 Primary care physician: Carlos Newman MD Consults: 05/24/18 08:40 Consult to Cardiology [CONS] Routine Comment: Consulting Provider: Denisse Kohler Reason for Consult: afib RVR Time Notified: 08:40 Call Completed: Yes 05/26/18 10:32 Consult to Physical Therapy [CONS] Routine Comment: Evaluate, develop and implement POC Reason for Consult: pre dc planning Does patient have active BEDREST order?: No Is patient medically & hemodynamically stable?: Yes 05/26/18 16:29 Consult to Occupational Therapy [CONS] Routine Comment: Evaluate, develop and implement POC Reason for Consult: WEAKNESS, DECONDITIONING Does patient have active BEDREST order?: No Is patient medically & hemodynamically stable?: Yes 05/27/18 11:04 Consult to Cardiology [CONS] Routine Comment: Consulting Provider: Denisse Kohler Reason for Consult: persistent A-fib with RVR Time Notified: 11:05 Call Completed: Yes Discharging clinician: Ryan Murray Anticipated date of discharge: 05/29/18 - Constitutional Vitals: Temp Pulse Resp BP Pulse Ox 98.1 F 102 16 114/66 98 05/29/18 13:35 05/29/18 13:35 05/29/18 13:35 05/29/18 13:35 05/29/18 13:35 Exam: General: Patient is alert, oriented, mild distress, thin Head: atraumatic, normocephalic, Eye: normal appearance, PERRL, no scleral icterus, no conjunctival injection ENT: mucous membranes moist, normal external ear exam Neck: normal inspection, trachea midline, full ROM, no carotid bruits Respiratory: Good respiratory effort. Bilateral breath sounds are clear without wheezing, crackles, or rhonchi. Dyspneic with exertion Cardiovascular: irregularly irregular s1 and s2 No clicks, rubs, gallops, or murmors. Abdomen: Bowel sounds present normoactive x-4 quadrants. Abdomen is soft, nondistended. no Epigastric tenderness. No guarding or rebound. No organomegaly noted, musculoskeletal: Spontaneously moving all extremities. no edema, no calf tenderness Skin: warm, dry, intact. Neuro: Alert and oriented x4. Sensation light touch intact. Cranial nerves 2- 12 is intact. Not aphasic Psych: appears Anxious - Patient Status Disposition: Home, Self-Care Condition: Fair Functional capacity at discharge: independent ambulation Overall status at discharge: patient is progressing back to baseline - Discharge Instructions Instructions: Atrial Fibrillation (DC) Follow Up With: Carlos Newman MD [Primary Care Provider] - - Diet and Activity Activity: increase activity as tolerated, resume usual activities as tolerated Diet: diabetic diet, low fat, low cholesterol, low salt diet
--- NOTE | 2018-05-29 14:42 | Physician Discharge Referral ---
ExtendedCare Referral Info Transfer To: [facility] Provider in Charge: Facility Provider Provider in Charge after Transfer: PCP Institutional Level of Care: Skilled - Diagnosis (1) Atrial fibrillation with rapid ventricular response Priority: Primary Status: Acute (2) Anemia Priority: Secondary Status: Acute (3) Hypophosphatemia Priority: Secondary Status: Resolved (4) Hypercalcemia Priority: Secondary Status: Resolved (5) DVT prophylaxis Priority: Secondary Status: Acute Aware of Diagnosis: Patient, Family Aware of Prognosis: Patient, Family - Transfer Medications Prescriptions: Metoprolol XL (24 HR) Succ [Toprol Xl] 12.5 mg PO BID 30 Days #15 tab.er.24h Home Medications: Allopurinol [Zyloprim 100 MG] 100 mg PO DAILY 02/18/17 [History] Cholecalciferol (Vitamin D3) [Vitamin D3] 2,000 unit PO 1200 02/18/17 [History] Docusate [Colace] 100 mg PO DAILY 02/18/17 [History] Fenofibrate Nanocrystallized [Triglide] 160 mg PO QPM 02/18/17 [History] Multivit-Min/Iron/Folic/Lutein [Centrum Silver Women Tablet] 1 tab PO DAILY 02/18/17 [History] Pantoprazole Sodium 40 mg PO 1200 02/18/17 [History] Polyethylene Glycol 3350 [MiraLAX bowel prep] 17 gm PO DAILY 02/18/17 [History] Pyridostigmine Br [Mestinon] 60 mg PO BID 02/18/17 [History] Rivaroxaban [Xarelto] 15 mg PO QPM 02/18/17 [History] Furosemide [Lasix] 10 mg PO DAILY #15 tablet 06/20/17 [Rx] Cholecalciferol (D-3) [Vitamin D] 3,000 unit PO QAM 05/23/18 [History] Ranitidine HCl [Acid [employer] Manager] 150 mg PO BID 05/23/18 [History] Metoprolol XL (24 HR) Succ [Toprol Xl] 12.5 mg PO BID 30 Days #15 tab.er.24h 05/29/18 [Rx] Allergies/Adverse Reactions: Allergy/AdvReac Type Severity Reaction Status Date / Time prednisone AdvReac Palpitation Verified 05/23/18 18:11 s Kqjznaz-[id number]-Xpn Reductase AdvReac Weakness Verified 10/12/18 18:11 Inhibitor [Statins] - Respiratory Orders Smoking Cessation: Smoking cessation has been advised. For more information, call the [place] Tobacco Quit Line at 0-653-PSBJ-NOW. - Advance Directives Code Status: Full Code - Rehabiliation Orders Rehab Potential: Fair Rehab Orders: ROM Exercises, Evaluation for Physical Therapy, Evaluation for Occupational Therapy - Diet Orders No Added Salt (JOSÉ MIGUEL), Cardiac CERTIFICATION: I certify that the transfer of the above named patient to an Extended Care Facility is necessary for the continuing treatment of the diagnosis listed. The above information is true and accurate reflection of patient's current condition. Confidential - Redisclosure prohibited without a patient's written consent.
[2018-05-29] MEDS ORDERED: Multivit/Ca/Min/Fe/FA 1 TAB TABLET PO ONE (17:24)
[2018-05-29] MEDS ORDERED: Cholecalciferol (D-3) 1,000 UNIT TABLET PO ONE (17:24)
[2018-05-29] MEDS ORDERED: Metoprolol XL (24 HR) Succ 25 MG TAB.ER.24H PO ONE (17:24)
[2018-05-29] MEDS ORDERED: Pyridostigmine Br 60 MG TABLET PO ONE (17:24)
[2018-05-29] MEDS ORDERED: Furosemide 20 MG TABLET PO ONE ×2 (17:24)
== END 2018-05-29 17:25 | disposition home or self-care (01) | DRG 308 ==
LOC: EMEROOARM 15:16 → 3BNU 15:16
PROVIDERS: ADMIT Internal Medicine; ATTEND Internal Medicine

== ENCOUNTER 2018-08-11 14:02 | Inpatient (IN) ==
--- NOTE | 2018-08-11 14:33 | Emergency Department Note ---
Disposition Clinical Impression: Atrial fibrillation with RVR Anemia Qualifiers: Anemia type: unspecified type Qualified Code(s): D64.9 - Anemia, unspecified Pneumonia Qualifiers: Pneumonia type: due to unspecified organism Laterality: unspecified laterality Lung location: unspecified part of lung Qualified Code(s): J18.9 - Pneumonia, unspecified organism Disposition: Admitted As Inpatient Condition: Good Referrals: Carlos Newman MD [Primary Care Provider] - Time of Disposition: 16:29 General Adult HPI - General Stated complaint: General Illness Time Seen by Provider: 08/11/18 14:11 Source: patient, EMS Mode of arrival: EMS Limitations: no limitations Nursing Notes Reviewed: Yes Vital Signs Reviewed: Yes - History of Present Illness HPI Narrative: Patient is an 82-year-old female that presents the emergency department for generally not feeling well. Patient states that she has a history of atrial fibrillation and has been on Rythmol for multiple years and was recently changed approximately 1-1/2 weeks ago to Cardizem. Patient states that since then she has not been feeling well. She states that over that time she has had increased shortness of breath and has gained approximately 10 pounds. Patient states that when she lays flat she has significant worsening of her shortness of breath. Shortness of breath is worse upon exertion. Patient states that she gets twinges of chest pain located in her left chest underneath her left arm. Patient states that she follows with Alfie Tyson the nurse practitioner here at [place] for her cardiac management. Pain Scale: 6 - Related Data Home Medications Medication Instructions Recorded Confirmed Allopurinol [Zyloprim 100 MG] 100 mg PO DAILY 02/18/17 06/17/18 Cholecalciferol (Vitamin D3) 2,000 unit PO 1200 02/18/17 06/17/18 [Vitamin D3] Docusate [Colace] 100 mg PO DAILY 02/18/17 06/17/18 Fenofibrate Nanocrystallized 160 mg PO QPM 02/18/17 06/17/18 [Triglide] Multivit-Min/Iron/Folic/Lutein 1 tab PO DAILY 02/18/17 06/17/18 [Centrum Silver Women Tablet] Pantoprazole Sodium 40 mg PO 1200 02/18/17 06/17/18 Polyethylene Glycol 3350 [MiraLAX 17 gm PO DAILY 02/18/17 06/17/18 bowel prep] Pyridostigmine Br [Mestinon] 60 mg PO BID 02/18/17 06/17/18 Rivaroxaban [Xarelto] 15 mg PO QPM 02/18/17 06/17/18 Cholecalciferol (D-3) [Vitamin D] 3,000 unit PO QAM 05/23/18 06/17/18 Ranitidine HCl [Acid [employer] Architect] 150 mg PO BID 05/23/18 06/17/18 Previous Rx's Medication Instructions Recorded Acetaminophen [Tylenol] 650 mg PO Q6HR PRN tablet 06/23/18 Amiodarone [Cordarone] 200 mg PO BID tablet 06/23/18 Diltiazem CD (24hr) [Cardizem CD] 360 mg PO DAILY cap.er.24h 06/23/18 Furosemide [Lasix] 20 mg PO BIDDIURETIC tablet 06/23/18 Allopurinol [Zyloprim 100 MG] 100 mg PO DAILY #40 tablet 07/10/18 Fenofibrate [Tricor] 162 mg PO DAILY #40 tablet 07/10/18 Furosemide [Lasix] 20 mg PO DAILY #40 tablet 07/10/18 Isosorbide MONOnitrate (24 HR) 60 mg PO DAILY #40 tab.er.24h 07/10/18 [Imdur] Pantoprazole Sodium [Protonix] 40 mg PO DAILY #40 tablet.dr 07/10/18 Rivaroxaban [Xarelto] 15 mg PO DAILY #40 tablet 07/10/18 raNITIdine HCl [Zantac] 150 mg PO BID #70 tablet 07/10/18 Allergies Allergy/AdvReac Type Severity Reaction Status Date / Time prednisone AdvReac Palpitation Verified 05/23/18 18:11 s Dyjhems-Fic-Bdv Reductase AdvReac Weakness Verified 05/23/18 18:11 Inhibitor [Statins] All systems ED: reviewed and negative except as stated. Constitutional: Denies: fever Cardiovascular: Denies: chest pain Respiratory: Reports: dyspnea Gastrointestinal: Denies: abdominal pain, nausea, vomiting Past Medical History - Past Medical History Medical history: Reports: atrial fibrillation, CHF, GERD, hyperlipidemia, hypertension, renal disease Surgical history: Reports: cataract, knee replacement, other Psychiatric history: Reports: anxiety - Social History Smoking Status: Never smoker Smokeless Tobacco Status: No Alcohol use: Reports: none Drug use: Reports: none Physical Exam - General Limitations: no limitations General appearance: alert, in no apparent distress - Head Head exam: atraumatic, normocephalic - Eye Eye exam: Present: normal appearance, EOMI - Neck Neck exam: Present: normal inspection, full ROM, trachea midline - Respiratory Respiratory exam: Present: normal lung sounds bilaterally. Absent: respiratory distress, wheezes - Cardiovascular Cardiovascular exam: Present: tachycardia, irregular rhythm, normal heart sounds, +S1, +S2 - Abdominal Exam Abdominal exam: Present: soft, Non-Tender, normal bowel sounds - Extremities Exam Extremities exam: Present: other (Patient is 2+ pitting edema bilateral lower extremity.) - Neurological Exam Neurological exam: Present: alert, oriented X3 - Psychiatric Psychiatric exam: Present: normal affect, normal mood - Skin Skin exam: Present: warm, dry, intact Course Vital Signs Temperature 97.4 F L 08/11/18 14:11 Pulse Rate 128 08/11/18 14:11 Respiratory Rate 14 08/11/18 14:11 Blood Pressure 137/88 08/11/18 14:11 O2 Sat by Pulse Oximetry 100 08/11/18 14:11 Temperature 97.4 F L 08/11/18 14:11 Pulse Rate 122 08/11/18 16:03 Respiratory Rate 16 08/11/18 16:03 Blood Pressure 131/77 08/11/18 16:03 O2 Sat by Pulse Oximetry 100 08/11/18 16:03 Oxygen Delivery Oxygen Delivery Nasal Cannula Medical Decision Making - [facility] Narrative Medical decision making narrative: Due the patient is not emergency Department with reports feeling well and EKG was obtained which showed that she was in atrial fibrillation with rapid ventricular response. Due to the patient having been on diltiazem at home we will start her on a diltiazem drip in the emergency department. Her rate did improve. Patient was also found to have a pneumonia on chest x-ray due to being recently hospitalized we will start on broad-spectrum antibiotics, vancomycin, Zosyn and Levaquin. I did speak to cardiology in regards to the patient's A. fib with RVR and her recent medication changes from Rythmol to diltiazem and they recommended keeping her on the diltiazem drip and admission to the hospital. Called and spoke with the admitting hospitalist Dr. walker and he is except the patient to their service. Patient does also have chronic anemia. Patient's GFR is approximately at her baseline. I do not feel that any other testing is indicated at this time. Patient be admitted to the hospital at this time for further evaluation and management. Chest X-Ray 08/11/18 14:11 IMPRESSION: Worsening right basilar airspace disease suspicious of pneumonia D/ / Bruce Schofield / Bruce Schofield Interpreting Provider: Bruce Schofield 1535 hrs.: Patient has some worsening airspace disease which may be pneumonia so we will cover her with antibiotics. Also she still has A. fib with RVR. She is on Cardizem or increase that dose. We will speak with cardiology also. She is in agreement with plan. Chest X-Ray 08/11/18 14:11 IMPRESSION: Worsening right basilar airspace disease suspicious of pneumonia D/ / Bruce Schofield / Bruce Schofield Interpreting Provider: Bruce Schofield 1652 hrs. she has her antibiotics started. We will keep on a Cardizem we spoke with cardiology and waiting for admission. She is in agreement with this plan. - Medical Records Medical records reviewed: Yes I reviewed the patient's medical records. - Lab Data Lab results reviewed: Yes I reviewed the patient's lab results. Result diagrams: 08/11/18 14:25 08/11/18 14:25 Lab Results 08/11/18 08/11/18 08/11/18 Range/Units 14:25 14:25 14:25 WBC 8.9 (4.3-11.1) K/mcL RBC 2.22 L (3.82-4.97) M/mcL Hgb 8.7 L (11.5-15.4) g/dL Hct 24.5 L (35.3-44.9) % MCV 110.4 H (83.0-100.0) fL MCH 39.2 H (28.0-33.3) pg MCHC 35.5 (31.6-35.5) g/dL RDW 16.1 H (11.5-14.5) % Plt Count 343 (140-400) K/mcL MPV 9.9 (9.4-12.4) fL Immature Gran % 0.3 (0-4) % Seg Neutrophils % 43.9 % Lymphocytes % 38.0 % Monocytes % 15.3 % Eosinophils % 2.2 % Basophils % 0.3 % Neutrophils # 3.9 (1.6-8.9) K/mcL Lymphocytes # 3.4 (0.6-4.6) K/mcL Monocytes # 1.4 H (0.0-1.3) K/mcL Eosinophils # 0.2 (0.0-0.6) K/mcL Basophils # 0.0 (0.0-0.2) K/mcL Platelet Estimate Normal (Normal) Poikilocytosis 1+ A (Not Present) Macrocytosis Present A (Not Present) Target Cells 1+ A (Not Present) PT 15.3 H (9.4-12.1) Seconds INR 1.4 Sodium 135 L (136-145) mEq/L Potassium 4.8 (3.5-5.1) mEq/L Chloride 100 (98-107) mEq/L Carbon Dioxide 27 (23-29) mEq/L BUN 45 H (8-23) mg/dL Creatinine 1.18 (0.60-1.20) mg/dL Est GFR ( Amer) 53 L (> 60) Est GFR (Non-Af Amer) 44 L (> 60) BUN/Creatinine Ratio 38 H (6-26) Glucose 93 (70-105) mg/dL Calculated Osmolality 291 (280-300) Calcium 10.0 (8.6-10.3) mg/dL Troponin I 0.03 (< 0.04) ng/mL Urine Color (Yellow) Urine Clarity (Clear) Urine pH (5.0-8.0) pH Units Ur Specific Boykins (1.010-1.025) Urine Protein (Neg-Trace) mg/dL Urine Glucose (UA) (Normal) mg/dL Urine Ketones (Negative) mg/dL Urine Blood (Negative) Urine Nitrite (Negative) Urine Bilirubin (Negative) Urine Urobilinogen (Normal) mg/dL Ur Leukocyte Esterase (Negative) Urine Microscopic RBC (0-3) per hpf Urine Microscopic WBC (0-3) per hpf Ur Squamous Epith Cells (None-Few) per lpf Urine Bacteria (None-Few) per hpf Hyaline Casts (None-Few) per lpf 08/11/18 Range/Units 15:30 WBC (4.3-11.1) K/mcL RBC (3.82-4.97) M/mcL Hgb (11.5-15.4) g/dL Hct (35.3-44.9) % MCV (83.0-100.0) fL MCH (28.0-33.3) pg MCHC (31.6-35.5) g/dL RDW (11.5-14.5) % Plt Count (140-400) K/mcL MPV (9.4-12.4) fL Immature Gran % (0-4) % Seg Neutrophils % % Lymphocytes % % Monocytes % % Eosinophils % % Basophils % % Neutrophils # (1.6-8.9) K/mcL Lymphocytes # (0.6-4.6) K/mcL Monocytes # (0.0-1.3) K/mcL Eosinophils # (0.0-0.6) K/mcL Basophils # (0.0-0.2) K/mcL Platelet Estimate (Normal) Poikilocytosis (Not Present) Macrocytosis (Not Present) Target Cells (Not Present) PT (9.4-12.1) Seconds INR Sodium (136-145) mEq/L Potassium (3.5-5.1) mEq/L Chloride (98-107) mEq/L Carbon Dioxide (23-29) mEq/L BUN (8-23) mg/dL Creatinine (0.60-1.20) mg/dL Est GFR ( Amer) (> 60) Est GFR (Non-Af Amer) (> 60) BUN/Creatinine Ratio (6-26) Glucose (70-105) mg/dL Calculated Osmolality (280-300) Calcium (8.6-10.3) mg/dL Troponin I (< 0.04) ng/mL Urine Color Yellow (Yellow) Urine Clarity Cloudy A (Clear) Urine pH 6.5 (5.0-8.0) pH Units Ur Specific Boykins < 1.005 L (1.010-1.025) Urine Protein Negative (Neg-Trace) mg/dL Urine Glucose (UA) Normal (Normal) mg/dL Urine Ketones Negative (Negative) mg/dL Urine Blood Negative (Negative) Urine Nitrite Negative (Negative) Urine Bilirubin Negative (Negative) Urine Urobilinogen Normal (Normal) mg/dL Ur Leukocyte Esterase Large H (Negative) Urine Microscopic RBC 0-3 (0-3) per hpf Urine Microscopic WBC TNTC H (0-3) per hpf Ur Squamous Epith Cells Few (None-Few) per lpf Urine Bacteria None Seen (None-Few) per hpf Hyaline Casts None Seen (None-Few) per lpf - Radiology Data Radiology results reviewed: Yes I reviewed the patient's radiology results. Chest X-Ray 08/11/18 14:11 IMPRESSION: Worsening right basilar airspace disease suspicious of pneumonia D/ / Bruce Schofield / Bruce Schofield Interpreting Provider: Bruce Schofield - EKG Data EKG #1 EKG attestation: Yes I reviewed and interpreted this EKG. EKG results narrative: EKG shows age fibrillation with rapid ventricular response at a rate of 150 bpm, QRS duration of 87, QTc of 425. There is no evidence of STEMI and EKG. Critical Care Time Critical Care Time: Yes Total Critical Care Time: 40 Attestation: Excluding separately billable procedures. Attestation Statement - Attestation Attestation: Chest X-Ray 08/11/18 14:11 IMPRESSION: Worsening right basilar airspace disease suspicious of pneumonia D/ / Bruce Schofield / Bruce Schofield Interpreting Provider: Bruce Schofield This documentation is done with the assistance of [employer] dictation. Despite efforts made to ensure accuracy, there may be inaccuracies in sr. payroll processor or spelling and typographical errors. I examined this patient and my medical decision-making was reviewed with the Re sident Physician. I agree with the documented findings, disposition and treatment plan as described except to the extent set forth below. Patient seen and evaluated on arrival with EMS and Dr. Donahue, I agree with his evaluation management plan, supervised the care the patient outstay. Patient comes in today complaining of not feeling well last couple days she used to be on propanolol for known they switched her over to diltiazem due to uncontrolled atrial fibrillation in today shows rapid ventricular response. She has a little bit edema in lower extremities little bit of dyspnea. No chest pain today regular cardiac workup speak to cardiology and she will need admission.
[2018-08-11 14:45] LABS: Basophils % 0.3 %; Eosinophils # 0.2 K/mcL (0.0-0.6); Eosinophils % 2.2 %; Hematocrit 24.5 % (35.3-44.9); Hemoglobin 8.7 g/dL (11.5-15.4); Immature Granulocytes % 0.3 % (0-4); Lymphocytes # 3.4 K/mcL (0.6-4.6); Mean Corpuscular HGB Conc 35.5 g/dL (31.6-35.5); Mean Corpuscular Hemoglobin 39.2 pg (28.0-33.3); Mean Corpuscular Volume 110.4 fL (83.0-100.0); Mean Platelet Volume 9.9 fL (9.4-12.4); Monocytes # 1.4 K/mcL (0.0-1.3); Monocytes % 15.3 %; Neutrophils # 3.9 K/mcL (1.6-8.9); Platelet Count 343 K/mcL (140-400); Red Blood Count 2.22 M/mcL (3.82-4.97); Red Cell Distribution Width 16.1 % (11.5-14.5); Segmented Neutrophils % 43.9 %
[2018-08-11 14:54] LABS: INR 1.4; Prothrombin Time 15.3 Seconds (9.4-12.1)
[2018-08-11 15:03] LABS: Troponin I 0.03 ng/mL (< 0.04)
[2018-08-11 15:07] LABS: Macrocytosis Present (Not Present); Platelet Estimate Normal (Normal); Target Cells 1+ (Not Present)
[2018-08-11 15:08] LABS: Poikilocytosis 1+ (Not Present)
[2018-08-11 15:27] LABS: Potassium 4.8 mEq/L (3.5-5.1)
[2018-08-11] MEDS ORDERED: Levofloxacin 750 MG/150 ML 750 MG/150 ML BAG IVPB ONE (15:40)
[2018-08-11] MEDS ORDERED: Piperacillin/Tazobactam 3.375 GM in 0.9 % Sodium Chloride Mini Bag 100 ML IVPB ONE (15:40)
[2018-08-11] MEDS ORDERED: 0.9 % Sodium Chloride 500 ML IVC ONE (15:57)
[2018-08-11 16:09] LABS: Bilirubin,Urine Negative (Negative); Blood,Urine Negative (Negative); Clarity,Urine Cloudy (Clear); Color,Urine Yellow (Yellow); Glucose,Urine (UA) Normal (Normal); Ketones,Urine Negative (Negative); Leukocyte Esterase,Urine Large (Negative); Nitrite,Urine Negative (Negative); PH,Urine 6.5 pH Units (5.0-8.0); Protein,Urine Negative (Neg-Trace); Specific Gravity,Urine < 1.005 (1.010-1.025); Urobilinogen,Urine Normal (Normal)
[2018-08-11 16:10] LABS: Bacteria,Urine None Seen per hpf (None-Few); Hyaline Casts,Urine None Seen per lpf (None-Few); RBC,Urine 0-3 per hpf (0-3); Squamous Epithelial Cell,Urine Few per lpf (None-Few); WBC,Urine TNTC per hpf (0-3)
[2018-08-11] MEDS ORDERED: Naloxone 0.4 MG/ML INJ IVP PRN (17:46)
--- NOTE | 2018-08-11 17:57 | Internal Med History&Physical ---
Date of Encounter: 08/11/18 Time of Encounter: 17:53 Internal Medicine - H&P: HPI Chief complaint: not feeling well Admitted From: Home Plans for Post Hospital Care: Transfer Nursing Home Facility History of present illness: Ms. Castaneda is a 82 year old female with past medical history of atrial fibrillation, GERD, diastolic CHF, hypertension, hyperlipidemia, chronic kidney disease stage III, myasthenia gravis and gout who was recently admitted in June for A. fib with RVR and CHF when she was diuresed and her medication for atrial fibrillation were changed to Cardizem and amiodarone. She had some altered mental status effects from metoprolol. On discharge she was supposed to be on Cardizem and amiodarone but she said she was getting Rythmol at the rehabilitation facility and until she saw cardiology as outpatient on August 01. Her medication was changed to Cardizem at the time however after that she felt that she started having weakness. She felt that her symptoms were from Cardizem. She has associated shortness of breath and some burning urination. She has also noticed slight increase in her leg swelling but mentions is much better than before. She had noticed some weight gain. Occasional chest pain which lasts few seconds over the center of her chest. She was seen in ER where she was found to have A. fib with RVR with heart rate in 150s. EKG was without any ST elevation. Patient had a chest x-ray which was concerning of worsening infiltrate on right lobe as well as abnormal UA concerning of UTI. Her labs showed stable hemoglobin but low at 8.7, creatinine 1.18 which is stable for her. She started on Cardizem drip which was at 10 during my interview. She can from her above-mentioned history. Complains of dysuria for 2-3 days. Has long-standing constipation with last bowel movement yesterday. She denies any fevers but admits to having chills. She was started on Vanco Zosyn and Levaquin in ER. She received 500 mL of normal saline in the ER as well. She denied any chest pain during my interview and did not have any shortness of breath at rest. Denies any urinary retention or incontinence. Discussed CODE STATUS and patient was to be full code Past Med Surg Social Fam HX - Past Medical History Attestation: Yes The following information was validated with the patient. Medical history: atrial fibrillation, CHF, GERD, hyperlipidemia, hypertension, renal disease Additional medical history: MYASTHENIA GRAVIS Psychiatric history: anxiety - Past Surgical History Surgical History: cataract, knee replacement, other Additional surgical history: RIGHT LUNG MASS BENIGN - Social History Smoking Status: Never smoker Smokeless Tobacco Status: No Alcohol use: none Drug use: none - Family History Mother Adopted: No Family Member Ethnicity: Non- Living Status: Hx Family Cardiac Disorders: No Hx Family Respiratory Disorders: No Hx Family Cancer: No Hx Family GI Disorders: No Hx Family Endocrine Disorder: No Hx Family Neuromuscular Disorders: No Hx Family Neurologic Disorders: No Hx Family HEENT Disorders: No Hx Family Autoimmune Disorders: No Father Living Status: Internal Medicine - H&P: Meds Allopurinol [Zyloprim 100 MG] 100 mg PO DAILY 02/18/17 [History] Cholecalciferol (Vitamin D3) [Vitamin D3] 2,000 unit PO 1200 02/18/17 [History] Docusate [Colace] 100 mg PO DAILY 02/18/17 [History] Fenofibrate Nanocrystallized [Triglide] 160 mg PO QPM 02/18/17 [History] Multivit-Min/Iron/Folic/Lutein [Centrum Silver Women Tablet] 1 tab PO DAILY 02/18/17 [History] Polyethylene Glycol 3350 [MiraLAX bowel prep] 17 gm PO DAILY 02/18/17 [History] Pyridostigmine Br [Mestinon] 60 mg PO BID 02/18/17 [History] Cholecalciferol (D-3) [Vitamin D] 3,000 unit PO QAM 05/23/18 [History] Acetaminophen [Tylenol] 650 mg PO Q6HR PRN tablet 06/23/18 [Rx] Amiodarone [Cordarone] 200 mg PO BID tablet 06/23/18 [Rx] Diltiazem CD (24hr) [Cardizem CD] 360 mg PO DAILY cap.er.24h 06/23/18 [Rx] Furosemide [Lasix] 20 mg PO DAILY #40 tablet 07/10/18 [Rx] Isosorbide MONOnitrate (24 HR) [Imdur] 60 mg PO DAILY #40 tab.er.24h 07/10/18 [Rx] Pantoprazole Sodium [Protonix] 40 mg PO DAILY #40 tablet.dr 07/10/18 [Rx] Rivaroxaban [Xarelto] 15 mg PO DAILY #40 tablet 07/10/18 [Rx] raNITIdine HCl [Zantac] 150 mg PO BID #70 tablet 07/10/18 [Rx] Allergy/AdvReac Type Severity Reaction Status Date / Time prednisone AdvReac Palpitation Verified 05/23/18 18:11 s [id number] Reductase AdvReac Weakness Verified 05/23/18 18:11 Inhibitor [Statins] All Systems PM: A 10-system review of systems was performed and is negative for pertinent findings except as documented above in the HPI. - Constitutional Vitals: Temp Pulse Resp BP Pulse Ox 97.4 F L 115 14 135/67 99 08/11/18 14:11 08/11/18 17:26 08/11/18 17:26 08/11/18 17:26 08/11/18 17:26 Exam: Constitutional: Vitals as noted. Conversant. No Apparent Distress. Well groomed. No obvious deformities. Eyes : Sclera white, conjunctiva clear, no lid lag, PEARLA. ENT : Grossly normal hearing. Oropharyngeal exam unremarkable. has JVD, no cervical lymphadenopathy. no thyromegaly or mass. Respiratory : No accessory muscle use. Rhonchi on Rt . Cardiovascular : tachycardic, +S1, +S2. systolic murmur, no gallop, rubs. No chest wall tenderness GI/Abdominal : Soft, Non-tender, Non-distended, normal bowel sounds, soft, no peritoneal signs. no orgenomegaly or mass appreciated. no hernia. Musculoskeletal: no deformity noted. 2+ edema, no cyanosis. warm extremities, pulses palpable and symmetrical in UE/LE. no calf tenderness. Neurological: AO X3, CN II-XII grossly intact, grossly normal motor and sensory exam. Skin: No skin rash, lesions or ulcers noted. Pych: Good insight and judgement. Intact memory. AOx3. Internal Med - H&P Results - Labs CBC & Chem 7: 08/11/18 14:25 08/11/18 14:25 Labs: Short CBC 08/11/18 Range/Units 14:25 WBC 8.9 (4.3-11.1) K/mcL Hgb 8.7 L (11.5-15.4) g/dL Hct 24.5 L (35.3-44.9) % Plt Count 343 (140-400) K/mcL Neutrophils # 3.9 (1.6-8.9) K/mcL BMP 08/11/18 14:25 Sodium 135 L Potassium 4.8 Chloride 100 Carbon Dioxide 27 BUN 45 H Creatinine 1.18 Glucose 93 Calcium 10.0 Cardiac Enzymes 08/11/18 Range/Units 14:25 Troponin I 0.03 (< 0.04) ng/mL Urine 08/11/18 Range/Units 15:30 Urine Color Yellow (Yellow) Urine Clarity Cloudy A (Clear) Urine pH 6.5 (5.0-8.0) pH Units Ur Specific [place] < 1.005 L (1.010-1.025) Urine Protein Negative (Neg-Trace) mg/dL Urine Glucose (UA) Normal (Normal) mg/dL - Impressions ITS Impressions Chest X-Ray 08/11/18 14:11 IMPRESSION: Worsening right basilar airspace disease suspicious of pneumonia D/ / Bruce Schofield / Bruce Schofield Interpreting Provider: Bruce Schofield - Assessment and plan (1) Atrial fibrillation with rapid ventricular response Current Visit: Yes Status: Chronic Assessment and plan: - Continue patient on Cardizem drip. Titrate to keep heart rate less than 115 - Cardiology consulted - Continue home xarelto. Currently without acute bleeding with stable hemoglobin (2) Diastolic heart failure Current Visit: Yes Status: Acute Assessment and plan: - Currently does appear to have has volume overload with pedal edema but without any pulmonary edema - Given low blood pressure and on Cardizem continue home dose of Lasix for now Qualifiers: Heart failure chronicity: chronic Qualified Code(s): I50.32 - Chronic diastolic (congestive) heart failure (3) Anemia Current Visit: Yes Status: Acute Assessment and plan: - Stable - Monitor for now Qualifiers: Anemia type: unspecified type Qualified Code(s): D64.9 - Anemia, unspecified (4) Pneumonia Current Visit: Yes Status: Acute Assessment and plan: - Continue on vancomycin and Zosyn. We will discontinue Levaquin for now given noncritical ill - Continue to monitor renal function - Obtain blood and sputum cultures and lactic acid - Urine Legionella and streptococcal antigen. MRSA screening. - We will de-escalate quickly and discontinue vancomycin given CKD. Qualifiers: Pneumonia type: due to unspecified organism Laterality: right Lung location: lower lobe of lung Qualified Code(s): J18.1 - Lobar pneumonia, unspecified organism (5) Chronic kidney disease (CKD) Current Visit: No Status: Chronic Assessment and plan: - Currently appear to be at baseline - Monitor for now Qualifiers: Chronic kidney disease stage: stage 3 (moderate) Qualified Code(s): N18.3 - Chronic kidney disease, stage 3 (moderate) (6) Myasthenia gravis Current Visit: No Status: Chronic Assessment and plan: - Continue home Mestinon (7) Nosocomial pneumonia Current Visit: Yes Status: Acute Assessment and plan: - As above (8) Abnormal urinalysis Current Visit: Yes Status: Acute Assessment and plan: - Follow urine cultures - On vancomycin and Levaquin - Previously without any urinary growth of resistant organisms - We will de-escalate quickly (9) DVT prophylaxis Current Visit: No Status: Acute Assessment and plan: - on xarelto - Time Spent With Patient Total time spent is greater than 50% in coordination of care (as documented) at patient's floor/unit and/or counseling patient:
[2018-08-11] MEDS ORDERED: Ipratropium/Albuterol Neb 3 ML IH PRN (18:14)
[2018-08-11] MEDS: Pyridostigmine Br 60 MG TABLET PO SCH (22:07)
[2018-08-11] MEDS: *HR* Rivaroxaban 15 MG TABLET PO SCH (22:43)
[2018-08-12] MEDS: Piperacillin/Tazobactam 3.375 GM in 0.9 % Sodium Chloride Mini Bag 100 ML IVPB SCH ×3 (05:00→21:10)
[2018-08-12 05:14] LABS: Basophils % 0.4 %; Eosinophils # 0.3 K/mcL (0.0-0.6); Eosinophils % 3.3 %; Hematocrit 23.4 % (35.3-44.9); Hemoglobin 8.2 g/dL (11.5-15.4); Immature Granulocytes % 0.2 % (0-4); Lymphocytes # 2.9 K/mcL (0.6-4.6); Lymphocytes % 35.1 %; Mean Corpuscular Hemoglobin 38.7 pg (28.0-33.3); Mean Corpuscular Volume 110.4 fL (83.0-100.0); Monocytes # 1.1 K/mcL (0.0-1.3); Monocytes % 13.7 %; Neutrophils # 3.9 K/mcL (1.6-8.9); Platelet Count 322 K/mcL (140-400); Red Blood Count 2.12 M/mcL (3.82-4.97); Red Cell Distribution Width 15.9 % (11.5-14.5); Segmented Neutrophils % 47.3 %
[2018-08-12 05:33] LABS: Calcium 9.5 mg/dL (8.6-10.3); Potassium 4.5 mEq/L (3.5-5.1)
[2018-08-12 05:36] LABS: Macrocytosis Present (Not Present)
[2018-08-12 05:37] LABS: Platelet Estimate Normal (Normal); Poikilocytosis 1+ (Not Present); Target Cells 1+ (Not Present)
[2018-08-12] MEDS: Pyridostigmine Br 60 MG TABLET PO SCH ×2 (08:08→19:37)
[2018-08-12] MEDS ORDERED: Aminoglycoside Consult 1 EACH MC ONE (08:30)
--- NOTE | 2018-08-12 08:33 | Event Note ---
Date of Encounter: 08/12/18 Time of Encounter: 08:30 - Cardiology Event Note Chart reviewed. Patient admtted with pneumonia and UTI. Cardiology consulted for a.fib RVR. Patient has known a.fib and follows with [facility]. On xarelto for anticoagulation. Currently on cardizem drip and HR is now controlled, average HR previous 12 hours 95. Will start oral cardizem 240mg now and wean cardizem drip to off (net increase in cardizem dose from her home dose). Per reports mild pedal edema noted, chest x-ray without overt CHF. Appears patient's home dose of lasix was not resumed, will start lasix 40mg daily (take 20mg at home). Consider discharging back on her home dose of 20mg if volume status improves. Discussed and reviewed with , cardiology will sign off. Re- consult if needed.
[2018-08-12] MEDS: Furosemide 40 MG TABLET PO SCH (08:37)
[2018-08-12] MEDS: Diltiazem CD (24hr) 240 MG CAPSULE PO SCH (08:37)
[2018-08-12] MEDS ORDERED: *HR* Rivaroxaban 15 MG TABLET PO SCH (09:00)
[2018-08-12] MEDS ORDERED: Cholecalciferol (D-3) 1,000 UNIT TABLET PO SCH (10:15)
[2018-08-12] MEDS: Fenofibrate 54 MG TABLET PO SCH (10:16)
[2018-08-12] MEDS: Isosorbide MONOnitrate (24 HR) 60 MG TAB.ER.24H PO SCH (10:16)
[2018-08-12] MEDS: Cholecalciferol (D-3) 1,000 UNIT TABLET PO SCH (11:37)
[2018-08-12] MEDS: *HR* Rivaroxaban 15 MG TABLET PO SCH (18:03)
--- NOTE | 2018-08-12 18:27 | Internal Med Progress Note ---
Hospitalist Progress Note - Encounter Date of Encounter: 08/12/18 Time of Encounter: 11:00 - Subjective Interval History: Patient's heart rate now controlled on Cardizem drip this morning therefore will discontinue Cardizem drip and start oral Cardizem per cardiology recommendations. Patient does report of dysuria this morning so we will start patient on Pyridium; patient currently being treated for UTI in addition to hospital acquired pneumonia - Exam Vitals: Temp Pulse Resp BP Pulse Ox 98.0 F 98 18 143/84 97 08/12/18 16:59 08/12/18 16:59 08/12/18 16:59 08/12/18 16:59 08/12/18 16:59 Exam: Gen.: Nonacute distress, alert and oriented 3 ENT: Mucosal membranes moist Respiratory: Lungs are clear to auscultation bilaterally without any wheezing rhonchi or rales Cardiovascular: Normal S1 and S2 regular rate rhythm no murmurs rubs or gallops Abdomen: Soft, nontender and nondistended with positive bowel sounds Extremities: Patient with bilateral 1+ pitting edema in lower extremities Skin: Normal color - Assessment and Plan (1) Pneumonia Current Visit: Yes Status: Acute Assessment and Plan: Patient found to have worsening right basilar airspace disease suspicious for pneumonia on chest x-ray therefore currently being treated for hospital-acquired pneumonia Nasal screen negative for MRSA therefore will discontinue vancomycin and continue patient on Zosyn (2) Atrial fibrillation with rapid ventricular response Current Visit: Yes Status: Chronic Assessment and Plan: Patient's heart rate now controlled on Cardizem drip therefore was discontinued and oral Cardizem 240 mg started per cardiology recommendations. (3) Diastolic heart failure Current Visit: Yes Status: Acute Assessment and Plan: Patient has been restarted on home dose of Lasix (4) Abnormal urinalysis Current Visit: Yes Status: Acute Assessment and Plan: She symptomatic with dysuria started on Pyridium Will continue IV Zosyn until urine cultures resulted (5) Anemia Current Visit: Yes Status: Acute Assessment and Plan: Stable; continue to monitor (6) Chronic kidney disease (CKD) Current Visit: No Status: Chronic Assessment and Plan: Stable; continue to monitor (7) Myasthenia gravis Current Visit: No Status: Chronic Assessment and Plan: Continue home Mestinon DVT Prophylaxis: Continue home dose of Xarelto - Time Spent with Patient Total time spent is greater than 50% in coordination of care (as documented) at patient's floor/unit and/or counseling patient: Internal Medicine: Result - Labs CBC & Chem 7: 08/12/18 04:00 08/12/18 04:00 Labs: Short CBC 08/12/18 Range/Units 04:00 WBC 8.2 (4.3-11.1) K/mcL Hgb 8.2 L (11.5-15.4) g/dL Hct 23.4 L (35.3-44.9) % Plt Count 322 (140-400) K/mcL Neutrophils # 3.9 (1.6-8.9) K/mcL BMP 08/12/18 04:00 Sodium 135 L Potassium 4.5 Chloride 104 Carbon Dioxide 27 BUN 43 H Creatinine 1.14 Glucose 90 Calcium 9.5 - ABG Interpretation ABG results: PT/INR, D-dimer PT 15.3 Seconds (9.4-12.1) H 08/11/18 14:25 Consult Discharge Plan - Plan (1) Pneumonia Qualifiers: Pneumonia type: due to unspecified organism Laterality: right Lung location: lower lobe of lung Qualified Code(s): J18.1 - Lobar pneumonia, unspecified organism (3) Diastolic heart failure Qualifiers: Heart failure chronicity: chronic Qualified Code(s): I50.32 - Chronic diastolic (congestive) heart failure (5) Anemia Qualifiers: Anemia type: unspecified type Qualified Code(s): D64.9 - Anemia, unspecified (6) Chronic kidney disease (CKD) Qualifiers: Chronic kidney disease stage: stage 3 (moderate) Qualified Code(s): N18.3 - Chronic kidney disease, stage 3 (moderate)
[2018-08-12] MEDS: Acetaminophen 325 MG TABLET PO PRN (19:37)
--- NOTE | 2018-08-13 04:48 | Event Note ---
Date of Encounter: 08/12/18 Time of Encounter: 20:42 Alerted by pts. nurse [facility] that the pt. was feeling dizzy, hot, and felt as though everything was closing in around her. Went to see pt. who was resting in bed and appeared mildly dyspneic. Pt. had O2 on @ 2L via NC. Instructed nurse to change to Oxymask. Pt. stated that she had just been given Pyridium for her urinary burning and suspected UTI. I explained to the pt. that she may have had an adverse rxn to the Pyridium and that I wanted to order and ABG to check her blood gases d/t her dyspnea. Pt. was afebrile on exam. Pt. refused Oxymask stating that it was too much for her and that she was now feeling better. Continuous pulse ox oximetry ordered. Nurse instructed to monitor the patient closely alert me immediately of any increasing dyspnea or hypoxia.
[2018-08-13] MEDS: Piperacillin/Tazobactam 3.375 GM in 0.9 % Sodium Chloride Mini Bag 100 ML IVPB SCH ×3 (05:19→21:36)
[2018-08-13] MEDS: Pyridostigmine Br 60 MG TABLET PO SCH ×2 (08:26→21:35)
[2018-08-13] MEDS: Diltiazem CD (24hr) 240 MG CAPSULE PO SCH (08:26)
[2018-08-13] MEDS: Isosorbide MONOnitrate (24 HR) 60 MG TAB.ER.24H PO SCH (08:27)
[2018-08-13] MEDS: Fenofibrate 54 MG TABLET PO SCH (08:27)
[2018-08-13] MEDS: Furosemide 40 MG TABLET PO SCH (08:27)
--- NOTE | 2018-08-13 09:58 | Internal Med Progress Note ---
Hospitalist Progress Note - Encounter Date of Encounter: 08/13/18 Time of Encounter: 11:00 - Subjective Interval History: Patient's heart rate continues to be controlled after start oral Cardizem per cardiology recommendations. Patient reported of dysuria yesterday and was started on Pyridium; patient currently being treated for UTI in addition to hospital acquired pneumonia - Exam Vitals: Temp Pulse Resp BP Pulse Ox 97.4 F L 87 17 110/60 97 08/13/18 07:25 08/13/18 07:25 08/13/18 07:25 08/13/18 07:25 08/13/18 07:25 Exam: Gen.: Nonacute distress, alert and oriented 3 ENT: Mucosal membranes moist Respiratory: Lungs are clear to auscultation bilaterally without any wheezing rhonchi or rales Cardiovascular: Normal S1 and S2 regular rate rhythm no murmurs rubs or gallops Abdomen: Soft, nontender and nondistended with positive bowel sounds Extremities: Patient with bilateral 1+ pitting edema in lower extremities Skin: Normal color - Assessment and Plan (1) Pneumonia Current Visit: Yes Status: Acute Assessment and Plan: Patient found to have worsening right basilar airspace disease suspicious for pneumonia on chest x-ray therefore currently being treated for hospital-acquired pneumonia Nasal screen negative for MRSA therefore vancomycin discontinued on 08/12/18 and patient continued on Zosyn (2) Atrial fibrillation with rapid ventricular response Current Visit: Yes Status: Chronic Assessment and Plan: Patient's heart rate continues to be controlled after start oral Cardizem per cardiology recommendations. (3) Diastolic heart failure Current Visit: Yes Status: Acute Assessment and Plan: Continue patient's home dose of Lasix (4) Abnormal urinalysis Current Visit: Yes Status: Acute Assessment and Plan: Patient is symptomatic with dysuria and therefore was started on Pyridium on 08/12/18 Will continue IV Zosyn until urine cultures resulted (5) Anemia Current Visit: Yes Status: Acute Assessment and Plan: Stable; continue to monitor (6) Chronic kidney disease (CKD) Current Visit: No Status: Chronic Assessment and Plan: Stable; continue to monitor (7) Myasthenia gravis Current Visit: No Status: Chronic Assessment and Plan: Continue home Mestinon DVT Prophylaxis: Continue home dose of Xarelto - Time Spent with Patient Total time spent is greater than 50% in coordination of care (as documented) at patient's floor/unit and/or counseling patient: Internal Medicine: Result - Labs CBC & Chem 7: 08/13/18 10:23 08/13/18 10:23 - ABG Interpretation ABG results: PT/INR, D-dimer PT 15.3 Seconds (9.4-12.1) H 08/11/18 14:25 Consult Discharge Plan - Plan Referrals: Carlos Newman MD [Primary Care Provider] - (1) Pneumonia Qualifiers: Pneumonia type: due to unspecified organism Laterality: right Lung location: lower lobe of lung Qualified Code(s): J18.1 - Lobar pneumonia, unspecified organism (3) Diastolic heart failure Qualifiers: Heart failure chronicity: chronic Qualified Code(s): I50.32 - Chronic diastolic (congestive) heart failure (5) Anemia Qualifiers: Anemia type: unspecified type Qualified Code(s): D64.9 - Anemia, unspecified (6) Chronic kidney disease (CKD) Qualifiers: Chronic kidney disease stage: stage 3 (moderate) Qualified Code(s): N18.3 - Chronic kidney disease, stage 3 (moderate)
[2018-08-13 11:03] LABS: Basophils % 0.5 %; Eosinophils # 0.3 K/mcL (0.0-0.6); Eosinophils % 4.5 %; Hemoglobin 8.3 g/dL (11.5-15.4); Immature Granulocytes % 0.1 % (0-4); Lymphocytes # 2.1 K/mcL (0.6-4.6); Lymphocytes % 27.9 %; Mean Corpuscular HGB Conc 34.6 g/dL (31.6-35.5); Mean Corpuscular Hemoglobin 38.6 pg (28.0-33.3); Mean Corpuscular Volume 111.6 fL (83.0-100.0); Mean Platelet Volume 10.1 fL (9.4-12.4); Monocytes % 13.7 %; Neutrophils # 4.1 K/mcL (1.6-8.9); Platelet Count 327 K/mcL (140-400); Red Blood Count 2.15 M/mcL (3.82-4.97); Red Cell Distribution Width 16.2 % (11.5-14.5); Segmented Neutrophils % 53.3 %
[2018-08-13 11:10] LABS: Calcium 9.4 mg/dL (8.6-10.3); Potassium 4.5 mEq/L (3.5-5.1)
[2018-08-13 11:46] LABS: Anisocytosis 2+ (Not Present); Hypochromasia Present (Not Present); Macrocytosis Present (Not Present); Platelet Estimate Normal (Normal); Stomatocytes 1+ (Not Present)
[2018-08-13] MEDS: Cholecalciferol (D-3) 1,000 UNIT TABLET PO SCH (11:55)
[2018-08-13] MEDS: Acetaminophen 325 MG TABLET PO PRN ×2 (15:20→21:36)
--- NOTE | 2018-08-13 16:26 | Electrocardiograph Report ---
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
[2018-08-13] MEDS: *HR* Rivaroxaban 15 MG TABLET PO SCH (18:44)
[2018-08-14] MEDS: Acetaminophen 325 MG TABLET PO PRN ×2 (06:03→21:26)
[2018-08-14] MEDS: Piperacillin/Tazobactam 3.375 GM in 0.9 % Sodium Chloride Mini Bag 100 ML IVPB SCH ×3 (06:04→21:32)
--- NOTE | 2018-08-14 08:52 | Internal Med Progress Note ---
Hospitalist Progress Note - Encounter Date of Encounter: 08/14/18 Time of Encounter: 11:00 - Subjective Interval History: Patient still requiring supplemental oxygenation for acute hypoxic respiratory failure secondary to community acquired pneumonia Continuing IV antibiotics - Exam Vitals: Temp Pulse Resp BP Pulse Ox 97.9 F 76 15 104/59 99 08/14/18 07:16 08/14/18 07:16 08/14/18 07:16 08/14/18 07:16 08/14/18 07:16 Exam: Gen.: Nonacute distress, alert and oriented 3 ENT: Mucosal membranes moist Respiratory: Lungs are clear to auscultation bilaterally without any wheezing rhonchi or rales Cardiovascular: Normal S1 and S2 regular rate rhythm no murmurs rubs or gallops Abdomen: Soft, nontender and nondistended with positive bowel sounds Extremities: Patient with bilateral 1+ pitting edema in lower extremities Skin: Normal color - Assessment and Plan (1) Pneumonia Current Visit: Yes Status: Acute Assessment and Plan: Patient found to have worsening right basilar airspace disease suspicious for pneumonia on chest x-ray therefore currently being treated for hospital-acquired pneumonia Nasal screen negative for MRSA therefore vancomycin discontinued on 08/12/18; continuing day 4 of IV Zosyn (2) Acute respiratory failure with hypoxia Current Visit: Yes Status: Acute Assessment and Plan: Patient still requiring 2-3 L of supplemental oxygenation secondary to the above Plan to wean O2 as tolerates today (3) Atrial fibrillation with rapid ventricular response Current Visit: Yes Status: Chronic Assessment and Plan: Patient's heart rate continues to be controlled after starting oral Cardizem 240 mg daily per cardiology recommendations. Continuing oral anticoagulation was Xarelto (4) Diastolic heart failure Current Visit: Yes Status: Acute Assessment and Plan: Patient was started on increase oral Lasix dose at 40 mg daily per cardiology recommendations Will consider decreasing to home dose of 20 mg daily (5) Abnormal urinalysis Current Visit: Yes Status: Acute Assessment and Plan: Patient is symptomatic with dysuria and therefore was started on Pyridium on 08/12/18 Patient has completed a 3 day course of IV antibiotics with Zosyn for suspected UTI (6) Anemia Current Visit: Yes Status: Acute Assessment and Plan: Stable; continue to monitor (7) CKD (chronic kidney disease) stage 3, GFR 30-59 ml/min Current Visit: Yes Status: Acute Assessment and Plan: Stable; continue to monitor (8) Myasthenia gravis Current Visit: No Status: Chronic Assessment and Plan: Continue home Mestinon DVT Prophylaxis: Continue home dose of Xarelto - Time Spent with Patient Total time spent is greater than 50% in coordination of care (as documented) at patient's floor/unit and/or counseling patient: Internal Medicine: Result - Labs CBC & Chem 7: 08/14/18 09:03 08/14/18 09:03 Labs: Short CBC 08/13/18 Range/Units 10:23 WBC 7.6 (4.3-11.1) K/mcL Hgb 8.3 L (11.5-15.4) g/dL Hct 24.0 L (35.3-44.9) % Plt Count 327 (140-400) K/mcL Neutrophils # 4.1 (1.6-8.9) K/mcL BMP 08/13/18 10:23 Sodium 137 Potassium 4.5 Chloride 105 Carbon Dioxide 28 BUN 40 H Creatinine 1.28 H Glucose 90 Calcium 9.4 - ABG Interpretation ABG results: PT/INR, D-dimer PT 15.3 Seconds (9.4-12.1) H 08/11/18 14:25 Consult Discharge Plan - Plan Referrals: Carlos Newman MD [Primary Care Provider] - 08/21/18 1:20 pm (Please follow up as schedule....) (1) Pneumonia Qualifiers: Pneumonia type: due to unspecified organism Laterality: right Lung location: lower lobe of lung Qualified Code(s): J18.1 - Lobar pneumonia, unspecified organism (4) Diastolic heart failure Qualifiers: Heart failure chronicity: chronic Qualified Code(s): I50.32 - Chronic diastolic (congestive) heart failure (6) Anemia Qualifiers: Anemia type: unspecified type Qualified Code(s): D64.9 - Anemia, unspecified
[2018-08-14] MEDS: Fenofibrate 54 MG TABLET PO SCH (09:15)
[2018-08-14] MEDS: Pyridostigmine Br 60 MG TABLET PO SCH ×2 (09:15→21:27)
[2018-08-14] MEDS: Furosemide 40 MG TABLET PO SCH (09:15)
[2018-08-14] MEDS: Isosorbide MONOnitrate (24 HR) 60 MG TAB.ER.24H PO SCH (09:15)
[2018-08-14] MEDS: Diltiazem CD (24hr) 240 MG CAPSULE PO SCH (09:15)
[2018-08-14 09:24] LABS: Basophils % 0.4 %; Eosinophils # 0.5 K/mcL (0.0-0.6); Eosinophils % 5.6 %; Hematocrit 26.6 % (35.3-44.9); Hemoglobin 9.3 g/dL (11.5-15.4); Immature Granulocytes % 0.1 % (0-4); Lymphocytes % 37.1 %; Mean Corpuscular Hemoglobin 39.1 pg (28.0-33.3); Mean Corpuscular Volume 111.8 fL (83.0-100.0); Mean Platelet Volume 9.7 fL (9.4-12.4); Monocytes # 0.7 K/mcL (0.0-1.3); Monocytes % 8.9 %; Neutrophils # 3.9 K/mcL (1.6-8.9); Platelet Count 355 K/mcL (140-400); Red Blood Count 2.38 M/mcL (3.82-4.97); Red Cell Distribution Width 15.9 % (11.5-14.5); Segmented Neutrophils % 47.9 %
[2018-08-14 09:40] LABS: Calcium 9.6 mg/dL (8.6-10.3); Potassium 3.9 mEq/L (3.5-5.1)
[2018-08-14 10:38] LABS: Macrocytosis Present (Not Present); Platelet Estimate Normal (Normal)
[2018-08-14] MEDS: Cholecalciferol (D-3) 1,000 UNIT TABLET PO SCH (11:46)
[2018-08-14] MEDS: *HR* Rivaroxaban 15 MG TABLET PO SCH (16:33)
[2018-08-15] MEDS: Piperacillin/Tazobactam 3.375 GM in 0.9 % Sodium Chloride Mini Bag 100 ML IVPB SCH ×3 (05:32→22:36)
--- NOTE | 2018-08-15 08:38 | Internal Med Progress Note ---
Hospitalist Progress Note - Encounter Date of Encounter: 08/15/18 Time of Encounter: 11:00 - Subjective Interval History: Patient still requiring supplemental oxygenation for acute hypoxic respiratory failure secondary to community acquired pneumonia Continuing IV antibiotics Will order home O2 walk study today Patient also with no improvement and age of fibrillation with RVR therefore cardiology re-consulted for reevaluation - Exam Vitals: Temp Pulse Resp BP Pulse Ox 98.2 F 108 17 115/71 98 08/15/18 08:20 08/15/18 08:20 08/15/18 08:20 08/15/18 08:20 08/15/18 08:20 Exam: Gen.: Nonacute distress, alert and oriented 3 ENT: Mucosal membranes moist Respiratory: Lungs are clear to auscultation bilaterally without any wheezing rhonchi or rales Cardiovascular: Irregular regular rhythm Abdomen: Soft, nontender and nondistended with positive bowel sounds Extremities: Patient with bilateral 1+ pitting edema in lower extremities Skin: Normal color - Assessment and Plan (1) Pneumonia Current Visit: Yes Status: Acute Assessment and Plan: Patient found to have worsening right basilar airspace disease suspicious for pneumonia on chest x-ray therefore currently being treated for hospital-acquired pneumonia Patient without much improvement in acute hypoxic respiratory failure as not able to wean her off supplemental oxygenation Nasal screen negative for MRSA therefore vancomycin discontinued on 08/12/18; continuing day 5 of IV Zosyn Will order home O2 walk study today (2) Acute respiratory failure with hypoxia Current Visit: Yes Status: Acute Assessment and Plan: Patient still requiring 2-3 L of supplemental oxygenation secondary to the above Plan for home O2 oximetry as above (3) Atrial fibrillation with rapid ventricular response Current Visit: Yes Status: Chronic Assessment and Plan: Patient's rate not controlled therefore cardiology consulted for recommendations Continuing oral anticoagulation was Xarelto (4) Diastolic heart failure Current Visit: Yes Status: Acute Assessment and Plan: Patient was started on increase oral Lasix dose at 40 mg daily per cardiology recommendations She has been decreased to home dose of Lasix at 20 mg daily Continue to monitor (5) Abnormal urinalysis Current Visit: Yes Status: Acute Assessment and Plan: Patient is symptomatic with dysuria and therefore was started on Pyridium on 08/12/18 Patient has completed a 3 day course of IV antibiotics with Zosyn for suspected UTI (6) Anemia Current Visit: Yes Status: Acute Assessment and Plan: Stable; continue to monitor (7) CKD (chronic kidney disease) stage 3, GFR 30-59 ml/min Current Visit: Yes Status: Acute Assessment and Plan: Stable; continue to monitor (8) Myasthenia gravis Current Visit: No Status: Chronic Assessment and Plan: Continue home Mestinon DVT Prophylaxis: Continue home dose of Xarelto - Time Spent with Patient Total time spent is greater than 50% in coordination of care (as documented) at patient's floor/unit and/or counseling patient: Internal Medicine: Result - Labs CBC & Chem 7: 08/15/18 09:35 08/15/18 09:35 Labs: Short CBC 08/14/18 Range/Units 09:03 WBC 8.2 (4.3-11.1) K/mcL Hgb 9.3 L (11.5-15.4) g/dL Hct 26.6 L (35.3-44.9) % Plt Count 355 (140-400) K/mcL Neutrophils # 3.9 (1.6-8.9) K/mcL BMP 08/14/18 09:03 Sodium 136 Potassium 3.9 Chloride 103 Carbon Dioxide 30 H BUN 42 H Creatinine 1.43 H Glucose 125 H Calcium 9.6 - ABG Interpretation ABG results: PT/INR, D-dimer PT 15.3 Seconds (9.4-12.1) H 08/11/18 14:25 Consult Discharge Plan - Plan Referrals: Carlos Newman MD [Primary Care Provider] - 08/21/18 1:20 pm (Please follow up as schedule....) (1) Pneumonia Qualifiers: Pneumonia type: due to unspecified organism Laterality: right Lung location: lower lobe of lung Qualified Code(s): J18.1 - Lobar pneumonia, unspecified organism (4) Diastolic heart failure Qualifiers: Heart failure chronicity: chronic Qualified Code(s): I50.32 - Chronic diastolic (congestive) heart failure (6) Anemia Qualifiers: Anemia type: unspecified type Qualified Code(s): D64.9 - Anemia, unspecified
[2018-08-15] MEDS: Isosorbide MONOnitrate (24 HR) 60 MG TAB.ER.24H PO SCH (08:43)
[2018-08-15] MEDS: Fenofibrate 54 MG TABLET PO SCH (08:43)
[2018-08-15] MEDS: Pyridostigmine Br 60 MG TABLET PO SCH ×2 (08:43→20:41)
[2018-08-15] MEDS: Diltiazem CD (24hr) 240 MG CAPSULE PO SCH (08:43)
[2018-08-15] MEDS ORDERED: Furosemide 20 MG TABLET PO SCH (09:00)
[2018-08-15 10:04] LABS: Basophils % 0.6 %; Eosinophils # 0.4 K/mcL (0.0-0.6); Eosinophils % 6.4 %; Hematocrit 24.1 % (35.3-44.9); Hemoglobin 8.3 g/dL (11.5-15.4); Immature Granulocytes % 0.3 % (0-4); Lymphocytes # 2.4 K/mcL (0.6-4.6); Mean Corpuscular HGB Conc 34.4 g/dL (31.6-35.5); Mean Corpuscular Hemoglobin 38.2 pg (28.0-33.3); Mean Corpuscular Volume 111.1 fL (83.0-100.0); Monocytes # 0.8 K/mcL (0.0-1.3); Monocytes % 11.3 %; Neutrophils # 3.1 K/mcL (1.6-8.9); Platelet Count 331 K/mcL (140-400); Red Blood Count 2.17 M/mcL (3.82-4.97); Red Cell Distribution Width 15.9 % (11.5-14.5); Segmented Neutrophils % 46.4 %
[2018-08-15 10:19] LABS: Calcium 9.3 mg/dL (8.6-10.3); Potassium 4.4 mEq/L (3.5-5.1)
[2018-08-15 10:47] LABS: Macrocytosis Present (Not Present); Platelet Estimate Normal (Normal)
[2018-08-15] MEDS: Cholecalciferol (D-3) 1,000 UNIT TABLET PO SCH (12:38)
[2018-08-15] MEDS ORDERED: Simethicone 80 MG TAB.CHEW PO PRN (12:40)
[2018-08-15] MEDS ORDERED: Amiodarone Premix 360 MG/200 ML BAG IVC ONE ×2 (13:45→15:47)
[2018-08-15] MEDS ORDERED: Amiodarone Premix 360 MG/200 ML BAG IVC SCH (13:45)
[2018-08-15] MEDS ORDERED: Amiodarone Premix 150 MG/100 ML BAG IVPB ONE ×2 (13:45→15:47)
--- NOTE | 2018-08-15 13:52 | Cardiology Consult Note ---
<Alfie Tyson Ellen - Last Filed: 08/15/18 13:47> Date of Encounter: 08/15/18 Time of Encounter: 13:45 Assessment and Plan (1) Nosocomial pneumonia Current Visit: Yes Status: Acute Per Cardiology: Chest x-ray showing pneumonia. On antibiotics. Being managed by primary service. Suspect exacerbating A. fib with RVR. Additionally been treated for potential UTI as well. (2) Atrial fibrillation with rapid ventricular response Current Visit: Yes Status: Chronic Per Cardiology: Again history of paroxysmal atrial fibrillation previously on antiarrhythmic of Rythmol with recent failed therapy May 2018 area again, during hospital stay patient started on beta amber however developed side effects. Subsequent started on Cardizem and amiodarone and eventually discharged from rehabilitation. Unfortunately, upon follow-up patient was not taking either medication was taking her home dose of Rythmol. At that time was found to be A. fib in the 100s to 110s. After lengthy discussion patient agreed to resume Cardizem for rate control strategy and evaluate long-term if she were to proceed with attempt at rhythm control strategy again with amiodarone and possible car dioversion. Patient now in setting of pneumonia and UTI and continues to be A. fib with RVR despite Cardizem. Discussed and reviewed with Dr. Dang, recommendations for IV amiodarone loading. Patient agreeable. Regarding long-term anticoagulation, remains on Xarelto 15mg PO daily. Continue to monitor H&H and renal function. (3) Acute on chronic diastolic CHF (congestive heart failure) Current Visit: No Status: Acute Per Cardiology: Currently on Lasix 20 mg by mouth daily. Net I&O +4L, weigjt about 143 lbs (baseline around 135-140). Discussion w patient/family: The assessment and plan as outlined above was discussed with the patient who expressed understanding and agreement. All questions were answered. Thank you for involving us in the care of your patient. Please call with any questions. History of Present Illness Consult date: 08/15/18 Requesting physician: Jono Concepcion Consult reason: Afib RVR Chief complaint: SOB History of present illness: Ms. Castaneda is a 82 year old female well known to me with a relevant past medical history of paroxysmal atrial fibrillation with recent failed antiarrhythmic therapy of Rythmol, hypertension, hyperlipidemia, COPD, and CHF. Cardiology consult for A. fib with RVR in setting of pneumonia and UTI. Of note, at last visit patient followed up after 2 recent hospital stays for A. fib with RVR and CHF. During the stays Rythmol was discontinued and patient started on Toprol with side effects and subsequently started on Cardizem and amiodarone. However upon follow-up patient was not taking either medication was back on her Rythmol. At that appointment she was back in A. fib in the 100s to 110s. Plan at that point was for rate control and evaluation of potential rhythm control strategy resumption of amiodarone and possible cardioversion. Patient reports currently feeling short of breath. She reports overall increase in fatigue. Reports worsening swelling again to her bilateral lower extremities since last office visit. She reports she developed burning and discoloration with her urine. She denies any chest pain. Denies any dizziness, syncope, falls. Denies any active bleeding or blood loss. Reports continues on her anticoagulation. Past Med Surg Social Fam HX - Past Medical History Attestation: Yes The following information was validated with the patient. Source: patient, old records reviewed Medical history: atrial fibrillation, CHF, GERD, hyperlipidemia, hypertension, renal disease Additional medical history: MYASTHENIA GRAVIS Psychiatric history: anxiety - Past Surgical History Surgical History: cataract, knee replacement, other Additional surgical history: RIGHT LUNG MASS BENIGN - Social History Smoking Status: Never smoker Smokeless Tobacco Status: No Alcohol use: none Drug use: none - Family History Mother Adopted: No Family Member Ethnicity: Non- Living Status: Age at : 75 Hx Family Cardiac Disorders: No Hx Family Respiratory Disorders: No Hx Family Cancer: No Hx Family GI Disorders: No Hx Family Endocrine Disorder: No Hx Family Neuromuscular Disorders: No Hx Family Neurologic Disorders: No Hx Family HEENT Disorders: No Hx Family Autoimmune Disorders: No Father Living Status: Age at : 84 Hx Family Cardiac Disorders: Yes Medications and Allergies Allopurinol [Zyloprim 100 MG] 100 mg PO DAILY 02/18/17 [History] Cholecalciferol (Vitamin D3) [Vitamin D3] 2,000 unit PO 1200 02/18/17 [History] Docusate [Colace] 100 mg PO DAILY 02/18/17 [History] Multivit-Min/Iron/Folic/Lutein [Centrum Silver Women Tablet] 1 tab PO DAILY 02/18/17 [History] Polyethylene Glycol 3350 [MiraLAX bowel prep] 17 gm PO DAILY 02/18/17 [History] Pyridostigmine Br [Mestinon] 60 mg PO BID 02/18/17 [History] Cholecalciferol (D-3) [Vitamin D] 3,000 unit PO QAM 05/23/18 [History] Acetaminophen [Tylenol] 650 mg PO Q6HR PRN tablet 06/23/18 [Rx] Furosemide [Lasix] 20 mg PO DAILY #40 tablet 07/10/18 [Rx] Isosorbide MONOnitrate (24 HR) [Imdur] 60 mg PO DAILY #40 tab.er.24h 07/10/18 [Rx] Pantoprazole Sodium [Protonix] 40 mg PO DAILY #40 tablet.dr 07/10/18 [Rx] Rivaroxaban [Xarelto] 15 mg PO DAILY #40 tablet 07/10/18 [Rx] raNITIdine HCl [Zantac] 150 mg PO BID #70 tablet 07/10/18 [Rx] Diltiazem CD (24hr) [Cardizem CD] 180 mg PO DAILY 08/11/18 [History] Fenofibrate [Tricor] 54 mg PO DAILY 08/11/18 [History] Allergy/AdvReac Type Severity Reaction Status Date / Time prednisone AdvReac Palpitation Verified 05/23/18 18:11 s Yoaerjk-Clc-Bch Reductase AdvReac Weakness Verified 05/23/18 18:11 Inhibitor [Statins] All Systems Review: The remainder of the systems were reviewed and are negative - Constitutional Constitutional: fatigue, weight gain - Cardiovascular Cardiovascular: as per HPI, dyspnea at rest, dyspnea on exertion, leg edema, ort hopnea, rapid heart rate - Genitourinary Genitourinary: dysuria Physical Examination Vital Signs, Last 4 Hours Temp Pulse Resp BP Pulse Ox 08/15/18 11:50 97 F L 108 18 93/56 96 General: Conversant, No Apparent Distress HEENT: Atraumatic, Normocephaly, Mucus Membranes Moist Neck: No JVD, Normal carotid pulses Cardiac: No Murmur, Other (Irregularly irregular) Lungs: Other (Respirations mildly labored at rest, diminished breath sounds bilateral bases) Neuro: Alert and responsive, No focal deficits noted Abdomen: Soft, Non-Tender Skin: No rashes noted on visualized skin Musculoskeletal: No Chest Wall Tenderness Extremities: No Clubbing, No Cyanosis, Normal Pulses, Other (+2 generalized bilateral lower extremity nonpitting edema) Results 08/15/18 09:35 08/15/18 09:35 Lab Results Laboratory Tests 08/11/18 08/11/18 08/11/18 14:25 14:25 15:30 WBC Hgb Hct INR 1.4 Creatinine Est GFR (Non-Af Amer) Troponin I 0.03 Ur Leukocyte Esterase Large H 08/15/18 08/15/18 09:35 09:35 WBC 6.7 Hgb 8.3 L Hct 24.1 L INR Creatinine 1.38 H Est GFR (Non-Af Amer) 37 L Troponin I Ur Leukocyte Esterase ITS Impressions Chest X-Ray 08/11/18 14:11 IMPRESSION: Worsening right basilar airspace disease suspicious of pneumonia D/ / Bruce Schofield / Bruce Schofield Interpreting Provider: Bruce Schofield Intake & Output 08/12/18 08/13/18 08/14/18 08/15/18 23:59 23:59 23:59 23:59 Intake Total 2365 / 2365 1330 / 1330 900 / 900 560 / 560 Output Total 900 / 900 500 / 500 300 / 300 Balance 1465 / 1465 830 / 830 600 / 600 560 / 560 Weight 67 kg 65 kg Active Medications Acetaminophen (Tylenol) 650 mg PO Q6HR PRN PRN Reason: Mild Pain/Fever Stop: 02/11/19 18:58 Last Admin: 08/14/18 21:26 Dose: 650 mg Albuterol/Ipratropium (Duoneb) 3 ml IH [id number] PRN PRN Reason: Shortness Of Breath/Wheezing Stop: 02/10/19 18:15 Allopurinol (Zyloprim) 100 mg PO DAILY COUNTS INCLUDE 234 BEDS AT THE [facility] Stop: 02/11/19 10:16 Last Admin: 08/15/18 08:43 Dose: 100 mg Amoxicillin/Clavulanate Potassium (Augmentin) 500 mg PO BIDWM COUNTS INCLUDE 234 BEDS AT THE [facility] Stop: 08/18/18 08:01 Diltiazem HCl (Cardizem Cd) 240 mg PO DAILY COUNTS INCLUDE 234 BEDS AT THE [facility] Stop: 02/11/19 09:01 Last Admin: 08/15/18 08:43 Dose: 240 mg Docusate Sodium (Colace) 100 mg PO DAILY COUNTS INCLUDE 234 BEDS AT THE [facility]; Protocol Stop: 02/11/19 09:01 Last Admin: 08/15/18 08:43 Dose: 100 mg Fenofibrate (Tricor) 54 mg PO DAILY COUNTS INCLUDE 234 BEDS AT THE [facility]; Protocol Stop: 02/11/19 10:16 Last Admin: 08/15/18 08:43 Dose: 54 mg Furosemide (Lasix) 20 mg PO DAILY COUNTS INCLUDE 234 BEDS AT THE [facility] Stop: 02/14/19 09:01 Last Admin: 08/15/18 08:43 Dose: 20 mg Guaifenesin (Mucinex) 600 mg PO BID COUNTS INCLUDE 234 BEDS AT THE [facility] Stop: 02/12/19 21:01 Last Admin: 08/15/18 08:43 Dose: 600 mg Piperacillin Sod/Tazobactam (Sod 3.375 gm/ Sodium Chloride) 100 mls @ 25 mls/hr IVPB Q8H COUNTS INCLUDE 234 BEDS AT THE [facility] Stop: 08/16/18 02:00 Last Admin: 08/15/18 12:39 Dose: 25 mls/hr Amiodarone HCl/Dextrose (Amiodarone Drip Premix 360mg/200ml) 360 mg in 200 mls @ 33.333 mls/hr IVC ONCE ONE Stop: 08/15/18 19:44 Amiodarone HCl/Dextrose (Amiodarone Drip Premix 360mg/200ml) 360 mg in 200 mls @ 16.667 mls/hr IVC CONT [facility] Stop: 02/14/19 13:46 Amiodarone HCl/Dextrose (Amiodarone Premix 150mg/100ml) 150 mg in 100 mls @ 300 mls/hr IVPB ONCE ONE Stop: 08/15/18 14:04 Isosorbide Mononitrate (Imdur) 60 mg PO DAILY COUNTS INCLUDE 234 BEDS AT THE [facility] Stop: 02/11/19 10:16 Last Admin: 08/15/18 08:43 Dose: 60 mg Naloxone HCl (Narcan) 0.4 mg IVP Q2MIN PRN PRN Reason: SEE COMMENTS Stop: 02/10/19 17:47 Omeprazole (Prilosec) 20 mg PO DAILY COUNTS INCLUDE 234 BEDS AT THE [facility] Stop: 02/11/19 09:01 Last Admin: 08/15/18 08:43 Dose: 20 mg Polyethylene Glycol (Miralax) 17 gm PO DAILY [facility] Stop: 02/11/19 09:01 Last Admin: 08/15/18 08:46 Dose: Not Given Pyridostigmine [place] (Mestinon) 60 mg PO BID [facility] Stop: 02/10/19 21:01 Last Admin: 08/15/18 08:43 Dose: 60 mg Rivaroxaban (Xarelto) 15 mg PO QPM [facility] Stop: 02/10/19 22:16 Last Admin: 08/14/18 16:33 Dose: 15 mg Simethicone (Gas-X) 80 mg PO TID PRN PRN Reason: Dyspepsia Stop: 02/14/19 12:41 Vitamin D (Vitamin D) 1,000 unit PO 1200 COUNTS INCLUDE 234 BEDS AT THE [facility] Stop: 02/11/19 12:01 Last Admin: 08/15/18 12:38 Dose: 1,000 unit - Imaging and Cardiology Echo: report reviewed - EKG Interpretation EKG results cardiology: other (A. fib in the 110s to 130s on telemetry) Consult Discharge Plan - Plan Referrals: Carlos Newman MD [Primary Care Provider] - 08/21/18 1:20 pm (Please follow up as schedule....) <Mikey Dang - Last Filed: 08/16/18 20:52> Date of Encounter: 08/15/18 Time of Encounter: 18:15 - Attending Attestation I have personally performed a face to face evaluation on this patient. I have reviewed and agree with the care plan. History and Exam by me shows: CC: Shortness of breath HPI: Pt admitted thru ER with complaints of worsening shortness of breath and productive cough. She also notes feeling her heart race and skip after a coughing episode, lasts up to a minute, resolves spontaneously. She denies mid epigastric chest pain, but does admit to bilat pain in lateral ribs with cough or deep inspiration. She was found to be in a fib with RVR on admission through ER, started on IV aminiodarone with better control of ventricular response. ROS: reviewed PMH: reviewed Labs, Xrays reviewed PE: pt seen and examined, agree with findings as documented IMP/Plan: 1. A fib with RVR, ventricular response rate not well controlled, not clear if was due to medication failure or compliance failure, rate response now controlled on IV amiodarone, continue IV overnight, switch to po in AM if heart rate adequately controlled. 2. Acute on chronic diastolic heart failure due to tachycardia with delayed filling times, recommend increasing daily diuresis from 20 to 40 mg lasix q d, will reaccess depending on renal function. 3. Nosocomial Pneumonia, slowly responding to antibiotic tx, notes is less short of breath since admission. Assessment and Plan Discussion w patient/family: The assessment and plan as outlined above was discussed with the patient and/or family members who expressed understanding and agreement. All questions were answered. Thank you for involving us in the care of your patient. Please call with any questions. History of Present Illness History of present illness: Ms. Castaneda is a 82 year old female All Systems Review: The remainder of the systems were reviewed and are negative Physical Examination Vital Signs, Last 4 Hours Temp Pulse Resp BP Pulse Ox 08/16/18 19:29 98.4 F 105 20 117/71 93 Results 08/16/18 09:32 08/16/18 09:32 Lab Results 08/16/18 08/16/18 09:32 09:32 WBC 6.6 Hgb 8.1 L Hct 23.2 L Plt Count 339 Sodium 137 Potassium 4.1 Chloride 104 Carbon Dioxide 26 BUN 43 H Creatinine 1.41 H Glucose 112 H Calcium 9.1
[2018-08-15] MEDS ORDERED: Ipratropium/Albuterol Neb 3 ML IH PRN (15:47)
[2018-08-15] MEDS ORDERED: Naloxone 0.4 MG/ML INJ IVP PRN (15:47)
[2018-08-15] MEDS: *HR* Rivaroxaban 15 MG TABLET PO SCH (20:41)
[2018-08-15] MEDS: Amiodarone Premix 360 MG/200 ML BAG IVC SCH (21:17)
[2018-08-15] MEDS ORDERED: Piperacillin/Tazobactam 3.375 GM in 0.9 % Sodium Chloride Mini Bag 100 ML IVPB SCH (22:00)
[2018-08-15] MEDS: Acetaminophen 325 MG TABLET PO PRN (22:35)
[2018-08-16] MEDS ORDERED: Amoxicillin/Clavulanate 500 MG TABLET PO SCH (08:00)
[2018-08-16] MEDS: Piperacillin/Tazobactam 3.375 GM in 0.9 % Sodium Chloride Mini Bag 100 ML IVPB SCH ×3 (08:31→23:34)
[2018-08-16] MEDS: Isosorbide MONOnitrate (24 HR) 60 MG TAB.ER.24H PO SCH (08:31)
[2018-08-16] MEDS: Diltiazem CD (24hr) 240 MG CAPSULE PO SCH (08:31)
[2018-08-16] MEDS: Furosemide 20 MG TABLET PO SCH (08:31)
[2018-08-16] MEDS: Fenofibrate 54 MG TABLET PO SCH (08:32)
[2018-08-16] MEDS: Amoxicillin/Clavulanate 500 MG TABLET PO SCH ×2 (08:32→16:45)
[2018-08-16] MEDS: Pyridostigmine Br 60 MG TABLET PO SCH ×2 (08:32→20:27)
--- NOTE | 2018-08-16 09:04 | Cardiology Progress Note ---
Date of Encounter: 08/16/18 Time of Encounter: 09:00 Assessment and Plan (1) Nosocomial pneumonia Current Visit: Yes Status: Acute Per Cardiology: Chest x-ray showing pneumonia. On antibiotics. Being managed by primary service. Suspect exacerbating A. fib with RVR. Additionally been treated for potential UTI as well. (2) Atrial fibrillation with rapid ventricular response Current Visit: Yes Status: Chronic Per Cardiology: Again history of paroxysmal atrial fibrillation previously on antiarrhythmic of Rythmol with recent failed therapy May 2018 area again, during hospital stay patient started on beta amber however developed side effects. Subsequent started on Cardizem and amiodarone and eventually discharged from rehabilitation. Unfortunately, upon follow-up patient was not taking either medication was taking her home dose of Rythmol. At that time was found to be A. fib in the 100s to 110s. After lengthy discussion patient agreed to resume Cardizem for rate control strategy and evaluate long-term if she were to proceed with attempt at rhythm control strategy again with amiodarone and possible cardioversion. Patient now in setting of pneumonia and UTI and continues to be A. fib with RVR despite Cardizem. Now on IV amiodarone drip. Average heart rate on telemetry the past 12 hours 105, currently A. fib in the 100s. Plan to continue amiodarone load. We will discuss review with Dr. Dang. Regarding long-term anticoagulation, remains on Xarelto 15mg PO daily. Continue to monitor H&H and renal function. (3) Acute on chronic diastolic CHF (congestive heart failure) Current Visit: No Status: Acute Per Cardiology: Currently on Lasix 20 mg by mouth daily. Net I&O +4L, weigjt about 143 lbs (baseline around 135-140). Discussion w patient/family: The assessment and plan as outlined above was discussed with the patient who expressed understanding and agreement. All questions were answered. Thank you for involving us in the care of your patient. Please call with any questions. Subjective Principal diagnosis: Afib RVR Interval history: She reports overall improvement in her shortness of breath this morning. She denies any chest pain or palpitations. Reports difficulty sleeping last night. Objective Vital Signs, Last 4 Hours Temp Pulse Resp BP 08/16/18 07:14 98.3 F 119 18 99/73 General: Conversant, No Apparent Distress HEENT: Atraumatic, Normocephaly, Mucus Membranes Moist Neck: No JVD, Normal carotid pulses Cardiac: No Murmur, Other (Irregularly irregular) Lungs: Normal Breath Sounds, No Wheeze, Rales, Rhonchi, Other (I will conversational dyspnea noted) Neuro: Alert and responsive, No focal deficits noted Abdomen: Soft, Non-Tender Skin: No rashes noted on visualized skin Musculoskeletal: No Chest Wall Tenderness Extremities: No Clubbing, No Cyanosis, Normal Pulses, Other (+1-2 nonpitting bilateral lower extremity edema) Results 08/15/18 09:35 08/15/18 09:35 Lab Results 08/15/18 08/15/18 09:35 09:35 WBC 6.7 Hgb 8.3 L Hct 24.1 L Plt Count 331 Sodium 138 Potassium 4.4 Chloride 105 Carbon Dioxide 30 H BUN 42 H Creatinine 1.38 H Glucose 103 Calcium 9.3 Active Medications Acetaminophen (Tylenol) 650 mg PO Q6HR PRN PRN Reason: Mild Pain/Fever Stop: 02/11/19 18:58 Last Admin: 08/15/18 22:35 Dose: 650 mg Albuterol/Ipratropium (Duoneb) 3 ml IH [id number] PRN PRN Reason: Shortness Of Breath/Wheezing Stop: 02/10/19 18:15 Allopurinol (Zyloprim) 100 mg PO DAILY [facility] Stop: 02/11/19 10:16 Last Admin: 08/16/18 08:32 Dose: 100 mg Amoxicillin/Clavulanate Potassium (Augmentin) 500 mg PO BIDWM [facility] Stop: 08/18/18 08:01 Last Admin: 08/16/18 08:32 Dose: 500 mg Diltiazem HCl (Cardizem Cd) 240 mg PO DAILY [facility] Stop: 02/11/19 09:01 Last Admin: 08/16/18 08:31 Dose: 240 mg Docusate Sodium (Colace) 100 mg PO DAILY [facility]; Protocol Stop: 02/11/19 09:01 Last Admin: 08/16/18 08:32 Dose: Not Given Fenofibrate (Tricor) 54 mg PO DAILY [facility]; Protocol Stop: 02/11/19 10:16 Last Admin: 08/16/18 08:32 Dose: 54 mg Furosemide (Lasix) 20 mg PO DAILY [facility] Stop: 02/14/19 09:01 Last Admin: 08/16/18 08:31 Dose: 20 mg Guaifenesin (Mucinex) 600 mg PO BID [facility] Stop: 02/12/19 21:01 Last Admin: 08/16/18 08:32 Dose: 600 mg Amiodarone HCl/Dextrose (Amiodarone Drip Premix 360mg/200ml) 360 mg in 200 mls @ 16.667 mls/hr IVC CONT [facility] Stop: 02/14/19 13:46 Last Admin: 08/15/18 21:17 Dose: 0.5 mg/min, 16.667 mls/hr Piperacillin Sod/Tazobactam (Sod 3.375 gm/ Sodium Chloride) 100 mls @ 25 mls/hr IVPB Q8H [facility] Stop: 02/15/19 00:01 Last Admin: 08/16/18 08:31 Dose: 25 mls/hr Isosorbide Mononitrate (Imdur) 60 mg PO DAILY [facility] Stop: 02/11/19 10:16 Last Admin: 08/16/18 08:31 Dose: 60 mg Naloxone HCl (Narcan) 0.4 mg IVP Q2MIN PRN PRN Reason: SEE COMMENTS Stop: 02/10/19 17:47 Omeprazole (Prilosec) 20 mg PO DAILY [facility] Stop: 02/11/19 09:01 Last Admin: 08/16/18 08:31 Dose: 20 mg Polyethylene Glycol (Miralax) 17 gm PO DAILY [facility] Stop: 02/11/19 09:01 Last Admin: 08/16/18 08:30 Dose: Not Given Pyridostigmine [place] (Mestinon) 60 mg PO BID [facility] Stop: 02/10/19 21:01 Last Admin: 08/16/18 08:32 Dose: 60 mg Rivaroxaban (Xarelto) 15 mg PO QPM [facility] Stop: 02/10/19 22:16 Last Admin: 08/15/18 20:41 Dose: 15 mg Simethicone (Gas-X) 80 mg PO TID PRN PRN Reason: Dyspepsia Stop: 02/14/19 12:41 Vitamin D (Vitamin D) 1,000 unit PO 1200 [facility] Stop: 02/11/19 12:01 Consult Discharge Plan - Plan Referrals: Carlos Newman MD [Primary Care Provider] - 08/21/18 1:20 pm (Please follow up as schedule....)
--- NOTE | 2018-08-16 09:30 | Internal Med Progress Note ---
Hospitalist Progress Note - Encounter Date of Encounter: 08/16/18 Time of Encounter: 11:00 - Subjective Interval History: Patient's acute respiratory failure has resolved after management of hospital- acquired pneumonia with IV antibiotics. Patient currently on amiodarone drip for atrial fibrillation with RVR - Exam Vitals: Temp Pulse Resp BP Pulse Ox 98.3 F 119 18 99/73 92 08/16/18 07:14 08/16/18 07:14 08/16/18 07:14 08/16/18 07:14 08/15/18 16:07 Exam: Gen.: Nonacute distress, alert and oriented 3 ENT: Mucosal membranes moist Respiratory: Lungs are clear to auscultation bilaterally without any wheezing rhonchi or rales Cardiovascular: Irregular regular rhythm Abdomen: Soft, nontender and nondistended with positive bowel sounds Extremities: Patient with bilateral 1+ pitting edema in lower extremities Skin: Normal color - Assessment and Plan (1) Atrial fibrillation with rapid ventricular response Current Visit: Yes Status: Chronic Assessment and Plan: Patient's rate not controlled therefore cardiology consulted for recommendations Recommendations for rhythm control strategy and patient therefore on amiodarone drip with consideration for possible cardioversion Continuing oral anticoagulation was Xarelto Appreciate any additional recommendations (2) Pneumonia Current Visit: Yes Status: Acute Assessment and Plan: Patient found to have worsening right basilar airspace disease suspicious for pneumonia on chest x-ray therefore currently being treated for hospital-acquired pneumonia Patient's acute hypoxic respiratory failure has resolved as she has been able to be weaned off O2 Will continue day 6 of a 7 day course of IV Zosyn (3) Acute respiratory failure with hypoxia Current Visit: Yes Status: Acute Assessment and Plan: Resolved; continue to monitor (4) Diastolic heart failure Current Visit: Yes Status: Acute Assessment and Plan: Patient was started on increase oral Lasix dose at 40 mg daily per cardiology recommendations She has been decreased to home dose of Lasix at 20 mg daily Continue to monitor (5) Abnormal urinalysis Current Visit: Yes Status: Acute Assessment and Plan: Patient is symptomatic with dysuria and therefore was started on Pyridium on 08/12/18 Patient has completed a 3 day course of IV antibiotics with Zosyn for suspected UTI (6) Anemia Current Visit: Yes Status: Acute Assessment and Plan: Stable; continue to monitor (7) CKD (chronic kidney disease) stage 3, GFR 30-59 ml/min Current Visit: Yes Status: Acute Assessment and Plan: Stable; continue to monitor (8) Myasthenia gravis Current Visit: No Status: Chronic Assessment and Plan: Continue home Mestinon DVT Prophylaxis: Patient on Xarelto - Time Spent with Patient Total time spent is greater than 50% in coordination of care (as documented) at patient's floor/unit and/or counseling patient: Internal Medicine: Result - Labs CBC & Chem 7: 08/16/18 09:32 08/16/18 09:32 Labs: Short CBC 08/15/18 Range/Units 09:35 WBC 6.7 (4.3-11.1) K/mcL Hgb 8.3 L (11.5-15.4) g/dL Hct 24.1 L (35.3-44.9) % Plt Count 331 (140-400) K/mcL Neutrophils # 3.1 (1.6-8.9) K/mcL BMP 08/15/18 09:35 Sodium 138 Potassium 4.4 Chloride 105 Carbon Dioxide 30 H BUN 42 H Creatinine 1.38 H Glucose 103 Calcium 9.3 - ABG Interpretation ABG results: PT/INR, D-dimer PT 15.3 Seconds (9.4-12.1) H 08/11/18 14:25 Consult Discharge Plan - Plan Referrals: Carlos Newman MD [Primary Care Provider] - 08/21/18 1:20 pm (Please follow up as schedule....) (2) Pneumonia Qualifiers: Pneumonia type: due to unspecified organism Laterality: right Lung location: lower lobe of lung Qualified Code(s): J18.1 - Lobar pneumonia, unspecified organism (4) Diastolic heart failure Qualifiers: Heart failure chronicity: chronic Qualified Code(s): I50.32 - Chronic diastolic (congestive) heart failure (6) Anemia Qualifiers: Anemia type: unspecified type Qualified Code(s): D64.9 - Anemia, unspecified
[2018-08-16 10:09] LABS: Basophils % 0.6 %; Eosinophils # 0.4 K/mcL (0.0-0.6); Eosinophils % 6.3 %; Hematocrit 23.2 % (35.3-44.9); Hemoglobin 8.1 g/dL (11.5-15.4); Immature Granulocytes % 0.3 % (0-4); Lymphocytes # 2.8 K/mcL (0.6-4.6); Lymphocytes % 42.7 %; Mean Corpuscular HGB Conc 34.9 g/dL (31.6-35.5); Mean Corpuscular Hemoglobin 38.6 pg (28.0-33.3); Mean Corpuscular Volume 110.5 fL (83.0-100.0); Mean Platelet Volume 9.7 fL (9.4-12.4); Monocytes # 0.7 K/mcL (0.0-1.3); Monocytes % 10.2 %; Neutrophils # 2.6 K/mcL (1.6-8.9); Platelet Count 339 K/mcL (140-400); Red Cell Distribution Width 15.9 % (11.5-14.5); Segmented Neutrophils % 39.9 %
[2018-08-16 10:29] LABS: Calcium 9.1 mg/dL (8.6-10.3); Potassium 4.1 mEq/L (3.5-5.1)
[2018-08-16 10:30] LABS: Macrocytosis Present (Not Present); Platelet Estimate Normal (Normal)
[2018-08-16 10:31] LABS: Hypochromasia Present (Not Present); Reactive Lymphocytes Present (Not Present)
[2018-08-16] MEDS: Cholecalciferol (D-3) 1,000 UNIT TABLET PO SCH (11:12)
[2018-08-16] MEDS: Amiodarone Premix 360 MG/200 ML BAG IVC SCH ×2 (11:14→20:28)
[2018-08-16] MEDS: *HR* Rivaroxaban 15 MG TABLET PO SCH (16:45)
[2018-08-16] MEDS: Simethicone 80 MG TAB.CHEW PO PRN (22:57)
[2018-08-17] MEDS: Acetaminophen 325 MG TABLET PO PRN ×3 (02:36→23:49)
[2018-08-17] MEDS: Furosemide 20 MG TABLET PO SCH (08:24)
[2018-08-17] MEDS: Isosorbide MONOnitrate (24 HR) 60 MG TAB.ER.24H PO SCH (08:24)
[2018-08-17] MEDS: Fenofibrate 54 MG TABLET PO SCH (08:24)
[2018-08-17] MEDS: Diltiazem CD (24hr) 240 MG CAPSULE PO SCH (08:24)
[2018-08-17] MEDS: Pyridostigmine Br 60 MG TABLET PO SCH ×2 (08:25→19:27)
[2018-08-17] MEDS: Amoxicillin/Clavulanate 500 MG TABLET PO SCH ×2 (08:25→16:37)
[2018-08-17] MEDS: Piperacillin/Tazobactam 3.375 GM in 0.9 % Sodium Chloride Mini Bag 100 ML IVPB SCH ×3 (08:25→23:45)
[2018-08-17] MEDS: Amiodarone Premix 360 MG/200 ML BAG IVC SCH (08:33)
--- NOTE | 2018-08-17 08:39 | Cardiology Progress Note ---
Date of Encounter: 08/17/18 Time of Encounter: 08:35 Assessment and Plan (1) Nosocomial pneumonia Current Visit: Yes Status: Acute Per Cardiology: Chest x-ray showing pneumonia. On antibiotics. Being managed by primary service. Suspect exacerbating A. fib with RVR. Additionally been treated for potential UTI as well. (2) Atrial fibrillation with rapid ventricular response Current Visit: Yes Status: Chronic Per Cardiology: Again history of paroxysmal atrial fibrillation previously on antiarrhythmic of Rythmol with recent failed therapy May 2018 area again, during hospital stay patient started on beta amber however developed side effects. Subsequent started on Cardizem and amiodarone and eventually discharged from rehabilitation. Unfortunately, upon follow-up patient was not taking either medication was taking her home dose of Rythmol. At that time was found to be A. fib in the 100s to 110s. After lengthy discussion patient agreed to resume Cardizem for rate control strategy and evaluate long-term if she were to proceed with attempt at rhythm control strategy again with amiodarone and possible cardioversion. Patient now in setting of pneumonia and UTI and continues to be A. fib with RVR on Cardizem and on IV amiodarone drip. Average heart rate on telemetry the past 12 hours 102, currently A. fib in the 100s. Systolic blood pressure is 100s to 120s. Will discontinue IV amiodarone drip and start amiodarone 200 mg by mouth twice a day for one week and then decrease to 200 mg by mouth daily. Additionally, will increase Cardizem CD to 180 mg by mouth twice a day. Regarding long-term anticoagulation, remains on Xarelto 15mg PO daily. Continue to monitor H&H and renal function. (3) Acute on chronic diastolic CHF (congestive heart failure) Current Visit: No Status: Chronic Per Cardiology: Currently on Lasix 20 mg by mouth daily. Net I&O +4.8L. Clinically stable. Discussion w patient/family: The assessment and plan as outlined above was discussed with the patient who expressed understanding and agreement. All questions were answered. Thank you for involving us in the care of your patient. Please call with any questions. Subjective Principal diagnosis: Afib RVR Interval history: Patient seen today up out of bed to chair. Continues to experience shortness of breath at rest, however is overall improved since admission. She denies any chest pain or palpitations. Objective Vital Signs, Last 4 Hours Temp Pulse Resp BP Pulse Ox 08/17/18 07:49 97.3 F L 107 18 124/78 97 General: Conversant, No Apparent Distress HEENT: Atraumatic, Normocephaly, Mucus Membranes Moist Neck: No JVD, Normal carotid pulses Cardiac: No Murmur, Other (Irregularly irregular) Lungs: Normal Breath Sounds, No Wheeze, Rales, Rhonchi, Other (Slightly diminished bilateral bases, mild conversational dyspnea noted, mildly labored at rest) Neuro: Alert and responsive, No focal deficits noted Abdomen: Soft, Non-Tender Skin: No rashes noted on visualized skin Musculoskeletal: No Chest Wall Tenderness Extremities: No Clubbing, No Cyanosis, Normal Pulses, Other (+1-2 nonpitting bilateral lower extremity edema) Results 08/16/18 09:32 08/16/18 09:32 Lab Results 08/16/18 08/16/18 09:32 09:32 WBC 6.6 Hgb 8.1 L Hct 23.2 L Plt Count 339 Sodium 137 Potassium 4.1 Chloride 104 Carbon Dioxide 26 BUN 43 H Creatinine 1.41 H Glucose 112 H Calcium 9.1 Active Medications Acetaminophen (Tylenol) 650 mg PO Q6HR PRN PRN Reason: Mild Pain/Fever Stop: 02/11/19 18:58 Last Admin: 08/17/18 02:36 Dose: 650 mg Albuterol/Ipratropium (Duoneb) 3 ml IH [id number] PRN PRN Reason: Shortness Of Breath/Wheezing Stop: 02/10/19 18:15 Allopurinol (Zyloprim) 100 mg PO DAILY [facility] Stop: 02/11/19 10:16 Last Admin: 08/17/18 08:24 Dose: 100 mg Amiodarone HCl (Cordarone) 200 mg PO BID [facility] Stop: 02/16/19 09:01 Amoxicillin/Clavulanate Potassium (Augmentin) 500 mg PO BIDWM [facility] Stop: 08/18/18 08:01 Last Admin: 08/17/18 08:25 Dose: 500 mg Diltiazem HCl (Cardizem Cd) 180 mg PO BID [facility] Stop: 02/16/19 09:01 Docusate Sodium (Colace) 100 mg PO DAILY [facility]; Protocol Stop: 02/11/19 09:01 Last Admin: 08/17/18 08:25 Dose: Not Given Fenofibrate (Tricor) 54 mg PO DAILY [facility]; Protocol Stop: 02/11/19 10:16 Last Admin: 08/17/18 08:24 Dose: 54 mg Furosemide (Lasix) 20 mg PO DAILY [facility] Stop: 02/14/19 09:01 Last Admin: 08/17/18 08:24 Dose: 20 mg Guaifenesin (Mucinex) 600 mg PO BID [facility] Stop: 02/12/19 21:01 Last Admin: 08/17/18 08:24 Dose: 600 mg Piperacillin Sod/Tazobactam (Sod 3.375 gm/ Sodium Chloride) 100 mls @ 25 mls/hr IVPB Q8H [facility] Stop: 02/15/19 00:01 Last Admin: 08/17/18 08:25 Dose: 25 mls/hr Isosorbide Mononitrate (Imdur) 60 mg PO DAILY [facility] Stop: 02/11/19 10:16 Last Admin: 08/17/18 08:24 Dose: 60 mg Naloxone HCl (Narcan) 0.4 mg IVP Q2MIN PRN PRN Reason: SEE COMMENTS Stop: 02/10/19 17:47 Omeprazole (Prilosec) 20 mg PO DAILY [facility] Stop: 02/11/19 09:01 Last Admin: 08/17/18 08:24 Dose: 20 mg Polyethylene Glycol (Miralax) 17 gm PO DAILY [facility] Stop: 02/11/19 09:01 Last Admin: 08/17/18 08:25 Dose: Not Given Pyridostigmine [place] (Mestinon) 60 mg PO BID [facility] Stop: 02/10/19 21:01 Last Admin: 08/17/18 08:25 Dose: 60 mg Rivaroxaban (Xarelto) 15 mg PO QPM [facility] Stop: 02/10/19 22:16 Last Admin: 08/16/18 16:45 Dose: 15 mg Simethicone (Gas-X) 80 mg PO TID PRN PRN Reason: Dyspepsia Stop: 02/14/19 12:41 Last Admin: 08/16/18 22:57 Dose: 80 mg Vitamin D (Vitamin D) 1,000 unit PO 1200 [facility] Stop: 02/11/19 12:01 Last Admin: 08/16/18 11:12 Dose: 1,000 unit - EKG Interpretation EKG results cardiology: other (A. fib in the 100s) Consult Discharge Plan - Plan Referrals: Carlos Newman MD [Primary Care Provider] - 08/21/18 1:20 pm (Please follow up as schedule....)
[2018-08-17] MEDS: Diltiazem CD (24hr) 180 MG CAPSULE PO SCH ×2 (09:32→19:28)
[2018-08-17] MEDS: *HR* Amiodarone 200 MG TABLET PO SCH ×2 (09:32→19:27)
--- NOTE | 2018-08-17 09:32 | Internal Med Progress Note ---
Hospitalist Progress Note - Encounter Date of Encounter: 08/17/18 Time of Encounter: 11:00 - Subjective Interval History: Patient's acute respiratory failure has resolved after management of hospital- acquired pneumonia with IV antibiotics. Patient in addition with atrial fibrillation with RVR and amiodarone drip has been discontinued today per cardiology recommendation and started on oral amiodarone. Will monitor overnight and anticipate discharge on 08/18/18 - Exam Vitals: Temp Pulse Resp BP Pulse Ox 97.3 F L 107 18 124/78 97 08/17/18 07:49 08/17/18 07:49 08/17/18 07:49 08/17/18 07:49 08/17/18 07:49 Exam: Gen.: Nonacute distress, alert and oriented 3 ENT: Mucosal membranes moist Respiratory: Lungs are clear to auscultation bilaterally without any wheezing rhonchi or rales Cardiovascular: Irregular regular rhythm Abdomen: Soft, nontender and nondistended with positive bowel sounds Extremities: Patient with bilateral 1+ pitting edema in lower extremities Skin: Normal color - Assessment and Plan (1) Atrial fibrillation with rapid ventricular response Current Visit: Yes Status: Chronic Assessment and Plan: Cardiology with recommendations to discontinue amiodarone drip today and patient started on oral amiodarone 200 mg twice daily for 1 week and then to be transitioned to 200 mg daily Continue oral anticoagulation with Xarelto 50 mg daily (2) Pneumonia Current Visit: Yes Status: Acute Assessment and Plan: Patient found to have worsening right basilar airspace disease suspicious for pneumonia on chest x-ray therefore currently being treated for hospital-acquired pneumonia Patient's acute hypoxic respiratory failure has resolved as she has been able to be weaned off O2 Will complete day 7 of a 7 day course of IV Zosyn (3) Acute respiratory failure with hypoxia Current Visit: Yes Status: Acute Assessment and Plan: Resolved; continue to monitor (4) Diastolic heart failure Current Visit: Yes Status: Acute Assessment and Plan: Patient was started on increase oral Lasix dose at 40 mg daily per cardiology recommendations She has been decreased to home dose of Lasix at 20 mg daily Continue to monitor (5) Abnormal urinalysis Current Visit: Yes Status: Acute Assessment and Plan: Patient is symptomatic with dysuria and therefore was started on Pyridium on 08/12/18 Patient has completed a 3 day course of IV antibiotics with Zosyn for suspected UTI (6) Anemia Current Visit: Yes Status: Acute Assessment and Plan: Stable; continue to monitor (7) CKD (chronic kidney disease) stage 3, GFR 30-59 ml/min Current Visit: Yes Status: Acute Assessment and Plan: Stable; continue to monitor (8) Myasthenia gravis Current Visit: No Status: Chronic Assessment and Plan: Continue home Mestinon DVT Prophylaxis: Patient on Xarelto - Time Spent with Patient Total time spent is greater than 50% in coordination of care (as documented) at patient's floor/unit and/or counseling patient: Internal Medicine: Result - Labs CBC & Chem 7: 08/17/18 12:39 08/17/18 12:39 Labs: Short CBC 08/16/18 Range/Units 09:32 WBC 6.6 (4.3-11.1) K/mcL Hgb 8.1 L (11.5-15.4) g/dL Hct 23.2 L (35.3-44.9) % Plt Count 339 (140-400) K/mcL Neutrophils # 2.6 (1.6-8.9) K/mcL BMP 08/16/18 09:32 Sodium 137 Potassium 4.1 Chloride 104 Carbon Dioxide 26 BUN 43 H Creatinine 1.41 H Glucose 112 H Calcium 9.1 - ABG Interpretation ABG results: PT/INR, D-dimer PT 15.3 Seconds (9.4-12.1) H 08/11/18 14:25 Consult Discharge Plan - Plan Referrals: Carlos Newman MD [Primary Care Provider] - 08/21/18 1:20 pm (Please follow up as schedule....) (2) Pneumonia Qualifiers: Pneumonia type: due to unspecified organism Laterality: right Lung location: lower lobe of lung Qualified Code(s): J18.1 - Lobar pneumonia, unspecified organism (4) Diastolic heart failure Qualifiers: Heart failure chronicity: chronic Qualified Code(s): I50.32 - Chronic diastolic (congestive) heart failure (6) Anemia Qualifiers: Anemia type: unspecified type Qualified Code(s): D64.9 - Anemia, unspecified
[2018-08-17] MEDS: Cholecalciferol (D-3) 1,000 UNIT TABLET PO SCH (11:46)
[2018-08-17 13:01] LABS: Basophils % 0.5 %; Eosinophils # 0.3 K/mcL (0.0-0.6); Eosinophils % 3.9 %; Hematocrit 26.8 % (35.3-44.9); Hemoglobin 9.4 g/dL (11.5-15.4); Immature Granulocytes % 0.2 % (0-4); Lymphocytes # 3.5 K/mcL (0.6-4.6); Lymphocytes % 41.6 %; Mean Corpuscular HGB Conc 35.1 g/dL (31.6-35.5); Mean Corpuscular Hemoglobin 39.7 pg (28.0-33.3); Mean Corpuscular Volume 113.1 fL (83.0-100.0); Mean Platelet Volume 9.5 fL (9.4-12.4); Monocytes # 0.7 K/mcL (0.0-1.3); Monocytes % 8.7 %; Neutrophils # 3.8 K/mcL (1.6-8.9); Platelet Count 345 K/mcL (140-400); Red Blood Count 2.37 M/mcL (3.82-4.97); Red Cell Distribution Width 15.9 % (11.5-14.5); Segmented Neutrophils % 45.1 %
[2018-08-17 13:19] LABS: Calcium 9.4 mg/dL (8.6-10.3); Potassium 4.2 mEq/L (3.5-5.1)
[2018-08-17 13:33] LABS: Hypochromasia Present (Not Present); Macrocytosis Present (Not Present); Platelet Estimate Normal (Normal); Target Cells 2+ (Not Present)
[2018-08-17] MEDS: *HR* Rivaroxaban 15 MG TABLET PO SCH (16:37)
--- NOTE | 2018-08-18 08:29 | Event Note ---
Date of Encounter: 08/18/18 Time of Encounter: 08:30 - Cardiology Event Note Telemetry reviewed with average heart rate 90 12:01 hours, currently A. fib in the 90s. Continue current medical regimen, cardiology signoff, reconsult as needed, follow-up arranged.
[2018-08-18] MEDS: Furosemide 20 MG TABLET PO SCH (09:00)
[2018-08-18] MEDS: Amoxicillin/Clavulanate 500 MG TABLET PO SCH (09:00)
[2018-08-18] MEDS: Isosorbide MONOnitrate (24 HR) 60 MG TAB.ER.24H PO SCH (09:00)
[2018-08-18] MEDS: *HR* Amiodarone 200 MG TABLET PO SCH (09:00)
[2018-08-18] MEDS: Diltiazem CD (24hr) 180 MG CAPSULE PO SCH (09:00)
[2018-08-18] MEDS: Pyridostigmine Br 60 MG TABLET PO SCH (09:00)
[2018-08-18] MEDS: Fenofibrate 54 MG TABLET PO SCH (09:00)
[2018-08-18] MEDS: Simethicone 80 MG TAB.CHEW PO PRN (09:16)
[2018-08-18 11:41] VITALS: BP 102/65
[2018-08-18] MEDS: Cholecalciferol (D-3) 1,000 UNIT TABLET PO SCH (12:40)
--- NOTE | 2018-08-18 15:56 | Discharge Summary ---
- NOTES TO OUTPATIENT PROVIDER Notes to Outpatient Provider: Follow-up with cardiology as an outpatient Date of Encounter: 08/18/18 Time of Encounter: 11:00 - Discharge Diagnosis (1) Atrial fibrillation with rapid ventricular response Priority: Primary Status: Chronic (2) Pneumonia Priority: Primary Status: Acute Qualifiers: Pneumonia type: due to unspecified organism Laterality: right Lung location: lower lobe of lung Qualified Code(s): J18.1 - Lobar pneumonia, unspecified organism (3) Acute respiratory failure with hypoxia Priority: Primary Status: Acute (4) Diastolic heart failure Priority: Secondary Status: Acute Qualifiers: Heart failure chronicity: chronic Qualified Code(s): I50.32 - Chronic diastolic (congestive) heart failure (5) Abnormal urinalysis Priority: Secondary Status: Acute (6) Anemia Priority: Secondary Status: Acute Qualifiers: Anemia type: unspecified type Qualified Code(s): D64.9 - Anemia, unspecified (7) CKD (chronic kidney disease) stage 3, GFR 30-59 ml/min Priority: Secondary Status: Acute (8) Myasthenia gravis Priority: Secondary Status: Chronic Hospital course: Patient to a 82-year-old female with past medical history significant for atrial fibrillation, GERD, diastolic CHF, hypertension, hyperlipidemia, chronic kidney disease stage III, myasthenia gravis and gout who was recently admitted in June for A. fib with RVR and CHF when she was diuresed and her medication for atrial fibrillation were changed to Cardizem and amiodarone. She had some altered mental status effects from metoprolol. On discharge she was supposed to be on Cardizem and amiodarone but she said she was getting Rythmol at the rehabilitation facility and until she saw cardiology as outpatient on August 01. Her medication was changed to Cardizem at the time however after that she felt that she started having weakness. She felt that her symptoms were from Cardizem. She has associated shortness of breath and some burning urination. She has also noticed slight increase in her leg swelling but mentions is much better than before. She had noticed some weight gain. Occasional chest pain which lasts few seconds over the center of her chest. In the ER, patient was found to have A. fib with RVR with heart rate in 150s. She was started on Vanco Zosyn and Levaquin in ER for treatment of pneumonia. During patients hospital stay she completed a 7 day course of IV antibiotics with Capricesyn. Radiology was also consulted with recommendations to start patient on amiodarone drip and she was later transitioned to by mouth amiodarone. Patient will be discharged to follow up with cardiology as an outpatient for management of atrial fibrillation. - Time Spent with Patient Total time spent providing and/or coordinating discharge services: Less than 30 minutes - Discharge Medications Prescriptions: Amiodarone [Cordarone] 200 mg PO BID #14 tablet Amiodarone [Cordarone] 200 mg PO DAILY #30 tablet Diltiazem CD (24hr) [Cardizem CD] 180 mg PO BID #60 cap.er.24h Home Medications: Allopurinol [Zyloprim 100 MG] 100 mg PO DAILY 02/18/17 [History] Cholecalciferol (Vitamin D3) [Vitamin D3] 2,000 unit PO 1200 02/18/17 [History] Docusate [Colace] 100 mg PO DAILY 02/18/17 [History] Multivit-Min/Iron/Folic/Lutein [Centrum Silver Women Tablet] 1 tab PO DAILY 02/18/17 [History] Polyethylene Glycol 3350 [MiraLAX bowel prep] 17 gm PO DAILY 02/18/17 [History] Pyridostigmine Br [Mestinon] 60 mg PO BID 02/18/17 [History] Cholecalciferol (D-3) [Vitamin D] 3,000 unit PO QAM 05/23/18 [History] Acetaminophen [Tylenol] 650 mg PO Q6HR PRN tablet 06/23/18 [Rx] Furosemide [Lasix] 20 mg PO DAILY #40 tablet 07/10/18 [Rx] Isosorbide MONOnitrate (24 HR) [Imdur] 60 mg PO DAILY #40 tab.er.24h 07/10/18 [Rx] Pantoprazole Sodium [Protonix] 40 mg PO DAILY #40 tablet.dr 07/10/18 [Rx] Rivaroxaban [Xarelto] 15 mg PO DAILY #40 tablet 07/10/18 [Rx] raNITIdine HCl [Zantac] 150 mg PO BID #70 tablet 07/10/18 [Rx] Fenofibrate [Tricor] 54 mg PO DAILY 08/11/18 [History] Amiodarone [Cordarone] 200 mg PO BID #14 tablet 08/18/18 [Rx] Amiodarone [Cordarone] 200 mg PO DAILY #30 tablet 08/18/18 [Rx] Diltiazem CD (24hr) [Cardizem CD] 180 mg PO BID #60 cap.er.24h 08/18/18 [Rx] Allergies/Adverse Reactions: Allergy/AdvReac Type Severity Reaction Status Date / Time prednisone AdvReac Palpitation Verified 05/23/18 18:11 s [id number] Reductase AdvReac Weakness Verified 05/23/18 18:11 Inhibitor [Statins] Date of admission: 08/11/18 20:37 Primary care physician: Carlos Newman MD Consults: 08/12/18 04:54 Consult to Crop Puller [CONS] Routine Reason for SW Consult: Pt states she has Medicare. Pt also states she has Miriam. pt needs to speak to SS, to figure out how to pay for hospital stay . 08/13/18 12:20 Consult to Occupational Therapy [CONS] Routine Comment: Evaluate, develop and implement POC Reason for Consult: d/c planning, weakness Does patient have active BEDREST order?: No Is patient medically & hemodynamically stable?: Yes Consult to Physical Therapy [CONS] Routine Comment: Evaluate, develop and implement POC Reason for Consult: d/c planning, weakness Does patient have active BEDREST order?: No Is patient medically & hemodynamically stable?: Yes 08/15/18 12:24 Consult to Cardiology [CONS] Routine Comment: Consulting Provider: Cardiology Edita Reason for Consult: Elevated heart rate. Was previously prescribed 240mg of Cardizem PO. Heart rate still sustaining in 140-160's. Time Notified: 12:25 Call Completed: Yes - Constitutional Vitals: Temp Pulse Resp BP Pulse Ox 98.1 F 78 18 102/65 96 08/18/18 11:36 08/18/18 11:36 08/18/18 11:36 08/18/18 11:36 08/18/18 04:40 Exam: Gen.: Nonacute distress, alert and oriented 3 Skin: Normal color - Patient Status Disposition: Home Health Service Condition: Good - Discharge Instructions Instructions: Atrial Fibrillation (DC) Follow Up With: Carlos Newman MD [Primary Care Provider] - 08/21/18 1:20 pm (Please follow up as schedule....) Alfie Tyson, DIAMOND SETTER [Advanced Practice Nurse] - (OFFICE WILL CALL PATIENT AT HOME WITH FOLLOW UP APPOINTMENT) Forms: ED Satisfaction Letter
--- NOTE | 2018-08-18 15:58 | Physician Discharge Referral ---
Home Health/Hosp Referral Info Transfer to: Home Health - Diagnosis (1) Atrial fibrillation with rapid ventricular response Status: Chronic (2) Pneumonia Status: Acute (3) Acute respiratory failure with hypoxia Status: Acute (4) Diastolic heart failure Status: Acute (5) Abnormal urinalysis Status: Acute (6) Anemia Status: Acute (7) CKD (chronic kidney disease) stage 3, GFR 30-59 ml/min Status: Acute (8) Myasthenia gravis Status: Chronic - Respiratory Orders Smoking Cessation: Smoking cessation has been advised. For more information, call the [place] Tobacco Quit Line at 0-696-WDAR-NOW. - Services Needed Following services are medically necessary services: Nursing, Home Health Aide, Physical Therapy, Occupational Therapy - Transfer Medications Prescriptions: Amiodarone [Cordarone] 200 mg PO BID #14 tablet Amiodarone [Cordarone] 200 mg PO DAILY #30 tablet Diltiazem CD (24hr) [Cardizem CD] 180 mg PO BID #60 cap.er.24h Home Medications: Allopurinol [Zyloprim 100 MG] 100 mg PO DAILY 02/18/17 [History] Cholecalciferol (Vitamin D3) [Vitamin D3] 2,000 unit PO 1200 02/18/17 [History] Docusate [Colace] 100 mg PO DAILY 02/18/17 [History] Multivit-Min/Iron/Folic/Lutein [Centrum Silver Women Tablet] 1 tab PO DAILY 02/18/17 [History] Polyethylene Glycol 3350 [MiraLAX bowel prep] 17 gm PO DAILY 02/18/17 [History] Pyridostigmine Br [Mestinon] 60 mg PO BID 02/18/17 [History] Cholecalciferol (D-3) [Vitamin D] 3,000 unit PO QAM 05/23/18 [History] Acetaminophen [Tylenol] 650 mg PO Q6HR PRN tablet 06/23/18 [Rx] Furosemide [Lasix] 20 mg PO DAILY #40 tablet 07/10/18 [Rx] Isosorbide MONOnitrate (24 HR) [Imdur] 60 mg PO DAILY #40 tab.er.24h 07/10/18 [Rx] Pantoprazole Sodium [Protonix] 40 mg PO DAILY #40 tablet.dr 07/10/18 [Rx] Rivaroxaban [Xarelto] 15 mg PO DAILY #40 tablet 07/10/18 [Rx] raNITIdine HCl [Zantac] 150 mg PO BID #70 tablet 07/10/18 [Rx] Fenofibrate [Tricor] 54 mg PO DAILY 08/11/18 [History] Amiodarone [Cordarone] 200 mg PO BID #14 tablet 08/18/18 [Rx] Amiodarone [Cordarone] 200 mg PO DAILY #30 tablet 08/18/18 [Rx] Diltiazem CD (24hr) [Cardizem CD] 180 mg PO BID #60 cap.er.24h 08/18/18 [Rx] Allergies/Adverse Reactions: Allergy/AdvReac Type Severity Reaction Status Date / Time prednisone AdvReac Palpitation Verified 05/23/18 18:11 s Djtzcoj-Oze-Dke Reductase AdvReac Weakness Verified 05/23/18 18:11 Inhibitor [Statins] Certification: Further, I certify that my clinical findings support that this patient is homebound (i.e. absences from home require considerable and taxing effort and are for medical reasons or buddhist services or infrequently or short duration when for other reasons) because: Homebound Reason: Patient requires assistance of a person or device to safely leave home Attestation: My signature below is to certify that this patient is under my care and that I, or nurse practitioner, or a physician's nurses medical assistants phlebotomists working with me, has a [id number] encounter with this patient.
== END 2018-08-18 16:50 | disposition home health service (06) | DRG 193 ==
LOC: EMEROOARM 14:02 → 2ANU 20:37 → SUATTDRO 20:37 → 2ANU 20:54 → 2NNU 08-15 15:57
PROVIDERS: ADMIT Internal Medicine; ATTEND Hospitalist

== ENCOUNTER 2018-08-29 14:44 | Inpatient (IN) ==
--- NOTE | 2018-08-29 15:25 | Emergency Department Note ---
Disposition Clinical Impression: CHF (congestive heart failure) Qualifiers: Heart failure type: combined systolic and diastolic Heart failure chronicity: acute on chronic Qualified Code(s): I50.43 - Acute on chronic combined systolic (congestive) and diastolic (congestive) heart failure Atrial fibrillation Qualifiers: Atrial fibrillation type: chronic Qualified Code(s): I48.2 - Chronic atrial fibrillation Disposition: Admitted As Inpatient Condition: Good Forms: ED Satisfaction Letter Time of Disposition: 16:31 General Adult HPI - General Chief complaint: ED Extremity Problem,Nontraumatic Stated complaint: Bi-Lateral edema Time Seen by Provider: 08/29/18 15:16 Source: patient Limitations: no limitations Nursing Notes Reviewed: Yes Vital Signs Reviewed: Yes - History of Present Illness HPI Narrative: 82-year-old female via EMS for increased swelling and shortness of breath. Patient has a history of A. fib RVR is supposed to be scheduled for outpatient cardioversion has been having increasing swelling in the bilateral lower extremities which has not become painful up to her knees almost despite outpatient Lasix has not been effective. We will see the cardiology clinic O today advised to come to the ER for further evaluation and impaction inpatient diuresis with cardiology consultation and then optimization for cardioversion. Patient denies chest pain has mild shortness breath no fever no chills no nausea no vomiting no recent medication changes. Here for further evaluation Pain Scale: 0 - Related Data Home Medications Medication Instructions Recorded Confirmed Allopurinol [Zyloprim 100 MG] 100 mg PO DAILY 02/18/17 08/11/18 Cholecalciferol (Vitamin D3) 2,000 unit PO 1200 02/18/17 08/11/18 [Vitamin D3] Docusate [Colace] 100 mg PO DAILY 02/18/17 08/11/18 Multivit-Min/Iron/Folic/Lutein 1 tab PO DAILY 02/18/17 08/11/18 [Centrum Silver Women Tablet] Polyethylene Glycol 3350 [MiraLAX 17 gm PO DAILY 02/18/17 08/11/18 bowel prep] Pyridostigmine Br [Mestinon] 60 mg PO BID 02/18/17 08/11/18 Cholecalciferol (D-3) [Vitamin D] 3,000 unit PO QAM 05/23/18 08/11/18 Fenofibrate [Tricor] 54 mg PO DAILY 08/11/18 08/11/18 Previous Rx's Medication Instructions Recorded Acetaminophen [Tylenol] 650 mg PO Q6HR PRN tablet 06/23/18 Furosemide [Lasix] 20 mg PO DAILY #40 tablet 07/10/18 Isosorbide MONOnitrate (24 HR) 60 mg PO DAILY #40 tab.er.24h 07/10/18 [Imdur] Pantoprazole Sodium [Protonix] 40 mg PO DAILY #40 tablet. 07/10/18 Rivaroxaban [Xarelto] 15 mg PO DAILY #40 tablet 07/10/18 raNITIdine HCl [Zantac] 150 mg PO BID #70 tablet 07/10/18 Amiodarone [Cordarone] 200 mg PO BID #14 tablet 08/18/18 Amiodarone [Cordarone] 200 mg PO DAILY #30 tablet 08/18/18 Diltiazem CD (24hr) [Cardizem CD] 180 mg PO BID #60 cap.er.24h 08/18/18 Allergies Allergy/AdvReac Type Severity Reaction Status Date / Time prednisone AdvReac Palpitation Verified 05/23/18 18:11 s Cgvusxn-Awu-Vxv Reductase AdvReac Weakness Verified 05/23/18 18:11 Inhibitor [Statins] All systems ED: reviewed and negative except as stated. Cardiovascular: Reports: edema Respiratory: Reports: dyspnea Past Medical History - Past Medical History Attestation: Yes The following information was validated with the patient. Source: patient, old records reviewed Medical history: Reports: atrial fibrillation, CHF, GERD, hyperlipidemia, hypertension, renal disease Surgical history: Reports: cataract, knee replacement, other Psychiatric history: Reports: anxiety - Social History Smoking Status: Never smoker Smokeless Tobacco Status: No Alcohol use: Reports: none Drug use: Reports: none Physical Exam - General Limitations: no limitations General appearance: alert, in no apparent distress - Head Head exam: atraumatic, normocephalic - Eye Eye exam: Present: normal appearance, PERRL - ENT ENT exam: normal exam, normal oropharynx - Neck Neck exam: Present: normal inspection, full ROM - Chest Chest inspection: Present: normal inspection, symmetric chest wall rise - Respiratory Respiratory exam: Present: normal lung sounds bilaterally - Cardiovascular Cardiovascular exam: Present: regular rate, irregular rhythm - Abdominal Exam Abdominal exam: Present: soft, Non-Tender - Expanded Lower Extremity Exam Neurovascular/Tendon exam: Present: normal capillary refill Gait: not tested/not observed - Back Exam Back exam: Present: normal inspection, full ROM - Neurological Exam Neurological exam: Present: alert, oriented X3 - Psychiatric Psychiatric exam: Present: normal affect, normal mood - Skin Skin exam: Present: warm, dry, intact Course - Reevaluation(s) Reevaluation #1: ED workup is completed. Troponin negative chest x-ray shows mild failure. Patient is slightly anemic. Has mild CTD. Discussed case with the hospitalist Dr. Concepcion. Patient accepted for admission in stable condition cardiology consult placed. Time: 16:29 Vital Signs Temperature 97.5 F L 08/29/18 14:54 Pulse Rate 93 08/29/18 14:54 Respiratory Rate 18 08/29/18 14:54 Blood Pressure 117/54 08/29/18 14:54 O2 Sat by Pulse Oximetry 97 08/29/18 14:54 Temperature 97.5 F L 08/29/18 15:16 Pulse Rate 93 08/29/18 15:16 Respiratory Rate 18 08/29/18 15:16 Blood Pressure 117/54 08/29/18 15:16 O2 Sat by Pulse Oximetry 97 08/29/18 15:16 Oxygen Delivery Oxygen Delivery Room Air Medical Decision Making - Medical Records Medical records reviewed: Yes I reviewed the patient's medical records. - Lab Data Lab results reviewed: Yes I reviewed the patient's lab results. Result diagrams: 08/29/18 15:30 08/29/18 15:30 Lab Results 08/29/18 08/29/18 08/29/18 Range/Units 15:30 15:30 15:30 WBC 5.4 (4.3-11.1) K/mcL RBC 2.24 L (3.82-4.97) M/mcL Hgb 8.9 L (11.5-15.4) g/dL Hct 25.5 L (35.3-44.9) % MCV 113.8 H (83.0-100.0) fL MCH 39.7 H (28.0-33.3) pg MCHC 34.9 (31.6-35.5) g/dL RDW 16.8 H (11.5-14.5) % Plt Count 293 (140-400) K/mcL MPV 10.1 (9.4-12.4) fL Immature Gran % 0.2 (0-4) % Seg Neutrophils % 47.4 % Lymphocytes % 37.8 % Monocytes % 11.4 % Eosinophils % 2.8 % Basophils % 0.4 % Neutrophils # 2.6 (1.6-8.9) K/mcL Lymphocytes # 2.0 (0.6-4.6) K/mcL Monocytes # 0.6 (0.0-1.3) K/mcL Eosinophils # 0.2 (0.0-0.6) K/mcL Basophils # 0.0 (0.0-0.2) K/mcL Platelet Estimate Normal (Normal) Hypochromasia Present A (Not Present) PT 23.2 H (9.4-12.1) Seconds INR 2.1 APTT 41.5 H (26.0-36.0) Seconds Sodium 137 (136-145) mEq/L Potassium 4.5 (3.5-5.1) mEq/L Chloride 104 (98-107) mEq/L Carbon Dioxide 26 (23-29) mEq/L BUN 36 H (8-23) mg/dL Creatinine 1.29 H (0.60-1.20) mg/dL Est GFR ( Amer) 48 L (> 60) Est GFR (Non-Af Amer) 40 L (> 60) BUN/Creatinine Ratio 28 H (6-26) Glucose 115 H (70-105) mg/dL Calculated Osmolality 293 (280-300) Calcium 10.1 (8.6-10.3) mg/dL Troponin I < 0.03 (< 0.04) ng/mL - Radiology Data Radiology results reviewed: Yes I reviewed the patient's radiology results. - EKG Data EKG #1 EKG results narrative: Twelve-lead EKG interpreted without the benefit of Cardiologic assistance shows atrial fibrillation with controlled 97 bpm normal QRS QT and QT corrected. No signs of acute ischemic changes compared to prior EKG dated 08/11/2018.
[2018-08-29 15:45] LABS: Basophils % 0.4 %; Eosinophils # 0.2 K/mcL (0.0-0.6); Eosinophils % 2.8 %; Hematocrit 25.5 % (35.3-44.9); Hemoglobin 8.9 g/dL (11.5-15.4); Immature Granulocytes % 0.2 % (0-4); Lymphocytes % 37.8 %; Mean Corpuscular HGB Conc 34.9 g/dL (31.6-35.5); Mean Corpuscular Hemoglobin 39.7 pg (28.0-33.3); Mean Corpuscular Volume 113.8 fL (83.0-100.0); Mean Platelet Volume 10.1 fL (9.4-12.4); Monocytes # 0.6 K/mcL (0.0-1.3); Monocytes % 11.4 %; Neutrophils # 2.6 K/mcL (1.6-8.9); Platelet Count 293 K/mcL (140-400); Red Blood Count 2.24 M/mcL (3.82-4.97); Red Cell Distribution Width 16.8 % (11.5-14.5); Segmented Neutrophils % 47.4 %
[2018-08-29 15:54] LABS: INR 2.1; Prothrombin Time 23.2 Seconds (9.4-12.1)
[2018-08-29] MEDS ORDERED: Furosemide 40 MG/4 ML VIAL IVP ONE (15:54)
[2018-08-29 15:57] LABS: Activated Partial Thrombo Time 41.5 Seconds (26.0-36.0)
[2018-08-29 16:06] LABS: BUN/Creatinine Ratio 28 (6-26); Blood Urea Nitrogen 36 mg/dL (8-23); Calcium 10.1 mg/dL (8.6-10.3); Carbon Dioxide 26 mEq/L (23-29); Chloride 104 mEq/L (98-107); Glucose 115 mg/dL (70-105); Osmolality,Calculated 293 (280-300); Potassium 4.5 mEq/L (3.5-5.1); Sodium 137 mEq/L (136-145); Troponin I < 0.03 ng/mL (< 0.04); eGFR For Non-African Americans 40 (> 60)
[2018-08-29 16:18] LABS: Hypochromasia Present (Not Present); Platelet Estimate Normal (Normal)
--- NOTE | 2018-08-29 17:06 | Internal Med History&Physical ---
<Adan Diallo - Last Filed: 08/29/18 19:22> Date of Encounter: 08/29/18 Internal Medicine - H&P: HPI History of present illness: Ms. Castaneda is a 82 year old female Internal Medicine - H&P: Meds Allopurinol [Zyloprim 100 MG] 100 mg PO DAILY 02/18/17 [History] Docusate [Colace] 100 mg PO DAILY 02/18/17 [History] Multivit-Min/Iron/Folic/Lutein [Centrum Silver Women Tablet] 1 tab PO DAILY 02/18/17 [History] Polyethylene Glycol 3350 [MiraLAX bowel prep] 17 gm PO DAILY PRN 02/18/17 [History] Pyridostigmine Br [Mestinon] 60 mg PO BID 02/18/17 [History] Cholecalciferol (D-3) [Vitamin D] 5,000 unit PO QAM 05/23/18 [History] Acetaminophen [Tylenol] 650 mg PO Q6HR PRN tablet 06/23/18 [Rx] Furosemide [Lasix] 20 mg PO DAILY #40 tablet 07/10/18 [Rx] Isosorbide MONOnitrate (24 HR) [Imdur] 60 mg PO DAILY #40 tab.er.24h 07/10/18 [Rx] Pantoprazole Sodium [Protonix] 40 mg PO DAILY #40 tablet.dr 07/10/18 [Rx] Rivaroxaban [Xarelto] 15 mg PO DAILY #40 tablet 07/10/18 [Rx] raNITIdine HCl [Zantac] 150 mg PO BID #70 tablet 07/10/18 [Rx] Amiodarone [Cordarone] 200 mg PO DAILY #30 tablet 08/18/18 [Rx] Diltiazem CD (24hr) [Cardizem CD] 180 mg PO BID #60 cap.er.24h 08/18/18 [Rx] Erythromycin OPTH Oint 1 applic RIGHT EYE QID 08/29/18 [History] Fenofibrate Nanocrystallized [Fenofibrate] 160 mg PO DAILY 08/29/18 [History] Allergy/AdvReac Type Severity Reaction Status Date / Time prednisone AdvReac Palpitation Verified 05/23/18 18:11 s Unjebgh-Uon-Syt Reductase AdvReac Weakness Verified 05/23/18 18:11 Inhibitor [Statins] All Systems PM: A 10-system review of systems was performed and is negative for pertinent findings except as documented above in the HPI. - Constitutional Vitals: Temp Pulse Resp BP Pulse Ox 97.3 F L 110 17 115/74 98 08/29/18 18:44 08/29/18 18:44 08/29/18 18:44 08/29/18 18:44 08/29/18 18:44 Internal Med - H&P Results - Labs CBC & Chem 7: 08/29/18 15:30 08/29/18 15:30 Labs: Short CBC 08/29/18 Range/Units 15:30 WBC 5.4 (4.3-11.1) K/mcL Hgb 8.9 L (11.5-15.4) g/dL Hct 25.5 L (35.3-44.9) % Plt Count 293 (140-400) K/mcL Neutrophils # 2.6 (1.6-8.9) K/mcL BMP 08/29/18 15:30 Sodium 137 Potassium 4.5 Chloride 104 Carbon Dioxide 26 BUN 36 H Creatinine 1.29 H Glucose 115 H Calcium 10.1 Cardiac Enzymes 08/29/18 Range/Units 15:30 Troponin I < 0.03 (< 0.04) ng/mL - Impressions ITS Impressions Chest X-Ray 08/29/18 15:25 IMPRESSION: 1. Markedly large hiatal hernia. Lucency within the chest could either be related to colon or stomach. Overall findings appear progressed when compared to 05/23/2018. Consider further evaluation with CT to exclude an underlying bowel obstruction or volvulus. 2. Patchy opacities in the right lung, nonspecific and may be related to atelectasis or pneumonia. Small right pleural effusion. D/ / Georgina Mayer MD / Georgina Mayer MD Interpreting Provider: Georgina Mayer MD - Assessment and plan (1) Acute on chronic diastolic CHF (congestive heart failure) Current Visit: No Status: Chronic (2) Atrial fibrillation Current Visit: Yes Status: Chronic Qualifiers: Atrial fibrillation type: chronic Qualified Code(s): I48.2 - Chronic atrial fibrillation (3) CKD (chronic kidney disease) stage 3, GFR 30-59 ml/min Current Visit: No Status: Chronic (4) Myasthenia gravis Current Visit: No Status: Chronic (5) Essential hypertension Current Visit: No Status: Chronic - Time Spent With Patient Total time spent is greater than 50% in coordination of care (as documented) at patient's floor/unit and/or counseling patient: - Attending Attestation I examined this patient and my medical decision-making was reviewed with the Resident Physician on 08/29/18. I agree with the documented findings, disposition and treatment plan as described except to the extent set forth below. Ms Castaneda is 82 year old female sent to ED from Cardiology due to rapid a fib and CHF. She has had multiple admissions recently. She is to have inpatient cardioversion. Exam Alert comfortable Mucus membranes dry Heart irreg and tachy about 118. Scant bibasilar rales Abd soft Bilateral lower extremity edema I/P 1. CHF exac - diastolic. Acute. Diurese. 2. Rapid a fib Further diagnoses and plan as above. <Salome Cordova - Last Filed: 08/30/18 00:47> Date of Encounter: 08/30/18 Time of Encounter: 17:30 Internal Medicine - H&P: HPI Chief complaint: Bilateral LE Edema Admitted From: Emergency Dept Plans for Post Hospital Care: Home (with home health) History of present illness: Ms. Castaneda is a 82 year old female with a PMH of Afib, CHF, HTN, HLD, and COPD who presents to [facility] ED from the Cardiology office. She has an approximate weight gain of 20 pounds in the last 2 weeks, has worsening b/l LE and is SOB at rest. She has had multiple recent hospitalizations for Afib RVR and has been started on amiodarone with a planned outpatient cardioversion. When she present to Cardio office today it was decided that with her worsening CHF she would benefit from inpatient cardioversion sooner and was sent to the ER for admission. She reports that she has been taking her medications daily as prescribed and has not been missing doses. She also reports that she has been taking her lasix 20mg PO daily and has been elevating her legs as well. She reports that Saturday she was at Dr. Saavedra' office where they noticed a subconjunctival hemorrhage that had not previously been there. She does take xarelto. She has been using erythromycin eye ointment QID with artificial tears. She denies any current STONER, dizziness, vision changes, sore throat, CP, abd pain, n/v. She does live alone at [facility] and has [facility] who brings here in. Past Med Surg Social Fam HX - Past Medical History Attestation: Yes The following information was validated with the patient. Source: old records reviewed Medical history: atrial fibrillation, CHF, GERD, hyperlipidemia, hypertension, renal disease Additional medical history: MYASTHENIA GRAVIS Psychiatric history: anxiety - Past Surgical History Surgical History: cataract, knee replacement, other Additional surgical history: RIGHT LUNG MASS BENIGN - Social History Smoking Status: Never smoker Smokeless Tobacco Status: No Alcohol use: none Drug use: none - Family History Mother Adopted: No Family Member Ethnicity: Non- Living Status: Hx Family Cardiac Disorders: No Hx Family Respiratory Disorders: No Hx Family Cancer: No Hx Family GI Disorders: No Hx Family Endocrine Disorder: No Hx Family Neuromuscular Disorders: No Hx Family Neurologic Disorders: No Hx Family HEENT Disorders: No Hx Family Autoimmune Disorders: No Father Living Status: Hx Family Cardiac Disorders: Yes All Systems PM: A 10-system review of systems was performed and is negative for pertinent findings except as documented above in the HPI. - Constitutional Constitutional: weight gain, no chills, no fever(s) - EENT Eyes: no change in vision Ears: no ear pain - Cardiovascular Cardiovascular ROS IM: dyspnea (ff), no chest pain, no diaphoresis - Respiratory Respiratory: dyspnea - Gastrointestinal Gastrointestinal: bloating, diarrhea - Genitourinary Genitourinary: hematuria, no breast pain - Integumentary Integumentary IM: no erythema, no non-healing lesions, no rash, no sores - Neurological Neurological ROS: no abnormal speech, no disequilibrium, no dizziness, no he adache(s), no vertigo - Endocrine Endocrine IM: polyuria - Allergic/Immunologic Allergic/Immunologic: no wheezing - Constitutional Vitals: Temp Pulse Resp BP Pulse Ox 97.5 F L 102 18 124/68 98 08/29/18 15:16 08/29/18 16:52 08/29/18 16:52 08/29/18 16:52 08/29/18 16:52 General appearance: Present: A&O X 3, pleasant, no acute distress, answers questions appropriately Exam: . - Head Head exam: Present: atraumatic, normocephalic - Eye Eye exam: Present: PERRL, conjuntiva pink, sclera anicteric Pupils: Present: PERRL Additional comments: Scleral hemorrhage right eye. - Expanded Eye Exam Eyelids: bilateral: normal inspection Pupils: reactive: Bilateral, regular, round: Bilateral sclera: right: hemorrhage - Neck Neck exam general surgery: Present: normal inspection, supple, trachea midline. Absent: lymphadenopathy, thyromegaly - Respiratory Respiratory exam: Present: decreased breath sounds (at b/l bases), rales, rhonchi. Absent: accessory muscle use, respiratory distress, stridor, wheezes - Cardiovascular Cardiovascular exam: Present: +S1, +S2. Absent: diastolic murmur, gallop, rubs, systolic murmur Additional comments: rhythm: irregularly irregular - GI/Abdominal GI/Abdominal exam: Present: normal bowel sounds, soft, no peritoneal signs. Absent: distended, tenderness - Extremities Exam Extremities exam: Present: calf tenderness (right), normal capillary refill, pedal edema (2+ pitting, bilaterally), radial pulses palpable and symmetrical - Neurological Exam Neurological exam: Present: CN II-XII intact, oriented X3, no focal deficits. Absent: pronater drift, facial droop, speech deficit - Psychiatric Psychiatric exam: Present: normal affect, normal mood - Skin Skin exam: Present: dry, intact, normal color. Absent: erythema, rash, urticaria Internal Med - H&P Results - Labs CBC & Chem 7: 08/29/18 15:30 08/29/18 15:30 Labs: Short CBC 08/29/18 Range/Units 15:30 WBC 5.4 (4.3-11.1) K/mcL Hgb 8.9 L (11.5-15.4) g/dL Hct 25.5 L (35.3-44.9) % Plt Count 293 (140-400) K/mcL Neutrophils # 2.6 (1.6-8.9) K/mcL BMP 08/29/18 15:30 Sodium 137 Potassium 4.5 Chloride 104 Carbon Dioxide 26 BUN 36 H Creatinine 1.29 H Glucose 115 H Calcium 10.1 Cardiac Enzymes 08/29/18 Range/Units 15:30 Troponin I < 0.03 (< 0.04) ng/mL - Impressions ITS Impressions Chest X-Ray 08/29/18 15:25 IMPRESSION: 1. Markedly large hiatal hernia. Lucency within the chest could either be related to colon or stomach. Overall findings appear progressed when compared to 05/23/2018. Consider further evaluation with CT to exclude an underlying bowel obstruction or volvulus. 2. Patchy opacities in the right lung, nonspecific and may be related to atelectasis or pneumonia. Small right pleural effusion. D/ / Georgina Mayer MD / Georgina Mayer MD Interpreting Provider: Georgina Maeyr MD - Assessment and plan (1) Acute on chronic diastolic CHF (congestive heart failure) Current Visit: No Status: Chronic Assessment and plan: Pt presents with 2 weeks of weight gain (approx 20 lbs), worsening b/l pedal Edema and worsening SOB. Cardio evaluated her and sent her for admission. Will get IV diureses and plan for cardioversion Saturday. She was given lasix 40mg IV in ED Plan: -Lasix 40mg IV BID -1.5 L fluid restriction -Cardiac Diet -Pure wick catheter -Strict I/Os -Forestry Worker -Cardiac consulted by ED, appreciate their recommendations -, nurse navigator consult (2) Atrial fibrillation Current Visit: Yes Status: Chronic Assessment and plan: Pt has been on amiodarone and cardizem with anticipation of outpatient cardioversion. Given acute exacerbation of CHF with multiple hospitalizations with Afib RVR Cardiology would prefer inpatient cardioversion. Currently irregular rhythm with rate control. Plan: -continue cardizem -Continue amiodarone -Continue xarelto -conveyor monitor -Cardioversion per cardiology Qualifiers: Atrial fibrillation type: chronic Qualified Code(s): I48.2 - Chronic atrial fibrillation (3) Essential hypertension Current Visit: No Status: Chronic Assessment and plan: Currently normotensive Plan: -Continue Cardizem (4) Anemia Current Visit: No Status: Acute Assessment and plan: Hgb at baseline with macrocytic anemia. Plan: -Monitor CBC -Check folate, MMA, B12 for underlying cause Qualifiers: Anemia type: unspecified type Qualified Code(s): D64.9 - Anemia, unspecified (5) GERD (gastroesophageal reflux disease) Current Visit: No Status: Chronic Assessment and plan: Continue ranitidine and pantoprazole Qualifiers: Esophagitis presence: without esophagitis Qualified Code(s): K21.9 - Gastro-esophageal reflux disease without esophagitis (6) Hyperlipidemia Current Visit: No Status: Chronic Assessment and plan: Pt has allergy to statins. Plan: -Continue fenofibrate Qualifiers: Hyperlipidemia type: pure hypercholesterolemia Qualified Code(s): E78.00 - Pure hypercholesterolemia, unspecified; E78.0 - Pure hypercholesterolemia (7) Scleral hemorrhage of right eye Current Visit: Yes Status: Acute Assessment and plan: Pt has right scleral hemorrhage with onset Saturday. Has been using erythromycin ointment and artificial tears QID Pt denies vision changes, pain, etc. Plan: -Continue erythromycin ointment -Continue artificial tears - Time Spent With Patient Total time spent is greater than 50% in coordination of care (as documented) at patient's floor/unit and/or counseling patient:
[2018-08-29] MEDS ORDERED: Naloxone 0.4 MG/ML INJ IVP PRN (18:38)
[2018-08-29] MEDS: Furosemide 40 MG/4 ML VIAL IVP SCH (23:07)
[2018-08-29] MEDS: Famotidine 20 MG TABLET PO SCH (23:07)
[2018-08-29] MEDS: Diltiazem CD (24hr) 180 MG CAPSULE PO SCH (23:07)
[2018-08-29] MEDS: Pyridostigmine Br 60 MG TABLET PO SCH (23:07)
[2018-08-29] MEDS: *HR* Rivaroxaban 15 MG TABLET PO SCH (23:57)
[2018-08-29] MEDS: *HR* Amiodarone 200 MG TABLET PO SCH (23:57)
[2018-08-30] MEDS: Acetaminophen 325 MG TABLET PO PRN ×2 (03:37→21:14)
[2018-08-30 04:34] LABS: Basophils % 0.3 %; Eosinophils # 0.3 K/mcL (0.0-0.6); Eosinophils % 4.5 %; Hematocrit 24.9 % (35.3-44.9); Hemoglobin 8.7 g/dL (11.5-15.4); Immature Granulocytes % 0.2 % (0-4); Lymphocytes # 2.7 K/mcL (0.6-4.6); Lymphocytes % 41.4 %; Mean Corpuscular HGB Conc 34.9 g/dL (31.6-35.5); Mean Corpuscular Hemoglobin 39.4 pg (28.0-33.3); Mean Corpuscular Volume 112.7 fL (83.0-100.0); Mean Platelet Volume 10.1 fL (9.4-12.4); Monocytes # 0.8 K/mcL (0.0-1.3); Monocytes % 11.6 %; Neutrophils # 2.7 K/mcL (1.6-8.9); Platelet Count 280 K/mcL (140-400); Red Blood Count 2.21 M/mcL (3.82-4.97); Red Cell Distribution Width 16.2 % (11.5-14.5)
[2018-08-30 04:41] LABS: Calcium 9.8 mg/dL (8.6-10.3); Potassium 4.3 mEq/L (3.5-5.1)
[2018-08-30 05:07] LABS: Vitamin B12 535 pg/mL (250-1100)
[2018-08-30 05:22] LABS: Folate > 22.3 ng/mL (3.0-16.0)
[2018-08-30 06:17] LABS: Platelet Estimate Normal (Normal); Target Cells 1+ (Not Present)
[2018-08-30 06:18] LABS: Anisocytosis 1+ (Not Present); Macrocytosis Present (Not Present)
[2018-08-30] MEDS: Furosemide 40 MG/4 ML VIAL IVP SCH ×2 (08:02→17:41)
[2018-08-30] MEDS: Pyridostigmine Br 60 MG TABLET PO SCH ×2 (08:02→21:15)
[2018-08-30] MEDS: *HR* Amiodarone 200 MG TABLET PO SCH (08:03)
[2018-08-30] MEDS: Famotidine 20 MG TABLET PO SCH (08:03)
[2018-08-30] MEDS: Diltiazem CD (24hr) 180 MG CAPSULE PO SCH ×2 (08:03→21:15)
[2018-08-30] MEDS: Isosorbide MONOnitrate (24 HR) 60 MG TAB.ER.24H PO SCH (08:03)
[2018-08-30] MEDS ORDERED: *HR* Rivaroxaban 15 MG TABLET PO SCH (09:00)
[2018-08-30] MEDS ORDERED: NON-FORMULARY MEDICATION 1 EACH EACH (Fenofibrate Nanocrystallized [Fenofibrate] 160 MG) PO SCH (09:00)
[2018-08-30] MEDS ORDERED: *HR* Amiodarone 200 MG TABLET PO SCH (09:00)
[2018-08-30] MEDS ORDERED: Fenofibrate 54 MG TABLET PO SCH (09:00)
--- NOTE | 2018-08-30 09:50 | Cardiology Consult Note ---
Date of Encounter: 09/03/18 Time of Encounter: 09:47 Assessment and Plan (1) Atrial fibrillation Current Visit: Yes Status: Chronic Likely FLORENTINO/cardioversion Saturday when euvolemic Qualifiers: Atrial fibrillation type: paroxysmal Qualified Code(s): I48.0 - Paroxysmal atrial fibrillation (2) CHF (congestive heart failure), NYHA class III Current Visit: Yes Status: Acute Heart failure with preserved ejection fraction, consider ischemic workup as an outpatient due to recurrent episodes of presentation. Patient diuresed signi ficantly overnight feels much better however continues to be mildly hypervolemic. Qualifiers: Congestive heart failure type: diastolic Congestive heart failure chronicity: acute Qualified Code(s): I50.31 - Acute diastolic (congestive) heart failure Discussion w patient/family: The assessment and plan as outlined above was discussed with the patient and/or family members who expressed understanding and agreement. All questions were answered. Thank you for involving us in the care of your patient. Please call with any questions. History of Present Illness Consult date: 08/30/18 Consult reason: SOB and Afib Chief complaint: SOB History of present illness: Ms. Castaneda is a 82 year old female with history of heart failure with preserved ejection fraction, paroxysmal atrial fibrillation status post-ablation on xarelto for stroke risk reduction. Patient has had multiple similar presentations with decompensated heart failure along with paroxysmal atrial fibrillation. Last echocardiogram reveals a preserved ejection fraction and moderate left atrial enlargement. There is mild concentric LVH however diastolic function cannot be assessed due to rhythm abnormality. No recent ischemic workup the patient does not complain of chest pain. EKG unremarkable with negative cardiac markers also. Past Med Surg Social Fam HX - Past Medical History Medical history: atrial fibrillation, CHF, GERD, hyperlipidemia, hypertension, renal disease Additional medical history: MYASTHENIA GRAVIS Psychiatric history: anxiety - Past Surgical History Surgical History: cataract, knee replacement, other Additional surgical history: RIGHT LUNG MASS BENIGN - Social History Smoking Status: Never smoker Smokeless Tobacco Status: No Alcohol use: none Drug use: none - Family History Father Living Status: Hx Family Cardiac Disorders: Yes Mother Adopted: No Family Member Ethnicity: Non- Living Status: Hx Family Cardiac Disorders: No Hx Family Respiratory Disorders: No Hx Family Cancer: No Hx Family GI Disorders: No Hx Family Endocrine Disorder: No Hx Family Neuromuscular Disorders: No Hx Family Neurologic Disorders: No Hx Family HEENT Disorders: No Hx Family Autoimmune Disorders: No Medications and Allergies RX: Allopurinol [Zyloprim 100 MG] 100 mg PO DAILY 02/18/17 [History] RX: Docusate [Colace] 100 mg PO DAILY 02/18/17 [History] RX: Multivit-Min/Iron/Folic/Lutein [Centrum Silver Women Tablet] 1 tab PO DAILY 02/18/17 [History] RX: Polyethylene Glycol 3350 [MiraLAX bowel prep] 17 gm PO DAILY PRN 02/18/17 [History] RX: Pyridostigmine Br [Mestinon] 60 mg PO BID 02/18/17 [History] RX: Cholecalciferol (D-3) [Vitamin D] 5,000 unit PO QAM 05/23/18 [History] RX: Acetaminophen [Tylenol] 650 mg PO Q6HR PRN tablet 06/23/18 [Rx] RX: Furosemide [Lasix] 20 mg PO DAILY #40 tablet 07/10/18 [Rx] RX: Isosorbide MONOnitrate (24 HR) [Imdur] 60 mg PO DAILY #40 tab.er.24h 07/10/18 [Rx] RX: Pantoprazole Sodium [Protonix] 40 mg PO DAILY #40 tablet.dr 07/10/18 [Rx] RX: Rivaroxaban [Xarelto] 15 mg PO DAILY #40 tablet 07/10/18 [Rx] RX: raNITIdine HCl [Zantac] 150 mg PO BID #70 tablet 07/10/18 [Rx] RX: Amiodarone [Cordarone] 200 mg PO DAILY #30 tablet 08/18/18 [Rx] RX: Diltiazem CD (24hr) [Cardizem CD] 180 mg PO BID #60 cap.er.24h 08/18/18 [Rx] Fenofibrate Nanocrystallized [Fenofibrate] 160 mg PO DAILY 08/29/18 [History] RX: Erythromycin OPTH Oint 1 applic RIGHT EYE QID 08/29/18 [History] Allergy/AdvReac Type Severity Reaction Status Date / Time prednisone AdvReac Palpitation Verified 05/23/18 18:11 s Pnomdvo-Xbx-Tyu Reductase AdvReac Weakness Verified 05/23/18 18:11 Inhibitor [Statins] All Systems Review: The remainder of the systems were reviewed and are negative Physical Examination Vital Signs, Last 4 Hours Temp Pulse Resp BP Pulse Ox 08/30/18 07:57 98.2 F 77 16 122/71 95 General: Conversant, No Apparent Distress HEENT: Atraumatic, Normocephaly, Mucus Membranes Moist Neck: No JVD, Normal carotid pulses Cardiac: Reg Rate and Rhythm, Normal S1 and S2, No Murmur Lungs: Normal Breath Sounds, No Wheeze, Rales, Rhonchi Neuro: Alert and responsive, No focal deficits noted Abdomen: Soft, Non-Tender Skin: No rashes noted on visualized skin Musculoskeletal: No Chest Wall Tenderness Extremities: No Clubbing, No Cyanosis, No Edema, Normal Pulses Results 09/03/18 03:56 09/03/18 03:56 Lab Results 08/29/18 08/29/18 08/29/18 15:30 15:30 15:30 WBC 5.4 Hgb 8.9 L Hct 25.5 L Plt Count 293 INR 2.1 APTT 41.5 H Sodium 137 Potassium 4.5 Chloride 104 Carbon Dioxide 26 BUN 36 H Creatinine 1.29 H Glucose 115 H Calcium 10.1 Troponin I < 0.03 08/30/18 08/30/18 03:52 03:52 WBC 6.5 Hgb 8.7 L Hct 24.9 L Plt Count 280 INR APTT Sodium 139 Potassium 4.3 Chloride 103 Carbon Dioxide 31 H BUN 35 H Creatinine 1.25 H Glucose 80 Calcium 9.8 Troponin I Consult Discharge Plan - Plan Referrals: Alfie Tyson CNP [Advanced Practice Nurse] - 09/19/18 10:30 am Hayden Yoder DO [Partnered Physician] - 09/10/18 2:55 pm
[2018-08-30] MEDS ORDERED: Fenofibrate 54 MG TABLET PO ONE (10:20)
[2018-08-30] MEDS: Artificial Tears SOLN 15 ML BOTTLE RIGHT EYE SCH ×4 (11:23→21:19)
[2018-08-30] MEDS: Erythromycin OPTH Oint RIGHT EYE SCH ×4 (11:23→21:19)
--- NOTE | 2018-08-30 15:12 | Internal Med Progress Note ---
Hospitalist Progress Note - Encounter Date of Encounter: 08/30/18 Time of Encounter: 11:30 - Subjective Interval History: Ms Castaneda is currnently admitted for acute exac CHF and rapid atrial fibrillation. She remains moderate to high risk due to potential for worsening clinical status. Ms Castaneda says her "tailbone hurts." No CP or SOB. Edema a little better. No fever or chills. Appetite OK. No GI issues. Wants a "donut pillow" for her tailbone. - Exam Vitals: Temp Pulse Resp BP Pulse Ox 98.2 F 83 16 111/69 94 08/30/18 11:14 08/30/18 11:14 08/30/18 11:14 08/30/18 11:14 08/30/18 11:14 Exam: General: Alert and oriented. Mild distress due to coccyx pain Skin: Pale color, no rash, no lesions. H: Normocephalic. EENT: EOMI, pupils equal. R conjunctiva red. Mucus membranes moist. Cardiovascular: Heart irreg. Not tachy at this time. Lungs: Decreased breath sounds but no rales or wheeze. Abdomen: Soft, non-tender, no rigidity. Normal bowel sounds. Extremities: OA noted. Edema bilateral lower extremities. Slightly better than yesterday. Neurological: Normal cognition and motor skills. Pulses: radial pulses normal +2. Rest of the physical exam is non contributory - Assessment and Plan (1) Acute on chronic diastolic CHF (congestive heart failure) Current Visit: No Status: Acute Assessment and Plan: Pt has had multiple admissions for CHF exacerbation. Appreciate cardiology input. Will continue IV diuresis today. Follow electrolytes tomorrow. (2) Atrial fibrillation Current Visit: Yes Status: Chronic Assessment and Plan: Pt with episodes of rapid a fib. Currently not tachycardic. Anticipate cardioversion per cardiology. (3) CKD (chronic kidney disease) stage 3, GFR 30-59 ml/min Current Visit: No Status: Chronic Assessment and Plan: Renal function about the same. Adjusting medications as needed. (4) Myasthenia gravis Current Visit: No Status: Chronic Assessment and Plan: Chronic condition. No symptoms now. (5) Essential hypertension Current Visit: No Status: Chronic Assessment and Plan: BP currently controlled. Continue medications as ordered. (6) Scleral hemorrhage of right eye Current Visit: Yes Status: Acute Assessment and Plan: Continue eye drops as ordered. (7) Anemia Current Visit: No Status: Chronic Assessment and Plan: Hemoglobin stable. Macrocytic on labs (8) Hyperlipidemia Current Visit: No Status: Chronic Assessment and Plan: Chronic issue. (9) GERD (gastroesophageal reflux disease) Current Visit: No Status: Chronic Assessment and Plan: Chronic issue. - Time Spent with Patient Total time spent is greater than 50% in coordination of care (as documented) at patient's floor/unit and/or counseling patient: Internal Medicine: Result - Labs CBC & Chem 7: 08/30/18 03:52 08/30/18 03:52 Labs: Short CBC 08/29/18 08/30/18 Range/Units 15:30 03:52 WBC 5.4 6.5 (4.3-11.1) K/mcL Hgb 8.9 L 8.7 L (11.5-15.4) g/dL Hct 25.5 L 24.9 L (35.3-44.9) % Plt Count 293 280 (140-400) K/mcL Neutrophils # 2.6 2.7 (1.6-8.9) K/mcL BMP 08/29/18 08/30/18 15:30 03:52 Sodium 137 139 Potassium 4.5 4.3 Chloride 104 103 Carbon Dioxide 26 31 H BUN 36 H 35 H Creatinine 1.29 H 1.25 H Glucose 115 H 80 Calcium 10.1 9.8 Cardiac Enzymes 08/29/18 Range/Units 15:30 Troponin I < 0.03 (< 0.04) ng/mL - ABG Interpretation ABG results: PT/INR, D-dimer PT 23.2 Seconds (9.4-12.1) H 08/29/18 15:30 - Impressions Impressions Chest X-Ray 08/29/18 15:25 IMPRESSION: 1. Markedly large hiatal hernia. Lucency within the chest could either be related to colon or stomach. Overall findings appear progressed when compared to 05/23/2018. Consider further evaluation with CT to exclude an underlying bowel obstruction or volvulus. 2. Patchy opacities in the right lung, nonspecific and may be related to atelectasis or pneumonia. Small right pleural effusion. D/ / Georgina Mayer MD / Georgina Mayer MD Interpreting Provider: Georgina Mayer MD Consult Discharge Plan - Plan Referrals: NONE,PCP [Primary Care Provider] - (2) Atrial fibrillation Qualifiers: Atrial fibrillation type: paroxysmal Qualified Code(s): I48.2 - Chronic atrial fibrillation (7) Anemia Qualifiers: Anemia type: other cause Other causes of anemia: chronic disease, other Qualified Code(s): D63.8 - Anemia in other chronic diseases classified elsewhere (8) Hyperlipidemia Qualifiers: Hyperlipidemia type: mixed hyperlipidemia Qualified Code(s): E78.2 - Mixed hyperlipidemia (9) GERD (gastroesophageal reflux disease) Qualifiers: Esophagitis presence: without esophagitis Qualified Code(s): K21.9 - Gastro-e sophageal reflux disease without esophagitis
[2018-08-30] MEDS: *HR* Rivaroxaban 15 MG TABLET PO SCH (21:15)
[2018-08-31 04:25] LABS: Calcium 9.6 mg/dL (8.6-10.3); Magnesium 1.5 mg/dL (1.6-2.6); Potassium 4.2 mEq/L (3.5-5.1)
[2018-08-31] MEDS: *HR* Amiodarone 200 MG TABLET PO SCH (08:05)
[2018-08-31] MEDS: Famotidine 20 MG TABLET PO SCH (08:05)
[2018-08-31] MEDS: Furosemide 40 MG/4 ML VIAL IVP SCH ×2 (08:05→17:28)
[2018-08-31] MEDS: Isosorbide MONOnitrate (24 HR) 60 MG TAB.ER.24H PO SCH (08:05)
[2018-08-31] MEDS: Diltiazem CD (24hr) 180 MG CAPSULE PO SCH ×2 (08:05→21:18)
[2018-08-31] MEDS: Fenofibrate 54 MG TABLET PO SCH (08:05)
[2018-08-31] MEDS: Artificial Tears SOLN 15 ML BOTTLE RIGHT EYE SCH ×4 (08:06→21:19)
[2018-08-31] MEDS: Erythromycin OPTH Oint RIGHT EYE SCH ×4 (08:06→21:19)
[2018-08-31] MEDS: Pyridostigmine Br 60 MG TABLET PO SCH ×2 (08:06→21:18)
--- NOTE | 2018-08-31 09:50 | Event Note ---
Date of Encounter: 08/31/18 Time of Encounter: 09:00 - Cardiology Event Note Patient asleep, resting comfortably. Appears to be rate controlled on current medical therapy. On Xarelto for AC. Continue IV diuresis; cumulative I&O -4790 mL Further recommendations regarding consideration of DCCV in AM. Will make NPO after MN. Will continue to follow.
[2018-08-31] MEDS ORDERED: Mag Hydrox/Al Hydrox/Simeth 30 ML UDC PO PRN (13:42)
--- NOTE | 2018-08-31 17:10 | Internal Med Progress Note ---
Hospitalist Progress Note - Encounter Date of Encounter: 08/31/18 Time of Encounter: 12:30 - Subjective Interval History: Ms Castaneda is currnently admitted for acute exac CHF and rapid atrial fibrillation. She remains moderate to high risk due to potential for worsening clinical status. Ms Castaneda is resting in bed. She has had some indigestion. No fever or chills. No CP at this time. Edema slowly improving. - Exam Vitals: Temp Pulse Resp BP Pulse Ox 98.1 F 93 16 107/64 93 08/31/18 16:22 08/31/18 16:22 08/31/18 16:22 08/31/18 16:22 08/31/18 16:22 Exam: General: Alert and oriented. Comfortable at this time. Skin: Pale color, no rash, no lesions. H: Normocephalic. EENT: EOMI, R conjunctiva red but seems a little better. Mucus membranes moist. Cardiovascular: Heart irreg. Not tachy at this time. Lungs: Decreased breath sounds No rales wheeze or rhonchi Abdomen: Soft, non-tender, no rigidity. Normal bowel sounds. Extremities: OA noted. Edema bilateral lower extremities slowly improving. Neurological: Normal cognition and motor skills. Pulses: radial pulses normal +2. Rest of the physical exam is non contributory - Assessment and Plan (1) Acute on chronic diastolic CHF (congestive heart failure) Current Visit: No Status: Acute Assessment and Plan: Pt has had multiple admissions for CHF exacerbation. Appreciate cardiology input. Slowly improving with IV diuresis. Monitoring electrolytes and renal function. (2) Atrial fibrillation Current Visit: Yes Status: Chronic Assessment and Plan: Pt with episodes of rapid a fib. Currently not tachycardic. Anticipate cardioversion per cardiology. NPO at midnight. (3) CKD (chronic kidney disease) stage 3, GFR 30-59 ml/min Current Visit: No Status: Chronic Assessment and Plan: Renal function stable today. Recheck in AM. (4) Myasthenia gravis Current Visit: No Status: Chronic Assessment and Plan: Chronic condition. No symptoms now. Continue Mestinon. (5) Essential hypertension Current Visit: No Status: Chronic Assessment and Plan: BP currently controlled. Continue medications as ordered. (6) Scleral hemorrhage of right eye Current Visit: Yes Status: Acute Assessment and Plan: Continue eye drops as ordered. (7) Anemia Current Visit: No Status: Chronic Assessment and Plan: Hemoglobin stable. Macrocytic on labs (8) Hyperlipidemia Current Visit: No Status: Chronic Assessment and Plan: Chronic issue. (9) GERD (gastroesophageal reflux disease) Current Visit: No Status: Chronic Assessment and Plan: Chronic issue. - Time Spent with Patient Total time spent is greater than 50% in coordination of care (as documented) at patient's floor/unit and/or counseling patient: Internal Medicine: Result - Labs CBC & Chem 7: 08/30/18 03:52 08/31/18 03:30 Labs: BMP 08/31/18 03:30 Sodium 140 Potassium 4.2 Chloride 101 Carbon Dioxide 32 H BUN 38 H Creatinine 1.38 H Glucose 89 Calcium 9.6 - ABG Interpretation ABG results: PT/INR, D-dimer PT 23.2 Seconds (9.4-12.1) H 08/29/18 15:30 Consult Discharge Plan - Plan Referrals: NONE,PCP [Primary Care Provider] - __ (2) Atrial fibrillation Qualifiers: Atrial fibrillation type: paroxysmal Qualified Code(s): I48.2 - Chronic atrial fibrillation (7) Anemia Qualifiers: Anemia type: other cause Other causes of anemia: chronic disease, other Qualified Code(s): D63.8 - Anemia in other chronic diseases classified elsewhere (8) Hyperlipidemia Qualifiers: Hyperlipidemia type: mixed hyperlipidemia Qualified Code(s): E78.2 - Mixed hyperlipidemia (9) GERD (gastroesophageal reflux disease) Qualifiers: Esophagitis presence: without esophagitis Qualified Code(s): K21.9 - Gastro- esophageal reflux disease without esophagitis
[2018-08-31] MEDS: *HR* Rivaroxaban 15 MG TABLET PO SCH (21:18)
[2018-09-01 04:32] LABS: Hematocrit 25.5 % (35.3-44.9); Mean Corpuscular HGB Conc 35.3 g/dL (31.6-35.5); Mean Corpuscular Hemoglobin 39.3 pg (28.0-33.3); Mean Corpuscular Volume 111.4 fL (83.0-100.0); Mean Platelet Volume 10.3 fL (9.4-12.4); Platelet Count 271 K/mcL (140-400); Red Blood Count 2.29 M/mcL (3.82-4.97); Red Cell Distribution Width 16.1 % (11.5-14.5)
[2018-09-01 04:52] LABS: Calcium 9.6 mg/dL (8.6-10.3); Magnesium 1.4 mg/dL (1.6-2.6); Potassium 4.3 mEq/L (3.5-5.1)
[2018-09-01] MEDS: Isosorbide MONOnitrate (24 HR) 60 MG TAB.ER.24H PO SCH (08:10)
[2018-09-01] MEDS: Furosemide 40 MG/4 ML VIAL IVP SCH ×2 (08:10→17:10)
[2018-09-01] MEDS: Pyridostigmine Br 60 MG TABLET PO SCH ×2 (08:10→22:32)
[2018-09-01] MEDS: *HR* Amiodarone 200 MG TABLET PO SCH (08:11)
[2018-09-01] MEDS: Famotidine 20 MG TABLET PO SCH (08:11)
[2018-09-01] MEDS: Fenofibrate 54 MG TABLET PO SCH (08:11)
[2018-09-01] MEDS: Diltiazem CD (24hr) 180 MG CAPSULE PO SCH ×2 (08:11→22:32)
[2018-09-01] MEDS: Artificial Tears SOLN 15 ML BOTTLE RIGHT EYE SCH ×4 (08:11→22:31)
[2018-09-01] MEDS: Erythromycin OPTH Oint RIGHT EYE SCH ×4 (08:12→22:31)
[2018-09-01] MEDS ORDERED: Ondansetron 4 MG/2 ML VIAL IVP PRN (09:10)
--- NOTE | 2018-09-01 09:48 | Event Note ---
Date of Encounter: 09/01/18 Time of Encounter: 09:30 - Cardiology Event Note Seen and examined. 12 hour tele: avg HR=94 afib. On Amiodarone 200 mg daily and Cardizem 180 mg BID. On Xarelto for AC, has not missed doses in the past 30+ days. (Resides at SNF). Admitted for acute on chronic diastolic CHF; cumulative I&O: -7340 mL, down 10 kg per I&O. Patient reports she strictly follows Fluid and sodium restricted diet (2 gm, 2 L). Plan for DCCV today. Patient is agreeable. Discussed with non-invasive Cardiology, Dr. Cottrell. Further recommendations to follow. Discussed and reviewed with Dr. Mendoza who agrees with plan as stated above.
--- NOTE | 2018-09-01 10:19 | Internal Med Progress Note ---
<Salome Cordova - Last Filed: 09/01/18 14:56> Hospitalist Progress Note - Encounter Date of Encounter: 09/01/18 Time of Encounter: 09:30 - Subjective Interval History: Pt seen and examined at bedside. She reports that she was nauseated this morning after taking all of her morning meds on an empty stomach. Otherwise she states that she feels like her breathing is significantly improved and overall she is feeling better. She denies CP, SOB, abdominal pain. - Exam Vitals: Temp Pulse Resp BP Pulse Ox 98.0 F 98 16 103/61 98 09/01/18 07:18 09/01/18 07:18 09/01/18 07:18 09/01/18 07:18 09/01/18 07:18 Exam: General: alert and oriented, WD/WN in NAD HEENT: NC/AT, PERRLA, EOMI, mucous membranes moist, erythema of right eye improving Cardio: Irregularly irregular w/o MRG, pulses 2+ Respiratory: LCTAB, no cyanosis or clubbing Abd: soft, non-tender, no guarding or rigidity, bs present Extremities: non-tender, b/l LE edema that is improving, pulses 2+ Skin: warm, dry, intact, pale Neuro: alert and oriented, no acute deficits Psych: normal mood and affect - Assessment and Plan (1) Acute on chronic diastolic CHF (congestive heart failure) Current Visit: No Status: Acute Assessment and Plan: Pt fluid status improving, she is down 10kg since admission (wt 09/01: 61.1kg) UOP 08/31: 3000cc Cardiology is following appreciate their recommendations Dr. Mendoza had a long discussion about diet and compression stockings at discharge. I also reinforced fluid and NA restriction, compression stockings. She does have 1 meal per day from meals on wheels so will bess high NA intake. Plan for cardioversion today Barker: -Continue to monitor electrolytes and renal function -Will start compression stockings -Continue cardiac diet with 1.5L fluid restriction -Continue lasix 40mg BID (2) Atrial fibrillation Current Visit: Yes Status: Chronic Assessment and Plan: Afib without RVR Cardiology plans to cardiovert today. Plan: -NPO until cardioversion -Management per cardiology (3) Essential hypertension Current Visit: No Status: Chronic Assessment and Plan: Currently normotensive Plan: -Continue home meds (4) Anemia Current Visit: No Status: Chronic Assessment and Plan: Macrocytic, hgb stable and appears to be at baseline. Folate and B12 WNL. Plan: -Continue to monitor (5) GERD (gastroesophageal reflux disease) Current Visit: No Status: Chronic Assessment and Plan: Chronic, continue PPI and pepcid (6) Hyperlipidemia Current Visit: No Status: Chronic Assessment and Plan: Does not tolerate statin, continue fenofibrate (7) Scleral hemorrhage of right eye Current Visit: Yes Status: Acute Assessment and Plan: Improving. Plan: -Continue eye drops and erythromycin ointment. (8) Protein calorie malnutrition Current Visit: Yes Status: Acute Assessment and Plan: Pt has muscle wasting that is evident now that she is more euvolemic. She does get at least 1 meal per day from meals on wheels. Plan: -Consult nutrition for evaluation (9) Myasthenia gravis Current Visit: No Status: Chronic Assessment and Plan: Chronic. Currently asymptomatic. Continue Mestinon (10) CKD (chronic kidney disease) stage 3, GFR 30-59 ml/min Current Visit: No Status: Chronic Assessment and Plan: SCr 1.33, GFR 38. Stable. Plan: -Continue to monitor renal function -Avoid nephrotoxins and renally dose medications DVT Prophylaxis: xarelto - Time Spent with Patient Total time spent is greater than 50% in coordination of care (as documented) at patient's floor/unit and/or counseling patient: Internal Medicine: Result - Labs CBC & Chem 7: 09/01/18 03:29 09/01/18 03:29 Labs: Short CBC 09/01/18 Range/Units 03:29 WBC 7.0 (4.3-11.1) K/mcL Hgb 9.0 L (11.5-15.4) g/dL Hct 25.5 L (35.3-44.9) % Plt Count 271 (140-400) K/mcL BMP 09/01/18 03:29 Sodium 138 Potassium 4.3 Chloride 97 L Carbon Dioxide 36 H BUN 39 H Creatinine 1.33 H Glucose 92 Calcium 9.6 - ABG Interpretation ABG results: PT/INR, D-dimer PT 23.2 Seconds (9.4-12.1) H 08/29/18 15:30 Consult Discharge Plan - Plan Referrals: Carlos Newman MD [Non-Partnered Physician] - <Adan Diallo - Last Filed: 09/01/18 16:41> Hospitalist Progress Note - Encounter Date of Encounter: 09/01/18 - Exam Vitals: Temp Pulse Resp BP Pulse Ox 97.5 F L 90 14 111/67 93 09/01/18 13:23 09/01/18 13:23 09/01/18 13:23 09/01/18 13:23 09/01/18 13:23 - Assessment and Plan (1) Acute on chronic diastolic CHF (congestive heart failure) Current Visit: No Status: Acute (2) Atrial fibrillation Current Visit: Yes Status: Chronic (3) CKD (chronic kidney disease) stage 3, GFR 30-59 ml/min Current Visit: No Status: Chronic (4) Myasthenia gravis Current Visit: No Status: Chronic (5) Essential hypertension Current Visit: No Status: Chronic (6) Scleral hemorrhage of right eye Current Visit: Yes Status: Acute (7) Anemia Current Visit: No Status: Chronic (8) Hyperlipidemia Current Visit: No Status: Chronic (9) GERD (gastroesophageal reflux disease) Current Visit: No Status: Chronic - Time Spent with Patient Total time spent is greater than 50% in coordination of care (as documented) at patient's floor/unit and/or counseling patient: Internal Medicine: Result - Labs CBC & Chem 7: 09/01/18 03:29 09/01/18 03:29 Labs: Short CBC 09/01/18 Range/Units 03:29 WBC 7.0 (4.3-11.1) K/mcL Hgb 9.0 L (11.5-15.4) g/dL Hct 25.5 L (35.3-44.9) % Plt Count 271 (140-400) K/mcL BMP 09/01/18 03:29 Sodium 138 Potassium 4.3 Chloride 97 L Carbon Dioxide 36 H BUN 39 H Creatinine 1.33 H Glucose 92 Calcium 9.6 - ABG Interpretation ABG results: PT/INR, D-dimer PT 23.2 Seconds (9.4-12.1) H 08/29/18 15:30 - Attending Attestation I examined this patient and my medical decision-making was reviewed with the Resident Physician on 09/01/18. I agree with the documented findings, disposition and treatment plan as described except to the extent set forth below. Ms Castaneda is currently admitted for CHF exac and atrial fibrillation. She remains moderate to high risk due to potential for worsening clinical status. Ms Castaneda just returned from cardioversion. She is resting comfortably. No fever or chills. Has lost a lot of weight. No GI issues. Exam Alert. Comfortable Mucus membranes dry Heart reg and silver No wheeze ABd soft and nontender Less edema today I/P 1. Acute exac CHF - improving. 2. Parox a fib - cardioverted today. Further diagnoses and plan as above. <Salome Cordova - Last Filed: 09/01/18 14:56> (2) Atrial fibrillation Qualifiers: Atrial fibrillation type: paroxysmal Qualified Code(s): I48.0 - Paroxysmal atrial fibrillation (4) Anemia Qualifiers: Anemia type: other cause Other causes of anemia: chronic disease, other Qualified Code(s): D63.8 - Anemia in other chronic diseases classified elsewhere (5) GERD (gastroesophageal reflux disease) Qualifiers: Esophagitis presence: without esophagitis Qualified Code(s): K21.9 - Gastro- esophageal reflux disease without esophagitis (6) Hyperlipidemia Qualifiers: Hyperlipidemia type: mixed hyperlipidemia Qualified Code(s): E78.2 - Mixed hyperlipidemia (8) Protein calorie malnutrition Qualifiers: Protein-calorie malnutrition severity: moderate Qualified Code(s): E44.0 - Moderate protein-calorie malnutrition <Adan Diallo - Last Filed: 09/01/18 16:41> (2) Atrial fibrillation Qualifiers: Atrial fibrillation type: paroxysmal Qualified Code(s): I48.0 - Paroxysmal atrial fibrillation (7) Anemia Qualifiers: Anemia type: other cause Other causes of anemia: chronic disease, other Qualified Code(s): D63.8 - Anemia in other chronic diseases classified elsewhere (8) Hyperlipidemia Qualifiers: Hyperlipidemia type: mixed hyperlipidemia Qualified Code(s): E78.2 - Mixed hyperlipidemia (9) GERD (gastroesophageal reflux disease) Qualifiers: Esophagitis presence: without esophagitis Qualified Code(s): K21.9 - Gastro- esophageal reflux disease without esophagitis
[2018-09-01] MEDS ORDERED: *HR* FentaNYL (PF) 100 MCG/2 ML VIAL IVP PRN (13:05)
[2018-09-01] MEDS ORDERED: *HR* Midazolam HCl 5 MG/5 ML VIAL IVP PRN (13:06)
[2018-09-01] MEDS ORDERED: 0.9 % Sodium Chloride 500 ML IVC ONE (13:06)
--- NOTE | 2018-09-01 16:28 | Electrocardiograph Report ---
[place] [id number] Test Date: 2018-08-29 Pat Name: Tori Castaneda Department: EXAM1 Room: 3B24 Gender: F Phy Therapist: : [id number] Requested By: Esteban Peck Order Number: [id number] Reading MD: Julieta Cottrell Measurements Intervals [place] Rate: 97 P: NC: QRS: 42 QRSD: 93 T: 78 QT: 361 QTc: 459 Interpretive Statements Atrial fibrillation RSR' in V1 or V2, probably normal variant Electronically Signed On 09-01-2018 16:27:11 EST by Julieta Cottrell
[2018-09-01] MEDS: *HR* Rivaroxaban 15 MG TABLET PO SCH (22:32)
[2018-09-02 04:46] LABS: Basophils % 0.3 %; Eosinophils # 0.4 K/mcL (0.0-0.6); Eosinophils % 6.9 %; Hematocrit 25.7 % (35.3-44.9); Hemoglobin 8.7 g/dL (11.5-15.4); Immature Granulocytes % 0.2 % (0-4); Lymphocytes # 2.8 K/mcL (0.6-4.6); Lymphocytes % 45.7 %; Mean Corpuscular HGB Conc 33.9 g/dL (31.6-35.5); Mean Corpuscular Hemoglobin 38.5 pg (28.0-33.3); Mean Corpuscular Volume 113.7 fL (83.0-100.0); Mean Platelet Volume 10.1 fL (9.4-12.4); Monocytes # 0.9 K/mcL (0.0-1.3); Monocytes % 14.1 %; Platelet Count 264 K/mcL (140-400); Red Blood Count 2.26 M/mcL (3.82-4.97); Red Cell Distribution Width 16.1 % (11.5-14.5); Segmented Neutrophils % 32.8 %
[2018-09-02 05:04] LABS: Calcium 9.3 mg/dL (8.6-10.3); Potassium 4.4 mEq/L (3.5-5.1)
[2018-09-02 05:14] LABS: Anisocytosis 2+ (Not Present); Macrocytosis Present (Not Present); Platelet Estimate Normal (Normal)
[2018-09-02 06:52] LABS: Magnesium 1.8 mg/dL (1.6-2.6)
--- NOTE | 2018-09-02 08:08 | Internal Med Progress Note ---
<Salome Cordova - Last Filed: 09/02/18 14:09> Hospitalist Progress Note - Encounter Date of Encounter: 09/02/18 Time of Encounter: 09:36 - Subjective Interval History: Pt seen and examined at bedside. She reports that she is tired. She also has itching on her chest where they placed the pads for cardioversion yesterday. The antihistimine did help somewhat. She states that her legs hurt. She states she can not get up currently and before she came here she was walking without any difficulty. She expresses frustration and does not think she can go home today. She denies CP, SOB, abdominal pain. - Exam Vitals: Temp Pulse Resp BP Pulse Ox 98.4 F 59 14 116/65 92 09/02/18 07:25 09/02/18 07:25 09/02/18 07:25 09/02/18 07:25 09/02/18 07:25 Exam: General: alert and oriented, WD/WN in NAD HEENT: NC/AT, PERRLA, EOMI, mucous membranes moist, erythema of right eye improving Cardio: Irregularly irregular w/o MRG, pulses 2+ Respiratory: LCTAB, no cyanosis or clubbing Abd: soft, non-tender, no guarding or rigidity, bs present Extremities: non-tender, b/l LE edema that is improving, pulses 2+ Skin: warm, dry, intact, pale Neuro: alert and oriented, no acute deficits Psych: normal mood and affect - Assessment and Plan (1) Acute on chronic diastolic CHF (congestive heart failure) Current Visit: No Status: Acute Assessment and Plan: Pt fluid status improving, she is down 10kg since admission (wt 08/13: 62.6 kg) UOP 08/31: 3000cc; UOP 09/01: 400 Cardiology is following appreciate their recommendations Dr. Mendoza had a long discussion about diet and compression stockings at discharge. I also reinforced fluid and NA restriction, compression stockings. Pt currently refusing compression stockings, will reinforce importance of utilization. She does have 1 meal per day from meals on wheels so will bess high NA intake. Pt had cardioversion yesterday. Pt is stating that she can't get up and walk, does not feel that she can discharge today. Pt does note that she was able to walk without difficulty prior to admission. Clinically pt is stable for discharge, will have PT/OT work with her today Barker: -Continue to monitor electrolytes and renal function -Continue compression stockings -Continue cardiac diet with 1.5L fluid restriction -Will decrease lasix to 40mg PO daily -PT/OT consulted for evaluation (2) Atrial fibrillation Current Visit: Yes Status: Chronic Assessment and Plan: S/P DCCV 09/01. Currently NSR. Plan: -Continue xarelto -Continue amiodarone 200mg daily -Decrease cardizem to 240mg PO daily per Cardiology -Pt will need to f/u with Alfie Tyson with Cardiology as schedule at discharge (3) Protein calorie malnutrition Current Visit: Yes Status: Acute Assessment and Plan: Pt has muscle wasting that is evident now that she is more euvolemic. She does get at least 1 meal per day from meals on wheels. Plan: -Consult nutrition for evaluation (4) Acute on chronic kidney failure Current Visit: Yes Status: Acute Assessment and Plan: Pt with JARVIS on CKD III SCr at 1.66, GFR 30 just slightly up from baseline Likely secondary to aggressive diuresis Plan: -Will decrease lasix dose -Continue to monitor renal function -Renally dose medications and avoid nephrotoxins. (5) CKD (chronic kidney disease) stage 3, GFR 30-59 ml/min Current Visit: No Status: Chronic Assessment and Plan: per above (6) Anemia Current Visit: No Status: Chronic Assessment and Plan: Macrocytic, hgb stable and appears to be at baseline. Folate and B12 WNL. Plan: -Continue to monitor (7) Scleral hemorrhage of right eye Current Visit: Yes Status: Acute Assessment and Plan: Improving. Plan: -Continue eye drops and erythromycin ointment. (8) GERD (gastroesophageal reflux disease) Current Visit: No Status: Chronic Assessment and Plan: Chronic, continue PPI and pepcid (9) Myasthenia gravis Current Visit: No Status: Chronic Assessment and Plan: Chronic. Currently asymptomatic. Continue Mestinon (10) Hyperlipidemia Current Visit: No Status: Chronic Assessment and Plan: Does not tolerate statin, continue fenofibrate (11) Essential hypertension Current Visit: No Status: Chronic Assessment and Plan: Pt was hypotensive yesterday evening and evening dose of cardizem was held. Currently normotensive. Plan: -Continue cardizem -Will continue to monitor DVT Prophylaxis: xarelto - Time Spent with Patient Total time spent is greater than 50% in coordination of care (as documented) at patient's floor/unit and/or counseling patient: Internal Medicine: Result - Labs CBC & Chem 7: 09/02/18 04:06 09/02/18 04:06 Labs: Short CBC 09/02/18 Range/Units 04:06 WBC 6.2 (4.3-11.1) K/mcL Hgb 8.7 L (11.5-15.4) g/dL Hct 25.7 L (35.3-44.9) % Plt Count 264 (140-400) K/mcL Neutrophils # 2.0 (1.6-8.9) K/mcL BMP 09/02/18 04:06 Sodium 140 Potassium 4.4 Chloride 98 Carbon Dioxide 37 H BUN 44 H Creatinine 1.66 H Glucose 96 Calcium 9.3 - ABG Interpretation ABG results: PT/INR, D-dimer PT 23.2 Seconds (9.4-12.1) H 08/29/18 15:30 Consult Discharge Plan - Plan Referrals: Alfie Tyson CNP [Advanced Practice Nurse] - 09/19/18 10:30 am Hayden Yoder DO [Partnered Physician] - 09/10/18 2:55 pm <Adan Diallo - Last Filed: 09/02/18 16:39> Hospitalist Progress Note - Encounter Date of Encounter: 09/02/18 - Exam Vitals: Temp Pulse Resp BP Pulse Ox 98.3 F 62 15 133/68 90 09/02/18 14:33 09/02/18 14:33 09/02/18 14:33 09/02/18 14:33 09/02/18 14:33 - Assessment and Plan (1) Acute on chronic diastolic CHF (congestive heart failure) Current Visit: No Status: Acute (2) Atrial fibrillation Current Visit: Yes Status: Chronic (3) CKD (chronic kidney disease) stage 3, GFR 30-59 ml/min Current Visit: No Status: Chronic (4) Myasthenia gravis Current Visit: No Status: Chronic (5) Essential hypertension Current Visit: No Status: Chronic (6) Scleral hemorrhage of right eye Current Visit: Yes Status: Acute (7) Anemia Current Visit: No Status: Chronic (8) Hyperlipidemia Current Visit: No Status: Chronic (9) GERD (gastroesophageal reflux disease) Current Visit: No Status: Chronic (10) Severe protein-calorie malnutrition Current Visit: Yes Status: Chronic - Time Spent with Patient Total time spent is greater than 50% in coordination of care (as documented) at patient's floor/unit and/or counseling patient: Internal Medicine: Result - Labs CBC & Chem 7: 09/02/18 04:06 09/02/18 04:06 Labs: Short CBC 09/02/18 Range/Units 04:06 WBC 6.2 (4.3-11.1) K/mcL Hgb 8.7 L (11.5-15.4) g/dL Hct 25.7 L (35.3-44.9) % Plt Count 264 (140-400) K/mcL Neutrophils # 2.0 (1.6-8.9) K/mcL BMP 09/02/18 04:06 Sodium 140 Potassium 4.4 Chloride 98 Carbon Dioxide 37 H BUN 44 H Creatinine 1.66 H Glucose 96 Calcium 9.3 - ABG Interpretation ABG results: PT/INR, D-dimer PT 23.2 Seconds (9.4-12.1) H 08/29/18 15:30 - Attending Attestation I examined this patient and my medical decision-making was reviewed with the Resident Physician on 09/02/18. I agree with the documented findings, disposition and treatment plan as described except to the extent set forth below. Ms Castaneda is currently admitted for acute exac CHF and a fib. She is s/p cardioversion yesterday. She remains moderate to high risk due to potential for worsening clinical status. Ms Castaneda feels very fatigued. She has not been up much. She is reluctant to go home at this time. No CP. Edema continues to improve. Exam alert Comfortable Mucus membranes dry Heart reg and not tachy Lungs diminished Abd soft and nontender Edema much improved. I/P 1. Exac CHF - continues to improve slowly 2. A fib s/p cardioversion PT/OT to see today Further diagnoses and plan as above. <Salome Cordova - Last Filed: 09/02/18 14:09> (2) Atrial fibrillation Qualifiers: Atrial fibrillation type: paroxysmal Qualified Code(s): I48.0 - Paroxysmal atrial fibrillation (3) Protein calorie malnutrition Qualifiers: Protein-calorie malnutrition severity: moderate Qualified Code(s): E44.0 - Moderate protein-calorie malnutrition (6) Anemia Qualifiers: Anemia type: other cause Other causes of anemia: chronic disease, other Qualified Code(s): D63.8 - Anemia in other chronic diseases classified elsewhere (8) GERD (gastroesophageal reflux disease) Qualifiers: Esophagitis presence: without esophagitis Qualified Code(s): K21.9 - Gastro- esophageal reflux disease without esophagitis (10) Hyperlipidemia Qualifiers: Hyperlipidemia type: mixed hyperlipidemia Qualified Code(s): E78.2 - Mixed hyperlipidemia <Adan Diallo - Last Filed: 09/02/18 16:39> (2) Atrial fibrillation Qualifiers: Atrial fibrillation type: paroxysmal Qualified Code(s): I48.0 - Paroxysmal atrial fibrillation (7) Anemia Qualifiers: Anemia type: other cause Other causes of anemia: chronic disease, other Qualified Code(s): D63.8 - Anemia in other chronic diseases classified elsewhere (8) Hyperlipidemia Qualifiers: Hyperlipidemia type: mixed hyperlipidemia Qualified Code(s): E78.2 - Mixed hyperlipidemia (9) GERD (gastroesophageal reflux disease) Qualifiers: Esophagitis presence: without esophagitis Qualified Code(s): K21.9 - Gastro- esophageal reflux disease without esophagitis
[2018-09-02] MEDS: Diltiazem CD (24hr) 180 MG CAPSULE PO SCH (08:18)
[2018-09-02] MEDS: Fenofibrate 54 MG TABLET PO SCH (08:18)
[2018-09-02] MEDS: Famotidine 20 MG TABLET PO SCH (08:18)
[2018-09-02] MEDS: *HR* Amiodarone 200 MG TABLET PO SCH (08:18)
[2018-09-02] MEDS: Isosorbide MONOnitrate (24 HR) 60 MG TAB.ER.24H PO SCH (08:18)
[2018-09-02] MEDS: Pyridostigmine Br 60 MG TABLET PO SCH ×2 (08:18→22:13)
[2018-09-02] MEDS: Furosemide 40 MG/4 ML VIAL IVP SCH (08:19)
[2018-09-02] MEDS: Artificial Tears SOLN 15 ML BOTTLE RIGHT EYE SCH ×4 (08:19→23:29)
[2018-09-02] MEDS: Erythromycin OPTH Oint RIGHT EYE SCH ×4 (08:20→22:12)
--- NOTE | 2018-09-02 10:34 | Cardiology Progress Note ---
Date of Encounter: 09/02/18 Time of Encounter: 10:00 Assessment and Plan (1) Atrial fibrillation Current Visit: Yes Status: Chronic Hx of PAF, has recently failed Rythmol. Hx of intolerance to BB-- ? hallucinations. Now on amiodarone and CCB. s/p successful DCCV on 09/01/18 to NSR; has remained in SR, frequent PACs noted. Avg HR=60. D/w Dr. Mendoza, will decrease Cardizem to 240 mg daily. Continue Amiodarone 200 mg daily. On Xarelto for AC, denies missed doses >30 days. No further inpt recommendations, Cardiology will sign-off. Qualifiers: Atrial fibrillation type: paroxysmal Qualified Code(s): I48.0 - Paroxysmal atrial fibrillation (2) Diastolic heart failure Current Visit: No Status: Acute Acute on chronic diastolic CHF, multiple recent admissions. Hx HFpEF. Now s/p successful DCCV on 09/01/18. Has been on IV lasix over the weekend, cumulative I&O: > -7 L; down ~9 kg from admission. Appears euvolemic upon exam. Mild bump in SCr this AM, will stop IV lasix and change to PO. Suspect high dietary Na contributing to exacerbations (meals on wheels). Na/fluid restricted diet discussed. Close outpatient follow-up with [facility] as scheduled. No further inpatient recommendations, will sign-off. Qualifiers: Heart failure chronicity: acute on chronic Qualified Code(s): I50.33 - Acute on chronic diastolic (congestive) heart failure Discussion w patient/family: The assessment and plan as outlined above was discussed with the patient and/or family members who expressed understanding and agreement. All questions were answered. Thank you for involving us in the care of your patient. Please call with any questions. The patient will be discussed and reviewed with Dr. Mendoza; changes to be made accordingly. Subjective Principal diagnosis: Afib, dCHF Interval history: Seen and examined. No CV complaints upon exam today, reports is sleepy. C/o that she is "itchy" all over. No chest pain/discomfort, palpitations, or dyspnea reported. Objective Vital Signs, Last 4 Hours Temp Pulse Resp BP Pulse Ox 09/02/18 08:20 92 09/02/18 07:25 98.4 F 59 14 116/65 92 General: Conversant, No Apparent Distress, Other (frail, elderly) HEENT: Atraumatic, Normocephaly, Mucus Membranes Moist Cardiac: Reg Rate and Rhythm, Normal S1 and S2 Lungs: Normal Breath Sounds Neuro: Alert and responsive Abdomen: Soft Skin: No rashes noted on visualized skin Musculoskeletal: No Chest Wall Tenderness Extremities: Normal Pulses, Other (mild, non-pitting BLE edema) Results 09/02/18 04:06 09/02/18 04:06 Lab Results 09/02/18 09/02/18 04:06 04:06 WBC 6.2 Hgb 8.7 L Hct 25.7 L Plt Count 264 Sodium 140 Potassium 4.4 Chloride 98 Carbon Dioxide 37 H BUN 44 H Creatinine 1.66 H Glucose 96 Calcium 9.3 Magnesium 1.8 Active Medications Acetaminophen (Tylenol) 650 mg PO Q6HR PRN PRN Reason: Mild Pain/Fever Stop: 02/28/19 18:53 Last Admin: 08/30/18 21:14 Dose: 650 mg Al Hydrox/Mg Hydrox/Simethicone (Maalox) 30 ml PO Q6HR PRN; Protocol PRN Reason: Indigestion Stop: 03/02/19 13:43 Allopurinol (Zyloprim) 100 mg PO DAILY [facility] Stop: 03/01/19 09:01 Last Admin: 09/02/18 08:18 Dose: 100 mg Amiodarone HCl (Cordarone) 200 mg PO DAILY [facility] Stop: 02/28/19 23:46 Last Admin: 09/02/18 08:18 Dose: 200 mg Artificial Tears (Akwa Tears) 1 drop RIGHT EYE QID [facility]; Protocol Stop: 03/01/19 09:01 Last Admin: 09/02/18 08:19 Dose: Not Given Diltiazem HCl (Cardizem Cd) 180 mg PO BID [facility] Stop: 02/28/19 21:01 Last Admin: 09/02/18 08:18 Dose: 180 mg Docusate Sodium (Colace) 100 mg PO DAILY [facility]; Protocol Stop: 03/01/19 09:01 Last Admin: 09/02/18 08:18 Dose: 100 mg Erythromycin (Erythromycin Opth Oint) 1 appl RIGHT EYE QID [facility] Stop: 03/01/19 09:01 Last Admin: 09/02/18 08:20 Dose: 1 appl Famotidine (Pepcid) 20 mg PO DAILY [facility] Stop: 02/28/19 21:01 Last Admin: 09/02/18 08:18 Dose: 20 mg Fenofibrate (Tricor) 162 mg PO DAILY [facility]; Protocol Stop: 03/02/19 09:01 Last Admin: 09/02/18 08:18 Dose: 162 mg Furosemide (Lasix) 40 mg IVP BIDDIURETIC [facility] Stop: 02/28/19 21:01 Last Admin: 09/02/18 08:19 Dose: 40 mg Isosorbide Mononitrate (Imdur) 60 mg PO DAILY [facility] Stop: 03/01/19 09:01 Last Admin: 09/02/18 08:18 Dose: 60 mg Naloxone HCl (Narcan) 0.4 mg IVP Q2MIN PRN PRN Reason: SEE COMMENTS Stop: 02/28/19 18:39 Omeprazole (Prilosec) 20 mg PO DAILY@0730 [facility] Stop: 03/01/19 07:31 Last Admin: 09/02/18 08:18 Dose: 20 mg Ondansetron HCl (Zofran) 4 mg IVP Q6HR PRN; Protocol PRN Reason: Nausea Stop: 03/03/19 09:11 Last Admin: 09/01/18 09:24 Dose: 4 mg Pyridostigmine [place] (Mestinon) 60 mg PO BID [facility] Stop: 02/28/19 21:01 Last Admin: 09/02/18 08:18 Dose: 60 mg Rivaroxaban (Xarelto) 15 mg PO HS [facility] Stop: 02/28/19 23:31 Last Admin: 09/01/18 22:32 Dose: 15 mg - Imaging and Cardiology Other Results: 12 hour tele: avg HR=60 SR. Frequent PACs - EKG Interpretation EKG results cardiology: personally reviewed Consult Discharge Plan - Plan Referrals: Alfie Tyson CNP [Advanced Practice Nurse] - 09/19/18 10:30 am Hayden Yoder DO [Partnered Physician] - 09/10/18 2:55 pm
--- NOTE | 2018-09-02 17:30 | Electrocardiograph Report ---
[address] [place], [place] [address] Test Date: 2018-09-01 Pat Name: Tori Castaneda Department: 113 Room: 3B24 Gender: F [employer]: : [id number] Requested By: Vania Foster Order Number: [id number] Reading MD: Christine Renae Measurements Intervals [place] Rate: 94 P: HI: 0 QRS: 6 QRSD: 92 T: 37 QT: 386 QTc: 437 Interpretive Statements ATRIAL FIBRILLATION LOW QRS VOLTAGE IN PRECORDIAL LEADS MINIMAL ST DEPRESSION ABNORMAL RHYTHM ECG Electronically Signed On 09-02-2018 17:28:48 EST by Christine Renae
[2018-09-02] MEDS: *HR* Rivaroxaban 15 MG TABLET PO SCH (22:13)
[2018-09-03 05:04] LABS: Basophils % 0.2 %; Eosinophils # 0.4 K/mcL (0.0-0.6); Eosinophils % 4.2 %; Hematocrit 24.1 % (35.3-44.9); Hemoglobin 8.1 g/dL (11.5-15.4); Immature Granulocytes % 0.2 % (0-4); Lymphocytes # 3.7 K/mcL (0.6-4.6); Lymphocytes % 42.7 %; Mean Corpuscular HGB Conc 33.6 g/dL (31.6-35.5); Mean Corpuscular Hemoglobin 38.4 pg (28.0-33.3); Mean Corpuscular Volume 114.2 fL (83.0-100.0); Mean Platelet Volume 10.3 fL (9.4-12.4); Monocytes % 13.3 %; Neutrophils # 3.4 K/mcL (1.6-8.9); Platelet Count 239 K/mcL (140-400); Red Blood Count 2.11 M/mcL (3.82-4.97); Red Cell Distribution Width 15.9 % (11.5-14.5); Segmented Neutrophils % 39.4 %
[2018-09-03 05:10] LABS: Monocytes # 1.1 K/mcL (0.0-1.3)
[2018-09-03 05:23] LABS: Calcium 9.3 mg/dL (8.6-10.3); Potassium 4.6 mEq/L (3.5-5.1)
[2018-09-03 05:27] LABS: Anisocytosis 1+ (Not Present); Macrocytosis Present (Not Present); Platelet Estimate Normal (Normal)
[2018-09-03] MEDS: Artificial Tears SOLN 15 ML BOTTLE RIGHT EYE SCH ×3 (08:16→17:01)
[2018-09-03] MEDS: *HR* Amiodarone 200 MG TABLET PO SCH (08:18)
[2018-09-03] MEDS: Famotidine 20 MG TABLET PO SCH (08:18)
[2018-09-03] MEDS: Pyridostigmine Br 60 MG TABLET PO SCH (08:18)
[2018-09-03] MEDS: Fenofibrate 54 MG TABLET PO SCH (08:18)
[2018-09-03] MEDS: Erythromycin OPTH Oint RIGHT EYE SCH ×3 (08:18→17:02)
[2018-09-03] MEDS: Isosorbide MONOnitrate (24 HR) 60 MG TAB.ER.24H PO SCH (08:18)
[2018-09-03] MEDS ORDERED: Furosemide 40 MG TABLET PO SCH (09:00)
[2018-09-03] MEDS ORDERED: Diltiazem CD (24hr) 240 MG CAPSULE PO SCH (09:00)
--- NOTE | 2018-09-03 09:53 | Discharge Summary ---
<Greg Hameed - Last Filed: 09/03/18 14:06> - NOTES TO OUTPATIENT PROVIDER Notes to Outpatient Provider: Patient was hospitalized here due to rapid atrial fibrillation and congestive heart failure. She was evaluated by cardiology and recommended inpatient cardioversion. Patient underwent this procedure on 09/01. She is remaining in sinus rhythm since. She will continue to take the amiodarone and Cardizem and is on Xarelto for anticoagulation. Patient will be discharged to skilled rehabilitation once she has a bed available and is accepted there. Date of Encounter: 09/03/18 Time of Encounter: 09:10 - Discharge Diagnosis (1) Atrial fibrillation Priority: Primary Status: Chronic Qualifiers: Atrial fibrillation type: paroxysmal Qualified Code(s): I48.0 - Paroxysmal atrial fibrillation (2) Essential hypertension Priority: Secondary Status: Chronic (3) Hyperlipidemia Priority: Secondary Status: Chronic Qualifiers: Hyperlipidemia type: mixed hyperlipidemia Qualified Code(s): E78.2 - Mixed hyperlipidemia (4) Myasthenia gravis Priority: Secondary Status: Chronic (5) GERD (gastroesophageal reflux disease) Priority: Secondary Status: Chronic Qualifiers: Esophagitis presence: without esophagitis Qualified Code(s): K21.9 - Gastro-esophageal reflux disease without esophagitis (6) Acute on chronic diastolic CHF (congestive heart failure) Priority: Secondary Status: Acute (7) Anemia Priority: Secondary Status: Chronic Qualifiers: Anemia type: other cause Other causes of anemia: chronic disease, other Qualified Code(s): D63.8 - Anemia in other chronic diseases classified elsewhere (8) CKD (chronic kidney disease) stage 3, GFR 30-59 ml/min Priority: Secondary Status: Chronic (9) Scleral hemorrhage of right eye Priority: Secondary Status: Acute (10) Severe protein-calorie malnutrition Status: Chronic Hospital course: Ms. Castaneda is a 82 year old female Discharge discussed with: patient - Time Spent with Patient Total time spent providing and/or coordinating discharge services: Less than 30 minutes (15 min) - Discharge Medications Prescriptions: Ondansetron [Zofran] 4 mg IVP Q6HR PRN #12 vial PRN Reason: Nausea Diltiazem CD (24hr) [Cardizem CD] 240 mg PO DAILY #30 cap.er.24h Furosemide [Lasix] 40 mg PO DAILY #30 tablet Home Medications: Allopurinol [Zyloprim 100 MG] 100 mg PO DAILY 02/18/17 [History] Docusate [Colace] 100 mg PO DAILY 02/18/17 [History] Multivit-Min/Iron/Folic/Lutein [Centrum Silver Women Tablet] 1 tab PO DAILY 02/18/17 [History] Polyethylene Glycol 3350 [MiraLAX bowel prep] 17 gm PO DAILY PRN 02/18/17 [History] Pyridostigmine Br [Mestinon] 60 mg PO BID 02/18/17 [History] Cholecalciferol (D-3) [Vitamin D] 5,000 unit PO QAM 05/23/18 [History] Acetaminophen [Tylenol] 650 mg PO Q6HR PRN tablet 06/23/18 [Rx] Isosorbide MONOnitrate (24 HR) [Imdur] 60 mg PO DAILY #40 tab.er.24h 07/10/18 [Rx] Pantoprazole Sodium [Protonix] 40 mg PO DAILY #40 tablet.dr 07/10/18 [Rx] Rivaroxaban [Xarelto] 15 mg PO DAILY #40 tablet 07/10/18 [Rx] raNITIdine HCl [Zantac] 150 mg PO BID #70 tablet 07/10/18 [Rx] Amiodarone [Cordarone] 200 mg PO DAILY #30 tablet 08/18/18 [Rx] Erythromycin OPTH Oint 1 applic RIGHT EYE QID 08/29/18 [History] Fenofibrate Nanocrystallized [Fenofibrate] 160 mg PO DAILY 08/29/18 [History] Diltiazem CD (24hr) [Cardizem CD] 240 mg PO DAILY #30 cap.er.24h 09/03/18 [Rx] Furosemide [Lasix] 40 mg PO DAILY #30 tablet 09/03/18 [Rx] Ondansetron [Zofran] 4 mg IVP Q6HR PRN #12 vial 09/03/18 [Rx] Allergies/Adverse Reactions: Allergy/AdvReac Type Severity Reaction Status Date / Time prednisone AdvReac Palpitation Verified 05/23/18 18:11 s Uqvasan-Ojy-Hhn Reductase AdvReac Weakness Verified 05/23/18 18:11 Inhibitor [Statins] Date of admission: 08/29/18 16:47 Primary care physician: PCP NONE Consults: 08/30/18 00:34 Consult to Cardiology [CONS] Routine Comment: consulted by ED Consulting Provider: Cardiology Edita Reason for Consult: CHF exacerbation, afib was seen outpt and sent for inpt cardioversion Call Completed: Yes Consult to Nurse Navigator [CONS] Routine Comment: CHF Consult to Electronics Recycler [CONS] Routine Reason for SW Consult: Home health is in place, ED SW requested for discharge planning 09/01/18 11:28 dietary consult [Consult to Nutrition] [CONS] Routine Comment: Consulting Provider: NUTRITION Reason for Dietary Consult: Diet Education PO Supplementation 09/01/18 16:21 Consult to Occupational Therapy [CONS] Routine Comment: Evaluate, develop and implement POC Reason for Consult: physical debilitation Does patient have active BEDREST order?: No Is patient medically & hemodynamically stable?: Yes Patient assessed for mobility or mobilized this visit?: No Consult to Physical Therapy [CONS] Routine Comment: Evaluate, develop and implement POC Reason for Consult: physical debilitation Does patient have active BEDREST order?: No Is patient medically & hemodynamically stable?: Yes Patient assessed for mobility or mobilized this visit?: No Discharging clinician: Greg Hameed Anticipated date of discharge: 09/03/18 - Constitutional Vitals: Temp Pulse Resp BP Pulse Ox 98.3 F 50 14 114/60 95 09/03/18 11:14 09/03/18 11:14 09/03/18 11:14 09/03/18 11:14 09/03/18 11:14 General appearance: Present: A&O X 3, pleasant, no acute distress, answers questions appropriately Exam: . - Respiratory Respiratory exam: Present: CTAB. Absent: accessory muscle use, rales, rhonchi, wheezes - Cardiovascular Cardiovascular exam: Present: RRR, +S1, +S2. Absent: diastolic murmur, gallop, rubs, systolic murmur - Patient Status Disposition: Home, Self-Care Condition: Good Functional capacity at discharge: wheelchair bound Overall status at discharge: patient is progressing back to baseline - Discharge Instructions Follow Up With: Alfie Tyson CNP [Advanced Practice Nurse] - 09/19/18 10:30 am Hayden Yoder DO [Partnered Physician] - 09/10/18 2:55 pm - Diet and Activity Diet: diabetic diet, low fat, low cholesterol, low salt diet - Attending Attestation I saw evaluated and examined this patient and my medical decision-making was reviewed with the Resident Physician, Carlos Morse. I agree with the documented findings, disposition and treatment plan as described except to any changes set forth below. We independently had [id number] contact with the patient. Patient was hospitalized here due to rapid atrial fibrillation and congestive heart failure. She was evaluated by cardiology and recommended inpatient cardioversion. Patient underwent this procedure on 09/01. She is remaining in sinus rhythm since. She will continue to take the amiodarone and Cardizem and is on Xarelto for anticoagulation. Patient will be discharged to skilled rehabilitation once she has a bed available and is accepted there. <Carlos Morse - Last Filed: 09/03/18 18:10> Orders not resulted at time of discharge: Pending orders 08/30/18 03:52 MMA (VIT B12 STATUS) AM 0400 09/01/18 12:38 ECG 12 lead ECG [ECG] Stat Date of Encounter: 09/03/18 Time of Encounter: 08:45 - Discharge Diagnosis (1) Atrial fibrillation Priority: Primary Status: Chronic Qualifiers: Atrial fibrillation type: paroxysmal Qualified Code(s): I48.0 - Paroxysmal atrial fibrillation (2) Acute on chronic diastolic CHF (congestive heart failure) Priority: Secondary Status: Acute (3) Essential hypertension Priority: Secondary Status: Chronic (4) Hyperlipidemia Priority: Secondary Status: Chronic Qualifiers: Hyperlipidemia type: mixed hyperlipidemia Qualified Code(s): E78.2 - Mixed hyperlipidemia (5) Myasthenia gravis Priority: Secondary Status: Chronic (6) GERD (gastroesophageal reflux disease) Priority: Secondary Status: Chronic Qualifiers: Esophagitis presence: without esophagitis Qualified Code(s): K21.9 - Gastro-esophageal reflux disease without esophagitis (7) Anemia Priority: Secondary Status: Chronic Qualifiers: Anemia type: other cause Other causes of anemia: chronic disease, other Qualified Code(s): D63.8 - Anemia in other chronic diseases classified elsewhere (8) CKD (chronic kidney disease) stage 3, GFR 30-59 ml/min Priority: Secondary Status: Chronic (9) Scleral hemorrhage of right eye Priority: Secondary Status: Acute (10) Severe protein-calorie malnutrition Priority: Secondary Status: Chronic Hospital course: Ms. Castaneda is a 82 year old female with a past medical history of difficult to control atrial fibrillation status post cardioversion 2 who was hospitalized due to atrial fibrillation and congestive heart failure. She was evaluated by cardiology who recommended inpatient cardioversion. Patient underwent successful cardioversion procedure on 09/01. She was instructed to take the Amiodarone, Cardizem 250 mg by mouth daily, and is on Xarelto for anticoagulation per cardiology recommendations. Lasix dose was increased to 40 mg daily. Patient complained of new onset urinary incontinence and urinalysis w as negative for UTI. She continued to complain of weakness and was evaluated with physical therapy/occupational therapy. Patient was discharged to skilled rehabilitation. Discharge discussed with: patient - Time Spent with Patient Total time spent providing and/or coordinating discharge services: Date of admission: 08/29/18 16:47 Primary care physician: PCP NONE Consults: 08/30/18 00:34 Consult to Cardiology [CONS] Routine Comment: consulted by ED Consulting Provider: Cardiology Edita Reason for Consult: CHF exacerbation, afib was seen outpt and sent for inpt cardioversion Call Completed: Yes Consult to Nurse Navigator [CONS] Routine Comment: CHF Consult to Electronics Recycler [CONS] Routine Reason for SW Consult: Home health is in place, ED SW requested for discharge planning 09/01/18 11:28 dietary consult [Consult to Nutrition] [CONS] Routine Comment: Consulting Provider: NUTRITION Reason for Dietary Consult: Diet Education PO Supplementation 09/01/18 16:21 Consult to Occupational Therapy [CONS] Routine Comment: Evaluate, develop and implement POC Reason for Consult: physical debilitation Does patient have active BEDREST order?: No Is patient medically & hemodynamically stable?: Yes Patient assessed for mobility or mobilized this visit?: No Consult to Physical Therapy [CONS] Routine Comment: Evaluate, develop and implement POC Reason for Consult: physical debilitation Does patient have active BEDREST order?: No Is patient medically & hemodynamically stable?: Yes Patient assessed for mobility or mobilized this visit?: No - Constitutional Vitals: Temp Pulse Resp BP Pulse Ox 97.5 F L 62 14 116/63 91 09/03/18 07:06 09/03/18 07:06 09/03/18 07:06 09/03/18 07:06 09/03/18 07:06 General appearance: Present: A&O X 3, pleasant, no acute distress, answers questions appropriately Exam: awake - Head Head exam: Present: atraumatic, normocephalic (Temporal wasting) - Eye Eye exam: Present: EOMI, PERRL, conjuntiva pink, sclera anicteric Pupils: Present: PERRL - ENT ENT exam: Present: mucous membranes moist, normal oropharynx - Neck Neck exam general surgery: Present: supple, trachea midline. Absent: lymphadenopathy - Respiratory Respiratory exam: Present: CTAB. Absent: accessory muscle use, rales, rhonchi, wheezes - Cardiovascular Cardiovascular exam: Present: RRR, +S1, +S2. Absent: diastolic murmur, gallop, rubs, systolic murmur - GI/Abdominal GI/Abdominal exam: Present: normal bowel sounds, soft, no peritoneal signs. Absent: distended, tenderness - Extremities Exam Extremities exam: Present: warm, radial pulses palpable and symmetrical. Absent: calf tenderness, cyanotic, pedal edema - Back Exam Back exam: Absent: normal inspection (Loss of subcutaneous fat), paraspinal tenderness, tenderness - Neurological Exam Neurological exam: Present: alert, CN II-XII intact, oriented X3, no focal deficits. Absent: facial droop, speech deficit Additional comments: Chronically deconditioned - Psychiatric Psychiatric exam: Present: anxious, normal affect - Skin Skin exam: Present: dry, intact - Patient Status Functional capacity at discharge: wheelchair bound Overall status at discharge: patient is progressing back to baseline - Diet and Activity Activity: as per physical therapy, increase activity as tolerated, resume usual activities as tolerated Diet: diabetic diet, low fat, low cholesterol, low salt diet Addendum entered and electronically signed by Carlos Morse DO 09/03/18 18:44: I called [facility] [phone] and corrected Zofran Rx to PO not IV dosing. Ondansetron [Zofran] 4 mg PO Q6HR PRN #12 vial PRN Reason: Nausea
--- NOTE | 2018-09-03 09:56 | Physician Discharge Referral ---
ExtendedCare Referral Info Transfer To: [facility] Provider in Charge: Dr. Hameed Provider in Charge after Transfer: PCP Institutional Level of Care: Skilled - Diagnosis (1) Acute on chronic diastolic CHF (congestive heart failure) Priority: Primary Status: Acute (2) Atrial fibrillation Priority: Secondary Status: Chronic (3) Essential hypertension Priority: Secondary Status: Chronic (4) Hyperlipidemia Priority: Secondary Status: Chronic (5) Myasthenia gravis Priority: Secondary Status: Chronic (6) GERD (gastroesophageal reflux disease) Priority: Secondary Status: Chronic (7) Anemia Priority: Secondary Status: Chronic (8) CKD (chronic kidney disease) stage 3, GFR 30-59 ml/min Priority: Secondary Status: Chronic (9) Scleral hemorrhage of right eye Priority: Secondary Status: Acute (10) Severe protein-calorie malnutrition Priority: Secondary Status: Chronic Prognosis: Good Aware of Diagnosis: Patient - Transfer Medications Home Medications: Allopurinol [Zyloprim 100 MG] 100 mg PO DAILY 02/18/17 [History] Docusate [Colace] 100 mg PO DAILY 02/18/17 [History] Multivit-Min/Iron/Folic/Lutein [Centrum Silver Women Tablet] 1 tab PO DAILY 02/18/17 [History] Polyethylene Glycol 3350 [MiraLAX bowel prep] 17 gm PO DAILY PRN 02/18/17 [History] Pyridostigmine Br [Mestinon] 60 mg PO BID 02/18/17 [History] Cholecalciferol (D-3) [Vitamin D] 5,000 unit PO QAM 05/23/18 [History] Acetaminophen [Tylenol] 650 mg PO Q6HR PRN tablet 06/23/18 [Rx] Furosemide [Lasix] 20 mg PO DAILY #40 tablet 07/10/18 [Rx] Isosorbide MONOnitrate (24 HR) [Imdur] 60 mg PO DAILY #40 tab.er.24h 07/10/18 [Rx] Pantoprazole Sodium [Protonix] 40 mg PO DAILY #40 tablet. 07/10/18 [Rx] Rivaroxaban [Xarelto] 15 mg PO DAILY #40 tablet 07/10/18 [Rx] raNITIdine HCl [Zantac] 150 mg PO BID #70 tablet 07/10/18 [Rx] Amiodarone [Cordarone] 200 mg PO DAILY #30 tablet 08/18/18 [Rx] Diltiazem CD (24hr) [Cardizem CD] 180 mg PO BID #60 cap.er.24h 08/18/18 [Rx] Erythromycin OPTH Oint 1 applic RIGHT EYE QID 08/29/18 [History] Fenofibrate Nanocrystallized [Fenofibrate] 160 mg PO DAILY 08/29/18 [History] Allergies/Adverse Reactions: Allergy/AdvReac Type Severity Reaction Status Date / Time prednisone AdvReac Palpitation Verified 05/23/18 18:11 s Amwhytl-Gmr-Poq Reductase AdvReac Weakness Verified 05/23/18 18:11 Inhibitor [Statins] - Respiratory Orders Smoking Cessation: Smoking cessation has been advised. For more information, call the [employer] Quit Line at 4-762-YXBG-NOW. - Ancillary Orders May use pressure relief devices daily prn - Advance Directives Code Status: Full Code - Mobility Orders Ambulate - Rehabiliation Orders Rehab Potential: Good Rehab Orders: ROM Exercises, Evaluation for Physical Therapy, Evaluation for Occupational Therapy - Treatments Skin tear care topically daily PRN per policy, May check for fecal impaction rectally daily PRN, Fleet enema rectally every other day PRN cleansing purposes - Diet Orders Cardiac CERTIFICATION: I certify that the transfer of the above named patient to an Extended Care Facility is necessary for the continuing treatment of the diagnosis listed. The above information is true and accurate reflection of patient's current condition. Confidential - Redisclosure prohibited without a patient's written consent.
[2018-09-03 11:15] VITALS: BP 114/60
--- NOTE | 2018-09-03 14:04 | Electrocardiograph Report ---
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
[2018-09-03 16:44] LABS: Bilirubin,Urine Negative (Negative); Blood,Urine Negative (Negative); Clarity,Urine Clear (Clear); Color,Urine Yellow (Yellow); Glucose,Urine (UA) Normal (Normal); Ketones,Urine Negative (Negative); Leukocyte Esterase,Urine Negative (Negative); Nitrite,Urine Negative (Negative); PH,Urine 5.5 pH Units (5.0-8.0); Protein,Urine Negative (Neg-Trace); Specific Gravity,Urine 1.013 (1.010-1.025); Urobilinogen,Urine Normal (Normal)
== END 2018-09-03 18:33 | disposition home or self-care (01) | DRG 291 ==
LOC: EMEROOARM 14:44 → 3BNU 14:44 → SUATTDRO 16:38 → 3BNU 17:42
PROVIDERS: ADMIT Internal Medicine; ATTEND Internal Medicine